=== PATIENT | female | born 1985 | race Caucasian/White ===

== ENCOUNTER 2023-08-18 20:35 | Emergency (ER) | payer BC, OTHER ==
[2023-08-18] MEDS ORDERED: Zofran 4 MG/2 ML VIAL IV ONE (21:11)
[2023-08-18] MEDS ORDERED: Sodium Chloride 0.9% 1000 ML 1,000 ML IV STA (21:11)
[2023-08-18] MEDS ORDERED: TYLENOL 325 MG PO ONE (21:11)
[2023-08-18] MEDS ORDERED: MORPHINE SULFATE 4 MG INJ IV ONE ×2 (21:11→23:04)
[2023-08-18 21:19] VITALS: TEMP 98.7
[2023-08-18] MEDS ORDERED: MORPHINE SULFATE 4 MG INJ ONE ×2 (21:26→23:11)
[2023-08-18] MEDS ORDERED: Sodium Chloride 0.9% 1000 ML 1,000 ML ONE ×2 (21:26→23:47)
[2023-08-18] MEDS ORDERED: TYLENOL 325 MG ONE ×2 (21:26→21:39)
[2023-08-18] MEDS ORDERED: Zofran 4 MG/2 ML VIAL ONE (21:26)
--- NOTE | 2023-08-18 21:32 | ERPHSYRPT ---
- History of Present Illness Time Seen by Provider: 08/18/23 20:37 Source: patient Exam Limitations: no limitations Patient Subjective Stated Complaint: pt states she has had an undefine fever with chills for the last 4 days that are accompanied with generalized constant b [place] aches with increased pain to left neck and left shoulder ("where my lymph nodes are swollen"). pain is rated 5/10 and she hasn't taken anything at home for her symptoms "because I am on eliquis". Triage Nursing Assessment: pt ambulated to room 9 independently with slow steady gait after standing on scale for weight acquisition (documented weight in kg is including an ortho tall walking boot to left foot/ ankle which pt states is due to having a chip fracture in talus bone that she is supposed to have MRI for). pt denies cp, sob, difficulty breathing, n/v, diarrhea, change in appetite, difficulty with urination (with exception of "junk and pus in neph tube", diffi culty with bowel elimination. pt is with resp even and unlabored. is alert and oriented times three, able to speak in complete sentences, and able to move all extremities (left ankle impaired due to boot). pt removed boot upon lying down in ED cot. skin warm, dry, pale, and intact. Physician History: 38-year-old female with a history of stage III cervical cancer status post chemoradiation, pulmonary embolism on Eliquis, ureteric mechanical obstruction status post nephrostomy tubes placement bilateral recently, taken out from the right and currently having 1 on the left presented in the ER with chief complaint of generalized body aches fatigue tiredness, subjective feeling of fever and chills for the last 4 days. Patient reports she has cloudy urine output from left nephrostomy tube lately. Has had similar symptoms in the past with sepsis. Patient is tachycardic but denies any chest pain palpitations or shortness of breath. Does have mild lower abdominal discomfort. Allergies/Adverse Reactions: ketamine Allergy (Intermediate, Verified 08/18/23 21:23) hallucinations metformin Allergy (Intermediate, Verified 08/18/23 21:24) hallucinations sulfamethoxazole [From Bactrim] Allergy (Intermediate, Verified 08/18/23 20:42) Hives trimethoprim [From Bactrim] Allergy (Intermediate, Verified 08/18/23 20:42) Hives Home Medications: Apixaban [Eliquis] 5 mg PO BID 08/18/23 [History] Ferrous Sulfate 325 mg [Feosol 325 mg] 325 mg PO HS 08/18/23 [History] Quetiapine Fumarate [Seroquel] 50 mg PO HS 08/18/23 [History] Hx Tetanus, Diphtheria Vaccination/Date Given: No Hx Influenza Vaccination/Date Given: No Hx Pneumococcal Vaccination/Date Given: No Immunizations Up to Date: No Travel Risk - International Travel Have you traveled outside of the country in past 3 weeks: No - Coronavirus Screening Are you exhibiting any of the following symptoms?: No Close contact with a COVID-19 positive Pt in past 14-21 Days: No - Vaccine Status Have you recieved a Covid-19 vaccination: No - Review of Systems Constitutional: Fever, Chills, Fatigue, Weakness Eyes: No Symptoms Ears, Nose, & Throat: No Symptoms Respiratory: No Symptoms Cardiac: No Symptoms Abdominal/Gastrointestinal: No Symptoms Musculoskeletal: Myalgias Skin: No Symptoms Neurological: No Symptoms, Sensory Changes Endocrine: No Symptoms Hematologic/Lymphatic: No Symptoms - Past Medical History Pertinent Past Medical History: Yes Neurological History: No Pertinent History ENT History: No Pertinent History Cardiac History: No Pertinent History Respiratory History: Pulmonary Embolism Endocrine Medical History: Other Musculoskeletal History: Fractures GI Medical History: No Pertinent History History: Other Psycho-Social History: Anxiety, Depression, Panic Disorder, Other Female Reproductive Disorders: Cervical Cancer Other Medical History: PTSD- talk to before touch when asleep. cervical ca stage 3C2 in surveillance stage- finished treatment in 04/05/23. left talus chip fx. hypertriglyceridemia. left sided neph tube. "fluoro gut". had right sided neph tube removed in Jun. 9cm tumor impeded flow requiring neph tubes. - Past Surgical History Past Surgical History: Yes Neuro Surgical History: No Pertinent History Cardiac: No Pertinent History Respiratory: No Pertinent History Gastrointestinal: No Pertinent History Genitourinary: No Pertinent History Musculoskeletal: No Pertinent History Female Surgical History: Tubal Ligation, Other Other Surgical History: bilat neph tube. sinus surgery. cervical tumor biopsy - Social History Smoking Status: Current every day smoker How long have you smoked: 15yo Exposure to second hand smoke: Yes Drug Use: none Patient Lives Alone: No - Female History Hx Last Menstrual Period: Aug 26 Hx Now: (unkn) - Nursing Vital Signs Nursing Vital Signs: Initial Vital Signs Temperature 98.7 F 08/18/23 20:44 Pulse Rate 128 H 08/18/23 20:44 Respiratory Rate 16 08/18/23 20:44 Blood Pressure 155/99 08/18/23 20:44 O2 Sat by Pulse Oximetry 100 08/18/23 20:44 Pain Scale Pain Intensity 5 - Physical Exam General Appearance: no apparent distress, alert Eye Exam: PERRL/EOMI Ears, Nose, Throat Exam: normal ENT inspection Neck Exam: normal inspection, non-tender, supple, full range of motion Respiratory Exam: normal breath sounds, lungs clear Cardiovascular Exam: normal heart sounds, tachycardia Gastrointestinal/Abdomen Exam: soft, normal bowel sounds, other (Left nephrostomy tube in place with cloudy urine), No tenderness Extremity Exam: normal inspection, normal range of motion Neurologic Exam: alert, oriented x 3, cooperative Skin Exam: normal color SpO2 Interpretation: normal SpO2: 98 O2 Delivery: Room Air Ordered Tests: Active Orders 24 hr Category Date Time Status IV Insertion STAT Care 08/18/23 21:11 Completed ABDOMEN AND PELVIS W/0 CONTRAS [CT] Stat Exams 08/18/23 21:12 Completed CHEST WITHOUT CONTRAST [CT] Stat Exams 08/18/23 21:14 Completed BLOOD CULTURE Stat Lab 08/18/23 21:12 Received CBC W DIFF Stat Lab 08/18/23 21:45 Completed CMP Stat Lab 08/18/23 21:45 Completed CULTURE,URINE Stat Lab 08/18/23 21:43 Received LIPASE Stat Lab 08/18/23 21:45 Completed Lactic Acid Stat Lab 08/18/23 21:40 Completed Lactic Acid Stat Lab 08/18/23 23:48 Completed MAGNESIUM Stat Lab 08/18/23 21:45 Completed POCT GLUCOSE Stat Lab 08/18/23 23:41 Completed TROPONIN Q3H Lab 08/18/23 21:45 Completed TROPONIN Q3H Lab 08/19/23 00:41 Completed UA W/RFX UR CULTURE Stat Lab 08/18/23 21:43 Completed Medication Summary Discontinued Medications Generic Name Dose Route Start Last Admin Trade Name Freq PRN Reason Stop Dose Admin Acetaminophen 975 mg 08/18/23 21:11 08/18/23 21:27 Acetaminophen 325 Mg Tablet PO 08/18/23 21:12 975 mg STAT ONE Administration Acetaminophen Confirm 08/18/23 21:26 Acetaminophen 325 Mg Tablet Administered 08/18/23 21:27 Dose 975 mg .ROUTE .STK-MED ONE Acetaminophen Confirm 08/18/23 21:39 Acetaminophen 325 Mg Tablet Administered 08/18/23 21:40 Dose 975 mg .ROUTE .STK-MED ONE Sodium Chloride 1,000 mls @ 999 mls/hr 08/18/23 21:11 08/18/23 22:43 Sodium Chloride 0.9% 1000 Ml IV 08/18/23 22:11 Infused .Q1H1M STA Infusion Sodium Chloride Confirm 08/18/23 21:26 Sodium Chloride 0.9% 1000 Ml Administered 08/18/23 21:27 Dose 1,000 mls @ ud .ROUTE .STK-MED ONE Ceftriaxone Sodium/Dextrose 2 g in 50 mls @ 100 mls/hr 08/18/23 22:32 08/18/23 23:19 Rocephin 2 Gm-D5w 50ml Bag IV 08/18/23 23:01 Infused STAT STA Infusion Ceftriaxone Sodium/Dextrose Confirm 08/18/23 22:36 Rocephin 2 Gm-D5w 50ml Bag Administered 08/18/23 22:37 Dose 2 g in 50 mls @ ud IV .STK-MED ONE Sodium Chloride 1,000 mls @ 125 mls/hr 08/18/23 23:45 08/19/23 06:10 Sodium Chloride 0.9% 1000 Ml IV 09/17/23 23:44 0 mls/hr .Q8H MIR[place]LE Infusion Sodium Chloride Confirm 08/18/23 23:47 Sodium Chloride 0.9% 1000 Ml Administered 08/18/23 23:48 Dose 1,000 mls @ ud .ROUTE .STK-MED ONE Insulin Human Lispro 4 unit 08/18/23 23:49 08/18/23 23:50 Insulin Lispro 1 Unit SQ 08/18/23 23:50 4 unit STAT ONE Administration Insulin Human Lispro Confirm 08/18/23 23:46 Insulin Lispro 1 Unit Administered 08/18/23 23:47 Dose 4 unit .ROUTE .STK-MED ONE Morphine Sulfate 4 mg 08/18/23 21:11 08/18/23 21:28 Morphine Sulfate 4 Mg/Ml Injection IV 08/18/23 21:12 4 mg STAT ONE Administration Morphine Sulfate Confirm 08/18/23 21:26 Morphine Sulfate 4 Mg/Ml Injection Administered 08/18/23 21:27 Dose 4 mg .ROUTE .STK-MED ONE Morphine Sulfate 4 mg 08/18/23 23:04 08/18/23 23:12 Morphine Sulfate 4 Mg/Ml Injection IV 08/18/23 23:05 4 mg STAT ONE Administration Morphine Sulfate Confirm 08/18/23 23:11 Morphine Sulfate 4 Mg/Ml Injection Administered 08/18/23 23:12 Dose 4 mg .ROUTE .STK-MED ONE Ondansetron HCl 4 mg 08/18/23 21:11 08/18/23 21:28 Ondansetron Hcl 4 Mg/2 Ml Vial IV 08/18/23 21:12 4 mg STAT ONE Administration Ondansetron HCl Confirm 08/18/23 21:26 Ondansetron Hcl 4 Mg/2 Ml Vial Administered 08/18/23 21:27 Dose 4 mg .ROUTE .STK-MED ONE Lab/Rad Data: Laboratory Result Diagrams 08/18/23 21:45 08/18/23 21:45 Laboratory Results 08/19/23 08/18/23 08/18/23 Range/Units 00:41 23:48 23:41 WBC (4.0-10.5) x10^3/uL RBC (4.1-5.4) x10^6/uL Hgb (12.0-16.0) g/dL Hct (35-47) % MCV (78-100) fL MCH (26-32) pg MCHC (32-36) g/dL RDW (11.5-14.0) % Plt Count (150-450) x10^3/uL MPV (7.5-11.0) fL Gran % (36.0-66.0) % Immature Gran % (Auto) (0.00-0.4) % Nucleat RBC Rel Count (0.00-0.1) % Eos # (Auto) (0-0.5) x10^3/uL Immature Gran # (Auto) (0.00-0.03) x10^3u/L Absolute Lymphs (auto) (1.0-4.6) x10^3/uL Absolute Monos (auto) (0.0-1.3) x10^3/uL Absolute Nucleated RBC (0.00-0.01) x10^3u/L Lymphocytes % (24.0-44.0) % Monocytes % (0.0-12.0) % Eosinophils % (0.00-5.0) % Basophils % (0.0-0.4) % Absolute Granulocytes (1.4-6.9) x10^3/uL Basophils # (0-0.4) x10^3/uL Sodium (137-145) mmol/L Potassium (3.5-5.1) mmol/L Chloride (98-107) mmol/L Carbon Dioxide (22-30) mmol/L Anion Gap (5-15) MEQ/L BUN (7-17) mg/dL Creatinine (0.52-1.04) mg/dL Estimated GFR ML/MIN Glucose (74-106) mg/dL POC Glucometer 249 H (74 to 106) mg/dL Lactic Acid 1.4 (0.4-2.0) Calcium (8.4-10.2) mg/dL Magnesium (1.6-2.3) mg/dL Total Bilirubin (0.2-1.3) mg/dL AST (14-36) U/L ALT (0-35) U/L Alkaline Phosphatase (38-126) U/L Troponin I < 0.012 (0.000-0.034) ng/mL Serum Total Protein (6.3-8.2) g/dL Albumin (3.5-5.0) g/dL Lipase (23-300) U/L Urine Color (Yellow) Urine Appearance (Clear) Urine pH (4.6-8.0) Ur Specific [place] (1.005-1.030) Urine Protein (Negative) Urine Glucose (UA) (Negative) mg/dL Urine Ketones (Negative) Urine Blood (Negative) Urine Nitrite (Negative) Urine Bilirubin (Negative) Urine Urobilinogen (0.2) mg/dL Ur Leukocyte Esterase (Negative) U Hyaline Cast (Auto) (0-2) /LPF Urine Microscopic RBC (0-5) /HPF Urine Microscopic WBC (0-5) /HPF Ur Epithelial Cells (None Seen) /HPF Urine Bacteria (None Seen) /HPF Urine Culture Reflexed (NO) Influenza Type A Ag (NEGATIVE) Influenza Type B Ag (NEGATIVE) RSV (PCR) (NEGATIVE) SARS-CoV-2 (PCR) (NEGATIVE) 08/18/23 08/18/23 08/18/23 Range/Units 21:45 21:45 21:45 WBC (4.0-10.5) x10^3/uL RBC (4.1-5.4) x10^6/uL Hgb (12.0-16.0) g/dL Hct (35-47) % MCV (78-100) fL MCH (26-32) pg MCHC (32-36) g/dL RDW (11.5-14.0) % Plt Count (150-450) x10^3/uL MPV (7.5-11.0) fL Gran % (36.0-66.0) % Immature Gran % (Auto) (0.00-0.4) % Nucleat RBC Rel Count (0.00-0.1) % Eos # (Auto) (0-0.5) x10^3/uL Immature Gran # (Auto) (0.00-0.03) x10^3u/L Absolute Lymphs (auto) (1.0-4.6) x10^3/uL Absolute Monos (auto) (0.0-1.3) x10^3/uL Absolute Nucleated RBC (0.00-0.01) x10^3u/L Lymphocytes % (24.0-44.0) % Monocytes % (0.0-12.0) % Eosinophils % (0.00-5.0) % Basophils % (0.0-0.4) % Absolute Granulocytes (1.4-6.9) x10^3/uL Basophils # (0-0.4) x10^3/uL Sodium 134 L (137-145) mmol/L Potassium 4.5 (3.5-5.1) mmol/L Chloride 99 (98-107) mmol/L Carbon Dioxide 24 (22-30) mmol/L Anion Gap 16.0 H (5-15) MEQ/L BUN 20 H (7-17) mg/dL Creatinine 0.79 (0.52-1.04) mg/dL Estimated GFR > 60.0 ML/MIN Glucose 350 H (74-106) mg/dL POC Glucometer (74 to 106) mg/dL Lactic Acid (0.4-2.0) Calcium 10.0 (8.4-10.2) mg/dL Magnesium 1.7 (1.6-2.3) mg/dL Total Bilirubin 0.40 (0.2-1.3) mg/dL AST 20 (14-36) U/L ALT 20 (0-35) U/L Alkaline Phosphatase 137 H (38-126) U/L Troponin I < 0.012 (0.000-0.034) ng/mL Serum Total Protein 7.0 (6.3-8.2) g/dL Albumin 4.1 (3.5-5.0) g/dL Lipase 142 (23-300) U/L Urine Color (Yellow) Urine Appearance (Clear) Urine pH (4.6-8.0) Ur Specific [place] (1.005-1.030) Urine Protein (Negative) Urine Glucose (UA) (Negative) mg/dL Urine Ketones (Negative) Urine Blood (Negative) Urine Nitrite (Negative) Urine Bilirubin (Negative) Urine Urobilinogen (0.2) mg/dL Ur Leukocyte Esterase (Negative) U Hyaline Cast (Auto) (0-2) /LPF Urine Microscopic RBC (0-5) /HPF Urine Microscopic WBC (0-5) /HPF Ur Epithelial Cells (None Seen) /HPF Urine Bacteria (None Seen) /HPF Urine Culture Reflexed (NO) Influenza Type A Ag NEGATIVE (NEGATIVE) Influenza Type B Ag NEGATIVE (NEGATIVE) RSV (PCR) NEGATIVE (NEGATIVE) SARS-CoV-2 (PCR) NEGATIVE (NEGATIVE) 08/18/23 08/18/23 08/18/23 Range/Units 21:45 21:43 21:40 WBC 8.5 (4.0-10.5) x10^3/uL RBC 4.12 (4.1-5.4) x10^6/uL Hgb 11.3 L (12.0-16.0) g/dL Hct 34.7 L (35-47) % MCV 84.2 (78-100) fL MCH 27.4 (26-32) pg MCHC 32.6 (32-36) g/dL RDW 14.6 H (11.5-14.0) % Plt Count 352 (150-450) x10^3/uL MPV 9.1 (7.5-11.0) fL Gran % 79.4 H (36.0-66.0) % Immature Gran % (Auto) 0.6 H (0.00-0.4) % Nucleat RBC Rel Count 0.0 (0.00-0.1) % Eos # (Auto) 0.38 (0-0.5) x10^3/uL Immature Gran # (Auto) 0.05 H (0.00-0.03) x10^3u/L Absolute Lymphs (auto) 0.71 L (1.0-4.6) x10^3/uL Absolute Monos (auto) 0.56 (0.0-1.3) x10^3/uL Absolute Nucleated RBC 0.00 (0.00-0.01) x10^3u/L Lymphocytes % 8.4 L (24.0-44.0) % Monocytes % 6.6 (0.0-12.0) % Eosinophils % 4.5 (0.00-5.0) % Basophils % 0.5 (0.0-0.4) % Absolute Granulocytes 6.73 (1.4-6.9) x10^3/uL Basophils # 0.04 (0-0.4) x10^3/uL Sodium (137-145) mmol/L Potassium (3.5-5.1) mmol/L Chloride (98-107) mmol/L Carbon Dioxide (22-30) mmol/L Anion Gap (5-15) MEQ/L BUN (7-17) mg/dL Creatinine (0.52-1.04) mg/dL Estimated GFR ML/MIN Glucose (74-106) mg/dL POC Glucometer (74 to 106) mg/dL Lactic Acid 3.2 H (0.4-2.0) Calcium (8.4-10.2) mg/dL Magnesium (1.6-2.3) mg/dL Total Bilirubin (0.2-1.3) mg/dL AST (14-36) U/L ALT (0-35) U/L Alkaline Phosphatase (38-126) U/L Troponin I (0.000-0.034) ng/mL Serum Total Protein (6.3-8.2) g/dL Albumin (3.5-5.0) g/dL Lipase (23-300) U/L Urine Color Yellow (Yellow) Urine Appearance Cloudy A (Clear) Urine pH 7.0 (4.6-8.0) Ur Specific [place] 1.025 (1.005-1.030) Urine Protein 100 A (Negative) Urine Glucose (UA) >=1000 A (Negative) mg/dL Urine Ketones Negative (Negative) Urine Blood Small A (Negative) Urine Nitrite Positive A (Negative) Urine Bilirubin Negative (Negative) Urine Urobilinogen 0.2 (0.2) mg/dL Ur Leukocyte Esterase Moderate A (Negative) U Hyaline Cast (Auto) 3-5 A (0-2) /LPF Urine Microscopic RBC 6-10 A (0-5) /HPF Urine Microscopic WBC >100 A (0-5) /HPF Ur Epithelial Cells None Seen (None Seen) /HPF Urine Bacteria Many A (None Seen) /HPF Urine Culture Reflexed ORDERED SEPARATELY (NO) Influenza Type A Ag (NEGATIVE) Influenza Type B Ag (NEGATIVE) RSV (PCR) (NEGATIVE) SARS-CoV-2 (PCR) (NEGATIVE) - Progress Progress: improved Progress Note: 08/18/23 21:33 38-year-old female with a history of stage III cervical cancer status post chemoradiation, pulmonary embolism on Eliquis, ureteric mechanical obstruction status post nephrostomy tubes placement bilateral recently, taken out from the right and currently having 1 on the left presented in the ER with chief complaint of generalized body aches fatigue tiredness, subjective feeling of fever and chills for the last 4 days. Patient reports she has cloudy urine output from left nephrostomy tube lately. Has had similar symptoms in the past with sepsis. Patient is tachycardic but denies any chest pain palpitations or shortness of breath. Does have mild lower abdominal discomfort. 08/18/23 23:52 She is given fluids and symptomatic treatment, on reevaluation feeling better. Patient is afebrile and here. Work-up showed normal white count, normal renal functions but has a blood sugar of 350, will give her insulin. She does have UTI and given a dose of Rocephin in here. I have obtained CT chest abdomen pelvis without contrast which are negative for any acute intrathoracic/abdominal pelvic findings. I believe patient has urosepsis. She has nephrostomy tube on the left and would benefit with urology services which we do not have here. Patient has her last nephrostomy tube replacement done by Dr. White at [facility], I have called [facility] transfer center. Discussed with Dr. White, no IR services are available at [facility]. Patient will be transferred to [facility]. 08/19/23 00:[address] Ivan mclaughlin at [facility], reviewed history, work-up, agreed with transfer. I have discussed the results of work-up with patient and family, plan of transfer and she agreed with it. Counseled pt/family regarding: lab results, diagnosis, need for follow-up, rad results Medical Desision Making - Independent Historian Additional History obtained from: Spouse - Discussion of managment Care discussed with:: specialist (Dr. White urologist at [facility], Dr. Love hospitalist at [facility] [id number]) Reviewed:: Test results Agreed on:: Treatment plan Will see patient: in hospital (Dr. White urologist and Dr. Mclaughlin) - Diagnostic Testing Diagnostic test were ordered, analyzed, and reviewed by me: Yes Radiological Interpretation: Reviewed by me - Risk of complications The pt has a mod risk of morbidity or mortality based on: Need for minor surgical intervention in patient with know risk factors The pt has a high risk of morbidity or mortality based on: Decision regarding hospitilization or escalation of hosp level of care - Departure Departure Disposition: Transfer Clinical Impression: Sepsis secondary to UTI, Hyperglycemia Condition: Stable Critical Care Time: No Referrals: Provider,Unknown [Primary Care Provider] - Follow up/PCP as directed
[2023-08-18 21:54] LABS: Absolute Neutrophil Ct (ANC) 6.73 x10^3/uL (1.4-6.9); BASOPHIL % 0.5 % (0.0-0.4); Basophil (Absolute #) 0.04 x10^3/uL (0-0.4); Eosinophil % 4.5 % (0.00-5.0); Eosinophil (Absolute #) 0.38 x10^3/uL (0-0.5); Hematocrit 34.7 % (35-47); Hemoglobin 11.3 g/dL (12.0-16.0); IMMATURE GRAN # 0.05 x10^3u/L (0.00-0.03); IMMATURE GRAN % 0.6 % (0.00-0.4); Lymphocyte (Absolute #) 0.71 x10^3/uL (1.0-4.6); Lymphocytes % 8.4 % (24.0-44.0); Mean Cell Volume 84.2 fL (78-100); Mean Corpuscular Hemoglobin 27.4 pg (26-32); Mean Corpuscular Hgb Concent. 32.6 g/dL (32-36); Mean Platelet Volume 9.1 fL (7.5-11.0); Monocyte (Absolute #) 0.56 x10^3/uL (0.0-1.3); Monocytes % 6.6 % (0.0-12.0); Neutrophil % 79.4 % (36.0-66.0); Platelet Count 352 x10^3/uL (150-450); Red Blood Count 4.12 x10^6/uL (4.1-5.4); Red Cell Distribution Width 14.6 % (11.5-14.0); White Blood Count 8.5 x10^3/uL (4.0-10.5)
[2023-08-18 22:07] LABS: Appearance Cloudy (Clear); Bacteria Many /HPF (None Seen); Bilirubin Negative (Negative); Blood Small (Negative); Epithelial Cells None Seen /HPF (None Seen); Glucose, Urine >=1000 mg/dL (Negative); Ketones Negative (Negative); Leukocyte Esterase Moderate (Negative); Nitrite Positive (Negative); Protein,Urine Dip 100 (Negative); Specific Gravity 1.025 (1.005-1.030); Urobilinogen 0.2 mg/dL (0.2); WBC >100 /HPF (0-5)
[2023-08-18 22:08] LABS: ALBUMIN 4.1 g/dL (3.5-5.0); ALKALINE PHOSPHATASE 137 U/L (38-126); BLOOD UREA NITROGEN 20 mg/dL (7-17); CHLORIDE 99 mmol/L (98-107); Carbon Dioxide 24 mmol/L (22-30); Creatinine 1 0.79 mg/dL (0.52-1.04); EST GLOMERULAR FILTRATION RATE > 60.0 ML/MIN; Glucose 350 mg/dL (74-106); LIPASE 142 U/L (23-300); MAGNESIUM 1.7 mg/dL (1.6-2.3); Potassium 4.5 mmol/L (3.5-5.1); SGOT/AST 20 U/L (14-36); SGPT/ALT 20 U/L (0-35); SODIUM 134 mmol/L (137-145)
[2023-08-18 22:18] LABS: ADD URINE CULTURE? ORDERED SEPARATELY (NO)
[2023-08-18] MEDS ORDERED: ROCEPHIN 2 Gm-D5w 50ML BAG** 2 G/50 ML IVPB IV STA (22:32)
[2023-08-18 22:34] LABS: INFLUENZA A NEGATIVE (NEGATIVE); INFLUENZA B NEGATIVE (NEGATIVE); RESPIRATORY SYNCTIAL VIRUS NEGATIVE (NEGATIVE); SARS-CoV-2 Xpert Express NEGATIVE (NEGATIVE)
[2023-08-18] MEDS ORDERED: ROCEPHIN 2 Gm-D5w 50ML BAG** 2 G/50 ML IVPB IV ONE (22:36)
--- NOTE | 2023-08-18 22:51 | XRAY ---
CLINICAL HISTORY:fever COMPARISON:None. TECHNIQUE:Contiguous axial CT images of the chest were acquired without administration of intravenous contrast. Coronal and sagittal reconstructions were obtained. FINDINGS: The scanned pulmonary parenchyma shows no definite consolidative lesions. No pneumothorax. No free or encysted pleural effusion. Heart size is normal, and there is no pericardial effusion. No pathologically enlarged mediastinal, hilar, or axillary lymph node was identified. Calcified lymph nodes are seen in the right upper and lower paratracheal and right hilar regions, measuring up to 7.4 mm in short-axis diameter. A triangular soft tissue density is seen in the prevascular region, which may represent the thymus. There is no definite mass lesion in the chest wall. Marginal osteophytes are seen in the thoracic vertebral bodies. IMPRESSION: 1. No definite consolidative lesions. 2. Mediastinal calcified lymphadenopathy, measuring up to 7.4 mm. Electronically Signed by: John Guillaume MD. (08/18/2023 21:50:35 [employer])
--- NOTE | 2023-08-18 23:02 | XRAY ---
CLINICAL HISTORY:fever, r/p obstruction COMPARISON:None. TECHNIQUE:A CT scan of the abdomen and pelvis was performed without IV contrast. Coronal and sagittal reconstructive images were also obtained. FINDINGS: Abdomen: The liver is slightly enlarged measuring 17.6 cm craniocaudally. No diffuse or focal parenchymal abnormality. The portal vein, intrahepatic biliary radicals and the bile ducts are normal. The spleen is normal in size with multiple small calcifications in the parenchyma. The pancreas and adrenal glands are unremarkable. The kidneys are normal in size and shape. No cysts, mass, calculi, or hydronephrosis. A left-sided percutaneous nephrostomy tube is seen with its tip with the left renal pelvis. Minimal left proximal periureteric fat stranding. The gallbladder is mildly contract, which may still be physiologic and shows no definite stones. There is no evidence of wall thickening/ pericholecystic collection. The ascending colon, the transverse colon, the descending colon, visualized small bowel loops are unremarkable. Fecal stasis is noted in the colon. The stomach is distended. There is no evidence of significant enlargement of the mesenteric or retroperitoneal lymph nodes. Pelvis: The urinary bladder is unremarkable. The uterus is normal. The pelvic vasculature is unremarkable. No evidence of pelvic lymphadenopathy. Small marginal osteophytes are seen in the vertebral bodies. There is a small focal sclerosis in the left sacral bone. IMPRESSION: 1. Mild hepatomegaly. 2. Multiple splenic calcifications. 3. Left-sided percutaneous nephrostomy tube with its tip with the left renal pelvis. 4. Mildly contracted gallbladder, may still be physiologic. Clinical correlation is suggested. 5. Fecal retention. 6. Distended stomach. Electronically Signed by: John Guillaume MD. (08/18/2023 22:01:08 HR PAYROLL COORDINATOR)
[2023-08-18] MEDS ORDERED: Sodium Chloride 0.9% 1000 ML 1,000 ML IV SCH (23:45)
[2023-08-18] MEDS ORDERED: HUMALOG ONE (23:46)
[2023-08-18] MEDS ORDERED: HUMALOG SQ ONE (23:49)
[2023-08-19 06:27] VITALS: BP 124/78; PULSE 87; RESP 20; O2SAT 98
== END 2023-08-19 06:15 | disposition short-term general hospital (02) ==
LOC: ED 20:35
DX: A41.9 Sepsis, unspecified organism (principal); N39.0 Urinary tract infection, site not specified; R73.9 Hyperglycemia, unspecified; M79.10 Myalgia, unspecified site; R53.83 Other fatigue; Z93.6 Other artificial openings of urinary tract status; Z79.01 Long term (current) use of anticoagulants; Z79.899 Other long term (current) drug therapy; Z28.310 Unvaccinated for COVID-19; Z72.0 Tobacco use
CPT/HCPCS: 0241U; 36000; 36415; 71250; 74176; 80053; 81001; 82947; 83605; 83690; 83735; 84484; 85025; 87040; 87086; 96360; 96361; 96365; 96372; 96374; 96375; 96376; 99285; J0696; J1817; J2270; J2405; A9270-GY

== ENCOUNTER 2023-12-15 01:42 | Emergency (ER) | payer OTHER ==
--- NOTE | 2023-12-15 01:45 | ERPHSYRPT ---
- History of Present Illness Time Seen by Provider: 12/15/23 01:45 Source: patient Exam Limitations: no limitations Physician History: This is a 38-year-old white female patient who was diagnosed in the last several months with stage III cervical cancer and underwent chemoradiation therapy and bilateral ureteral stent placement. She continues to have the left ureteral stent in place and is supposed to have this removed next week. Patient has not had a hysterectomy. Patient states that the tumor is present and it shrunk down. They have not removed the tumor at this point. Patient presents with pelvic pain and some gross hematuria. She had similar symptoms earlier in the week and was seen at [facility] emergency department where they did a workup including CAT scan of the abdomen pelvis. Patient does not feel any better after being placed on Macrobid antibiotics. She was diagnosed with a urinary tract infection. Patient has chronic anemia, she is on Eliquis secondary to pulmonary embolus that was present in the past. She has a history of anxiety and panic disorder. She also has a history of PTSD. Patient also has a history of sepsis and she wanted to make sure she is seen early to help avoid the septic picture. Patient also states that she has a compression fracture of L1 that she is aware of. Timing/Duration: week(s) (1), worse Activites at Onset: none Quality: sharpness, stabbing Onset Location: pelvic pain Severity of Pain-Max: moderate Severity of Pain-Current: moderate Prior abdominal problems: none Sexual intercourse history: non-contributory Modifying Factors: Improves With: nothing Associated Symptoms: abdominal pain, dysuria, other (Gross hematuria), No nausea, No vomiting, No urinary frequency, No lower back pain Allergies/Adverse Reactions: ketamine Allergy (Intermediate, Verified 12/15/23 02:09) hallucinations metformin Allergy (Intermediate, Verified 12/15/23 02:09) hallucinations sulfamethoxazole [From Bactrim] Allergy (Intermediate, Verified 12/15/23 02:09) Hives trimethoprim [From Bactrim] Allergy (Intermediate, Verified 12/15/23 02:09) Hives Home Medications: Apixaban [Eliquis] 5 mg PO BID 08/18/23 [History] Ferrous Sulfate 325 mg [Feosol 325 mg] 325 mg PO HS 08/18/23 [History] Quetiapine Fumarate [Seroquel] 50 mg PO HS 08/18/23 [History] Hx Tetanus, Diphtheria Vaccination/Date Given: No Hx Influenza Vaccination/Date Given: No Hx Pneumococcal Vaccination/Date Given: No Travel Risk - International Travel Have you traveled outside of the country in past 3 weeks: No - Coronavirus Screening Are you exhibiting any of the following symptoms?: No Close contact with a COVID-19 positive Pt in past 14-21 Days: No - Vaccine Status Have you recieved a Covid-19 vaccination: No - Review of Systems Constitutional: No Symptoms Eyes: No Symptoms Ears, Nose, & Throat: No Symptoms Respiratory: No Symptoms Cardiac: No Symptoms Abdominal/Gastrointestinal: Abdominal Pain (Thick) Genitourinary Symptoms: Hematuria (Gross) Musculoskeletal: No Symptoms Skin: No Symptoms Neurological: No Symptoms Psychological: No Symptoms Endocrine: No Symptoms Hematologic/Lymphatic: No Symptoms Immunological/Allergic: No Symptoms All Other Systems: Reviewed and Negative - Past Medical History Pertinent Past Medical History: Yes Neurological History: No Pertinent History ENT History: No Pertinent History Cardiac History: No Pertinent History Respiratory History: Pulmonary Embolism Endocrine Medical History: Other Musculoskeletal History: Fractures GI Medical History: No Pertinent History History: Other Psycho-Social History: Anxiety, Depression, Panic Disorder, Other Female Reproductive Disorders: Cervical Cancer Other Medical History: PTSD- talk to before touch when asleep. cervical ca stage 3C2 in surveillance stage- finished treatment in 04/05/23. left talus chip fx. hypertriglyceridemia. left sided neph tube. "fluoro gut". had right sided neph tube removed in Jun. 9cm tumor impeded flow requiring neph tubes. - Past Surgical History Past Surgical History: Yes Neuro Surgical History: No Pertinent History Cardiac: No Pertinent History Respiratory: No Pertinent History Gastrointestinal: No Pertinent History Genitourinary: No Pertinent History Musculoskeletal: No Pertinent History Female Surgical History: Tubal Ligation, Other Other Surgical History: bilat neph tube. sinus surgery. cervical tumor biopsy - Social History Smoking Status: Current every day smoker How long have you smoked: 15yo Exposure to second hand smoke: Yes Drug Use: none Patient Lives Alone: No - Nursing Vital Signs Nursing Vital Signs: Initial Vital Signs Temperature 98.2 F 12/15/23 01:53 Pulse Rate 115 H 12/15/23 01:53 Respiratory Rate 18 12/15/23 01:53 Blood Pressure 143/69 12/15/23 01:53 O2 Sat by Pulse Oximetry 99 12/15/23 01:53 Pain Scale Pain Intensity 6 - Physical Exam General Appearance: no apparent distress, alert, anxiety Eye Exam: PERRL/EOMI, eyes nml inspection Ears, Nose, Throat Exam: normal ENT inspection, moist mucous membranes Neck Exam: normal inspection, non-tender, supple, full range of motion Respiratory Exam: normal breath sounds, lungs clear, airway intact, No chest tenderness, No respiratory distress Cardiovascular Exam: tachycardia (Mild) Gastrointestinal/Abdomen Exam: soft, normal bowel sounds, tenderness (Prepubic), No guarding, No rebound Pelvic Exam: not done Rectal Exam: not done Back Exam: normal inspection, normal range of motion, No CVA tenderness, No vertebral tenderness Extremity Exam: normal inspection, normal range of motion, pelvis stable Neurologic Exam: alert, oriented x 3, cooperative, adventure education teacher II-XII nml as tested, normal mood/affect, nml cerebellar function, nml station & gait, sensation nml Skin Exam: normal color, warm, dry Lymphatic Exam: No adenopathy O2 Delivery: Room Air - Course Nursing assessment & vital signs reviewed: Yes Ordered Tests: Active Orders 24 hr Category Date Time Status IV Insertion STAT Care 12/15/23 02:15 Active ABDOMEN AND PELVIS W/0 CONTRAS [CT] Stat Exams 12/15/23 02:15 Completed CBC W DIFF Stat Lab 12/15/23 02:49 Completed CMP Stat Lab 12/15/23 02:49 Completed CULTURE,URINE Stat Lab 12/15/23 04:29 Received Lactic Acid Stat Lab 12/15/23 04:50 Completed UA W/RFX UR CULTURE Stat Lab 12/15/23 04:29 Completed Medication Summary Discontinued Medications Generic Name Dose Route Start Last Admin Trade Name Shahriarq PRN Reason Stop Dose Admin Hydromorphone HCl 1 mg 12/15/23 02:50 12/15/23 03:06 Hydromorphone 1 Mg/1ml Inj IV 12/15/23 02:51 1 mg STAT ONE Administration Hydromorphone HCl Confirm 12/15/23 03:02 Hydromorphone 1 Mg/1ml Inj Administered 12/15/23 03:03 Dose 1 mg .ROUTE .STK-MED ONE Sodium Chloride 1,000 mls @ 999 mls/hr 12/15/23 02:50 12/15/23 04:22 Sodium Chloride 0.9% 1000 Ml IV 12/15/23 03:50 Infused .Q1H1M STA Infusion Sodium Chloride Confirm 12/15/23 03:02 Sodium Chloride 0.9% 1000 Ml Administered 12/15/23 03:03 Dose 1,000 mls @ ud .ROUTE .STK-MED ONE Sodium Chloride 500 mls @ 500 mls/hr 12/15/23 05:00 12/15/23 05:10 Sodium Chloride 0.9% 500 Ml IV 12/15/23 05:59 500 mls/hr .Q1H ONE Administration Ceftriaxone Sodium 1 gm in 100 mls @ 200 mls/hr 12/15/23 05:01 12/15/23 05:10 Rocephin 1 Gm / 100 Ml Nacl IV 12/15/23 05:30 200 ml/hr STAT ONE 200 mls/hr Administration Ceftriaxone Sodium Confirm 12/15/23 05:06 Rocephin 1 Gm / 100 Ml Nacl Administered 12/15/23 05:07 Dose 1 gm in 100 mls @ ud IV .STK-MED ONE Sodium Chloride Confirm 12/15/23 05:06 Sodium Chloride 0.9% 500 Ml Administered 12/15/23 05:07 Dose 500 mls @ ud IV .STK-MED ONE Prochlorperazine Edisylate 5 mg 12/15/23 02:50 12/15/23 03:06 Prochlorperazine Edisylate 10 Mg/2 Ml Vial IV 12/15/23 02:51 5 mg STAT ONE Administration Prochlorperazine Edisylate Confirm 12/15/23 03:02 Prochlorperazine Edisylate 10 Mg/2 Ml Vial Administered 12/15/23 03:03 Dose 10 mg .ROUTE .STK-MED ONE Lab/Rad Data: Laboratory Result Diagrams 12/15/23 02:49 12/15/23 02:49 Laboratory Results 12/15/23 12/15/23 12/15/23 Range/Units 04:50 04:29 02:49 WBC (4.0-10.5) x10^3/uL RBC (4.1-5.4) x10^6/uL Hgb (12.0-16.0) g/dL Hct (35-47) % MCV (78-100) fL MCH (26-32) pg MCHC (32-36) g/dL RDW (11.5-14.0) % Plt Count (150-450) x10^3/uL MPV (7.5-11.0) fL Gran % (36.0-66.0) % Immature Gran % (Auto) (0.00-0.4) % Nucleat RBC Rel Count (0.00-0.1) % Eos # (Auto) (0-0.5) x10^3/uL Immature Gran # (Auto) (0.00-0.03) x10^3u/L Absolute Lymphs (auto) (1.0-4.6) x10^3/uL Absolute Monos (auto) (0.0-1.3) x10^3/uL Absolute Nucleated RBC (0.00-0.01) x10^3u/L Lymphocytes % (24.0-44.0) % Monocytes % (0.0-12.0) % Eosinophils % (0.00-5.0) % Basophils % (0.0-0.4) % Absolute Granulocytes (1.4-6.9) x10^3/uL Basophils # (0-0.4) x10^3/uL Sodium 131 L (137-145) mmol/L Potassium 4.0 (3.5-5.1) mmol/L Chloride 100 (98-107) mmol/L Carbon Dioxide 23 (22-30) mmol/L Anion Gap 12.3 (5-15) MEQ/L BUN 28 H (7-17) mg/dL Creatinine 0.81 (0.52-1.04) mg/dL Estimated GFR 94.6 ML/MIN Glucose 332 H (74-106) mg/dL Lactic Acid 1.7 (0.4-2.0) Calcium 9.0 (8.4-10.2) mg/dL Total Bilirubin 0.30 (0.2-1.3) mg/dL AST 15 (14-36) U/L ALT 15 (0-35) U/L Alkaline Phosphatase 172 H (38-126) U/L Serum Total Protein 6.6 (6.3-8.2) g/dL Albumin 3.3 L (3.5-5.0) g/dL Urine Color [place] A (Yellow) Urine Appearance Turbid A (Clear) Urine pH 6.5 (4.6-8.0) Ur Specific [place] 1.025 (1.005-1.030) Urine Protein 100 A (Negative) Urine Glucose (UA) >=1000 A (Negative) mg/dL Urine Ketones Negative (Negative) Urine Blood Large A (Negative) Urine Nitrite Negative (Negative) Urine Bilirubin Negative (Negative) Urine Urobilinogen 1.0 A (0.2) mg/dL Ur Leukocyte Esterase Moderate A (Negative) Urine Microscopic RBC >100 A (0-5) /HPF Urine Microscopic WBC >100 A (0-5) /HPF Ur Epithelial Cells None Seen (None Seen) /HPF Urine Bacteria None Seen (None Seen) /HPF Urine Culture Reflexed YES (NO) 12/15/23 Range/Units 02:49 WBC 13.5 H (4.0-10.5) x10^3/uL RBC 3.85 L (4.1-5.4) x10^6/uL Hgb 9.5 L (12.0-16.0) g/dL Hct 30.9 L (35-47) % MCV 80.3 (78-100) fL MCH 24.7 L (26-32) pg MCHC 30.7 L (32-36) g/dL RDW 15.4 H (11.5-14.0) % Plt Count 505 H (150-450) x10^3/uL MPV 8.8 (7.5-11.0) fL Gran % 83.0 H (36.0-66.0) % Immature Gran % (Auto) 1.0 H (0.00-0.4) % Nucleat RBC Rel Count 0.0 (0.00-0.1) % Eos # (Auto) 0.35 (0-0.5) x10^3/uL Immature Gran # (Auto) 0.14 H (0.00-0.03) x10^3u/L Absolute Lymphs (auto) 1.16 (1.0-4.6) x10^3/uL Absolute Monos (auto) 0.56 (0.0-1.3) x10^3/uL Absolute Nucleated RBC 0.00 (0.00-0.01) x10^3u/L Lymphocytes % 8.6 L (24.0-44.0) % Monocytes % 4.2 (0.0-12.0) % Eosinophils % 2.6 (0.00-5.0) % Basophils % 0.6 (0.0-0.4) % Absolute Granulocytes 11.16 H (1.4-6.9) x10^3/uL Basophils # 0.08 (0-0.4) x10^3/uL Sodium (137-145) mmol/L Potassium (3.5-5.1) mmol/L Chloride (98-107) mmol/L Carbon Dioxide (22-30) mmol/L Anion Gap (5-15) MEQ/L BUN (7-17) mg/dL Creatinine (0.52-1.04) mg/dL Estimated GFR ML/MIN Glucose (74-106) mg/dL Lactic Acid (0.4-2.0) Calcium (8.4-10.2) mg/dL Total Bilirubin (0.2-1.3) mg/dL AST (14-36) U/L ALT (0-35) U/L Alkaline Phosphatase (38-126) U/L Serum Total Protein (6.3-8.2) g/dL Albumin (3.5-5.0) g/dL Urine Color (Yellow) Urine Appearance (Clear) Urine pH (4.6-8.0) Ur Specific [place] (1.005-1.030) Urine Protein (Negative) Urine Glucose (UA) (Negative) mg/dL Urine Ketones (Negative) Urine Blood (Negative) Urine Nitrite (Negative) Urine Bilirubin (Negative) Urine Urobilinogen (0.2) mg/dL Ur Leukocyte Esterase (Negative) Urine Microscopic RBC (0-5) /HPF Urine Microscopic WBC (0-5) /HPF Ur Epithelial Cells (None Seen) /HPF Urine Bacteria (None Seen) /HPF Urine Culture Reflexed (NO) - Progress Progress: improved, re-examined Air Movement: good Progress Note: 12/15/23 03:12 This patient's medical issue is at least of moderate complexity. The level of complexity and the workup performed is based on review of the patient's past medical history, review the patient's medication list, review of the patient's drug allergy list, history of present illness and physical findings on examination. The workup in this patient includes placement of intravenous line, infusion of normal saline solution, infusion of Dilaudid, infusion of Compazine IV, CBC, CMP, lactic acid level, urinalysis, CT scan of the abdomen pelvis without contrast. 12/15/23 04:43 CT scan of the abdomen pelvis without contrast was interpreted by the radi ologist and I reviewed the impression. There is a compression fracture of L1 with sclerosis and retropulsion superior endplate. (Patient is aware of this already). There is no significant hydroureteronephrosis. Bulky uterine cervix showing contour bulge and seen emerging with parametrial soft tissue thickening. Is this post therapy changes versus tumor extension? MRI assessment may be helpful. Blood Culture(s) Obtained: Yes Antibiotics given: Yes Counseled pt/family regarding: lab results, diagnosis, need for follow-up, rad results Medical Desision Making - Diagnostic Testing Diagnostic test were ordered, analyzed, and reviewed by me: Yes Radiological Interpretation: Reviewed by me, Teleradiologist Report - Risk of complications The pt has a mod risk of morbidity or mortality based on: Need for prescription drug management - Departure Departure Disposition: Home Clinical Impression: UTI (urinary tract infection), Cervix abnormality, Compression fracture of L1 lumbar vertebra Condition: Stable Critical Care Time: No Referrals: DOCTOR,NO FAMILY [Primary Care Provider] - Follow up/PCP as directed Additional Instructions: Stop your Macrobid. Continue your other medications as prescribed. Call your primary care provider, oncologist, urologist on 12/17/2023 and let them all know about your pain issue and to obtain further instructions and management as well as follow-up appointment Prescriptions: Oxycodone HCl/Acetaminophen [Percocet 5-325 mg Tablet] 1 each PO Q8H PRN PRN #6 tablet MDD 3 PRN Reason: Moderate To Severe Pain Levofloxacin [Levaquin 500 MG Tablet] 500 mg PO DAILY #7 tablet
[2023-12-15 02:09] VITALS: TEMP 98.2
[2023-12-15 02:52] LABS: Absolute Neutrophil Ct (ANC) 11.16 x10^3/uL (1.4-6.9); BASOPHIL % 0.6 % (0.0-0.4); Basophil (Absolute #) 0.08 x10^3/uL (0-0.4); Eosinophil % 2.6 % (0.00-5.0); Eosinophil (Absolute #) 0.35 x10^3/uL (0-0.5); Hematocrit 30.9 % (35-47); Hemoglobin 9.5 g/dL (12.0-16.0); IMMATURE GRAN # 0.14 x10^3u/L (0.00-0.03); Lymphocyte (Absolute #) 1.16 x10^3/uL (1.0-4.6); Lymphocytes % 8.6 % (24.0-44.0); Mean Cell Volume 80.3 fL (78-100); Mean Corpuscular Hemoglobin 24.7 pg (26-32); Mean Corpuscular Hgb Concent. 30.7 g/dL (32-36); Mean Platelet Volume 8.8 fL (7.5-11.0); Monocyte (Absolute #) 0.56 x10^3/uL (0.0-1.3); Monocytes % 4.2 % (0.0-12.0); Platelet Count 505 x10^3/uL (150-450); Red Blood Count 3.85 x10^6/uL (4.1-5.4); Red Cell Distribution Width 15.4 % (11.5-14.0); White Blood Count 13.5 x10^3/uL (4.0-10.5)
[2023-12-15] MEDS ORDERED: Sodium Chloride 0.9% 1000 ML 1,000 ML ONE (03:02)
[2023-12-15] MEDS ORDERED: Compazine 10 MG/2 ML ONE (03:02)
[2023-12-15] MEDS ORDERED: Hydromorphone 1 mg/ml Injection ONE (03:02)
[2023-12-15 03:05] LABS: ALBUMIN 3.3 g/dL (3.5-5.0); ANION GAP 12.3 MEQ/L (5-15); BILIRUBIN,TOTAL 0.3 mg/dL (0.2-1.3); Creatinine 1 0.81 mg/dL (0.52-1.04); EST GLOMERULAR FILTRATION RATE 94.6 ML/MIN; Total Protein 6.6 g/dL (6.3-8.2)
[2023-12-15] MEDS: Sodium Chloride 0.9% 1000 ML 1,000 ML IV STA (03:05)
[2023-12-15] MEDS: Hydromorphone 1 mg/ml Injection IV ONE (03:06)
[2023-12-15] MEDS: Compazine 10 MG/2 ML IV ONE (03:06)
--- NOTE | 2023-12-15 03:54 | XRAY ---
CLINICAL HISTORY: lower abd pain, hx of cervical ca TECHNIQUE: CT scan of the abdomen and pelvis was performed without IV contrast administration. Coronal and sagittal reconstructive images were also obtained. COMPARISON: CT dated 08/18/2023. FINDINGS: Anteverted uterus with endometrial hypodense contents and bulky uterine cervix showing contour bulge and seen merging with parametrial soft tissue thickening. Associated smudging of the pelvic fat planes with thickening of the peritoneal reflection and mesorectal fascia as well as related pre-sacral and pelvic non-encapsulated fluid densities. Mildly prominent internal iliac and para-aortic lymph nodes are noted. Applied left nephrostomy tube and double J ureteric stent. No significant left renal or ureteric dilatation. Relatively smaller-sized left kidney showing undulant outline. The right kidney is of average size and shows a smooth outline and preserved parenchymal thickness. Mild dilatation of the right pelvicalyceal system and its draining ureter is noted. No renal calculi. Average-sized liver showing homogenous parenchymal attenuation. No dilated intra or extra-hepatic biliary tracts. Collapsed gall bladder, possibly fasting showing no obvious radiodense calculi. Clear surrounding fat planes with no sizeable collections. Splenic calcific foci. Normal appearance of the pancreas n and adrenal glands, aorta and IVC are unremarkable. Regular distension of the urinary bladder. No calculi, obvious masses or diverticular outpouchings. Few pelvic phleboli. Normal appearance of the appendix with clear surrounding fat planes. No obvious right iliac inflammatory changes. The ascending colon, the transverse colon, the descending colon, visualized small bowel loops are unremarkable. The stomach appear unremarkable. No free intraperitoneal air. No pelvi-abdominal encysted collections. Compression fracture of L1 vertebral body with sclerosis and retropulsion of its superior vertebral end plate with related gas lucency. Stationary sclerotic lesion at the left iliac bone. Scanned lung bases show fine atelectatic plates. IMPRESSION: 1. Bulky uterine cervix showing contour bulge and seen merging with parametrial soft tissue thickening associated smudged pelvic fat planes & thickening of the peritoneal reflection. Given the patient's history of cervical cancer, findings could represent post-therapeutic sequel or tumor extension, clinical correlation and MRI assessment would be recommended if clinically warranted. 2. Compression fracture of L1 vertebral body with sclerosis and retropulsion of its superior vertebral end plate (new finding). 3. Interval placement of left ureteric double J stent with stable left nephrostomy tube. No significant hydroureteronephrosis. 4. The rest of the study appears stationary. Electronically Signed by: John Guillaume MD. (12/15/2023 03:50:02 EST)
[2023-12-15 04:48] LABS: Appearance Turbid (Clear); Bilirubin Negative (Negative); Blood Large (Negative); Glucose, Urine >=1000 mg/dL (Negative); Ketones Negative (Negative); Leukocyte Esterase Moderate (Negative); Nitrite Negative (Negative); Ph 6.5 (4.6-8.0); Protein,Urine Dip 100 (Negative); Specific Gravity 1.025 (1.005-1.030)
[2023-12-15 04:50] LABS: ADD URINE CULTURE? YES (NO); Bacteria None Seen /HPF (None Seen); Epithelial Cells None Seen /HPF (None Seen); RBC >100 /HPF (0-5); WBC >100 /HPF (0-5)
[2023-12-15] MEDS ORDERED: Sodium Chloride 0.9% 500 ML 500 ML IV ONE (05:06)
[2023-12-15] MEDS ORDERED: ROCEPHIN 1 GM / 100 ML NaCl 1 GM/100 ML IVPB IV ONE (05:06)
[2023-12-15] MEDS: Sodium Chloride 0.9% 500 ML 500 ML IV ONE (05:10)
[2023-12-15] MEDS: ROCEPHIN 1 GM / 100 ML NaCl 1 GM/100 ML IVPB IV ONE (05:10)
[2023-12-15 07:02] VITALS: BP 138/81; PULSE 67; RESP 16; O2SAT 98
== END 2023-12-15 07:09 | disposition home or self-care (01) ==
LOC: ED 01:42
DX: N39.0 Urinary tract infection, site not specified (principal); N88.8 Other specified noninflammatory disorders of cervix uteri; S32.019D Unspecified fracture of first lumbar vertebra, subsequent encounter for fracture with routine healing; R10.2 Pelvic and perineal pain; R31.0 Gross hematuria; Z79.01 Long term (current) use of anticoagulants; Z79.899 Other long term (current) drug therapy; Z28.310 Unvaccinated for COVID-19; Z72.0 Tobacco use
CPT/HCPCS: 36000; 36415; 74176; 80053; 81001; 83605; 85025; 87086; 96360; 96374; 96375; 99284; J0696; J1170

== ENCOUNTER 2023-12-20 04:19 | Emergency (ER) | payer OTHER ==
[2023-12-20 04:23] VITALS: TEMP 97.8
--- NOTE | 2023-12-20 04:38 | ERPHSYRPT ---
- History of Present Illness Time Seen by Provider: 12/20/23 04:30 Source: patient Physician History: Patient is a 38yo F with a history of cervical cancer, PE on eliquis presents to our ED with c/o Rt. side flank pain and SOB. Patient currently has a left sided nephrostomy tube. She is currently on Levaquin for a UTI. Patient states her SOB stared early this AM when she got up to go to the bathroom. Her Right side flank pain started yesterday at 930am. Pain was tolerable, but now has increased in intensity. No trauma or fevers. NO N/V/D. No CP. No rash. Symptoms are moderate in intensity. Activity worsens SOB. Rt. flank pain worse with palpation. Patient voices no other c/o at this time. Timing/Duration: today, yesterday Severity: moderate Associated Symptoms: denies symptoms Allergies/Adverse Reactions: ketamine Allergy (Intermediate, Verified 12/20/23 04:47) hallucinations metformin Allergy (Intermediate, Verified 12/20/23 04:47) hallucinations sulfamethoxazole [From Bactrim] Allergy (Intermediate, Verified 12/20/23 04:47) Hives trimethoprim [From Bactrim] Allergy (Intermediate, Verified 12/20/23 04:47) Hives Home Medications: Apixaban [Eliquis] 5 mg PO BID 08/18/23 [History] Ferrous Sulfate 325 mg [Feosol 325 mg] 325 mg PO HS 08/18/23 [History] Quetiapine Fumarate [Seroquel] 50 mg PO HS 08/18/23 [History] Hx Tetanus, Diphtheria Vaccination/Date Given: No Hx Influenza Vaccination/Date Given: No Hx Pneumococcal Vaccination/Date Given: No Travel Risk - Vaccine Status Have you recieved a Covid-19 vaccination: No - Review of Systems Constitutional: No Symptoms Eyes: No Symptoms Ears, Nose, & Throat: No Symptoms Respiratory: No Symptoms Cardiac: No Symptoms Abdominal/Gastrointestinal: No Symptoms Genitourinary Symptoms: No Symptoms Musculoskeletal: No Symptoms Skin: No Symptoms Neurological: No Symptoms Psychological: No Symptoms Endocrine: No Symptoms Hematologic/Lymphatic: No Symptoms Immunological/Allergic: No Symptoms - Past Medical History Pertinent Past Medical History: Yes Neurological History: No Pertinent History ENT History: No Pertinent History Cardiac History: No Pertinent History Respiratory History: Pulmonary Embolism Endocrine Medical History: Other Musculoskeletal History: Fractures GI Medical History: No Pertinent History History: Other Psycho-Social History: Anxiety, Depression, Panic Disorder, Other Female Reproductive Disorders: Cervical Cancer Other Medical History: PTSD- talk to before touch when asleep. cervical ca stage 3C2 in surveillance stage- finished treatment in 04/05/23. left talus chip fx. hypertriglyceridemia. left sided neph tube. "fluoro gut". had right sided neph tube removed in Jun. 9cm tumor impeded flow requiring neph tubes. - Past Surgical History Past Surgical History: Yes Neuro Surgical History: No Pertinent History Cardiac: No Pertinent History Respiratory: No Pertinent History Gastrointestinal: No Pertinent History Genitourinary: No Pertinent History Musculoskeletal: No Pertinent History Female Surgical History: Tubal Ligation, Other Other Surgical History: bilat neph tube. sinus surgery. cervical tumor biopsy - Social History Smoking Status: Current every day smoker How long have you smoked: 15yo Exposure to second hand smoke: Yes Drug Use: none Patient Lives Alone: No - Nursing Vital Signs Nursing Vital Signs: Initial Vital Signs Temperature 97.8 F 12/20/23 04:22 Pulse Rate 130 H 12/20/23 04:22 Respiratory Rate 28 H 12/20/23 04:22 Blood Pressure 133/100 12/20/23 04:22 O2 Sat by Pulse Oximetry 100 12/20/23 04:22 Pain Scale Pain Intensity 4 - Physical Exam General Appearance: no apparent distress, alert Eye Exam: PERRL/EOMI, eyes nml inspection Ears, Nose, Throat Exam: normal ENT inspection, TMs normal, pharynx normal, moist mucous membranes Neck Exam: normal inspection, non-tender, supple, full range of motion Respiratory Exam: normal breath sounds, lungs clear, airway intact, No respiratory distress Cardiovascular Exam: regular rate/rhythm, normal heart sounds, normal peripheral pulses Gastrointestinal/Abdomen Exam: soft, normal bowel sounds, No tenderness, No mass Back Exam: normal inspection, normal range of motion, No CVA tenderness, No vertebral tenderness Extremity Exam: normal inspection, normal range of motion, pelvis stable Neurologic Exam: alert, oriented x 3, cooperative, normal mood/affect, nml c erebellar function, nml station & gait, sensation nml, No motor deficits Skin Exam: normal color, warm, dry, No rash Lymphatic Exam: No adenopathy SpO2 Interpretation: normal SpO2: 100 O2 Delivery: Room Air - Course Nursing assessment & vital signs reviewed: Yes EKG Interpreted by Me: RATE ([id number]), Sinus Tach, NORMAL AXIS, NORMAL INTERVALS Ordered Tests: Active Orders 24 hr Category Date Time Status Accounting Methods Analyst STAT Care 12/20/23 04:35 Active EKG-ER Only STAT Care 12/20/23 04:35 Active IV Insertion STAT Care 12/20/23 04:35 Active Pulse Oximetry (ED) STAT Care 12/20/23 04:35 Active ABDOMEN AND PELVIS W/0 CONTRAS [CT] Stat Exams 12/20/23 05:46 Taken CHEST 1 VIEW (PORTABLE) Stat Exams 12/20/23 05:45 Taken BLOOD CULTURE Stat Lab 12/20/23 06:25 Ordered CBC W DIFF Stat Lab 12/20/23 04:35 Completed CMP Stat Lab 12/20/23 05:00 Completed D-DIMER QUANTITATIVE Stat Lab 12/20/23 05:00 Completed TROPONIN Q4H Lab 12/20/23 05:00 Completed TROPONIN Q4H Lab 12/20/23 08:45 Ordered TROPONIN Q4H Lab 12/20/23 12:45 Ordered Medication Summary Generic Name Dose Route Start Last Admin Trade Name Freq PRN Reason Stop Dose Admin Sodium Chloride 1,000 mls @ 999 mls/hr 12/20/23 06:22 12/20/23 06:27 Sodium Chloride 0.9% 1000 Ml IV 12/20/23 07:22 999 mls/hr .Q1H1M STA Administration Discontinued Medications Generic Name Dose Route Start Last Admin Trade Name Freq PRN Reason Stop Dose Admin Sodium Chloride Confirm 12/20/23 06:24 Sodium Chloride 0.9% 1000 Ml Administered 12/20/23 06:25 Dose 1,000 mls @ ud .ROUTE .STK-MED ONE Morphine Sulfate 4 mg 12/20/23 05:08 12/20/23 05:30 Morphine Sulfate 4 Mg/Ml Injection IV 12/20/23 05:09 4 mg STAT ONE Administration Morphine Sulfate Confirm 12/20/23 05:25 Morphine Sulfate 4 Mg/Ml Injection Administered 12/20/23 05:26 Dose 4 mg .ROUTE .STK-MED ONE Ondansetron HCl 4 mg 12/20/23 05:07 12/20/23 05:30 Ondansetron Hcl 4 Mg/2 Ml Vial IV 12/20/23 05:08 4 mg STAT ONE Administration Ondansetron HCl Confirm 12/20/23 05:25 Ondansetron Hcl 4 Mg/2 Ml Vial Administered 12/20/23 05:26 Dose 4 mg .ROUTE .[facility]-MED ONE Lab/Rad Data: Laboratory Result Diagrams 12/20/23 04:35 12/20/23 05:00 Laboratory Results 12/20/23 12/20/23 12/20/23 Range/Units 05:00 05:00 05:00 WBC (4.0-10.5) x10^3/uL RBC (4.1-5.4) x10^6/uL Hgb (12.0-16.0) g/dL Hct (35-47) % MCV (78-100) fL MCH (26-32) pg MCHC (32-36) g/dL RDW (11.5-14.0) % Plt Count (150-450) x10^3/uL MPV (7.5-11.0) fL Gran % (36.0-66.0) % Immature Gran % (Auto) (0.00-0.4) % Nucleat RBC Rel Count (0.00-0.1) % Eos # (Auto) (0-0.5) x10^3/uL Immature Gran # (Auto) (0.00-0.03) x10^3u/L Absolute Lymphs (auto) (1.0-4.6) x10^3/uL Absolute Monos (auto) (0.0-1.3) x10^3/uL Absolute Nucleated RBC (0.00-0.01) x10^3u/L Lymphocytes % (24.0-44.0) % Monocytes % (0.0-12.0) % Eosinophils % (0.00-5.0) % Basophils % (0.0-0.4) % Absolute Granulocytes (1.4-6.9) x10^3/uL Basophils # (0-0.4) x10^3/uL D-Dimer 0.28 (0.0-0.50) mg/L Sodium (137-145) mmol/L Potassium (3.5-5.1) mmol/L Chloride (98-107) mmol/L Carbon Dioxide (22-30) mmol/L Anion Gap (5-15) MEQ/L BUN (7-17) mg/dL Creatinine (0.52-1.04) mg/dL Estimated GFR ML/MIN Glucose (74-106) mg/dL Calcium (8.4-10.2) mg/dL Total Bilirubin (0.2-1.3) mg/dL AST (14-36) U/L ALT (0-35) U/L Alkaline Phosphatase (38-126) U/L Troponin I < 0.012 (0.000-0.034) ng/mL Serum Total Protein (6.3-8.2) g/dL Albumin (3.5-5.0) g/dL Influenza Type A Ag NEGATIVE (NEGATIVE) Influenza Type B Ag NEGATIVE (NEGATIVE) RSV (PCR) NEGATIVE (NEGATIVE) SARS-CoV-2 (PCR) NEGATIVE (NEGATIVE) 12/20/23 12/20/23 Range/Units 05:00 04:35 WBC 15.7 H (4.0-10.5) x10^3/uL RBC 3.91 L (4.1-5.4) x10^6/uL Hgb 9.5 L (12.0-16.0) g/dL Hct 29.9 L (35-47) % MCV 76.5 L (78-100) fL MCH 24.3 L (26-32) pg MCHC 31.8 L (32-36) g/dL RDW 15.6 H (11.5-14.0) % Plt Count 556 H (150-450) x10^3/uL MPV 8.2 (7.5-11.0) fL Gran % 81.1 H (36.0-66.0) % Immature Gran % (Auto) 1.5 H (0.00-0.4) % Nucleat RBC Rel Count 0.0 (0.00-0.1) % Eos # (Auto) 0.37 (0-0.5) x10^3/uL Immature Gran # (Auto) 0.24 H (0.00-0.03) x10^3u/L Absolute Lymphs (auto) 1.42 (1.0-4.6) x10^3/uL Absolute Monos (auto) 0.88 (0.0-1.3) x10^3/uL Absolute Nucleated RBC 0.00 (0.00-0.01) x10^3u/L Lymphocytes % 9.1 L (24.0-44.0) % Monocytes % 5.6 (0.0-12.0) % Eosinophils % 2.4 (0.00-5.0) % Basophils % 0.3 (0.0-0.4) % Absolute Granulocytes 12.70 H (1.4-6.9) x10^3/uL Basophils # 0.05 (0-0.4) x10^3/uL D-Dimer (0.0-0.50) mg/L Sodium 131 L (137-145) mmol/L Potassium 4.0 (3.5-5.1) mmol/L Chloride 97 L (98-107) mmol/L Carbon Dioxide 23 (22-30) mmol/L Anion Gap 14.2 (5-15) MEQ/L BUN 20 H (7-17) mg/dL Creatinine 0.77 (0.52-1.04) mg/dL Estimated GFR 100.6 ML/MIN Glucose 276 H (74-106) mg/dL Calcium 9.4 (8.4-10.2) mg/dL Total Bilirubin 0.50 (0.2-1.3) mg/dL AST 14 (14-36) U/L ALT 11 (0-35) U/L Alkaline Phosphatase 128 H (38-126) U/L Troponin I (0.000-0.034) ng/mL Serum Total Protein 7.3 (6.3-8.2) g/dL Albumin 3.8 (3.5-5.0) g/dL Influenza Type A Ag (NEGATIVE) Influenza Type B Ag (NEGATIVE) RSV (PCR) (NEGATIVE) SARS-CoV-2 (PCR) (NEGATIVE) - Progress Progress: improved Progress Note: 12/20/23 06:49 Complexity of problem addressed is moderate acute complicated Complexity of data reviewed and analyzed is moderate. Test ordered test reviewed. Results analyzed and correlated clinically with history and physical examination. Risk of complication and or risk of morbidity/mortality of patient management is moderate. Patient received IV morphine for pain control. It is currently change of shift. Patient endorsed Dr. Avila will make final disposition. Vital stable. Imaging studies pending. Counseled pt/family regarding: lab results, diagnosis - Departure Clinical Impression: Shortness of breath, Flank pain, Microcytic anemia, Thrombocytosis Condition: Stable Critical Care Time: No Referrals: DOCTOR,NO FAMILY [Primary Care Provider] - Follow up/PCP as directed DELON HARTMAN DO [ACTIVE STAFF] - Follow up/PCP as directed
[2023-12-20 05:08] LABS: BASOPHIL % 0.3 % (0.0-0.4); Basophil (Absolute #) 0.05 x10^3/uL (0-0.4); Eosinophil % 2.4 % (0.00-5.0); Eosinophil (Absolute #) 0.37 x10^3/uL (0-0.5); Hematocrit 29.9 % (35-47); Hemoglobin 9.5 g/dL (12.0-16.0); IMMATURE GRAN # 0.24 x10^3u/L (0.00-0.03); IMMATURE GRAN % 1.5 % (0.00-0.4); Lymphocyte (Absolute #) 1.42 x10^3/uL (1.0-4.6); Lymphocytes % 9.1 % (24.0-44.0); Mean Cell Volume 76.5 fL (78-100); Mean Corpuscular Hemoglobin 24.3 pg (26-32); Mean Corpuscular Hgb Concent. 31.8 g/dL (32-36); Mean Platelet Volume 8.2 fL (7.5-11.0); Monocyte (Absolute #) 0.88 x10^3/uL (0.0-1.3); Monocytes % 5.6 % (0.0-12.0); Neutrophil % 81.1 % (36.0-66.0); Platelet Count 556 x10^3/uL (150-450); Red Blood Count 3.91 x10^6/uL (4.1-5.4); Red Cell Distribution Width 15.6 % (11.5-14.0); White Blood Count 15.7 x10^3/uL (4.0-10.5)
[2023-12-20 05:20] LABS: ALBUMIN 3.8 g/dL (3.5-5.0); ANION GAP 14.2 MEQ/L (5-15); BILIRUBIN,TOTAL 0.5 mg/dL (0.2-1.3); Calcium 9.4 mg/dL (8.4-10.2); Creatinine 1 0.77 mg/dL (0.52-1.04); EST GLOMERULAR FILTRATION RATE 100.6 ML/MIN; Total Protein 7.3 g/dL (6.3-8.2)
[2023-12-20] MEDS ORDERED: Zofran 4 MG/2 ML VIAL ONE (05:25)
[2023-12-20] MEDS ORDERED: MORPHINE SULFATE 4 MG INJ ONE (05:25)
[2023-12-20] MEDS: Zofran 4 MG/2 ML VIAL IV ONE (05:30)
[2023-12-20] MEDS: MORPHINE SULFATE 4 MG INJ IV ONE (05:30)
[2023-12-20 05:46] LABS: INFLUENZA A NEGATIVE (NEGATIVE); INFLUENZA B NEGATIVE (NEGATIVE); RESPIRATORY SYNCTIAL VIRUS NEGATIVE (NEGATIVE); SARS-CoV-2 Xpert Express NEGATIVE (NEGATIVE)
[2023-12-20] MEDS ORDERED: Sodium Chloride 0.9% 1000 ML 1,000 ML ONE (06:24)
[2023-12-20] MEDS: Sodium Chloride 0.9% 1000 ML 1,000 ML IV STA (06:27)
[2023-12-20] MEDS ORDERED: Hydromorphone 1 mg/ml Injection ONE (08:00)
[2023-12-20] MEDS: Hydromorphone 1 mg/ml Injection IV ONE (08:02)
[2023-12-20 08:27] LABS: ADD URINE CULTURE? YES (NO); Appearance Turbid (Clear); Bacteria Rare /HPF (None Seen); Bilirubin Negative (Negative); Blood Large (Negative); Epithelial Cells Rare /HPF (None Seen); Glucose, Urine Negative (Negative); Hyaline Casts NONE SEEN /LPF (0-2); Ketones Negative (Negative); Leukocyte Esterase Moderate (Negative); Nitrite Negative (Negative); Protein,Urine Dip 300 (Negative); RBC >100 /HPF (0-5); Urobilinogen 0.2 mg/dL (0.2); WBC >100 /HPF (0-5)
--- NOTE | 2023-12-20 08:45 | XRAY ---
Indication: Short of breath. Comparison: None Portable chest demonstrates normal heart, lungs, and bony thorax.
--- NOTE | 2023-12-20 08:52 | XRAY ---
CLINICAL HISTORY: pain TECHNIQUE: An axial CT scan of the abdomen and pelvis was performed without IV contrast administration. Coronal and sagittal reconstructive images were also obtained. COMPARISON: Dated: 12/15/2023. FINDINGS: Unchanged endometrial hypodense contents and bulky uterine cervix showing contour bulge and seen merging with parametrial soft tissue thickening. Associated mild smudging of the pelvic fat planes with thickening of the peritoneal reflection and mesorectal fascia as well as related pre-sacral and pelvic non-encapsulated fluid densities. Mildly prominent internal iliac and para-aortic lymph nodes (unchanged). Still noted left nephrostomy tube and double J ureteric stent. No significant left renal or ureteric dilatation. (unchanged) Relatively smaller-sized left kidney showing undulant outline (unchanged). The right kidney is of average size and shows a smooth outline and preserved parenchymal thickness. Mild dilatation of the right pelvicalyceal system and its draining ureter is noted. No renal calculi. Average-sized liver showing homogenous parenchymal attenuation. No dilated intra or extra-hepatic biliary tracts. The gall bladder is partially distended, no wall thickening or radiodense calculi were noted. Splenic calcific foci (unchanged). Normal appearance of the pancreas and adrenal glands, aorta, and IVC are unremarkable. Regular distension of the urinary bladder. No calculi, obvious masses, or diverticular outpouchings. Few pelvic phleboli. The appendix is not clearly delineated in the current study amidst crowded bowel loops, however, no obvious right iliac inflammatory changes are noted. The ascending colon, the transverse colon, the descending colon, and the visualized small bowel loops are unremarkable. The stomach appears unremarkable. No free intraperitoneal air. No pelviabdominal encysted collections. Unchanged compression fracture of L1 vertebral body with sclerosis and retropulsion of its superior vertebral end plate with related gas lucency. Stationary sclerotic lesion at the left iliac bone. Scanned lung bases show fine atelectatic plates. IMPRESSION: 1. No significant interval changes. 2. Unchanged bulky uterine cervix showing contour bulge and seen merging with parametrial soft tissue thickening, associated smudged pelvic fat planes and thickening of the peritoneal reflection. Given the patient's history of cervical cancer, findings could represent post-therapeutic sequel or tumor extension. Clinical correlation and MRI assessment would be recommended if clinically warranted. 3. Redemonstration of the left ureteric double J stent and left nephrostomy tube. No significant hydroureteronephrosis. 4. Unchanged mild right hydroureteronephrosis. 5. Unchanged compression fracture of L1 vertebral body with sclerosis and retropulsion of its superior vertebral end plate. Electronically Signed by: John Guillaume MD. (12/20/2023 06:24:07 BUTCHER)
[2023-12-20 09:38] VITALS: BP 111/74; PULSE 96; RESP 21; O2SAT 96
== END 2023-12-20 09:39 | disposition home or self-care (01) ==
LOC: ED 04:19
DX: R06.02 Shortness of breath (principal); R10.9 Unspecified abdominal pain; D50.9 Iron deficiency anemia, unspecified; D75.839 Thrombocytosis, unspecified; Z79.01 Long term (current) use of anticoagulants; Z79.891 Long term (current) use of opiate analgesic; Z79.899 Other long term (current) drug therapy; Z28.310 Unvaccinated for COVID-19; Z72.0 Tobacco use
CPT/HCPCS: 0241U; 36000; 36415; 71045; 74176; 80053; 81001; 84484; 85025; 85379; 87040; 87086; 93005; 93041; 94760; 96374; 96375; 99284; J1170; J2270; J2405

== ENCOUNTER 2023-12-26 20:02 | Emergency (ER) | payer OTHER | END 2023-12-26 21:28 | disposition left against medical advice (07) | LOC: ED 20:02 | DX: Z53.21 Procedure and treatment not carried out due to patient leaving prior to being seen by health care provider (principal) ==

== ENCOUNTER 2024-01-09 01:38 | Emergency (ER) | payer OTHER ==
[2024-01-09 01:47] VITALS: TEMP 98.4
[2024-01-09 03:00] LABS: Absolute Neutrophil Ct (ANC) 8.98 x10^3/uL (1.4-6.9); BASOPHIL % 0.5 % (0.0-0.4); Basophil (Absolute #) 0.06 x10^3/uL (0-0.4); Eosinophil % 4.8 % (0.00-5.0); Eosinophil (Absolute #) 0.56 x10^3/uL (0-0.5); Hematocrit 29.5 % (35-47); Hemoglobin 8.9 g/dL (12.0-16.0); IMMATURE GRAN % 0.9 % (0.00-0.4); Lymphocyte (Absolute #) 1.38 x10^3/uL (1.0-4.6); Lymphocytes % 11.8 % (24.0-44.0); Mean Cell Volume 78.9 fL (78-100); Mean Corpuscular Hemoglobin 23.8 pg (26-32); Mean Corpuscular Hgb Concent. 30.2 g/dL (32-36); Mean Platelet Volume 8.2 fL (7.5-11.0); Monocytes % 5.1 % (0.0-12.0); Neutrophil % 76.9 % (36.0-66.0); Platelet Count 519 x10^3/uL (150-450); Red Blood Count 3.74 x10^6/uL (4.1-5.4); Red Cell Distribution Width 17.9 % (11.5-14.0); White Blood Count 11.7 x10^3/uL (4.0-10.5)
[2024-01-09 03:06] VITALS: RESP 16; O2SAT 97
[2024-01-09 03:13] LABS: ALBUMIN 3.7 g/dL (3.5-5.0); ANION GAP 16.1 MEQ/L (5-15); BILIRUBIN,TOTAL 0.4 mg/dL (0.2-1.3); Calcium 9.7 mg/dL (8.4-10.2); Creatinine 1 0.71 mg/dL (0.52-1.04); EST GLOMERULAR FILTRATION RATE 110.9 ML/MIN; Potassium 3.8 mmol/L (3.5-5.1)
[2024-01-09] MEDS ORDERED: TYLENOL 325 MG ONE (04:17)
[2024-01-09] MEDS: TYLENOL 325 MG PO ONE (04:20)
--- NOTE | 2024-01-09 06:01 | ERPHSYRPT ---
- History of Present Illness Time Seen by Provider: 01/09/24 01:50 Source: patient Exam Limitations: no limitations Patient Subjective Stated Complaint: rt arm pain at midline site, warmth, redness Triage Nursing Assessment: Pt ambulated into ER without diff. Pt c/o pain to Rt upper arm above her midline and pain to rt armpit area. Rt upper arm is warm to touch, pinkness noted, and tender to touch. Pt was moving furniture and lifting some heavy items on Sunday and Sunday, and thought maybe that's what caused it to be so tender. Pt got the midline placed at [facility] on 12/31/23 and has been receiving IV antibiotics thru it at [facility] for CRE in the urine. Physician History: 38-year-old female presents emergency department for evaluation of pain and swelling at the midline site. 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 Patient advised that she is also on Eliquis due to history of DVT. Patient's pain is well localized. No radiation. Pain worse with movement and palpation. Patient advises that she has been moving furniture for the past couple days and she is unsure whether or not she may have irritated the area of involvement or is developing a infection at the involved site. No associated chest pain or shortness of breath. No nausea vomiting or diaphoresis. No fever. Portions of this note were created with voice recognition technology. There may be grammatical, spelling, punctuation or sound alike errors Timing/Duration: today Severity: moderate Modifying Factors: Improves With: nothing Associated Symptoms: denies symptoms Allergies/Adverse Reactions: ketamine Allergy (Intermediate, Verified 01/09/24 01:58) hallucinations metformin Allergy (Intermediate, Verified 01/09/24 01:58) hallucinations sulfamethoxazole [From Bactrim] Allergy (Intermediate, Verified 01/09/24 01:58) Hives trimethoprim [From Bactrim] Allergy (Intermediate, Verified 01/09/24 01:58) Hives Home Medications: Apixaban [Eliquis] 5 mg PO BID 08/18/23 [History] Ferrous Sulfate 325 mg [Feosol 325 mg] 325 mg PO HS 08/18/23 [History] Quetiapine Fumarate [Seroquel] 50 mg PO HS 08/18/23 [History] Hx Tetanus, Diphtheria Vaccination/Date Given: Yes Hx Influenza Vaccination/Date Given: No Hx Pneumococcal Vaccination/Date Given: No Travel Risk - International Travel Have you traveled outside of the country in past 3 weeks: No - Coronavirus Screening Are you exhibiting any of the following symptoms?: No Close contact with a COVID-19 positive Pt in past 14-21 Days: No - Vaccine Status Have you recieved a Covid-19 vaccination: No - Review of Systems Constitutional: No Symptoms, No Fever, No Chills Eyes: No Symptoms Ears, Nose, & Throat: No Symptoms Respiratory: No Symptoms, No Cough, No Dyspnea Cardiac: No Symptoms, No Chest Pain, No Edema, No Syncope Abdominal/Gastrointestinal: No Symptoms, No Abdominal Pain, No Nausea, No Vom iting, No Diarrhea Genitourinary Symptoms: No Symptoms, No Dysuria Musculoskeletal: No Symptoms, No Back Pain, No Neck Pain Skin: No Symptoms, No Rash Neurological: No Symptoms, No Dizziness, No Focal Weakness, No Sensory Changes Psychological: No Symptoms Endocrine: No Symptoms Hematologic/Lymphatic: No Symptoms Immunological/Allergic: No Symptoms All Other Systems: Reviewed and Negative - Past Medical History Pertinent Past Medical History: Yes Neurological History: No Pertinent History ENT History: No Pertinent History Cardiac History: No Pertinent History Respiratory History: Pulmonary Embolism Endocrine Medical History: Other Musculoskeletal History: Fractures GI Medical History: No Pertinent History History: Other Psycho-Social History: Anxiety, Depression, Panic Disorder, Other Female Reproductive Disorders: Cervical Cancer Other Medical History: PTSD- talk to before touch when asleep. cervical ca stage 3C2 in surveillance stage- finished treatment in 04/05/23. left talus chip fx. hypertriglyceridemia. left sided neph tube. "fluoro gut". had right sided neph tube removed in Jun. 9cm tumor impeded flow requiring neph tubes. - Past Surgical History Past Surgical History: Yes Neuro Surgical History: No Pertinent History Cardiac: No Pertinent History Respiratory: No Pertinent History Gastrointestinal: No Pertinent History Genitourinary: No Pertinent History Musculoskeletal: No Pertinent History Female Surgical History: Tubal Ligation, Other Other Surgical History: bilat neph tube. sinus surgery. cervical tumor biopsy - Social History Smoking Status: Current every day smoker How long have you smoked: 25 yrs Exposure to second hand smoke: No Drug Use: none Patient Lives Alone: Yes - Female History Hx Last Menstrual Period: 08/2022 Hx Now: No - Nursing Vital Signs Nursing Vital Signs: Initial Vital Signs Temperature 98.4 F 01/09/24 01:45 Pulse Rate 120 H 01/09/24 01:45 Respiratory Rate 18 01/09/24 01:45 Blood Pressure 152/85 01/09/24 01:45 O2 Sat by Pulse Oximetry 99 01/09/24 01:45 Pain Scale Pain Intensity 2 - Physical Exam General Appearance: no apparent distress, alert Eye Exam: PERRL/EOMI, eyes nml inspection Ears, Nose, Throat Exam: normal ENT inspection, moist mucous membranes Neck Exam: normal inspection, non-tender, supple, full range of motion Respiratory Exam: normal breath sounds, lungs clear, airway intact, No respiratory distress Cardiovascular Exam: regular rate/rhythm, normal heart sounds, normal peripheral pulses Gastrointestinal/Abdomen Exam: soft, normal bowel sounds, No tenderness, No mass Back Exam: normal inspection, normal range of motion, No CVA tenderness, No vertebral tenderness Extremity Exam: normal inspection, normal range of motion, pelvis stable, other (Right upper extremity redness swelling and tenderness at the site of the midline. No lymphangitis. No axillary lymphadenopathy. The involved extremities neurovascular tact distally compartments are soft cap refill less than 2 seconds radial pulse palpable and strong) Neurologic Exam: alert, oriented x 3, cooperative, normal mood/affect, sensation nml, No motor deficits Skin Exam: normal color, warm, dry, No rash Lymphatic Exam: No adenopathy SpO2 Interpretation: normal SpO2: 97 O2 Delivery: Room Air - Course Nursing assessment & vital signs reviewed: Yes - Radiology Ultrasound Exam Venous Upper Extremity Ultrasound: discussed w/radiologist (Per dust puller positive DVT cephalic vein at the site of the midline) Ordered Tests: Active Orders 24 hr Category Date Time Status Motel Clerk STAT Care 01/09/24 02:31 Active IV Insertion STAT Care 01/09/24 02:30 Active Pulse Oximetry (ED) STAT Care 01/09/24 02:30 Active VENOUS UNILAT/LIMITED EXTREMIT [US] Stat Exams 01/09/24 04:03 Taken BLOOD CULTURE Stat Lab 01/09/24 02:57 Received CBC W DIFF Stat Lab 01/09/24 02:57 Completed CMP Stat Lab 01/09/24 02:57 Completed Lactic Acid Stat Lab 01/09/24 02:30 Completed Medication Summary Discontinued Medications Generic Name Dose Route Start Last Admin Trade Name Latisha PRN Reason Stop Dose Admin Acetaminophen 975 mg 01/09/24 04:09 01/09/24 04:20 Acetaminophen 325 Mg Tablet PO 01/09/24 04:10 975 mg STAT ONE Administration Acetaminophen Confirm 01/09/24 04:17 Acetaminophen 325 Mg Tablet Administered 01/09/24 04:18 Dose 975 mg .ROUTE .STK-MED ONE Lab/Rad Data: Laboratory Result Diagrams 01/09/24 02:57 01/09/24 02:57 Laboratory Results 01/09/24 01/09/24 01/09/24 Range/Units 02:57 02:57 02:30 WBC 11.7 H (4.0-10.5) x10^3/uL RBC 3.74 L (4.1-5.4) x10^6/uL Hgb 8.9 L (12.0-16.0) g/dL Hct 29.5 L (35-47) % MCV 78.9 (78-100) fL MCH 23.8 L (26-32) pg MCHC 30.2 L (32-36) g/dL RDW 17.9 H (11.5-14.0) % Plt Count 519 H (150-450) x10^3/uL MPV 8.2 (7.5-11.0) fL Gran % 76.9 H (36.0-66.0) % Immature Gran % (Auto) 0.9 H (0.00-0.4) % Nucleat RBC Rel Count 0.0 (0.00-0.1) % Eos # (Auto) 0.56 H (0-0.5) x10^3/uL Immature Gran # (Auto) 0.10 H (0.00-0.03) x10^3u/L Absolute Lymphs (auto) 1.38 (1.0-4.6) x10^3/uL Absolute Monos (auto) 0.60 (0.0-1.3) x10^3/uL Absolute Nucleated RBC 0.00 (0.00-0.01) x10^3u/L Lymphocytes % 11.8 L (24.0-44.0) % Monocytes % 5.1 (0.0-12.0) % Eosinophils % 4.8 (0.00-5.0) % Basophils % 0.5 (0.0-0.4) % Absolute Granulocytes 8.98 H (1.4-6.9) x10^3/uL Basophils # 0.06 (0-0.4) x10^3/uL Sodium 137 (135-145) mmol/L Potassium 3.8 (3.5-5.1) mmol/L Chloride 102 (98-107) mmol/L Carbon Dioxide 23 (22-30) mmol/L Anion Gap 16.1 H (5-15) MEQ/L BUN 21 H (7-17) mg/dL Creatinine 0.71 (0.52-1.04) mg/dL Estimated GFR 110.9 ML/MIN Glucose 258 H (74-106) mg/dL Lactic Acid 1.4 (0.4-2.0) Calcium 9.7 (8.4-10.2) mg/dL Total Bilirubin 0.40 (0.2-1.3) mg/dL AST 14 (14-36) U/L ALT 14 (0-35) U/L Alkaline Phosphatase 139 H (38-126) U/L Serum Total Protein 7.0 (6.3-8.2) g/dL Albumin 3.7 (3.5-5.0) g/dL - Progress Progress: improved Progress Note: 38-year-old female with history of cervical cancer and CRE infection in her urine currently receiving outpatient meropenem infusions via a right upper extremity midline. Presents to our ED with pain and swelling at midline site right upper extremity. Physical exam reveals some pain and tenderness at the site of the midline. Laboratory workup reveals a hemoglobin of 8.9 however patient's last hemoglobin was 9.5. Right upper extremity ultrasound reveals a cephalic vein DVT. I spoke with patient's infectious disease doctor, who advised pulling the midline and having the patient continue her Eliquis. I spoke to Dr. Phillips at 5:50 AM. She currently has an appointment scheduled to see Dr. Bermudez tomorrow in his office. He advises that she will continue her outpatient infusion through a peripheral IV. Patient advised to follow-up with her infectious disease doctor tomorrow as sc heduled. She agrees to do so. She also agrees to continue taking her Eliquis as prescribed. Patient resting comfortably. No active pain. We pulled the midline. No active bleeding. Excellent hemostasis. The involved right upper extremity was neurovascular intact distally post removal of midline. Patient tolerated procedure well. No complications. Portions of this note were created with voice recognition technology. There may be grammatical, spelling, punctuation or sound alike errors Complexity of problem addressed is moderate acute complicated No critical care time Complexity of data reviewed and analyzed is extensive. Test ordered test reviewed. Results analyzed and correlated clinically with history and physical examination. Management discussed with patient's infectious disease doctor. Risk of complication and or risk of morbidity/mortality of patient management is low Vital stable. Time spent to discharge patient is approximately 30 minutes. Plan of care established for shared decision making. No social determinants of health present impede follow-up. Patient agrees to follow-up with her infectious disease doctor tomorrow as scheduled. She also agrees to continue taking her Eliquis as scheduled as well. She voices no other complaints or concerns at this time. 01/09/24 06:10 Counseled pt/family regarding: lab results, diagnosis, need for follow-up, rad results - Departure Departure Disposition: Home Clinical Impression: DVT (deep venous thrombosis) Condition: Stable Critical Care Time: No Additional Instructions: You have a DVT in your right upper extremity. Please follow-up with Dr. Bermudez on January as scheduled for reevaluation. He will arrange for you to continue your outpatient antibiotic infusions through a peripheral IV. Please continue taking your Eliquis as prescribed. Discharge/Care Plan JJ RAMSAY was seen on 01/09/24 in the Emergency Room. The patient was counseled regarding Diagnosis,Lab results, Imaging studies, need for follow up and when to return to the Emergency Room. Prescriptions given: Discharge Note I have spoken with the patient and/or caregivers. I have explained the patient's condition, diagnosis and treatment plan based on the information available to me at this time. I have answered the patient's and/or caregiver's questions and addressed any concerns. The patient and/or caregivers have as good understanding of the patient's diagnosis, condition and treatment plan as can be expected at this point. The vital signs have been stable. The patient's condition is stable and appropriate for discharge from the emergency department. The patient will pursue further outpatient evaluation with the primary care physician or other designated or consulting physician as outlined in the d ischarge instructions. The patient and/or caregivers are agreeable to this plan of care and follow-up instructions have been explained in detail. The patient and/or caregivers have received these instruction. The patient/and or caregivers are aware that any significant change in condition or worsening of symptoms should prompt an immediate return to this or the closest emergency department or call 911.
[2024-01-09 06:07] VITALS: BP 134/74; PULSE 103
--- NOTE | 2024-01-09 08:36 | XRAY ---
Indication: Pain. DVT. Two-dimensional sonogram and color Doppler imaging major venous vessels right upper extremity performed. Comparison: None Indwelling right arm PICC line. Cephalic vein demonstrates including thrombi along the course of PICC line. No thrombus in the remaining visualized right internal jugular, subclavian, axillary, brachial, basilic, radial, and ulnar veins. Impression: Occluding thrombi in cephalic vein. Comment: Preliminary report was given.
== END 2024-01-09 06:10 | disposition home or self-care (01) ==
LOC: ED 01:38
DX: I82.621 Acute embolism and thrombosis of deep veins of right upper extremity (principal); M79.621 Pain in right upper arm; F17.200 Nicotine dependence, unspecified, uncomplicated; Z79.01 Long term (current) use of anticoagulants; Z79.899 Other long term (current) drug therapy; Z20.828 Contact with and (suspected) exposure to other viral communicable diseases; Z86.718 Personal history of other venous thrombosis and embolism; Z85.41 Personal history of malignant neoplasm of cervix uteri
CPT/HCPCS: 36415; 80053; 83605; 85025; 87040; 93041; 93971; 94760; 99284; A9270-GY

== ENCOUNTER 2024-03-04 17:53 | Observation (INO) | payer OTHER ==
[2024-03-04] MEDS ORDERED: Zofran 4 MG/2 ML VIAL ONE (18:44)
[2024-03-04] MEDS ORDERED: Sodium Chloride 0.9% 1000 ML 1,000 ML ONE (18:44)
[2024-03-04] MEDS: Sodium Chloride 0.9% 1000 ML 1,000 ML IV STA (18:45)
[2024-03-04] MEDS: Zofran 4 MG/2 ML VIAL IV ONE (18:46)
[2024-03-04 19:00] LABS: Absolute Neutrophil Ct (ANC) 10.54 x10^3/uL (1.4-6.9); BASOPHIL % 0.5 % (0.0-0.4); Basophil (Absolute #) 0.06 x10^3/uL (0-0.4); Eosinophil % 6.1 % (0.00-5.0); Hematocrit 30.5 % (35-47); Hemoglobin 9.3 g/dL (12.0-16.0); IMMATURE GRAN # 0.18 x10^3u/L (0.00-0.03); IMMATURE GRAN % 1.4 % (0.00-0.4); Lymphocyte (Absolute #) 1.07 x10^3/uL (1.0-4.6); Lymphocytes % 8.2 % (24.0-44.0); Mean Cell Volume 79.8 fL (78-100); Mean Corpuscular Hemoglobin 24.3 pg (26-32); Mean Corpuscular Hgb Concent. 30.5 g/dL (32-36); Monocyte (Absolute #) 0.46 x10^3/uL (0.0-1.3); Monocytes % 3.5 % (0.0-12.0); Neutrophil % 80.3 % (36.0-66.0); Platelet Count 550 x10^3/uL (150-450); Red Blood Count 3.82 x10^6/uL (4.1-5.4); Red Cell Distribution Width 19.9 % (11.5-14.0); White Blood Count 13.1 x10^3/uL (4.0-10.5)
[2024-03-04 19:14] LABS: ALBUMIN 3.3 g/dL (3.5-5.0); ANION GAP 11.9 MEQ/L (5-15); BILIRUBIN,TOTAL 0.4 mg/dL (0.2-1.3); Calcium 10.6 mg/dL (8.4-10.2); Creatinine 1 0.92 mg/dL (0.52-1.04); EST GLOMERULAR FILTRATION RATE 81.2 ML/MIN; Potassium 4.2 mmol/L (3.5-5.1); Total Protein 7.1 g/dL (6.3-8.2)
[2024-03-04 20:34] LABS: Appearance Cloudy (Clear); Bacteria None Seen /HPF (None Seen); Bilirubin Negative (Negative); Blood Moderate (Negative); Epithelial Cells None Seen /HPF (None Seen); Glucose, Urine Negative (Negative); Ketones Negative (Negative); Leukocyte Esterase Large (Negative); Nitrite Negative (Negative); Protein,Urine Dip 100 (Negative); RBC 21-50 /HPF (0-5); Specific Gravity 1.015 (1.005-1.030); Urobilinogen 0.2 mg/dL (0.2); WBC 51-100 /HPF (0-5)
[2024-03-04 20:46] LABS: ADD URINE CULTURE? YES (NO)
--- NOTE | 2024-03-04 21:43 | ERPHSYRPT ---
- History of Present Illness Time Seen by Provider: 03/04/24 18:20 Source: patient Exam Limitations: no limitations Patient Subjective Stated Complaint: Pt had her nephrosity tube replaced on Sunday and pt began vomiting on Sunday and can't keep anything down, pt has cervical cancer Triage Nursing Assessment: Pt was brought to the ER by a friend, hypertensive, tachycardic, N&V, diarrhea began today, oncologist told her to come here today due to not being able to keep anything down, last intake to stay down was Sunday, limited fluids, pt appears weak Physician History: 38-year-old female presents emergency department for evaluation of intractable nausea vomiting and diarrhea. Patient has history of cervical cancer. Patient had a nephrostomy tube replaced on Sunday. Patient symptoms started Sunday. No trauma no fever. Patient symptoms are constant. Symptoms are moderate in intensity. No specific worsening improving factors. Patient otherwise feels well. She voices no other complaints or concerns at this time. Portions of this note were created with voice recognition technology. There may be grammatical, spelling, punctuation or sound alike errors Timing/Duration: day(s) (2 days) Severity: moderate Modifying Factors: Improves With: nothing Associated Symptoms: denies symptoms Allergies/Adverse Reactions: ketamine Allergy (Intermediate, Verified 03/04/24 18:09) hallucinations metformin Allergy (Intermediate, Verified 03/04/24 18:09) hallucinations sulfamethoxazole [From Bactrim] Allergy (Intermediate, Verified 03/04/24 18:09) Hives trimethoprim [From Bactrim] Allergy (Intermediate, Verified 03/04/24 18:09) Hives Home Medications: Apixaban [Eliquis] 5 mg PO BID 08/18/23 [History] Ferrous Sulfate 325 mg [Feosol 325 mg] 325 mg PO HS 08/18/23 [History] Quetiapine Fumarate [Seroquel] 50 mg PO HS 08/18/23 [History] Linezolid [Zyvox] 600 mg PO BID 03/04/24 [History] Oxycodone HCl 20 mg PO Q4H 03/04/24 [History] Hx Tetanus, Diphtheria Vaccination/Date Given: Yes Hx Influenza Vaccination/Date Given: No Hx Pneumococcal Vaccination/Date Given: No Travel Risk - International Travel Have you traveled outside of the country in past 3 weeks: No - Emerging Infectious Disease Are you exhibiting symptoms associated with any current EIDs: Yes Symptoms: Vomitting - Review of Systems Constitutional: No Symptoms, No Fever, No Chills Eyes: No Symptoms Ears, Nose, & Throat: No Symptoms Respiratory: No Symptoms, No Cough, No Dyspnea Cardiac: No Symptoms, No Chest Pain, No Edema, No Syncope Abdominal/Gastrointestinal: No Symptoms, No Abdominal Pain, No Nausea, No Vomiting, No Diarrhea Genitourinary Symptoms: No Symptoms, No Dysuria Musculoskeletal: No Symptoms, No Back Pain, No Neck Pain Skin: No Symptoms, No Rash Neurological: No Symptoms, No Dizziness, No Focal Weakness, No Sensory Changes Psychological: No Symptoms Endocrine: No Symptoms Hematologic/Lymphatic: No Symptoms Immunological/Allergic: No Symptoms All Other Systems: Reviewed and Negative - Past Medical History Pertinent Past Medical History: Yes Neurological History: No Pertinent History ENT History: No Pertinent History Cardiac History: No Pertinent History Respiratory History: Pulmonary Embolism Endocrine Medical History: Other Musculoskeletal History: Fractures GI Medical History: No Pertinent History History: Other Psycho-Social History: Anxiety, Depression, Panic Disorder, Other Female Reproductive Disorders: Cervical Cancer Other Medical History: PTSD- talk to before touch when asleep. cervical ca stage 3C2 in surveillance stage- finished treatment in 04/05/23. left talus chip fx. hypertriglyceridemia. left sided neph tube. "fluoro gut". had right sided neph tube removed in Jun. 9cm tumor impeded flow requiring neph tubes. - Past Surgical History Past Surgical History: Yes Neuro Surgical History: No Pertinent History Cardiac: No Pertinent History Respiratory: No Pertinent History Gastrointestinal: No Pertinent History Genitourinary: No Pertinent History Musculoskeletal: No Pertinent History Female Surgical History: Tubal Ligation, Other Other Surgical History: bilat neph tube. sinus surgery. cervical tumor biopsy - Female History Hx Now: No (pt has cervical cancer) - Social History Smoking Status: Current every day smoker How long have you smoked: 25 yrs Exposure to second hand smoke: Yes Drug Use: none Patient Lives Alone: Yes - Nursing Vital Signs Nursing Vital Signs: Initial Vital Signs Temperature 98.0 F 03/04/24 18:00 Pulse Rate 108 H 03/04/24 18:00 Blood Pressure 160/106 03/04/24 18:00 O2 Sat by Pulse Oximetry 99 03/04/24 18:00 Pain Scale Pain Intensity 4 - Physical Exam General Appearance: no apparent distress, alert Eye Exam: PERRL/EOMI, eyes nml inspection Ears, Nose, Throat Exam: normal ENT inspection, TMs normal, pharynx normal, mo ist mucous membranes Neck Exam: normal inspection, non-tender, supple, full range of motion Respiratory Exam: normal breath sounds, lungs clear, airway intact, No respiratory distress Cardiovascular Exam: regular rate/rhythm, normal heart sounds, normal peripheral pulses Gastrointestinal/Abdomen Exam: soft, normal bowel sounds, No tenderness, No mass Back Exam: normal inspection, normal range of motion, No CVA tenderness, No vertebral tenderness Extremity Exam: normal inspection, normal range of motion, pelvis stable Neurologic Exam: alert, oriented x 3, cooperative, normal mood/affect, sensation nml, No motor deficits Skin Exam: normal color, warm, dry, No rash Lymphatic Exam: No adenopathy SpO2 Interpretation: normal SpO2: 94 O2 Delivery: Room Air - Course Nursing assessment & vital signs reviewed: Yes - CT Exams Abdomen/Pelvis CT Interpretation: Tele-radiologist Report (New left lower lobe patchy consolidating/nonconsolidation airspace disease. Stable mild diffuse fecal stasis. Left nephrostomy tube without obstruction. Pelvic floor post therapeutic changes. Remote L1 fracture) Ordered Tests: Active Orders 24 hr Category Date Time Status IV Insertion STAT Care 03/04/24 18:41 Active IV Insertion-2nd Peripheral STAT Care 03/04/24 22:10 Active ABDOMEN AND PELVIS W CONTRAST [CT] Stat Exams 03/04/24 18:43 Taken BLOOD CULTURE Stat Lab 03/04/24 21:57 Ordered CBC W DIFF AM.LAB Lab 03/06/24 04:00 Ordered CBC W DIFF Stat Lab 03/04/24 18:50 Completed CMP AM.LAB Lab 03/05/24 04:00 Ordered CMP Stat Lab 03/04/24 18:50 Completed CULTURE,URINE Stat Lab 03/04/24 20:11 Received LIPASE Stat Lab 03/04/24 18:50 Completed Lactic Acid Stat Lab 03/04/24 18:49 Completed UA W/RFX UR CULTURE Stat Lab 03/04/24 20:11 Completed Transfer Order Routine Transfer 03/04/24 Ordered Medication Summary Generic Name Dose Route Start Last Admin Trade Name Freq PRN Reason Stop Dose Admin Ceftriaxone Sodium 1 gm in 100 mls @ 200 mls/hr 03/04/24 21:57 03/04/24 22:15 Rocephin 1 Gm / 100 Ml Nacl IV 03/04/24 22:26 200 ml/hr STAT ONE 200 mls/hr Administration Azithromycin 500 mg in 250 mls @ 250 mls/hr 03/04/24 21:58 03/04/24 22:15 Zithromax 500 Mg/ 250 Ml Nacl Premix IV 03/04/24 22:57 250 ml/hr STAT STA 250 mls/hr Administration Discontinued Medications Generic Name Dose Route Start Last Admin Trade Name Shahriarq PRN Reason Stop Dose Admin Droperidol 1.25 mg 03/04/24 19:38 03/04/24 19:43 Droperidol 5 Mg/2 Ml Vial IV 03/04/24 19:39 1.25 mg STAT ONE Administration Droperidol Confirm 03/04/24 19:42 Droperidol 5 Mg/2 Ml Vial Administered 03/04/24 19:43 Dose 5 mg .ROUTE .STK-MED ONE Sodium Chloride 1,000 mls @ 999 mls/hr 03/04/24 18:41 03/04/24 19:46 Sodium Chloride 0.9% 1000 Ml IV 03/04/24 19:41 Infused .Q1H1M STA Infusion Sodium Chloride Confirm 03/04/24 18:44 Sodium Chloride 0.9% 1000 Ml Administered 03/04/24 18:45 Dose 1,000 mls @ ud .ROUTE .STK-MED ONE Ceftriaxone Sodium 1 gm in 100 mls @ 200 mls/hr 03/04/24 21:43 03/04/24 21:47 Rocephin 1 Gm / 100 Ml Nacl IV 03/04/24 22:12 200 ml/hr STAT ONE 200 mls/hr Administration Ceftriaxone Sodium Confirm 03/04/24 21:44 Rocephin 1 Gm / 100 Ml Nacl Administered 03/04/24 21:45 Dose 1 gm in 100 mls @ ud IV .STK-MED ONE Ceftriaxone Sodium Confirm 03/04/24 22:01 Rocephin 1 Gm / 100 Ml Nacl Administered 03/04/24 22:02 Dose 1 gm in 100 mls @ ud IV .STK-MED ONE Azithromycin Confirm 03/04/24 22:12 Zithromax 500 Mg/ 250 Ml Nacl Premix Administered 03/04/24 22:13 Dose 500 mg in 250 mls @ ud IV .STK-MED ONE Ondansetron HCl 4 mg 03/04/24 18:41 03/04/24 18:46 Ondansetron Hcl 4 Mg/2 Ml Vial IV 03/04/24 18:42 4 mg STAT ONE Administration Ondansetron HCl Confirm 03/04/24 18:44 Ondansetron Hcl 4 Mg/2 Ml Vial Administered 03/04/24 18:45 Dose 4 mg .ROUTE .STK-MED ONE Lab/Rad Data: Laboratory Result Diagrams 03/04/24 18:50 03/04/24 18:50 Laboratory Results 03/04/24 03/04/24 03/04/24 Range/Units 20:11 18:50 18:50 WBC 13.1 H (4.0-10.5) x10^3/uL RBC 3.82 L (4.1-5.4) x10^6/uL Hgb 9.3 L (12.0-16.0) g/dL Hct 30.5 L (35-47) % MCV 79.8 (78-100) fL MCH 24.3 L (26-32) pg MCHC 30.5 L (32-36) g/dL RDW 19.9 H (11.5-14.0) % Plt Count 550 H (150-450) x10^3/uL MPV 8.0 (7.5-11.0) fL Gran % 80.3 H (36.0-66.0) % Immature Gran % (Auto) 1.4 H (0.00-0.4) % Nucleat RBC Rel Count 0.0 (0.00-0.1) % Eos # (Auto) 0.80 H (0-0.5) x10^3/uL Immature Gran # (Auto) 0.18 H (0.00-0.03) x10^3u/L Absolute Lymphs (auto) 1.07 (1.0-4.6) x10^3/uL Absolute Monos (auto) 0.46 (0.0-1.3) x10^3/uL Absolute Nucleated RBC 0.00 (0.00-0.01) x10^3u/L Lymphocytes % 8.2 L (24.0-44.0) % Monocytes % 3.5 (0.0-12.0) % Eosinophils % 6.1 H (0.00-5.0) % Basophils % 0.5 (0.0-0.4) % Absolute Granulocytes 10.54 H (1.4-6.9) x10^3/uL Basophils # 0.06 (0-0.4) x10^3/uL Sodium 135 (135-145) mmol/L Potassium 4.2 (3.5-5.1) mmol/L Chloride 95 L (98-107) mmol/L Carbon Dioxide 32 H (22-30) mmol/L Anion Gap 11.9 (5-15) MEQ/L BUN 9 (7-17) mg/dL Creatinine 0.92 (0.52-1.04) mg/dL Estimated GFR 81.2 ML/MIN Glucose 224 H (74-106) mg/dL Lactic Acid (0.4-2.0) Calcium 10.6 H (8.4-10.2) mg/dL Total Bilirubin 0.40 (0.2-1.3) mg/dL AST 15 (14-36) U/L ALT 10 (0-35) U/L Alkaline Phosphatase 103 (38-126) U/L Serum Total Protein 7.1 (6.3-8.2) g/dL Albumin 3.3 L (3.5-5.0) g/dL Lipase 13 L (23-300) U/L Urine Color Dark Yellow A (Yellow) Urine Appearance Cloudy A (Clear) Urine pH 8.0 (4.6-8.0) Ur Specific [place] 1.015 (1.005-1.030) Urine Protein 100 A (Negative) Urine Glucose (UA) Negative (Negative) mg/dL Urine Ketones Negative (Negative) Urine Blood Moderate A (Negative) Urine Nitrite Negative (Negative) Urine Bilirubin Negative (Negative) Urine Urobilinogen 0.2 (0.2) mg/dL Ur Leukocyte Esterase Large A (Negative) U Hyaline Cast (Auto) 3-5 A (0-2) /LPF Urine Microscopic RBC 21-50 A (0-5) /HPF Urine Microscopic WBC 51-100 A (0-5) /HPF Ur Epithelial Cells None Seen (None Seen) /HPF Urine Bacteria None Seen (None Seen) /HPF Urine Culture Reflexed YES (NO) 03/04/24 Range/Units 18:49 WBC (4.0-10.5) x10^3/uL RBC (4.1-5.4) x10^6/uL Hgb (12.0-16.0) g/dL Hct (35-47) % MCV (78-100) fL MCH (26-32) pg MCHC (32-36) g/dL RDW (11.5-14.0) % Plt Count (150-450) x10^3/uL MPV (7.5-11.0) fL Gran % (36.0-66.0) % Immature Gran % (Auto) (0.00-0.4) % Nucleat RBC Rel Count (0.00-0.1) % Eos # (Auto) (0-0.5) x10^3/uL Immature Gran # (Auto) (0.00-0.03) x10^3u/L Absolute Lymphs (auto) (1.0-4.6) x10^3/uL Absolute Monos (auto) (0.0-1.3) x10^3/uL Absolute Nucleated RBC (0.00-0.01) x10^3u/L Lymphocytes % (24.0-44.0) % Monocytes % (0.0-12.0) % Eosinophils % (0.00-5.0) % Basophils % (0.0-0.4) % Absolute Granulocytes (1.4-6.9) x10^3/uL Basophils # (0-0.4) x10^3/uL Sodium (135-145) mmol/L Potassium (3.5-5.1) mmol/L Chloride (98-107) mmol/L Carbon Dioxide (22-30) mmol/L Anion Gap (5-15) MEQ/L BUN (7-17) mg/dL Creatinine (0.52-1.04) mg/dL Estimated GFR ML/MIN Glucose (74-106) mg/dL Lactic Acid 1.1 (0.4-2.0) Calcium (8.4-10.2) mg/dL Total Bilirubin (0.2-1.3) mg/dL AST (14-36) U/L ALT (0-35) U/L Alkaline Phosphatase (38-126) U/L Serum Total Protein (6.3-8.2) g/dL Albumin (3.5-5.0) g/dL Lipase (23-300) U/L Urine Color (Yellow) Urine Appearance (Clear) Urine pH (4.6-8.0) Ur Specific [place] (1.005-1.030) Urine Protein (Negative) Urine Glucose (UA) (Negative) mg/dL Urine Ketones (Negative) Urine Blood (Negative) Urine Nitrite (Negative) Urine Bilirubin (Negative) Urine Urobilinogen (0.2) mg/dL Ur Leukocyte Esterase (Negative) U Hyaline Cast (Auto) (0-2) /LPF Urine Microscopic RBC (0-5) /HPF Urine Microscopic WBC (0-5) /HPF Ur Epithelial Cells (None Seen) /HPF Urine Bacteria (None Seen) /HPF Urine Culture Reflexed (NO) - Progress Progress: improved Progress Note: 38-year-old female history of cervical cancer presents to our ED with nausea vomiting diarrhea. Patient states he is unable to tolerate p.o. Patient feels weak. Physical exam reveals generalized abdominal pain. Workup reveals urinary tract infection. CT abdomen pelvis incidental finding of pneumonia. Patient received 2 g Rocephin and azithromycin. IV hydration administered as well. Patient states he is too weak to go home. Case discussed with hospitalist at 10:[address] Inder Palumbo accepts admission to observation. Plan of care discussed with patient. She agrees to admission to [facility] for further evaluation and treatment. Portions of this note were created with voice recognition technology. There may be grammatical, spelling, punctuation or sound alike errors Complexity problem addressed is moderate acute complicated No critical care time Complexity of data reviewed and analyzed is extensive. Test ordered test reviewed results analyzed and correlated clinically with history and physical examination. Management discussed with hospitalist accept admission to observation. Of complication and or risk morbidity/mortality patient management is high. Clyde veronica requires hospitalization for further evaluation and treatment. Vital stable. Time spent to admit patient is approximately 30 minutes. Plan of care established for shared decision making. No social determinants of health present impede follow-up. Portions of this note were created with voice recognition technology. There may be grammatical, spelling, punctuation or sound alike errors 03/04/24 22:17 Counseled pt/family regarding: lab results, diagnosis, need for follow-up, rad results - Departure Departure Disposition: Home Clinical Impression: Urinary tract infection, Nausea vomiting and diarrhea, Leukocytosis, Normocytic anemia, Pneumonia, Fecal stasis, Generalized weakness Condition: Stable Critical Care Time: No Referrals: DOCTOR,NO FAMILY [Primary Care Provider] - Follow up/PCP as directed
[2024-03-04] MEDS ORDERED: ROCEPHIN 1 GM / 100 ML NaCl 1 GM/100 ML IVPB IV ONE ×2 (21:44→22:01)
[2024-03-04] MEDS: ROCEPHIN 1 GM / 100 ML NaCl 1 GM/100 ML IVPB IV ONE ×2 (21:47→22:15)
[2024-03-04] MEDS ORDERED: Zithromax 500 MG/ 250 ML NaCl Premix 500 MG/250 ML IVPB IV ONE (22:12)
[2024-03-04] MEDS: Zithromax 500 MG/ 250 ML NaCl Premix 500 MG/250 ML IVPB IV STA (22:15)
[2024-03-04] MEDS: Sodium Chloride 0.9% 1000 ML 1,000 ML IV SCH (22:26)
--- NOTE | 2024-03-04 22:34 | PCM.HP ---
History of Present Illness - Chief Complaint Chief Complaint: Nausea, vomiting History of Present Illness: is a 38 year old female with cervical cancer who presents with persistent nausea and vomiting for past 2 days. No fever, diarrhea. Patient had nephrostomy tubes placed last week. Has no worsening pain or bleeding at the site. Has had nausea and vomiting in the past, usually resolves with anti- emetics. States she is currently not on treatment for her cervical cancer but recent scans per patient indicate she has had a recurrence. CT scan pending of the abdomen for this admission. - Review of Systems Abdominal/Gastrointestinal: Nausea, Vomiting Medications & Allergies Home Medications: Home Medication List Apixaban [Eliquis] 5 mg PO BID 08/18/23 [History Confirmed 03/04/24] Ferrous Sulfate 325 mg [Feosol 325 mg] 325 mg PO HS 08/18/23 [History Confirmed 03/04/24] Quetiapine Fumarate [Seroquel] 50 mg PO HS 08/18/23 [History Confirmed 03/04/24] Linezolid [Zyvox] 600 mg PO BID 03/04/24 [History Confirmed 03/04/24] Oxycodone HCl 20 mg PO Q4H 03/04/24 [History Confirmed 03/04/24] Allergies/Adverse Reactions: Allergies Allergy/AdvReac Type Severity Reaction Status Date / Time ketamine Allergy Intermediate Verified 03/04/24 18:09 metformin Allergy Intermediate Verified 03/04/24 18:09 sulfamethoxazole Allergy Intermediate Hives Verified 03/04/24 18:09 [From Bactrim] trimethoprim [From Bactrim] Allergy Intermediate Hives Verified 03/04/24 18:09 - Past Medical History Past Medical History: Yes Neurological History: No Pertinent History ENT History: No Pertinent History Cardiac History: No Pertinent History Respiratory History: Pulmonary Embolism Endocrine Medical History: Other Musculoskelatal History: Fractures GI Medical History: No Pertinent History History: Other Pyscho-Social History: Anxiety, Depression, Panic Disorder, Other Reproductive Disorders: Cervical Cancer Comment: PTSD- talk to before touch when asleep. cervical ca stage 3C2 in surveillance stage- finished treatment in 04/05/23. left talus chip fx. hypertriglyceridemia. left sided neph tube. "fluoro gut". had right sided neph tube removed in Jun. 9cm tumor impeded flow requiring neph tubes. - Female History Are you now?: No (pt has cervical cancer) - Past Surgical History Past Surgical History: Yes Neuro Surgical History: No Pertinent History Cardiac History: No Pertinent History Respiratory Surgery: No Pertinent History GI Surgical History: No Pertinent History Genitourinary Surgical Hx: No Pertinent History Musculskeletal Surgical Hx: No Pertinent History Female Surgical History: Tubal Ligation, Other Other Surgical History: bilat neph tube. sinus surgery. cervical tumor biopsy - Social History Smoking Status: Current every day smoker How long have you smoked: 25 yrs Exposure to second hand smoke: Yes Alcohol: None Drug Use: none - Social Determinants of Health Will the patient participate in the screening: Yes Do you worry about a steady place to live?: No Do you have any problems with any of the following?: No known problems In the past 12 months,have you had to go without utilities?: No Have you or anyone in your house had to go without enough: No Transportation Issues: No Has anyone in your support network made you feel unsafe?: No - Physical Exam Vital Signs: Vital Signs - 24 hr Temp Pulse Resp BP BP Pulse Ox 03/04/24 22:20 94 L 03/04/24 22:01 98.5 F 98 H 17 161/93 95 03/04/24 21:30 97 H 15 133/81 93 L 03/04/24 21:00 97 H 20 126/82 94 L 03/04/24 20:30 96 H 18 129/81 94 L 03/04/24 20:00 101 H 20 126/83 99 03/04/24 19:39 95 H 149/92 95 03/04/24 19:00 131/79 100 03/04/24 18:00 98.0 F 108 H 160/106 99 General Appearance: no apparent distress, alert Neurologic Exam: alert, oriented x 3, cooperative, normal mood/affect, nml cerebellar function, nml station & gait, sensation nml, No motor deficits Eye Exam: PERRL/EOMI, eyes nml inspection Ears, Nose, Throat Exam: normal ENT inspection, TMs normal, pharynx normal, moist mucous membranes Neck Exam: normal inspection, non-tender, supple, full range of motion Respiratory Exam: normal breath sounds, lungs clear, No respiratory distress Cardiovascular Exam: regular rate/rhythm, normal heart sounds, normal peripheral pulses Gastrointestinal/Abdomen Exam: soft, normal bowel sounds, No tenderness, No mass Back Exam: normal inspection, normal range of motion, No CVA tenderness, No vertebral tenderness Extremity Exam: normal inspection, normal range of motion, pelvis stable Skin Exam: normal color, warm, dry, No rash Lymphatic Exam: No adenopathy Results - Labs Lab/Micro Results: Lab Results-Last 24 Hours 03/04/24 03/04/24 03/04/24 Range/Units 18:49 18:50 18:50 WBC 13.1 H (4.0-10.5) x10^3/uL RBC 3.82 L (4.1-5.4) x10^6/uL Hgb 9.3 L (12.0-16.0) g/dL Hct 30.5 L (35-47) % MCV 79.8 (78-100) fL MCH 24.3 L (26-32) pg MCHC 30.5 L (32-36) g/dL RDW 19.9 H (11.5-14.0) % Plt Count 550 H (150-450) x10^3/uL MPV 8.0 (7.5-11.0) fL Gran % 80.3 H (36.0-66.0) % Immature Gran % (Auto) 1.4 H (0.00-0.4) % Nucleat RBC Rel Count 0.0 (0.00-0.1) % Eos # (Auto) 0.80 H (0-0.5) x10^3/uL Immature Gran # (Auto) 0.18 H (0.00-0.03) x10^3u/L Absolute Lymphs (auto) 1.07 (1.0-4.6) x10^3/uL Absolute Monos (auto) 0.46 (0.0-1.3) x10^3/uL Absolute Nucleated RBC 0.00 (0.00-0.01) x10^3u/L Lymphocytes % 8.2 L (24.0-44.0) % Monocytes % 3.5 (0.0-12.0) % Eosinophils % 6.1 H (0.00-5.0) % Basophils % 0.5 (0.0-0.4) % Absolute Granulocytes 10.54 H (1.4-6.9) x10^3/uL Basophils # 0.06 (0-0.4) x10^3/uL Sodium 135 (135-145) mmol/L Potassium 4.2 (3.5-5.1) mmol/L Chloride 95 L (98-107) mmol/L Carbon Dioxide 32 H (22-30) mmol/L Anion Gap 11.9 (5-15) MEQ/L BUN 9 (7-17) mg/dL Creatinine 0.92 (0.52-1.04) mg/dL Estimated GFR 81.2 ML/MIN Glucose 224 H (74-106) mg/dL Lactic Acid 1.1 (0.4-2.0) Calcium 10.6 H (8.4-10.2) mg/dL Total Bilirubin 0.40 (0.2-1.3) mg/dL AST 15 (14-36) U/L ALT 10 (0-35) U/L Alkaline Phosphatase 103 (38-126) U/L Serum Total Protein 7.1 (6.3-8.2) g/dL Albumin 3.3 L (3.5-5.0) g/dL Lipase 13 L (23-300) U/L Urine Color (Yellow) Urine Appearance (Clear) Urine pH (4.6-8.0) Ur Specific [place] (1.005-1.030) Urine Protein (Negative) Urine Glucose (UA) (Negative) mg/dL Urine Ketones (Negative) Urine Blood (Negative) Urine Nitrite (Negative) Urine Bilirubin (Negative) Urine Urobilinogen (0.2) mg/dL Ur Leukocyte Esterase (Negative) U Hyaline Cast (Auto) (0-2) /LPF Urine Microscopic RBC (0-5) /HPF Urine Microscopic WBC (0-5) /HPF Ur Epithelial Cells (None Seen) /HPF Urine Bacteria (None Seen) /HPF Urine Culture Reflexed (NO) 03/04/24 Range/Units 20:11 WBC (4.0-10.5) x10^3/uL RBC (4.1-5.4) x10^6/uL Hgb (12.0-16.0) g/dL Hct (35-47) % MCV (78-100) fL MCH (26-32) pg MCHC (32-36) g/dL RDW (11.5-14.0) % Plt Count (150-450) x10^3/uL MPV (7.5-11.0) fL Gran % (36.0-66.0) % Immature Gran % (Auto) (0.00-0.4) % Nucleat RBC Rel Count (0.00-0.1) % Eos # (Auto) (0-0.5) x10^3/uL Immature Gran # (Auto) (0.00-0.03) x10^3u/L Absolute Lymphs (auto) (1.0-4.6) x10^3/uL Absolute Monos (auto) (0.0-1.3) x10^3/uL Absolute Nucleated RBC (0.00-0.01) x10^3u/L Lymphocytes % (24.0-44.0) % Monocytes % (0.0-12.0) % Eosinophils % (0.00-5.0) % Basophils % (0.0-0.4) % Absolute Granulocytes (1.4-6.9) x10^3/uL Basophils # (0-0.4) x10^3/uL Sodium (135-145) mmol/L Potassium (3.5-5.1) mmol/L Chloride (98-107) mmol/L Carbon Dioxide (22-30) mmol/L Anion Gap (5-15) MEQ/L BUN (7-17) mg/dL Creatinine (0.52-1.04) mg/dL Estimated GFR ML/MIN Glucose (74-106) mg/dL Lactic Acid (0.4-2.0) Calcium (8.4-10.2) mg/dL Total Bilirubin (0.2-1.3) mg/dL AST (14-36) U/L ALT (0-35) U/L Alkaline Phosphatase (38-126) U/L Serum Total Protein (6.3-8.2) g/dL Albumin (3.5-5.0) g/dL Lipase (23-300) U/L Urine Color Dark Yellow A (Yellow) Urine Appearance Cloudy A (Clear) Urine pH 8.0 (4.6-8.0) Ur Specific [place] 1.015 (1.005-1.030) Urine Protein 100 A (Negative) Urine Glucose (UA) Negative (Negative) mg/dL Urine Ketones Negative (Negative) Urine Blood Moderate A (Negative) Urine Nitrite Negative (Negative) Urine Bilirubin Negative (Negative) Urine Urobilinogen 0.2 (0.2) mg/dL Ur Leukocyte Esterase Large A (Negative) U Hyaline Cast (Auto) 3-5 A (0-2) /LPF Urine Microscopic RBC 21-50 A (0-5) /HPF Urine Microscopic WBC 51-100 A (0-5) /HPF Ur Epithelial Cells None Seen (None Seen) /HPF Urine Bacteria None Seen (None Seen) /HPF Urine Culture Reflexed YES (NO) - Radiology Impressions Radiology Exams & Impressions: Radiology Procedures Category Date Time Status ABDOMEN AND PELVIS W CONTRAST [CT] Stat Exams 03/04/24 18:43 Taken Assessment/Plan (1) Generalized weakness Current Visit: Yes Status: Acute Code(s): R53.1 - WEAKNESS (2) Nausea vomiting and diarrhea Current Visit: Yes Status: Acute Assessment & Plan: 1. Zofran PRN 2. NPO 3. IVF 4. Monitor lytes 5. CT A/P pending Code(s): R11.2 - NAUSEA WITH VOMITING, UNSPECIFIED; R19.7 - DIARRHEA, UNSPECIFIED Telemedicine Encounter - Telemedicine Encounter Telemedicine Encounter: The entirety of this encounter was performed via Telemedicine"
[2024-03-05] MEDS: Oxy-IR 5 MG PO SCH (04:01)
[2024-03-05 05:16] LABS: Absolute Neutrophil Ct (ANC) 7.24 x10^3/uL (1.4-6.9); BASOPHIL % 0.5 % (0.0-0.4); Basophil (Absolute #) 0.05 x10^3/uL (0-0.4); Eosinophil % 7.4 % (0.00-5.0); Eosinophil (Absolute #) 0.74 x10^3/uL (0-0.5); Hematocrit 29.6 % (35-47); Hemoglobin 8.7 g/dL (12.0-16.0); IMMATURE GRAN # 0.17 x10^3u/L (0.00-0.03); IMMATURE GRAN % 1.7 % (0.00-0.4); Lymphocyte (Absolute #) 1.37 x10^3/uL (1.0-4.6); Lymphocytes % 13.7 % (24.0-44.0); Mean Cell Volume 81.1 fL (78-100); Mean Corpuscular Hemoglobin 23.8 pg (26-32); Mean Corpuscular Hgb Concent. 29.4 g/dL (32-36); Mean Platelet Volume 7.9 fL (7.5-11.0); Neutrophil % 72.7 % (36.0-66.0); Platelet Count 477 x10^3/uL (150-450); Red Blood Count 3.65 x10^6/uL (4.1-5.4); Red Cell Distribution Width 19.9 % (11.5-14.0)
--- NOTE | 2024-03-05 05:38 | PCM.NOTE ---
Date and Time: 03/05/24 0533 Subjective Assessment: 38 year old female with pmhx of PE, cervical cancer (finished treatment 04/05/23- biopsy pending ?recurrence), anxiety/depression, panic disorder, left nephrostomy tube (replaced last Sunday) presented to ED 03/04/24 experiencing a two day history of intractable nausea and vomiting, and diarrhea. CT findings showing pneumonia. Labs remarkable for UTI. Plan for admission for intractable N/V/D, pneumonia, and UTI, ceftriaxone/azith started in ED, will continue zyvox which patient was taking as OP, anti-emetics, stool studies. 03/05/24: Met with patient bedside. Endorses 07/15 pelvic pain which has been ongoing since September. She has recently been prescribed Oxy IR Q4H, but this is not relieving her pain. Will add oxy ER to regimen. Patient reports n/v/d have resolved. Denies fever,cough, sob, cp, MCHUGH, dizziness, N/V/D. - Review of Systems Constitutional: Chills Eyes: No Symptoms Ears, Nose, & Throat: No Symptoms Respiratory: No Symptoms Cardiac: No Symptoms Abdominal/Gastrointestinal: Abdominal Pain Genitourinary Symptoms: Other (left nephrostomy tube) Musculoskeletal: No Symptoms Skin: No Symptoms Neurological: No Symptoms Psychological: Anxiety Endocrine: No Symptoms Hematologic/Lymphatic: No Symptoms Immunological/Allergic: No Symptoms Objective Exam General Appearance: no apparent distress Neurologic Exam: alert, oriented x 3, cooperative Skin Exam: normal color Eye Exam: PERRL Ears, Nose, Throat Exam: moist mucous membranes Neck Exam: full range of motion Respiratory Exam: normal breath sounds, lungs clear Cardiovascular Exam: regular rate/rhythm, normal heart sounds Gastrointestinal/Abdomen Exam: soft, normal bowel sounds, tenderness Extremity Exam: normal inspection Back Exam: normal inspection Objective Data Vital Signs: Vital Signs - 24 hr Temp Pulse Resp BP BP Pulse Ox 03/05/24 04:00 97.8 F 89 17 133/70 93 L 03/05/24 00:00 98.1 F 101 H 16 148/84 95 03/04/24 23:01 98.1 F 101 H 16 148/84 95 03/04/24 22:20 94 L 03/04/24 22:01 98.5 F 98 H 17 161/93 95 03/04/24 21:30 97 H 15 133/81 93 L 03/04/24 21:00 97 H 20 126/82 94 L 03/04/24 20:30 96 H 18 129/81 94 L 03/04/24 20:00 101 H 20 126/83 99 03/04/24 19:39 95 H 149/92 95 03/04/24 19:00 131/79 100 03/04/24 18:00 98.0 F 108 H 160/106 99 Pain Assessment - Last Documented Pain Intensity 6 Pain Scale Used 0-10 Pain Scale Intake and Output: Intake & Output 03/02/24 03/03/24 03/04/24 03/05/24 11:59 11:59 11:59 11:59 Intake Total 661 Output Total 700 Balance -39 Weight 75.9 kg Lab Results: Lab Results-Last 24 Hours 03/04/24 03/04/24 03/04/24 Range/Units 18:49 18:50 18:50 WBC 13.1 H (4.0-10.5) x10^3/uL RBC 3.82 L (4.1-5.4) x10^6/uL Hgb 9.3 L (12.0-16.0) g/dL Hct 30.5 L (35-47) % MCV 79.8 (78-100) fL MCH 24.3 L (26-32) pg MCHC 30.5 L (32-36) g/dL RDW 19.9 H (11.5-14.0) % Plt Count 550 H (150-450) x10^3/uL MPV 8.0 (7.5-11.0) fL Gran % 80.3 H (36.0-66.0) % Immature Gran % (Auto) 1.4 H (0.00-0.4) % Nucleat RBC Rel Count 0.0 (0.00-0.1) % Eos # (Auto) 0.80 H (0-0.5) x10^3/uL Immature Gran # (Auto) 0.18 H (0.00-0.03) x10^3u/L Absolute Lymphs (auto) 1.07 (1.0-4.6) x10^3/uL Absolute Monos (auto) 0.46 (0.0-1.3) x10^3/uL Absolute Nucleated RBC 0.00 (0.00-0.01) x10^3u/L Lymphocytes % 8.2 L (24.0-44.0) % Monocytes % 3.5 (0.0-12.0) % Eosinophils % 6.1 H (0.00-5.0) % Basophils % 0.5 (0.0-0.4) % Absolute Granulocytes 10.54 H (1.4-6.9) x10^3/uL Basophils # 0.06 (0-0.4) x10^3/uL Sodium 135 (135-145) mmol/L Potassium 4.2 (3.5-5.1) mmol/L Chloride 95 L (98-107) mmol/L Carbon Dioxide 32 H (22-30) mmol/L Anion Gap 11.9 (5-15) MEQ/L BUN 9 (7-17) mg/dL Creatinine 0.92 (0.52-1.04) mg/dL Estimated GFR 81.2 ML/MIN Glucose 224 H (74-106) mg/dL Lactic Acid 1.1 (0.4-2.0) Calcium 10.6 H (8.4-10.2) mg/dL Total Bilirubin 0.40 (0.2-1.3) mg/dL AST 15 (14-36) U/L ALT 10 (0-35) U/L Alkaline Phosphatase 103 (38-126) U/L Serum Total Protein 7.1 (6.3-8.2) g/dL Albumin 3.3 L (3.5-5.0) g/dL Lipase 13 L (23-300) U/L Urine Color (Yellow) Urine Appearance (Clear) Urine pH (4.6-8.0) Ur Specific [place] (1.005-1.030) Urine Protein (Negative) Urine Glucose (UA) (Negative) mg/dL Urine Ketones (Negative) Urine Blood (Negative) Urine Nitrite (Negative) Urine Bilirubin (Negative) Urine Urobilinogen (0.2) mg/dL Ur Leukocyte Esterase (Negative) U Hyaline Cast (Auto) (0-2) /LPF Urine Microscopic RBC (0-5) /HPF Urine Microscopic WBC (0-5) /HPF Ur Epithelial Cells (None Seen) /HPF Urine Bacteria (None Seen) /HPF Urine Culture Reflexed (NO) 04/30/24 05/01/24 Range/Units 20:11 05:14 WBC 10.0 (4.0-10.5) x10^3/uL RBC 3.65 L (4.1-5.4) x10^6/uL Hgb 8.7 L (12.0-16.0) g/dL Hct 29.6 L (35-47) % MCV 81.1 (78-100) fL MCH 23.8 L (26-32) pg MCHC 29.4 L (32-36) g/dL RDW 19.9 H (11.5-14.0) % Plt Count 477 H (150-450) x10^3/uL MPV 7.9 (7.5-11.0) fL Gran % 72.7 H (36.0-66.0) % Immature Gran % (Auto) 1.7 H (0.00-0.4) % Nucleat RBC Rel Count 0.0 (0.00-0.1) % Eos # (Auto) 0.74 H (0-0.5) x10^3/uL Immature Gran # (Auto) 0.17 H (0.00-0.03) x10^3u/L Absolute Lymphs (auto) 1.37 (1.0-4.6) x10^3/uL Absolute Monos (auto) 0.40 (0.0-1.3) x10^3/uL Absolute Nucleated RBC 0.00 (0.00-0.01) x10^3u/L Lymphocytes % 13.7 L (24.0-44.0) % Monocytes % 4.0 (0.0-12.0) % Eosinophils % 7.4 H (0.00-5.0) % Basophils % 0.5 (0.0-0.4) % Absolute Granulocytes 7.24 H (1.4-6.9) x10^3/uL Basophils # 0.05 (0-0.4) x10^3/uL Sodium (135-145) mmol/L Potassium (3.5-5.1) mmol/L Chloride (98-107) mmol/L Carbon Dioxide (22-30) mmol/L Anion Gap (5-15) MEQ/L BUN (7-17) mg/dL Creatinine (0.52-1.04) mg/dL Estimated GFR ML/MIN Glucose (74-106) mg/dL Lactic Acid (0.4-2.0) Calcium (8.4-10.2) mg/dL Total Bilirubin (0.2-1.3) mg/dL AST (14-36) U/L ALT (0-35) U/L Alkaline Phosphatase (38-126) U/L Serum Total Protein (6.3-8.2) g/dL Albumin (3.5-5.0) g/dL Lipase (23-300) U/L Urine Color Dark Yellow A (Yellow) Urine Appearance Cloudy A (Clear) Urine pH 8.0 (4.6-8.0) Ur Specific [place] 1.015 (1.005-1.030) Urine Protein 100 A (Negative) Urine Glucose (UA) Negative (Negative) mg/dL Urine Ketones Negative (Negative) Urine Blood Moderate A (Negative) Urine Nitrite Negative (Negative) Urine Bilirubin Negative (Negative) Urine Urobilinogen 0.2 (0.2) mg/dL Ur Leukocyte Esterase Large A (Negative) U Hyaline Cast (Auto) 3-5 A (0-2) /LPF Urine Microscopic RBC 21-50 A (0-5) /HPF Urine Microscopic WBC 51-100 A (0-5) /HPF Ur Epithelial Cells None Seen (None Seen) /HPF Urine Bacteria None Seen (None Seen) /HPF Urine Culture Reflexed YES (NO) Radiology Exams: Radiology Procedures Category Date Time Status ABDOMEN AND PELVIS W CONTRAST [CT] Stat Exams 03/04/24 18:43 Taken Assessment/Plan (1) UTI (urinary tract infection) Current Visit: Yes Status: Acute Assessment & Plan: -UA suspicious for infection, will continue Zyvox, follow culture Code(s): N39.0 - URINARY TRACT INFECTION, SITE NOT SPECIFIED (2) Nausea vomiting and diarrhea Current Visit: Yes Status: Acute Assessment & Plan: -anti-emetics, supportive therapy -ADAT Code(s): R11.2 - NAUSEA WITH VOMITING, UNSPECIFIED; R19.7 - DIARRHEA, UNSPECIFIED (3) Pneumonia Current Visit: Yes Status: Acute Assessment & Plan: -As seen on CT -Zyvox -on RA, supplemental oxygen for spo2 goal >92% Code(s): J18.9 - PNEUMONIA, UNSPECIFIED ORGANISM (4) Microcytic anemia Current Visit: No Status: Acute Assessment & Plan: -continue to monitor, will transfuse if hgb < 7 -continue ferrous sulfate Code(s): D50.9 - IRON DEFICIENCY ANEMIA, UNSPECIFIED (5) History of pulmonary embolism Current Visit: Yes Status: Acute Assessment & Plan: -continue eliquis Code(s): Z86.711 - PERSONAL HISTORY OF PULMONARY EMBOLISM (6) History of cervical cancer Current Visit: Yes Status: Acute Assessment & Plan: -s/p chemo/radiation finished 04/05/23, recent biopsy pending, follows with Dr. Itzel Pelaez at Code(s): Z85.41 - PERSONAL HISTORY OF MALIGNANT NEOPLASM OF CERVIX UTERI (7) Pelvic pain Current Visit: Yes Status: Acute Assessment & Plan: -Continue home oxy IR 20mg q4h, will add oxy ER 10mg BID Code(s): R10.2 - PELVIC AND PERINEAL PAIN (8) Smoker Current Visit: Yes Status: Acute Assessment & Plan: -Advised cessation -nicotine patch Code(s): F17.200 - NICOTINE DEPENDENCE, UNSPECIFIED, UNCOMPLICATED
[2024-03-05 05:39] LABS: ALBUMIN 3.1 g/dL (3.5-5.0); ANION GAP 13.8 MEQ/L (5-15); BILIRUBIN,TOTAL 0.3 mg/dL (0.2-1.3); Calcium 9.9 mg/dL (8.4-10.2); Creatinine 1 0.91 mg/dL (0.52-1.04); EST GLOMERULAR FILTRATION RATE 82.3 ML/MIN; Total Protein 6.7 g/dL (6.3-8.2)
[2024-03-05] MEDS: Hydromorphone 1 mg/ml Injection IV ONE (06:16)
--- NOTE | 2024-03-05 08:50 | XRAY ---
Indication: Abdominal pain. Nausea and vomiting. History cervical cancer. Multiple contiguous axial images obtained through the abdomen and pelvis using 80 cc Isovue 370 contrast. Comparison: December 20, 2023 Lung bases demonstrates new mild left lower lobe patchy consolidating/nonconsolidating airspace disease without effusion. Heart not enlarged. Stomach is fluid distended. Noncontrasted stomach and bowel loops appear nonobstructed again with normal appendix. There remains mild diffuse scattered colonic fecal debris throughout. Pelvic floor demonstrates stable postoperative changes related to patient's history cervical cancer. Stable left percutaneous nephrostomy catheter and left double-J ureteral stent catheter without hydronephrosis. No free fluid/air. Remaining liver, gallbladder, pancreas, spleen, adrenal glands, kidneys, ureters, bladder, uterus, and aorta are unremarkable. No pathologic retroperitoneal lymphadenopathy. Osseous structures intact again with remote L1 fracture and small left innominate bone island adjacent to SI joint. No suspicious bony lesions. Impression: 1. Left lower lobe consolidating/nonconsolidating airspace disease. Rule out aspiration pneumonia. 2. Again mild diffuse fecal stasis, left percutaneous nephrostomy/left ureteral stent catheter in situ, and chronic bony findings. 3. Remaining CT abdomen/pelvis with contrast exam is negative.
[2024-03-05] MEDS: Oxycontin 10 MG ER PO SCH (11:05)
[2024-03-05] MEDS: OXYCODONE HCL 20 MG PO SCH (11:20)
[2024-03-05] MEDS: ELIQUIS 2.5 MG TABLET PO SCH (12:05)
[2024-03-05] MEDS: ZYVOX PO SCH (12:06)
[2024-03-05] MEDS: PYRIDIUM 200 MG PO SCH (15:12)
[2024-03-05] MEDS: Zofran 4 MG/2 ML VIAL IV PRN (17:26)
[2024-03-05] MEDS: Mylicon 80MG PO PRN (19:49)
[2024-03-05] MEDS: Seroquel 25 MG PO SCH (21:55)
[2024-03-05] MEDS: FEOSOL 325 MG PO SCH (21:56)
[2024-03-05] MEDS: Docusate Sodium 100 MG PO SCH (21:58)
[2024-03-05] MEDS ORDERED: NON-FORMULARY ITEM (Apixaban [Eliquis] 5 MG Tablet) PO SCH (22:00)
[2024-03-05] MEDS ORDERED: Zithromax 500 MG/ 250 ML NaCl Premix 500 MG/250 ML IVPB IV SCH (22:00)
[2024-03-05] MEDS ORDERED: NON-FORMULARY ITEM (Quetiapine Fumarate [Seroquel] 50 MG Tablet) PO SCH (22:00)
[2024-03-05] MEDS ORDERED: ROCEPHIN 1 GM / 100 ML NaCl 1 GM/100 ML IVPB IV SCH (22:00)
[2024-03-06] MEDS: Protonix 40MG Tablet PO SCH (08:13)
[2024-03-06 08:17] LABS: Absolute Neutrophil Ct (ANC) 6.29 x10^3/uL (1.4-6.9); BASOPHIL % 0.7 % (0.0-0.4); Basophil (Absolute #) 0.06 x10^3/uL (0-0.4); Eosinophil % 8.8 % (0.00-5.0); Eosinophil (Absolute #) 0.79 x10^3/uL (0-0.5); Hematocrit 26.6 % (35-47); Hemoglobin 7.8 g/dL (12.0-16.0); IMMATURE GRAN # 0.15 x10^3u/L (0.00-0.03); IMMATURE GRAN % 1.7 % (0.00-0.4); Lymphocyte (Absolute #) 1.31 x10^3/uL (1.0-4.6); Lymphocytes % 14.5 % (24.0-44.0); Mean Cell Volume 81.6 fL (78-100); Mean Corpuscular Hemoglobin 23.9 pg (26-32); Mean Corpuscular Hgb Concent. 29.3 g/dL (32-36); Mean Platelet Volume 7.7 fL (7.5-11.0); Monocyte (Absolute #) 0.41 x10^3/uL (0.0-1.3); Monocytes % 4.6 % (0.0-12.0); Neutrophil % 69.7 % (36.0-66.0); Platelet Count 377 x10^3/uL (150-450); Red Blood Count 3.26 x10^6/uL (4.1-5.4); Red Cell Distribution Width 19.6 % (11.5-14.0)
[2024-03-06 08:32] LABS: ANION GAP 9.8 MEQ/L (5-15); BILIRUBIN,TOTAL 0.2 mg/dL (0.2-1.3); Calcium 8.9 mg/dL (8.4-10.2); Creatinine 1 0.91 mg/dL (0.52-1.04); EST GLOMERULAR FILTRATION RATE 82.3 ML/MIN; Potassium 4.3 mmol/L (3.5-5.1); Total Protein 6.2 g/dL (6.3-8.2)
--- NOTE | 2024-03-06 12:57 | PCM.NOTE ---
Date and Time: 03/06/24 1251 Subjective Assessment: 38 year old female with pmhx of PE, cervical cancer (finished treatment 04/05/23- biopsy pending ?recurrence), anxiety/depression, panic disorder, left nephrostomy tube (replaced last Sunday) presented to ED 03/04/24 experiencing a two day history of intractable nausea and vomiting, and diarrhea. CT findings showing pneumonia. Labs remarkable for UTI. Plan for admission for intractable N/V/D, pneumonia, and UTI, ceftriaxone/azith started in ED, will continue zyvox which patient was taking as OP, anti-emetics, stool studies. 03/05/24: Met with patient bedside. Endorses 07/15 pelvic pain which has been ongoing since September. She has recently been prescribed Oxy IR Q4H, but this is not relieving her pain. Will add oxy ER to regimen. Patient reports n/v/d have resolved. Denies fever,cough, sob, cp, MCHUGH, dizziness, N/V/D. 03/06/24: Met with patient bedside. Pelvic pain has improved with Oxy ER/Oxy IR regimen. Reports that she has been unable to tolerate a diet without burning/belching/nausea. Will add protonix and MMW. ADAT. Denies fever,cough, sob, cp, MCHUGH, dizziness, V/D. UCult is showing contaminant. Will continue zyvox as prescribed OP. - Review of Systems Constitutional: No Symptoms Eyes: No Symptoms Ears, Nose, & Throat: No Symptoms Respiratory: No Symptoms Cardiac: No Symptoms Abdominal/Gastrointestinal: Abdominal Pain, Nausea, Appetite Changes Genitourinary Symptoms: No Symptoms, Other (Left nephrostomy tube ) Musculoskeletal: No Symptoms Skin: No Symptoms Neurological: No Symptoms Psychological: Anxiety Endocrine: No Symptoms Hematologic/Lymphatic: No Symptoms Immunological/Allergic: No Symptoms Objective Exam General Appearance: no apparent distress Neurologic Exam: alert, oriented x 3, cooperative Skin Exam: pale Ears, Nose, Throat Exam: moist mucous membranes Neck Exam: full range of motion Respiratory Exam: normal breath sounds, lungs clear Cardiovascular Exam: regular rate/rhythm, normal heart sounds Gastrointestinal/Abdomen Exam: soft, normal bowel sounds, tenderness (suprapubic region) Extremity Exam: normal inspection Back Exam: normal inspection Pelvic Exam: deferred Rectal Exam: deferred Objective Data Vital Signs: Vital Signs - 24 hr Temp Pulse Resp BP Pulse Ox 05/02/24 11:53 97.8 F 82 18 129/91 97 03/06/24 07:20 97.6 F 87 19 132/62 99 03/06/24 04:00 98.0 F 94 H 18 132/71 96 03/05/24 23:43 97.9 F 85 16 109/54 96 03/05/24 19:48 97.6 F 90 17 146/74 99 03/05/24 16:00 97.7 F 98 H 16 140/81 97 Pain Assessment - Last Documented Pain Intensity 5 Pain Scale Used 0-10 Pain Scale Intake and Output: Intake & Output 03/04/24 03/05/24 03/06/24 03/07/24 11:59 11:59 11:59 11:59 Intake Total 661 4461 Output Total 1900 2300 Balance -1239 2161 Weight 75.9 kg Lab Results: Lab Results-Last 24 Hours 03/05/24 03/05/24 03/06/24 Range/Units 16:43 20:44 06:58 WBC (4.0-10.5) x10^3/uL RBC (4.1-5.4) x10^6/uL Hgb (12.0-16.0) g/dL Hct (35-47) % MCV (78-100) fL MCH (26-32) pg MCHC (32-36) g/dL RDW (11.5-14.0) % Plt Count (150-450) x10^3/uL MPV (7.5-11.0) fL Gran % (36.0-66.0) % Immature Gran % (Auto) (0.00-0.4) % Nucleat RBC Rel Count (0.00-0.1) % Eos # (Auto) (0-0.5) x10^3/uL Immature Gran # (Auto) (0.00-0.03) x10^3u/L Absolute Lymphs (auto) (1.0-4.6) x10^3/uL Absolute Monos (auto) (0.0-1.3) x10^3/uL Absolute Nucleated RBC (0.00-0.01) x10^3u/L Lymphocytes % (24.0-44.0) % Monocytes % (0.0-12.0) % Eosinophils % (0.00-5.0) % Basophils % (0.0-0.4) % Absolute Granulocytes (1.4-6.9) x10^3/uL Basophils # (0-0.4) x10^3/uL Sodium (135-145) mmol/L Potassium (3.5-5.1) mmol/L Chloride (98-107) mmol/L Carbon Dioxide (22-30) mmol/L Anion Gap (5-15) MEQ/L BUN (7-17) mg/dL Creatinine (0.52-1.04) mg/dL Estimated GFR ML/MIN Glucose (74-106) mg/dL POC Glucometer 183 H 190 H 146 H (74 to 106) mg/dL Calcium (8.4-10.2) mg/dL Total Bilirubin (0.2-1.3) mg/dL AST (14-36) U/L ALT (0-35) U/L Alkaline Phosphatase (38-126) U/L Serum Total Protein (6.3-8.2) g/dL Albumin (3.5-5.0) g/dL 03/06/24 03/06/24 03/06/24 Range/Units 06:58 08:13 08:13 WBC 9.0 (4.0-10.5) x10^3/uL RBC 3.26 L (4.1-5.4) x10^6/uL Hgb 7.8 L (12.0-16.0) g/dL Hct 26.6 L (35-47) % MCV 81.6 (78-100) fL MCH 23.9 L (26-32) pg MCHC 29.3 L (32-36) g/dL RDW 19.6 H (11.5-14.0) % Plt Count 377 (150-450) x10^3/uL MPV 7.7 (7.5-11.0) fL Gran % 69.7 H (36.0-66.0) % Immature Gran % (Auto) 1.7 H (0.00-0.4) % Nucleat RBC Rel Count 0.0 (0.00-0.1) % Eos # (Auto) 0.79 H (0-0.5) x10^3/uL Immature Gran # (Auto) 0.15 H (0.00-0.03) x10^3u/L Absolute Lymphs (auto) 1.31 (1.0-4.6) x10^3/uL Absolute Monos (auto) 0.41 (0.0-1.3) x10^3/uL Absolute Nucleated RBC 0.00 (0.00-0.01) x10^3u/L Lymphocytes % 14.5 L (24.0-44.0) % Monocytes % 4.6 (0.0-12.0) % Eosinophils % 8.8 H (0.00-5.0) % Basophils % 0.7 (0.0-0.4) % Absolute Granulocytes 6.29 (1.4-6.9) x10^3/uL Basophils # 0.06 (0-0.4) x10^3/uL Sodium 134 L (135-145) mmol/L Potassium 4.3 (3.5-5.1) mmol/L Chloride 103 (98-107) mmol/L Carbon Dioxide 26 (22-30) mmol/L Anion Gap 9.8 (5-15) MEQ/L BUN 6 L (7-17) mg/dL Creatinine 0.91 (0.52-1.04) mg/dL Estimated GFR 82.3 ML/MIN Glucose 144 H (74-106) mg/dL POC Glucometer 146 H (74 to 106) mg/dL Calcium 8.9 (8.4-10.2) mg/dL Total Bilirubin 0.20 (0.2-1.3) mg/dL AST 13 L (14-36) U/L ALT 8 (0-35) U/L Alkaline Phosphatase 85 (38-126) U/L Serum Total Protein 6.2 L (6.3-8.2) g/dL Albumin 3.0 L (3.5-5.0) g/dL 03/06/24 Range/Units 11:36 WBC (4.0-10.5) x10^3/uL RBC (4.1-5.4) x10^6/uL Hgb (12.0-16.0) g/dL Hct (35-47) % MCV (78-100) fL MCH (26-32) pg MCHC (32-36) g/dL RDW (11.5-14.0) % Plt Count (150-450) x10^3/uL MPV (7.5-11.0) fL Gran % (36.0-66.0) % Immature Gran % (Auto) (0.00-0.4) % Nucleat RBC Rel Count (0.00-0.1) % Eos # (Auto) (0-0.5) x10^3/uL Immature Gran # (Auto) (0.00-0.03) x10^3u/L Absolute Lymphs (auto) (1.0-4.6) x10^3/uL Absolute Monos (auto) (0.0-1.3) x10^3/uL Absolute Nucleated RBC (0.00-0.01) x10^3u/L Lymphocytes % (24.0-44.0) % Monocytes % (0.0-12.0) % Eosinophils % (0.00-5.0) % Basophils % (0.0-0.4) % Absolute Granulocytes (1.4-6.9) x10^3/uL Basophils # (0-0.4) x10^3/uL Sodium (135-145) mmol/L Potassium (3.5-5.1) mmol/L Chloride (98-107) mmol/L Carbon Dioxide (22-30) mmol/L Anion Gap (5-15) MEQ/L BUN (7-17) mg/dL Creatinine (0.52-1.04) mg/dL Estimated GFR ML/MIN Glucose (74-106) mg/dL POC Glucometer 154 H (74 to 106) mg/dL Calcium (8.4-10.2) mg/dL Total Bilirubin (0.2-1.3) mg/dL AST (14-36) U/L ALT (0-35) U/L Alkaline Phosphatase (38-126) U/L Serum Total Protein (6.3-8.2) g/dL Albumin (3.5-5.0) g/dL Radiology Exams: Radiology Procedures Category Date Time Status ABDOMEN AND PELVIS W CONTRAST [CT] Stat Exams 03/04/24 18:43 Completed Multi-Disciplinary Progress Notes: Multi-Disciplinary Progress Notes 03/06/24 10:35 Case Management Note by Claudia Rob S/W WITH PATIENT. CONTINUES TO DENY ANY NEW NEEDS AT TIME OF DC. PLANS TO RETURN HOME AT [facility] AT TIME OF DC Initialized on 03/06/24 10:35 - END OF NOTE Assessment/Plan (1) UTI (urinary tract infection) Current Visit: Yes Status: Acute Assessment & Plan: -UA suspicious for infection, will continue Zyvox, follow culture 03/06: -Urine culture showing probable skin contaminant, will continue OP zyvox Code(s): N39.0 - URINARY TRACT INFECTION, SITE NOT SPECIFIED (2) Nausea vomiting and diarrhea Current Visit: Yes Status: Acute Assessment & Plan: -anti-emetics, supportive therapy -ADAT Code(s): R11.2 - NAUSEA WITH VOMITING, UNSPECIFIED; R19.7 - DIARRHEA, UNSPECIFIED (3) Pneumonia Current Visit: Yes Status: Acute Assessment & Plan: -As seen on CT -Zyvox -on RA, supplemental oxygen for spo2 goal >92% Code(s): J18.9 - PNEUMONIA, UNSPECIFIED ORGANISM (4) Microcytic anemia Current Visit: No Status: Acute Assessment & Plan: -continue to monitor, will transfuse if hgb < 7 -continue ferrous sulfate Code(s): D50.9 - IRON DEFICIENCY ANEMIA, UNSPECIFIED (5) History of pulmonary embolism Current Visit: Yes Status: Acute Assessment & Plan: -continue eliquis Code(s): Z86.711 - PERSONAL HISTORY OF PULMONARY EMBOLISM (6) History of cervical cancer Current Visit: Yes Status: Acute Assessment & Plan: -s/p chemo/radiation finished 04/05/23, recent biopsy pending, follows with Dr. Itzel Pelaez at Code(s): Z85.41 - PERSONAL HISTORY OF MALIGNANT NEOPLASM OF CERVIX UTERI (7) Pelvic pain Current Visit: Yes Status: Acute Assessment & Plan: -Continue home oxy IR 20mg q4h, will add oxy ER 10mg BID Code(s): R10.2 - PELVIC AND PERINEAL PAIN (8) Smoker Current Visit: Yes Status: Acute Assessment & Plan: -Advised cessation -nicotine patch (9)hyperglycemia -No h/o diabetes -will check A1c VTE: eliquis PPI: protonix Dispo: tomorrow Code(s): N39.0 - URINARY TRACT INFECTION, SITE NOT SPECIFIED (2) Nausea vomiting and diarrhea Current Visit: Yes Status: Acute Code(s): R11.2 - NAUSEA WITH VOMITING, UNSPECIFIED; R19.7 - DIARRHEA, UNSPECIFIED (3) Pneumonia Current Visit: Yes Status: Acute Code(s): J18.9 - PNEUMONIA, UNSPECIFIED ORGANISM (4) Microcytic anemia Current Visit: No Status: Acute Code(s): D50.9 - IRON DEFICIENCY ANEMIA, UNSPECIFIED (5) History of pulmonary embolism Current Visit: Yes Status: Acute Code(s): Z86.711 - PERSONAL HISTORY OF PULMONARY EMBOLISM (6) History of cervical cancer Current Visit: Yes Status: Acute Code(s): Z85.41 - PERSONAL HISTORY OF M ALIGNANT NEOPLASM OF CERVIX UTERI (7) Pelvic pain Current Visit: Yes Status: Acute Code(s): R10.2 - PELVIC AND PERINEAL PAIN (8) Smoker Current Visit: Yes Status: Acute Code(s): F17.200 - NICOTINE DEPENDENCE, UNSPECIFIED, UNCOMPLICATED (9) Hyperglycemia Current Visit: Yes Status: Acute Code(s): R73.9 - HYPERGLYCEMIA, UNSPECIFIED
[2024-03-06] MEDS ORDERED: MARY'S MOUTHWASH PO SCH (17:00)
[2024-03-07 04:40] LABS: Absolute Neutrophil Ct (ANC) 8.55 x10^3/uL (1.4-6.9); BASOPHIL % 0.5 % (0.0-0.4); Basophil (Absolute #) 0.06 x10^3/uL (0-0.4); Eosinophil % 7.3 % (0.00-5.0); Eosinophil (Absolute #) 0.84 x10^3/uL (0-0.5); Hematocrit 24.4 % (35-47); Hemoglobin 7.4 g/dL (12.0-16.0); IMMATURE GRAN # 0.15 x10^3u/L (0.00-0.03); IMMATURE GRAN % 1.3 % (0.00-0.4); Lymphocyte (Absolute #) 1.37 x10^3/uL (1.0-4.6); Lymphocytes % 11.9 % (24.0-44.0); Mean Cell Volume 79.2 fL (78-100); Mean Corpuscular Hgb Concent. 30.3 g/dL (32-36); Mean Platelet Volume 7.9 fL (7.5-11.0); Monocyte (Absolute #) 0.51 x10^3/uL (0.0-1.3); Monocytes % 4.4 % (0.0-12.0); Neutrophil % 74.6 % (36.0-66.0); Platelet Count 401 x10^3/uL (150-450); Red Blood Count 3.08 x10^6/uL (4.1-5.4); Red Cell Distribution Width 19.3 % (11.5-14.0); White Blood Count 11.5 x10^3/uL (4.0-10.5)
[2024-03-07 05:15] LABS: ALBUMIN 2.5 g/dL (3.5-5.0); ANION GAP 10.3 MEQ/L (5-15); BILIRUBIN,TOTAL 0.2 mg/dL (0.2-1.3); Calcium 8.4 mg/dL (8.4-10.2); Creatinine 1 0.81 mg/dL (0.52-1.04); EST GLOMERULAR FILTRATION RATE 94.6 ML/MIN; Total Protein 5.6 g/dL (6.3-8.2)
--- NOTE | 2024-03-07 09:22 | XRAY ---
Indication: Pneumonia. Comparison: December 20, 2023 PA/lateral chest again demonstrates normal heart, lungs, and bony thorax. No new incompletely visualized left nephrostomy catheter.
--- NOTE | 2024-03-07 11:01 | PCM.NOTE ---
Date and Time: 03/07/24 1046 Subjective Assessment: 03/07/24 38 year old female with pmhx of PE, cervical cancer (finished treatment 04/05/23- biopsy pending, with possible recurrence), anxiety/depression, panic disorder, left nephrostomy tube (replaced last Sunday). She presented to ED 03/04/24 experiencing a two day history of intractable nausea and vomiting, and diarrhea. CT findings showing pneumonia. Labs remarkable for UTI. Admitted for intractable N/V/D, pneumonia, and UTI, ceftriaxone/azith started in ED, continued zyvox which patient was taking as OP, anti-emetics, stool studies. She had pelvic pain since admission that has since resolved today. She does c/o heartburn and will d/c with Protonix. UC negative. CXR today clear. She is feeling much better and brynn like to d/c today. She denies CP, SOB, abd. pain. N/V/D. She will need to f/u with oncology OP. Will make appointment with PCP as she does not have one and recently moved to this area. Objective Data Vital Signs: Vital Signs - 24 hr Temp Pulse Resp BP Pulse Ox 03/07/24 07:24 96.8 F 89 18 132/70 95 03/07/24 00:00 98.6 F 91 H 16 123/58 95 03/06/24 19:53 98.7 F 95 H 17 109/58 96 03/06/24 16:00 97.5 F 85 17 127/70 95 03/06/24 11:53 97.8 F 82 18 129/91 97 Pain Assessment - Last Documented Pain Intensity 2 Pain Scale Used 0-10 Pain Scale Intake and Output: Intake & Output 03/04/24 03/05/24 03/06/24 03/07/24 11:59 11:59 11:59 11:59 Intake Total 661 4457 2872 Output Total 1900 2300 4350 Balance -1239 2161 -1478 Weight 75.9 kg 75.8 kg 78.5 kg Lab Results: Lab Results-Last 24 Hours 03/06/24 03/06/24 03/06/24 Range/Units 04:00 11:36 16:32 WBC (4.0-10.5) x10^3/uL RBC (4.1-5.4) x10^6/uL Hgb (12.0-16.0) g/dL Hct (35-47) % MCV (78-100) fL MCH (26-32) pg MCHC (32-36) g/dL RDW (11.5-14.0) % Plt Count (150-450) x10^3/uL MPV (7.5-11.0) fL Gran % (36.0-66.0) % Immature Gran % (Auto) (0.00-0.4) % Nucleat RBC Rel Count (0.00-0.1) % Eos # (Auto) (0-0.5) x10^3/uL Immature Gran # (Auto) (0.00-0.03) x10^3u/L Absolute Lymphs (auto) (1.0-4.6) x10^3/uL Absolute Monos (auto) (0.0-1.3) x10^3/uL Absolute Nucleated RBC (0.00-0.01) x10^3u/L Lymphocytes % (24.0-44.0) % Monocytes % (0.0-12.0) % Eosinophils % (0.00-5.0) % Basophils % (0.0-0.4) % Absolute Granulocytes (1.4-6.9) x10^3/uL Basophils # (0-0.4) x10^3/uL Sodium (135-145) mmol/L Potassium (3.5-5.1) mmol/L Chloride (98-107) mmol/L Carbon Dioxide (22-30) mmol/L Anion Gap (5-15) MEQ/L BUN (7-17) mg/dL Creatinine (0.52-1.04) mg/dL Estimated GFR ML/MIN Glucose (74-106) mg/dL POC Glucometer 154 H 149 H (74 to 106) mg/dL Hemoglobin A1c 8.17 H (4.5-6.0) % Calcium (8.4-10.2) mg/dL Total Bilirubin (0.2-1.3) mg/dL AST (14-36) U/L ALT (0-35) U/L Alkaline Phosphatase (38-126) U/L Serum Total Protein (6.3-8.2) g/dL Albumin (3.5-5.0) g/dL 03/06/24 03/07/24 03/07/24 Range/Units 20:39 04:12 04:12 WBC 11.5 H (4.0-10.5) x10^3/uL RBC 3.08 L (4.1-5.4) x10^6/uL Hgb 7.4 L (12.0-16.0) g/dL Hct 24.4 L (35-47) % MCV 79.2 (78-100) fL MCH 24.0 L (26-32) pg MCHC 30.3 L (32-36) g/dL RDW 19.3 H (11.5-14.0) % Plt Count 401 (150-450) x10^3/uL MPV 7.9 (7.5-11.0) fL Gran % 74.6 H (36.0-66.0) % Immature Gran % (Auto) 1.3 H (0.00-0.4) % Nucleat RBC Rel Count 0.0 (0.00-0.1) % Eos # (Auto) 0.84 H (0-0.5) x10^3/uL Immature Gran # (Auto) 0.15 H (0.00-0.03) x10^3u/L Absolute Lymphs (auto) 1.37 (1.0-4.6) x10^3/uL Absolute Monos (auto) 0.51 (0.0-1.3) x10^3/uL Absolute Nucleated RBC 0.00 (0.00-0.01) x10^3u/L Lymphocytes % 11.9 L (24.0-44.0) % Monocytes % 4.4 (0.0-12.0) % Eosinophils % 7.3 H (0.00-5.0) % Basophils % 0.5 (0.0-0.4) % Absolute Granulocytes 8.55 H (1.4-6.9) x10^3/uL Basophils # 0.06 (0-0.4) x10^3/uL Sodium 133 L (135-145) mmol/L Potassium 4.0 (3.5-5.1) mmol/L Chloride 103 (98-107) mmol/L Carbon Dioxide 23 (22-30) mmol/L Anion Gap 10.3 (5-15) MEQ/L BUN 7 (7-17) mg/dL Creatinine 0.81 (0.52-1.04) mg/dL Estimated GFR 94.6 ML/MIN Glucose 170 H (74-106) mg/dL POC Glucometer 148 H (74 to 106) mg/dL Hemoglobin A1c (4.5-6.0) % Calcium 8.4 (8.4-10.2) mg/dL Total Bilirubin 0.20 (0.2-1.3) mg/dL AST 13 L (14-36) U/L ALT 10 (0-35) U/L Alkaline Phosphatase 89 (38-126) U/L Serum Total Protein 5.6 L (6.3-8.2) g/dL Albumin 2.5 L (3.5-5.0) g/dL 03/07/24 Range/Units 06:36 WBC (4.0-10.5) x10^3/uL RBC (4.1-5.4) x10^6/uL Hgb (12.0-16.0) g/dL Hct (35-47) % MCV (78-100) fL MCH (26-32) pg MCHC (32-36) g/dL RDW (11.5-14.0) % Plt Count (150-450) x10^3/uL MPV (7.5-11.0) fL Gran % (36.0-66.0) % Immature Gran % (Auto) (0.00-0.4) % Nucleat RBC Rel Count (0.00-0.1) % Eos # (Auto) (0-0.5) x10^3/uL Immature Gran # (Auto) (0.00-0.03) x10^3u/L Absolute Lymphs (auto) (1.0-4.6) x10^3/uL Absolute Monos (auto) (0.0-1.3) x10^3/uL Absolute Nucleated RBC (0.00-0.01) x10^3u/L Lymphocytes % (24.0-44.0) % Monocytes % (0.0-12.0) % Eosinophils % (0.00-5.0) % Basophils % (0.0-0.4) % Absolute Granulocytes (1.4-6.9) x10^3/uL Basophils # (0-0.4) x10^3/uL Sodium (135-145) mmol/L Potassium (3.5-5.1) mmol/L Chloride (98-107) mmol/L Carbon Dioxide (22-30) mmol/L Anion Gap (5-15) MEQ/L BUN (7-17) mg/dL Creatinine (0.52-1.04) mg/dL Estimated GFR ML/MIN Glucose (74-106) mg/dL POC Glucometer 152 H (74 to 106) mg/dL Hemoglobin A1c (4.5-6.0) % Calcium (8.4-10.2) mg/dL Total Bilirubin (0.2-1.3) mg/dL AST (14-36) U/L ALT (0-35) U/L Alkaline Phosphatase (38-126) U/L Serum Total Protein (6.3-8.2) g/dL Albumin (3.5-5.0) g/dL Radiology Exams: Radiology Procedures Category Date Time Status CHEST 2 VIEWS (PA AND LAT) Routine Exams 03/07/24 08:10 Completed
--- NOTE | 2024-03-07 11:07 | PCM.DS ---
Discharge Summary Date of Admission: 03/04/24 22:29 Date of Discharge: 03/07/24 Admitting Physician: BRIAN MORROW MD Consults: Consults on Case 03/04/24 23:34 Case Management SDOH DC Needs Assessment ROUTINE Primary Care Provider: NO FAMILY DOCTOR Allergies Allergies ketamine Allergy (Intermediate, Verified 03/04/24 18:09) hallucinations metformin Allergy (Intermediate, Verified 03/04/24 18:09) hallucinations sulfamethoxazole [From Bactrim] Allergy (Intermediate, Verified 03/04/24 18:09) Hives trimethoprim [From Bactrim] Allergy (Intermediate, Verified 03/04/24 18:09) [facility] Summary - Hospital Course Hospital Course: 03/07/24 38 year old female with pmhx of PE, cervical cancer (finished treatment 04/05/23- biopsy pending, with possible recurrence), anxiety/depression, panic disorder, left nephrostomy tube (replaced last Sunday). She presented to ED 03/04/24 experiencing a two day history of intractable nausea and vomiting, and diarrhea. CT findings showing pneumonia. Labs remarkable for UTI. Admitted for intractable N/V/D, pneumonia, and UTI, ceftriaxone/azith started in ED, continued zyvox which patient was taking as OP, anti-emetics, stool studies. She had pelvic pain since admission that has since resolved today. She does c/o heartburn and will d/c with Protonix. UC negative. CXR today clear. She is feeling much better and brynn like to d/c today. She denies CP, SOB, abd. pain. N/V/D. She will need to f/u with oncology OP. Will make appointment with PCP as she does not have one and recently moved to this area. - Vitals & Intake/Output Vital Signs: Vital Signs Temperature 96.8 F 03/07/24 07:24 Pulse Rate 89 03/07/24 07:24 Respiratory Rate 18 03/07/24 07:24 Blood Pressure 132/70 03/07/24 07:24 O2 Sat by Pulse Oximetry 95 03/07/24 07:24 Intake & Output: Intake & Output 03/04/24 03/05/24 03/06/24 03/07/24 11:59 11:59 11:59 11:59 Intake Total 661 4461 2872 Output Total 1900 2300 4350 Balance -1239 2161 -1478 Weight 75.9 kg 75.8 kg 78.5 kg - Lab Result Diagrams: 03/07/24 04:12 03/07/24 04:12 Lab Results-Last 24 Hrs: Lab Results-Last 24 Hours 03/06/24 03/06/24 03/06/24 Range/Units 04:00 11:36 16:32 WBC (4.0-10.5) x10^3/uL RBC (4.1-5.4) x10^6/uL Hgb (12.0-16.0) g/dL Hct (35-47) % MCV (78-100) fL MCH (26-32) pg MCHC (32-36) g/dL RDW (11.5-14.0) % Plt Count (150-450) x10^3/uL MPV (7.5-11.0) fL Gran % (36.0-66.0) % Immature Gran % (Auto) (0.00-0.4) % Nucleat RBC Rel Count (0.00-0.1) % Eos # (Auto) (0-0.5) x10^3/uL Immature Gran # (Auto) (0.00-0.03) x10^3u/L Absolute Lymphs (auto) (1.0-4.6) x10^3/uL Absolute Monos (auto) (0.0-1.3) x10^3/uL Absolute Nucleated RBC (0.00-0.01) x10^3u/L Lymphocytes % (24.0-44.0) % Monocytes % (0.0-12.0) % Eosinophils % (0.00-5.0) % Basophils % (0.0-0.4) % Absolute Granulocytes (1.4-6.9) x10^3/uL Basophils # (0-0.4) x10^3/uL Sodium (135-145) mmol/L Potassium (3.5-5.1) mmol/L Chloride (98-107) mmol/L Carbon Dioxide (22-30) mmol/L Anion Gap (5-15) MEQ/L BUN (7-17) mg/dL Creatinine (0.52-1.04) mg/dL Estimated GFR ML/MIN Glucose (74-106) mg/dL POC Glucometer 154 H 149 H (74 to 106) mg/dL Hemoglobin A1c 8.17 H (4.5-6.0) % Calcium (8.4-10.2) mg/dL Total Bilirubin (0.2-1.3) mg/dL AST (14-36) U/L ALT (0-35) U/L Alkaline Phosphatase (38-126) U/L Serum Total Protein (6.3-8.2) g/dL Albumin (3.5-5.0) g/dL 03/06/24 03/07/24 03/07/24 Range/Units 20:39 04:12 04:12 WBC 11.5 H (4.0-10.5) x10^3/uL RBC 3.08 L (4.1-5.4) x10^6/uL Hgb 7.4 L (12.0-16.0) g/dL Hct 24.4 L (35-47) % MCV 79.2 (78-100) fL MCH 24.0 L (26-32) pg MCHC 30.3 L (32-36) g/dL RDW 19.3 H (11.5-14.0) % Plt Count 401 (150-450) x10^3/uL MPV 7.9 (7.5-11.0) fL Gran % 74.6 H (36.0-66.0) % Immature Gran % (Auto) 1.3 H (0.00-0.4) % Nucleat RBC Rel Count 0.0 (0.00-0.1) % Eos # (Auto) 0.84 H (0-0.5) x10^3/uL Immature Gran # (Auto) 0.15 H (0.00-0.03) x10^3u/L Absolute Lymphs (auto) 1.37 (1.0-4.6) x10^3/uL Absolute Monos (auto) 0.51 (0.0-1.3) x10^3/uL Absolute Nucleated RBC 0.00 (0.00-0.01) x10^3u/L Lymphocytes % 11.9 L (24.0-44.0) % Monocytes % 4.4 (0.0-12.0) % Eosinophils % 7.3 H (0.00-5.0) % Basophils % 0.5 (0.0-0.4) % Absolute Granulocytes 8.55 H (1.4-6.9) x10^3/uL Basophils # 0.06 (0-0.4) x10^3/uL Sodium 133 L (135-145) mmol/L Potassium 4.0 (3.5-5.1) mmol/L Chloride 103 (98-107) mmol/L Carbon Dioxide 23 (22-30) mmol/L Anion Gap 10.3 (5-15) MEQ/L BUN 7 (7-17) mg/dL Creatinine 0.81 (0.52-1.04) mg/dL Estimated GFR 94.6 ML/MIN Glucose 170 H (74-106) mg/dL POC Glucometer 148 H (74 to 106) mg/dL Hemoglobin A1c (4.5-6.0) % Calcium 8.4 (8.4-10.2) mg/dL Total Bilirubin 0.20 (0.2-1.3) mg/dL AST 13 L (14-36) U/L ALT 10 (0-35) U/L Alkaline Phosphatase 89 (38-126) U/L Serum Total Protein 5.6 L (6.3-8.2) g/dL Albumin 2.5 L (3.5-5.0) g/dL 03/07/24 Range/Units 06:36 WBC (4.0-10.5) x10^3/uL RBC (4.1-5.4) x10^6/uL Hgb (12.0-16.0) g/dL Hct (35-47) % MCV (78-100) fL MCH (26-32) pg MCHC (32-36) g/dL RDW (11.5-14.0) % Plt Count (150-450) x10^3/uL MPV (7.5-11.0) fL Gran % (36.0-66.0) % Immature Gran % (Auto) (0.00-0.4) % Nucleat RBC Rel Count (0.00-0.1) % Eos # (Auto) (0-0.5) x10^3/uL Immature Gran # (Auto) (0.00-0.03) x10^3u/L Absolute Lymphs (auto) (1.0-4.6) x10^3/uL Absolute Monos (auto) (0.0-1.3) x10^3/uL Absolute Nucleated RBC (0.00-0.01) x10^3u/L Lymphocytes % (24.0-44.0) % Monocytes % (0.0-12.0) % Eosinophils % (0.00-5.0) % Basophils % (0.0-0.4) % Absolute Granulocytes (1.4-6.9) x10^3/uL Basophils # (0-0.4) x10^3/uL Sodium (135-145) mmol/L Potassium (3.5-5.1) mmol/L Chloride (98-107) mmol/L Carbon Dioxide (22-30) mmol/L Anion Gap (5-15) MEQ/L BUN (7-17) mg/dL Creatinine (0.52-1.04) mg/dL Estimated GFR ML/MIN Glucose (74-106) mg/dL POC Glucometer 152 H (74 to 106) mg/dL Hemoglobin A1c (4.5-6.0) % Calcium (8.4-10.2) mg/dL Total Bilirubin (0.2-1.3) mg/dL AST (14-36) U/L ALT (0-35) U/L Alkaline Phosphatase (38-126) U/L Serum Total Protein (6.3-8.2) g/dL Albumin (3.5-5.0) g/dL Micro Results-Entire Visit: Microbiology 03/04/24 20:11 Urine Culture - Final Urine, Void <10K NORMAL SKIN MOY PROBABLE SKIN CONTAMINANT 03/04/24 22:06 Blood Culture - Preliminary Blood Accuchecks Date 03/07/24 Date 03/06/24 Time 07:24 Time 21:00 - Radiology Exams Ordered Rad Exams-Entire Visit: Radiology Procedures Category Date Time Status CHEST 2 VIEWS (PA AND LAT) Routine Exams 03/07/24 08:10 Completed - Procedures and Test Procedures and Tests throughout Hospitalization: Therapy Orders & Screens 03/04/24 23:34 Smoking Cessation Education ONCE Comment: Diagnosis: Nausea, vomiting Smoking Status: Current every day smoker How long have you smoked: 25 yrs Do you dip or chew tobacco: No Discharge Exam General Appearance: no apparent distress, alert Neurologic Exam: alert, oriented x 3, cooperative, normal mood/affect, nml cerebellar function, sensation nml, No motor deficits Eye Exam: PERRL, EOMI, eyes nml inspection Ears, Nose, Throat Exam: normal ENT inspection, pharynx normal, moist mucous membranes Neck Exam: normal inspection, non-tender, supple, full range of motion Respiratory Exam: normal breath sounds, lungs clear, No respiratory distress Cardiovascular Exam: regular rate/rhythm, normal heart sounds Gastrointestinal/Abdomen Exam: soft, No tenderness, No mass Pelvic Exam: deferred Rectal Exam: deferred Back Exam: normal inspection, normal range of motion, No CVA tenderness, No vertebral tenderness Extremity Exam: normal inspection, normal range of motion Skin Exam: normal color, warm, dry Final Diagnosis/Problem List - Final Discharge Diagnosis/Problem (1) Pneumonia Current Visit: Yes Status: Acute Assessment & Plan: -As seen on CT -Zyvox -on RA, supplemental oxygen for spo2 goal >92% 03/07/24 - RA -95% - CXR 03/07- negative Code(s): J18.9 - PNEUMONIA, UNSPECIFIED ORGANISM (2) History of cervical cancer Current Visit: Yes Status: Chronic Assessment & Plan: -s/p chemo/radiation finished 04/05/23, recent biopsy pending, follows with Dr. Itzel Pelaez at Code(s): Z85.41 - PERSONAL HISTORY OF MALIGNANT NEOPLASM OF CERVIX UTERI (3) History of pulmonary embolism Current Visit: Yes Status: Acute Assessment & Plan: -continue eliquis Code(s): Z86.711 - PERSONAL HISTORY OF PULMONARY EMBOLISM (4) Nausea vomiting and diarrhea Current Visit: Yes Status: Acute Assessment & Plan: -anti-emetics, supportive therapy -ADAT 03/07 - resolved Code(s): R11.2 - NAUSEA WITH VOMITING, UNSPECIFIED; R19.7 - DIARRHEA, UNSPECIFIED (5) Pelvic pain Current Visit: Yes Status: Acute Assessment & Plan: -Continue home oxy IR 20mg q4h, will add oxy ER 10mg BID 03/07 - Resolved Code(s): R10.2 - PELVIC AND PERINEAL PAIN (6) Smoker Current Visit: Yes Status: Chronic Assessment & Plan: -Advised cessation -nicotine patch Code(s): F17.200 - NICOTINE DEPENDENCE, UNSPECIFIED, UNCOMPLICATED (7) UTI (urinary tract infection) Current Visit: Yes Status: Resolved Assessment & Plan: - UC negative for infection Code(s): N39.0 - URINARY TRACT INFECTION, SITE NOT SPECIFIED (8) Hyperglycemia Current Visit: No Status: Acute Assessment & Plan: -No h/o diabetes - A1c- 8.17 - will start on metformin OP Code(s): R73.9 - HYPERGLYCEMIA, UNSPECIFIED (9) Microcytic anemia Current Visit: No Status: Chronic Assessment & Plan: -continue to monitor, will transfuse if hgb < 7 -continue ferrous sulfate Code(s): D50.9 - IRON DEFICIENCY ANEMIA, UNSPECIFIED - Discharge Discharge Date: 03/07/24 Disposition: Home, Self-Care Condition: Stable Prescriptions: New Metformin HCl 500 mg [Glucophage 500 MG] 500 mg PO BIDWM 30 Days #60 tablet Pantoprazole 20 mg [Protonix 20MG Tablet] 20 mg PO DAILY 30 Days #30 tab Continue Ferrous Sulfate 325 mg [Feosol 325 mg] 325 mg PO HS Apixaban [Eliquis] 5 mg PO BID Quetiapine Fumarate [Seroquel] 50 mg PO HS Linezolid [Zyvox] 600 mg PO BID Oxycodone HCl 20 mg PO Q4H Docusate Sodium [Colace] 100 mg PO BID Instructions: Type 2 diabetes, Acid Reflux and GERD in Adults (DC) Additional Instructions: Patient has an appt with Dr.Erin Pelaez [phone] on March at 3:40pm Follow up with: DESTINY CAMP MD [ACTIVE STAFF] - 03/13/24 1:00 pm
[2024-03-07 11:31] VITALS: BP 123/70; PULSE 97; RESP 17; TEMP 97.5; O2SAT 97
== END 2024-03-07 14:46 | disposition home or self-care (01) ==
LOC: ED 17:53 → MED SURG 22:29
PROVIDERS: ADMIT Student in an Organized Health Care Education/Training Program; ATTEND Student in an Organized Health Care Education/Training Program
DX: J18.9 Pneumonia, unspecified organism (principal); Z85.41 Personal history of malignant neoplasm of cervix uteri; Z86.711 Personal history of pulmonary embolism; R11.2 Nausea with vomiting, unspecified; R10.2 Pelvic and perineal pain; F17.200 Nicotine dependence, unspecified, uncomplicated; N39.0 Urinary tract infection, site not specified; R73.9 Hyperglycemia, unspecified; D50.9 Iron deficiency anemia, unspecified; Z79.899 Other long term (current) drug therapy; Z79.01 Long term (current) use of anticoagulants
CPT/HCPCS: 36000; 36415; 71046; 74177; 80053; 81001; 82947; 83036; 83605; 83690; 85025; 87040; 87086; 96365; 96374; 96375; 99285; Q3014; J0456; J0696; J1170; J2405; A9270-GY

== ENCOUNTER 2024-06-17 07:24 | Emergency (ER) | payer OTHER ==
--- NOTE | 2024-06-17 08:03 | ERPHSYRPT ---
- History of Present Illness Time Seen by Provider: 06/17/24 08:00 Source: patient Exam Limitations: no limitations Physician History: 39-year-old female with history of metastatic cervical cancer currently with a left nephrostomy tube presents to the emergency department for evaluation of abdominal distention pain, back pain nausea and vomiting. Patient states he is unable to tolerate p.o. as she immediately vomits. Patient's symptoms have been ongoing for the past day. Symptoms are progressive symptoms are moderate in intensity. No specific worsening improving factors. No fever. No recent trauma. Patient otherwise feels well and voices no other complaints concerns at this time. Portions of this note were created with voice recognition technology. There may be grammatical, spelling, punctuation or sound alike errors Timing/Duration: today Severity: moderate Associated Symptoms: nausea Allergies/Adverse Reactions: ketamine Allergy (Intermediate, Verified 06/17/24 07:45) hallucinations metformin Allergy (Intermediate, Verified 06/17/24 07:45) hallucinations sulfamethoxazole [From Bactrim] Allergy (Intermediate, Verified 06/17/24 07:45) Hives trimethoprim [From Bactrim] Allergy (Intermediate, Verified 06/17/24 07:45) Hives Home Medications: Apixaban [Eliquis] 5 mg PO BID 08/18/23 [History] Quetiapine Fumarate [Seroquel] 50 mg PO HS 08/18/23 [History] Oxycodone HCl 20 mg PO Q4H 03/04/24 [History] Magnesium Oxide 400 mg [Mag-Ox 400] 400 mg PO DAILY 06/17/24 [History] Polyethylene Glycol 3350 17 gm [Miralax Powder 17GM PACKET] 17 gm PO DAILY PRN 06/17/24 [History] Hx Tetanus, Diphtheria Vaccination/Date Given: Yes Hx Influenza Vaccination/Date Given: No Hx Pneumococcal Vaccination/Date Given: No Travel Risk - Emerging Infectious Disease Are you exhibiting symptoms associated with any current EIDs: Yes Symptoms: Vomitting - Review of Systems Constitutional: No Symptoms, No Fever, No Chills Eyes: No Symptoms Ears, Nose, & Throat: No Symptoms Respiratory: No Symptoms, No Cough, No Dyspnea Cardiac: No Symptoms, No Chest Pain, No Edema, No Syncope Abdominal/Gastrointestinal: No Symptoms, No Abdominal Pain, No Nausea, No Vomiting, No Diarrhea Genitourinary Symptoms: No Symptoms, No Dysuria Musculoskeletal: No Symptoms, No Back Pain, No Neck Pain Skin: No Symptoms, No Rash Neurological: No Symptoms, No Dizziness, No Focal Weakness, No Sensory Changes Psychological: No Symptoms Endocrine: No Symptoms Hematologic/Lymphatic: No Symptoms Immunological/Allergic: No Symptoms All Other Systems: Reviewed and Negative - Past Medical History Pertinent Past Medical History: Yes Neurological History: No Pertinent History ENT History: No Pertinent History Cardiac History: No Pertinent History Respiratory History: Pulmonary Embolism Endocrine Medical History: Other Musculoskeletal History: Fractures GI Medical History: No Pertinent History History: Other Psycho-Social History: Anxiety, Depression, Panic Disorder, Other Female Reproductive Disorders: Cervical Cancer Other Medical History: PTSD- talk to before touch when asleep. cervical ca stage 3C2 in surveillance stage- finished treatment in 04/05/23. left talus chip fx. hypertriglyceridemia. left sided neph tube. "fluoro gut". had right sided neph tube removed in Jun. 9cm tumor impeded flow requiring neph tubes. - Past Surgical History Past Surgical History: Yes Neuro Surgical History: No Pertinent History Cardiac: No Pertinent History Respiratory: No Pertinent History Gastrointestinal: No Pertinent History Genitourinary: No Pertinent History Musculoskeletal: No Pertinent History Female Surgical History: Tubal Ligation, Other Other Surgical History: bilat neph tube. sinus surgery. cervical tumor biopsy - Social History Smoking Status: Current every day smoker How long have you smoked: 25 yrs Exposure to second hand smoke: Yes Drug Use: none Patient Lives Alone: Yes - Social Determinants of Health Will the patient participate in the screening: Yes Do you worry about a steady place to live?: No In the past 12 months,have you had to go without utilities?: No Transportation Issues: No Has anyone in your support network made you feel unsafe?: No Have you or anyone in your house had to go without enough: No - Nursing Vital Signs Nursing Vital Signs: Initial Vital Signs Temperature 98.8 F 06/17/24 07:40 Pulse Rate 108 H 06/17/24 07:40 Respiratory Rate 16 06/17/24 07:40 Blood Pressure 136/77 06/17/24 07:40 O2 Sat by Pulse Oximetry 100 06/17/24 07:40 Pain Scale Pain Intensity 5 - Physical Exam General Appearance: no apparent distress, alert Eye Exam: PERRL/EOMI, eyes nml inspection Ears, Nose, Throat Exam: normal ENT inspection, TMs normal, pharynx normal, moist mucous membranes Neck Exam: normal inspection, non-tender, supple, full range of motion Respiratory Exam: normal breath sounds, lungs clear, No respiratory distress Cardiovascular Exam: regular rate/rhythm, normal heart sounds, normal peripheral pulses Gastrointestinal/Abdomen Exam: soft, normal bowel sounds, No tenderness, No mass Back Exam: normal inspection, normal range of motion, other (Some low back tenderness to palpation. Overlying soft tissue intact. No signs of trauma), No CVA tenderness, No vertebral tenderness Extremity Exam: normal inspection, normal range of motion, pelvis stable Neurologic Exam: alert, oriented x 3, cooperative, normal mood/affect, nml cerebellar function, nml station & gait, sensation nml, No motor deficits Skin Exam: normal color, warm, dry, No rash Lymphatic Exam: No adenopathy SpO2 Interpretation: normal SpO2: 100 O2 Delivery: Room Air - Course Nursing assessment & vital signs reviewed: Yes - CT Exams Abdomen/Pelvis CT Interpretation: Tele-radiologist Report (Hydronephrosis hydroureter renal edema.) Ordered Tests: Active Orders 24 hr Category Date Time Status IV Insertion STAT Care 06/17/24 08:00 Completed ABDOMEN AND PELVIS W/0 CONTRAS [CT] Stat Exams 06/17/24 08:00 Completed CBC W DIFF Stat Lab 06/17/24 08:06 Completed CMP Stat Lab 06/17/24 08:06 Completed CULTURE,URINE Stat Lab 06/17/24 08:06 Received UA W/RFX UR CULTURE Stat Lab 06/17/24 08:06 Completed Medication Summary Discontinued Medications Generic Name Dose Route Start Last Admin Trade Name Latisha PRN Reason Stop Dose Admin Droperidol 1.25 mg 06/17/24 12:48 06/17/24 12:53 Droperidol 5 Mg/2 Ml Vial IV 06/17/24 12:49 1.25 mg STAT ONE Administration Droperidol Confirm 06/17/24 12:49 Droperidol 5 Mg/2 Ml Vial Administered 06/17/24 12:50 Dose 5 mg .ROUTE .STK-MED ONE Hydromorphone HCl 1 mg 06/17/24 08:00 06/17/24 08:08 Hydromorphone 1 Mg/1ml Inj IV 06/17/24 08:01 1 mg STAT ONE Administration Hydromorphone HCl Confirm 06/17/24 08:07 Hydromorphone 1 Mg/1ml Inj Administered 06/17/24 08:08 Dose 1 mg .ROUTE .STK-MED ONE Hydromorphone HCl 0.5 mg 06/17/24 08:51 06/17/24 09:02 Hydromorphone 1 Mg/1ml Inj IV 06/17/24 08:52 0.5 mg STAT ONE Administration Hydromorphone HCl Confirm 06/17/24 09:01 Hydromorphone 1 Mg/1ml Inj Administered 06/17/24 09:02 Dose 1 mg .ROUTE .STK-MED ONE Hydromorphone HCl 0.5 mg 06/17/24 10:51 06/17/24 11:00 Hydromorphone 1 Mg/1ml Inj IV 06/17/24 10:52 0.5 mg STAT ONE Administration Hydromorphone HCl Confirm 06/17/24 10:58 Hydromorphone 1 Mg/1ml Inj Administered 06/17/24 10:59 Dose 1 mg .ROUTE .STK-MED ONE Sodium Chloride 1,000 mls @ 100 mls/hr 06/17/24 08:00 06/17/24 18:00 Sodium Chloride 0.9% 1000 Ml IV 07/17/24 07:59 Not Given .Q10H MIR[place]LE Ceftriaxone Sodium 1 gm in 100 mls @ 200 mls/hr 06/17/24 09:43 06/17/24 10:52 Rocephin 1 Gm / 100 Ml Nacl IV 06/17/24 10:12 Infused STAT ONE Infusion Ceftriaxone Sodium Confirm 06/17/24 10:20 Rocephin 1 Gm / 100 Ml Nacl Administered 06/17/24 10:21 Dose 1 gm in 100 mls @ ud IV .STK-MED ONE Sodium Chloride Confirm 06/17/24 08:07 Sodium Chloride 0.9% 1000 Ml Administered 06/17/24 08:08 Dose 1,000 mls @ ud .ROUTE .STK-MED ONE Morphine Sulfate Confirm 06/17/24 17:55 Morphine Sulfate 4 Mg/Ml Injection Administered 06/17/24 17:56 Dose 4 mg .ROUTE .STK-MED ONE Morphine Sulfate 4 mg 06/17/24 17:58 06/17/24 17:58 Morphine Sulfate 4 Mg/Ml Injection IV 06/17/24 17:59 4 mg STAT ONE Administration Ondansetron HCl 4 mg 06/17/24 08:00 06/17/24 08:08 Ondansetron Hcl 4 Mg/2 Ml Vial IV 06/17/24 08:01 4 mg STAT ONE Administration Ondansetron HCl Confirm 06/17/24 08:07 Ondansetron Hcl 4 Mg/2 Ml Vial Administered 06/17/24 08:08 Dose 4 mg .ROUTE .STK-MED ONE Ondansetron HCl 4 mg 06/17/24 10:27 06/17/24 10:33 Ondansetron Hcl 4 Mg/2 Ml Vial IV 06/17/24 10:28 4 mg STAT ONE Administration Ondansetron HCl Confirm 06/17/24 10:32 Ondansetron Hcl 4 Mg/2 Ml Vial Administered 06/17/24 10:33 Dose 4 mg .ROUTE .STK-MED ONE Lab/Rad Data: Laboratory Result Diagrams 06/17/24 08:06 06/17/24 08:06 Laboratory Results 06/17/24 06/17/24 06/17/24 Range/Units 08:06 08:06 08:06 WBC 11.4 H (3.98-10.04) x10^3/uL RBC 3.88 L (3.93-5.22) x10^6/uL Hgb 8.9 L (11.2-15.7) g/dL Hct 29.5 L (34.1-44.9) % MCV 76.0 L (79.4-94.8) fL MCH 22.9 L (25.6-32.2) pg MCHC 30.2 L (32.2-35.5) g/dL RDW 17.9 H (11.7-14.4) % Plt Count 521 H (182-369) x10^3/uL MPV 8.1 L (9.4-12.3) fL Gran % 77.5 H (34.0-71.1) % Immature Gran % (Auto) 0.5 H (0.001-0.429) % Nucleat RBC Rel Count 0.0 (0.00-0.2) % Eos # (Auto) 0.35 (0.04-0.36) x10^3/uL Immature Gran # (Auto) 0.06 H (0.001-0.031) x10^3u/L Absolute Lymphs (auto) 1.56 (1.18-3.74) x10^3/uL Absolute Monos (auto) 0.51 (0.24-0.86) x10^3/uL Absolute Nucleated RBC 0.00 (0.00-0.012) x10^3u/L Lymphocytes % 13.7 L (19.3-51.7) % Monocytes % 4.5 L (4.7-12.5) % Eosinophils % 3.1 (0.7-5.8) % Basophils % 0.7 (0.1-1.2) % Absolute Granulocytes 8.86 H (1.56-6.13) x10^3/uL Basophils # 0.08 (0.01-0.08) x10^3/uL Sodium 135 (135-145) mmol/L Potassium 3.6 (3.5-5.1) mmol/L Chloride 96 L (98-107) mmol/L Carbon Dioxide 29 (22-30) mmol/L Anion Gap 13.0 (5-15) MEQ/L BUN 17 (7-17) mg/dL Creatinine 0.88 (0.52-1.04) mg/dL Estimated GFR 85.2 ML/MIN Glucose 195 H (74-106) mg/dL Calcium 9.6 (8.4-10.2) mg/dL Total Bilirubin 0.30 (0.2-1.3) mg/dL AST 15 (14-36) U/L ALT 11 (0-35) U/L Alkaline Phosphatase 101 (38-126) U/L Serum Total Protein 6.7 (6.3-8.2) g/dL Albumin 3.5 (3.5-5.0) g/dL Urine Color Yellow (Yellow) Urine Appearance Turbid A (Clear) Urine pH 8.0 (4.6-8.0) Ur Specific [place] 1.020 (1.005-1.030) Urine Protein 300 A (Negative) Urine Glucose (UA) Negative (Negative) mg/dL Urine Ketones Negative (Negative) Urine Blood Large A (Negative) Urine Nitrite Positive A (Negative) Urine Bilirubin Negative (Negative) Urine Urobilinogen 0.2 (0.2) mg/dL Ur Leukocyte Esterase Large A (Negative) U Hyaline Cast (Auto) 3-5 A (0-2) /LPF Urine Microscopic RBC >100 A (0-5) /HPF Urine Microscopic WBC >100 A (0-5) /HPF Ur Epithelial Cells None Seen (None Seen) /HPF Urine Bacteria Many A (None Seen) /HPF Urine Culture Reflexed YES (NO) - Progress Progress: improved Progress Note: 39-year-old female with a history of cervical cancer presents to our ED for evaluation of back pain. Workup reveals new hydroureter or hydronephrosis with a urinary tract infection. CAT scan suggestive of obstructive uropathy. We do not have urological services here. Patient request transfer to . Case discussed with [facility] oncology physician Dr. Prieto who accepts transfer at 11:02 AM. Plan of care discussed with patient. Patient agrees to transfer for further evaluation and treatment. Portions of this note were created with voice recognition technology. There may be grammatical, spelling, punctuation or sound alike errors Complexity problem addressed is moderate acute complicated. No critical care time. Complex of data reviewed and analyzed is extensive. Test ordered chest reviewed results analyzed and correlated clinically with history and physical exam. Risk of complication and or risk of morbidity/mortality patient management is moderate. Vital stable. Time spent to transfer patient is approximately 20 minutes. Plan of care established for shared decision making. No social determinants of health present template follow-up. Portions of this note were created with voice recognition technology. There may be grammatical, spelling, punctuation or sound alike errors 06/17/24 11:10 Counseled pt/family regarding: lab results, diagnosis, rad results - Departure Departure Disposition: Home Clinical Impression: UTI (urinary tract infection), Microcytic anemia, Thrombocytosis, Obstructive uropathy, Hydronephrosis, Hydroureter Condition: Stable Critical Care Time: No Referrals: DESTINY CAMP MD [Primary Care Provider] - Follow up/PCP as directed Additional Instructions: Discharge/Care Plan JJ RAMSAY was seen on 06/17/24 in the Emergency Room. The patient was counseled regarding Diagnosis,Lab results, Imaging studies, need for follow up and when to return to the Emergency Room. Prescriptions given: Discharge Note I have spoken with the patient and/or caregivers. I have explained the patient's condition, diagnosis and treatment plan based on the information available to me at this time. I have answered the patient's and/or caregiver's questions and addressed any concerns. The patient and/or caregivers have as good understanding of the patient's diagnosis, condition and treatment plan as can be expected at this point. The vital signs have been stable. The patient's condition is stable and appropriate for discharge from the emergency department. The patient will pursue further outpatient evaluation with the primary care physician or other designated or consulting physician as outlined in the discharge instructions. The patient and/or caregivers are agreeable to this plan of care and follow-up instructions have been explained in detail. The patient and/or caregivers have received these instruction. The patient/and or caregivers are aware that any significant change in condition or worsening of symptoms should prompt an immediate return to this or the closest emergency department or call 911.
[2024-06-17] MEDS ORDERED: Hydromorphone 1 mg/ml Injection ONE ×3 (08:07→10:58)
[2024-06-17] MEDS ORDERED: Sodium Chloride 0.9% 1000 ML 1,000 ML ONE (08:07)
[2024-06-17] MEDS ORDERED: Zofran 4 MG/2 ML VIAL ONE ×2 (08:07→10:32)
[2024-06-17] MEDS: Hydromorphone 1 mg/ml Injection IV ONE ×3 (08:08→11:00)
[2024-06-17] MEDS: Zofran 4 MG/2 ML VIAL IV ONE ×2 (08:08→10:33)
[2024-06-17 08:09] LABS: Absolute Neutrophil Ct (ANC) 8.86 x10^3/uL (1.56-6.13); BASOPHIL % 0.7 % (0.1-1.2); Basophil (Absolute #) 0.08 x10^3/uL (0.01-0.08); Eosinophil % 3.1 % (0.7-5.8); Eosinophil (Absolute #) 0.35 x10^3/uL (0.04-0.36); Hematocrit 29.5 % (34.1-44.9); Hemoglobin 8.9 g/dL (11.2-15.7); IMMATURE GRAN # 0.06 x10^3u/L (0.001-0.031); IMMATURE GRAN % 0.5 % (0.001-0.429); Lymphocyte (Absolute #) 1.56 x10^3/uL (1.18-3.74); Lymphocytes % 13.7 % (19.3-51.7); Mean Corpuscular Hemoglobin 22.9 pg (25.6-32.2); Mean Corpuscular Hgb Concent. 30.2 g/dL (32.2-35.5); Mean Platelet Volume 8.1 fL (9.4-12.3); Monocyte (Absolute #) 0.51 x10^3/uL (0.24-0.86); Monocytes % 4.5 % (4.7-12.5); Neutrophil % 77.5 % (34.0-71.1); Platelet Count 521 x10^3/uL (182-369); Red Blood Count 3.88 x10^6/uL (3.93-5.22); Red Cell Distribution Width 17.9 % (11.7-14.4); White Blood Count 11.4 x10^3/uL (3.98-10.04)
[2024-06-17] MEDS: Sodium Chloride 0.9% 1000 ML 1,000 ML IV SCH (08:11)
[2024-06-17 08:14] LABS: Appearance Turbid (Clear); Bilirubin Negative (Negative); Blood Large (Negative); Glucose, Urine Negative (Negative); Ketones Negative (Negative); Leukocyte Esterase Large (Negative); Protein,Urine Dip 300 (Negative); Urobilinogen 0.2 mg/dL (0.2)
[2024-06-17 08:28] LABS: Bacteria Many /HPF (None Seen); Epithelial Cells None Seen /HPF (None Seen); Nitrite Positive (Negative); RBC >100 /HPF (0-5); WBC >100 /HPF (0-5)
[2024-06-17 08:35] LABS: ALBUMIN 3.5 g/dL (3.5-5.0); BILIRUBIN,TOTAL 0.3 mg/dL (0.2-1.3); Calcium 9.6 mg/dL (8.4-10.2); Creatinine 1 0.88 mg/dL (0.52-1.04); EST GLOMERULAR FILTRATION RATE 85.2 ML/MIN; Potassium 3.6 mmol/L (3.5-5.1); Total Protein 6.7 g/dL (6.3-8.2)
[2024-06-17 08:37] LABS: ADD URINE CULTURE? YES (NO)
--- NOTE | 2024-06-17 09:11 | XRAY ---
Indication: Pain. History of cervical cancer. Multiple contiguous axial images obtained through the abdomen and pelvis without contrast. Comparison: March 04, 2024 Lung bases now clear. Heart not enlarged. Stomach is distended with food/fluid. Gallbladder contracted without gallstones. Noncontrasted stomach and bowel loops appear nonobstructed with normal appendix. Again mild diffuse scattered colonic fecal debris but less than before, greatest and ascending and transverse colon. Pelvic floor demonstrates grossly stable postoperative changes related to patient's history of cervical cancer. Right kidney cannot demonstrates moderate hydronephrosis with renal edema. Also new right ureter distention up to 1.2 cm without obvious calculus. Stable left renal atrophy with percutaneous nephrostomy catheter and left double-J ureteral stent catheter. Remaining liver, gallbladder, pancreas, spleen, adrenal glands, urinary bladder, uterus, and aorta are unremarkable for noncontrast exam. Osseous structures intact again with remote L1 superior endplate fracture. Impression: 1. New right renal hydronephrosis and hydroureter with renal edema concerning for distal obstructive uropathy. 2. Again mild diffuse fecal stasis, left renal atrophy, left percutaneous nephrostomy/left ureteral stent catheters in situ, and remote L1 fracture.
[2024-06-17] MEDS ORDERED: ROCEPHIN 1 GM / 100 ML NaCl 1 GM/100 ML IVPB IV ONE (10:20)
[2024-06-17] MEDS: ROCEPHIN 1 GM / 100 ML NaCl 1 GM/100 ML IVPB IV ONE (10:21)
[2024-06-17 17:35] VITALS: BP 111/69; PULSE 70; RESP 15; TEMP 98.3
[2024-06-17] MEDS ORDERED: MORPHINE SULFATE 4 MG INJ ONE (17:55)
[2024-06-17] MEDS: MORPHINE SULFATE 4 MG INJ IV ONE (17:58)
[2024-06-18 01:49] VITALS: O2SAT 100
== END 2024-06-17 18:00 | disposition short-term general hospital (02) ==
LOC: ED 07:24
DX: N39.0 Urinary tract infection, site not specified (principal); D50.9 Iron deficiency anemia, unspecified; D75.839 Thrombocytosis, unspecified; N13.30 Unspecified hydronephrosis; R11.2 Nausea with vomiting, unspecified; M54.9 Dorsalgia, unspecified; R10.9 Unspecified abdominal pain; C53.9 Malignant neoplasm of cervix uteri, unspecified; C79.89 Secondary malignant neoplasm of other specified sites; Z93.6 Other artificial openings of urinary tract status; Z79.01 Long term (current) use of anticoagulants; Z79.899 Other long term (current) drug therapy; Z72.0 Tobacco use
CPT/HCPCS: 36000; 36415; 74176; 80053; 81001; 85025; 87077; 87086; 87186; 96374; 96375; 96376; 99285; J0696; J1170; J2270; J2405

== ENCOUNTER 2024-06-24 09:42 | Emergency (ER) | payer OTHER ==
[2024-06-24 10:12] VITALS: TEMP 98.2
[2024-06-24] MEDS ORDERED: Sodium Chloride 0.9% 1000 ML 1,000 ML ONE (10:29)
[2024-06-24 10:34] LABS: Absolute Neutrophil Ct (ANC) 6.16 x10^3/uL (1.56-6.13); Basophil (Absolute #) 0.09 x10^3/uL (0.01-0.08); Eosinophil % 4.9 % (0.7-5.8); Eosinophil (Absolute #) 0.45 x10^3/uL (0.04-0.36); Hematocrit 30.4 % (34.1-44.9); Hemoglobin 9.4 g/dL (11.2-15.7); IMMATURE GRAN # 0.05 x10^3u/L (0.001-0.031); IMMATURE GRAN % 0.5 % (0.001-0.429); Lymphocyte (Absolute #) 2.01 x10^3/uL (1.18-3.74); Lymphocytes % 21.8 % (19.3-51.7); Mean Cell Volume 74.9 fL (79.4-94.8); Mean Corpuscular Hemoglobin 23.2 pg (25.6-32.2); Mean Corpuscular Hgb Concent. 30.9 g/dL (32.2-35.5); Mean Platelet Volume 8.1 fL (9.4-12.3); Monocyte (Absolute #) 0.45 x10^3/uL (0.24-0.86); Monocytes % 4.9 % (4.7-12.5); Neutrophil % 66.9 % (34.0-71.1); Platelet Count 612 x10^3/uL (182-369); Red Blood Count 4.06 x10^6/uL (3.93-5.22); Red Cell Distribution Width 17.8 % (11.7-14.4); White Blood Count 9.2 x10^3/uL (3.98-10.04)
--- NOTE | 2024-06-24 10:35 | ERPHSYRPT ---
- History of Present Illness Time Seen by Provider: 06/24/24 10:00 Source: patient Exam Limitations: no limitations Patient Subjective Stated Complaint: Vomiting- debby flank pain Triage Nursing Assessment: Patient ambulated back to ED and transferred self to bed. Patient A+O X 3. Patient's skin pink, warm and dry. Patient complains of N/V since last . Patient has hx of uterine and kidney cancer and has nephrostomy tube on left side. Last week patient was transferred from this hospital to have nephrostomy placed to right side. Patient states she had nephrostomy placed to right kidney on right side on Sunday. Patient states she was discharged from hospital on and has been having N/V since. Patient states she is weak and unable to keep medication or food down. Patient complains of debby flank pain 10/10 (worse on right side). Physician History: 39-year-old female history of cervical cancer presents to our ED for evaluation of nausea vomiting and bilateral flank pain. Patient has chronic pain and has not been able to take her pain medications due to her nausea and vomiting. Patient reports that she has a left nephrostomy tube that has been present for some time. During her last ED visit here patient was transferred to for evaluation and treatment of hydroureter or hydronephrosis. Patient states that during her last transfer they placed a right sided nephrostomy tube. Patient was discharged from on . Patient has not been able to hold anything down for 5 days since her discharge. Patient feels generalized weakness. She voices no other complaints or concerns at this time. No fever. No diarrhea. No rash. No chest pain or shortness of breath Portions of this note were created with voice recognition technology. There may be grammatical, spelling, punctuation or sound alike errors Timing/Duration: day(s) Severity: moderate (5 days) Modifying Factors: Improves With: nothing Associated Symptoms: denies symptoms Allergies/Adverse Reactions: ketamine Allergy (Intermediate, Verified 06/24/24 09:50) hallucinations metformin Allergy (Intermediate, Verified 06/24/24 09:50) hallucinations sulfamethoxazole [From Bactrim] Allergy (Intermediate, Verified 06/24/24 09:50) Hives trimethoprim [From Bactrim] Allergy (Intermediate, Verified 06/24/24 09:50) Hives Home Medications: Apixaban [Eliquis] 5 mg PO BID 08/18/23 [History] Quetiapine Fumarate [Seroquel] 50 mg PO HS 08/18/23 [History] Oxycodone HCl 20 mg PO Q4H 03/04/24 [History] Magnesium Oxide 400 mg [Mag-Ox 400] 400 mg PO DAILY 06/17/24 [History] Polyethylene Glycol 3350 17 gm [Miralax Powder 17GM PACKET] 17 gm PO DAILY PRN 06/17/24 [History] Hx Tetanus, Diphtheria Vaccination/Date Given: Yes Hx Influenza Vaccination/Date Given: No Hx Pneumococcal Vaccination/Date Given: No Immunizations Up to Date: Yes Travel Risk - International Travel Have you traveled outside of the country in past 3 weeks: No - Emerging Infectious Disease Are you exhibiting symptoms associated with any current EIDs: No Symptoms: Vomitting - Review of Systems Constitutional: No Symptoms, No Fever, No Chills Eyes: No Symptoms Ears, Nose, & Throat: No Symptoms Respiratory: No Symptoms, No Cough, No Dyspnea Cardiac: No Symptoms, No Chest Pain, No Edema, No Syncope Abdominal/Gastrointestinal: No Symptoms, No Abdominal Pain, No Nausea, No Vomiting, No Diarrhea Genitourinary Symptoms: No Symptoms, No Dysuria Musculoskeletal: No Symptoms, No Back Pain, No Neck Pain Skin: No Symptoms, No Rash Neurological: No Symptoms, No Dizziness, No Focal Weakness, No Sensory Changes Psychological: No Symptoms Endocrine: No Symptoms Hematologic/Lymphatic: No Symptoms Immunological/Allergic: No Symptoms All Other Systems: Reviewed and Negative - Past Medical History Pertinent Past Medical History: Yes Neurological History: No Pertinent History ENT History: No Pertinent History Cardiac History: No Pertinent History Respiratory History: Pulmonary Embolism Endocrine Medical History: Other Musculoskeletal History: Fractures GI Medical History: No Pertinent History History: Other Psycho-Social History: Anxiety, Depression, Panic Disorder, Other Female Reproductive Disorders: Cervical Cancer Other Medical History: PTSD- talk to before touch when asleep. cervical ca stage 3C2 in surveillance stage- finished treatment in 04/05/23. left talus chip fx. hypertriglyceridemia. left sided neph tube. "fluoro gut". had right sided neph tube removed in Jun. 9cm tumor impeded flow requiring neph tubes. - Past Surgical History Past Surgical History: Yes Neuro Surgical History: No Pertinent History Cardiac: No Pertinent History Respiratory: No Pertinent History Gastrointestinal: No Pertinent History Genitourinary: No Pertinent History Musculoskeletal: No Pertinent History Female Surgical History: Tubal Ligation, Other Other Surgical History: bilat neph tube. sinus surgery. cervical tumor biopsy - Female History Hx Last Menstrual Period: cancer Hx Now: No - Social History Smoking Status: Current every day smoker How long have you smoked: 25 yrs Exposure to second hand smoke: Yes Drug Use: none Patient Lives Alone: Yes - Social Determinants of Health Will the patient participate in the screening: Yes Do you worry about a steady place to live?: No Do you have any problems with any of the following?: No known problems In the past 12 months,have you had to go without utilities?: No Transportation Issues: No Has anyone in your support network made you feel unsafe?: No Have you or anyone in your house had to go without enough: No - Nursing Vital Signs Nursing Vital Signs: Initial Vital Signs Temperature 98.2 F 06/24/24 09:59 Pulse Rate 106 H 06/24/24 09:59 Respiratory Rate 20 06/24/24 09:59 Blood Pressure 184/102 06/24/24 09:59 O2 Sat by Pulse Oximetry 99 06/24/24 09:59 Pain Scale Pain Intensity 0 - Physical Exam General Appearance: no apparent distress, alert Eye Exam: PERRL/EOMI, eyes nml inspection Ears, Nose, Throat Exam: normal ENT inspection, TMs normal, pharynx normal, moist mucous membranes Neck Exam: normal inspection, non-tender, supple, full range of motion Respiratory Exam: normal breath sounds, lungs clear, airway intact, No respiratory distress Cardiovascular Exam: regular rate/rhythm, normal heart sounds, normal peripheral pulses Gastrointestinal/Abdomen Exam: soft, normal bowel sounds, No tenderness, No mass Back Exam: normal inspection, normal range of motion, No CVA tenderness, No vert ebral tenderness Extremity Exam: normal inspection, normal range of motion, pelvis stable Neurologic Exam: alert, oriented x 3, cooperative, normal mood/affect, nml cerebellar function, nml station & gait, sensation nml, No motor deficits Skin Exam: normal color, warm, dry, No rash Lymphatic Exam: No adenopathy SpO2 Interpretation: normal SpO2: 99 O2 Delivery: Room Air - Course Nursing assessment & vital signs reviewed: Yes - CT Exams Abdomen/Pelvis CT Interpretation: Tele-radiologist Report (Diffuse fecal stasis. New right nephrostomy. No complications. Renal atrophy. Left nephrostomy intact stable. No acute intra-abdominal findings) Ordered Tests: Active Orders 24 hr Category Date Time Status Battery Charger Tester STAT Care 06/24/24 10:15 Active IV Insertion STAT Care 06/24/24 10:14 Active Pulse Oximetry (ED) STAT Care 06/24/24 10:14 Active ABDOMEN AND PELVIS W/0 CONTRAS [CT] Stat Exams 06/24/24 10:31 Completed CBC W DIFF Stat Lab 06/24/24 10:20 Completed CMP Stat Lab 06/24/24 10:20 Completed CULTURE,URINE Stat Lab 06/24/24 11:57 Received MAGNESIUM Stat Lab 06/24/24 10:20 Completed UA W/RFX UR CULTURE Stat Lab 06/24/24 11:57 Completed Medication Summary Discontinued Medications Generic Name Dose Route Start Last Admin Trade Name Freq PRN Reason Stop Dose Admin Droperidol 1.25 mg 06/24/24 10:19 06/24/24 11:31 Droperidol 5 Mg/2 Ml Vial IV 06/24/24 10:20 1.25 mg STAT ONE Administration Droperidol Confirm 06/24/24 10:30 Droperidol 5 Mg/2 Ml Vial Administered 06/24/24 10:31 Dose 5 mg .ROUTE .STK-MED ONE Sodium Chloride 1,000 mls @ 999 mls/hr 06/24/24 10:14 06/24/24 11:33 Sodium Chloride 0.9% 1000 Ml IV 06/24/24 11:14 999 mls/hr .Q1H1M STA Administration Sodium Chloride Confirm 06/24/24 10:29 Sodium Chloride 0.9% 1000 Ml Administered 06/24/24 10:30 Dose 1,000 mls @ ud .ROUTE .STK-MED ONE Lab/Rad Data: Laboratory Result Diagrams 06/24/24 10:20 06/24/24 10:20 Laboratory Results 06/24/24 06/24/24 06/24/24 Range/Units 11:57 10:20 10:20 WBC 9.2 (3.98-10.04) x10^3/uL RBC 4.06 (3.93-5.22) x10^6/uL Hgb 9.4 L (11.2-15.7) g/dL Hct 30.4 L (34.1-44.9) % MCV 74.9 L (79.4-94.8) fL MCH 23.2 L (25.6-32.2) pg MCHC 30.9 L (32.2-35.5) g/dL RDW 17.8 H (11.7-14.4) % Plt Count 612 H (182-369) x10^3/uL MPV 8.1 L (9.4-12.3) fL Gran % 66.9 (34.0-71.1) % Immature Gran % (Auto) 0.5 H (0.001-0.429) % Nucleat RBC Rel Count 0.0 (0.00-0.2) % Eos # (Auto) 0.45 H (0.04-0.36) x10^3/uL Immature Gran # (Auto) 0.05 H (0.001-0.031) x10^3u/L Absolute Lymphs (auto) 2.01 (1.18-3.74) x10^3/uL Absolute Monos (auto) 0.45 (0.24-0.86) x10^3/uL Absolute Nucleated RBC 0.00 (0.00-0.012) x10^3u/L Lymphocytes % 21.8 (19.3-51.7) % Monocytes % 4.9 (4.7-12.5) % Eosinophils % 4.9 (0.7-5.8) % Basophils % 1.0 (0.1-1.2) % Absolute Granulocytes 6.16 H (1.56-6.13) x10^3/uL Basophils # 0.09 H (0.01-0.08) x10^3/uL Sodium 136 (135-145) mmol/L Potassium 3.6 (3.5-5.1) mmol/L Chloride 99 (98-107) mmol/L Carbon Dioxide 27 (22-30) mmol/L Anion Gap 13.7 (5-15) MEQ/L BUN 21 H (7-17) mg/dL Creatinine 1.01 (0.52-1.04) mg/dL Estimated GFR 72.2 ML/MIN Glucose 150 H (74-106) mg/dL Calcium 9.5 (8.4-10.2) mg/dL Magnesium 2.1 (1.6-2.3) mg/dL Total Bilirubin 0.20 (0.2-1.3) mg/dL AST 20 (14-36) U/L ALT 13 (0-35) U/L Alkaline Phosphatase 103 (38-126) U/L Serum Total Protein 7.3 (6.3-8.2) g/dL Albumin 3.8 (3.5-5.0) g/dL Urine Color [place] A (Yellow) Urine Appearance Turbid A (Clear) Urine pH 7.5 (4.6-8.0) Ur Specific [place] 1.020 (1.005-1.030) Urine Protein >=1000 A (Negative) Urine Glucose (UA) Negative (Negative) mg/dL Urine Ketones Negative (Negative) Urine Blood Large A (Negative) Urine Nitrite Negative (Negative) Urine Bilirubin Negative (Negative) Urine Urobilinogen 0.2 (0.2) mg/dL Ur Leukocyte Esterase Large A (Negative) U Hyaline Cast (Auto) NONE SEEN (0-2) /LPF Urine Microscopic RBC 11-20 A (0-5) /HPF Urine Microscopic WBC >100 A (0-5) /HPF Ur Epithelial Cells None Seen (None Seen) /HPF Urine Bacteria Moderate A (None Seen) /HPF Urine Culture Reflexed YES (NO) - Progress Progress: improved Progress Note: 39-year-old female presents to our ED for evaluation of nausea vomiting bilateral flank pain. Patient has bilateral nephrostomy tubes. Physical exam otherwise nonremarkable. Workup reveals dehydration. Patient received a liter of fluids. Patient received 1.25 mg of droperidol for pain and nausea. Nausea vomiting resolved. Pain significantly improved. Patient sleeping in room comfortably resting without complaints. UA reveals a urinary tract infection. Patient's urine grew out MRSA. Patient currently on linezolid. No indication for additional antibiotics. Will discharge home. Patient agrees to follow-up with her primary care doctor within 48 hours for reevaluation. Patient to continue her outpatient linezolid for MRSA UTI Portions of this note were created with voice recognition technology. There may be grammatical, spelling, punctuation or sound alike errors 06/24/24 12:40 Complexity problem addressed is moderate acute complicated. No critical care time. Complex of data reviewed and analyzed is moderate. Test ordered test reviewed results analyzed and correlated clinically with history and physical exam. Risk of complication and or risk of morbidity/mortality patient management is moderate. A prescription for prochlorperazine rectal provided for nausea and vomiting refractory to her Zofran use. Vital stable time spent to discharge patient is approximately 15 minutes. Plan of care established for shared decision making. No social determinants of health present impede follow- up. Portions of this note were created with voice recognition technology. There may be grammatical, spelling, punctuation or sound alike errors 06/24/24 12:45 Counseled pt/family regarding: lab results, diagnosis, need for follow-up, rad results - Departure Departure Disposition: Home Clinical Impression: Dehydration, Nausea and vomiting, UTI (urinary tract infection) Condition: Stable Critical Care Time: No Referrals: DESTINY CAMP MD [Primary Care Provider] - Follow up/PCP as directed Additional Instructions: Discharge/Care Plan JJ RAMSAY was seen on 06/24/24 in the Emergency Room. The patient was counseled regarding Diagnosis,Lab results, Imaging studies, need for follow up and when to return to the Emergency Room. Prescriptions given: Discharge Note I have spoken with the patient and/or caregivers. I have explained the patient's condition, diagnosis and treatment plan based on the information available to me at this time. I have answered the patient's and/or caregiver's questions and addressed any concerns. The patient and/or caregivers have as good understanding of the patient's diagnosis, condition and treatment plan as can be expected at this point. The vital signs have been stable. The patient's condition is stable and appropriate for discharge from the emergency department. The patient will pursue further outpatient evaluation with the primary care helene morris or other designated or consulting physician as outlined in the discharge instructions. The patient and/or caregivers are agreeable to this plan of care and follow-up instructions have been explained in detail. The patient and/or caregivers have received these instruction. The patient/and or caregivers are aware that any significant change in condition or worsening of symptoms should prompt an immediate return to this or the closest emergency department or call 911. Prescriptions: Prochlorperazine 25 mg Supp [Compazine 25 Mgsuppository] 25 mg RC Q12H PRN PRN 3 Days #6 supp PRN Reason: Vomiting
[2024-06-24 10:41] LABS: ALBUMIN 3.8 g/dL (3.5-5.0); ANION GAP 13.7 MEQ/L (5-15); BILIRUBIN,TOTAL 0.2 mg/dL (0.2-1.3); Calcium 9.5 mg/dL (8.4-10.2); Creatinine 1 1.01 mg/dL (0.52-1.04); EST GLOMERULAR FILTRATION RATE 72.2 ML/MIN; MAGNESIUM 2.1 mg/dL (1.6-2.3); Potassium 3.6 mmol/L (3.5-5.1); Total Protein 7.3 g/dL (6.3-8.2)
[2024-06-24] MEDS: Sodium Chloride 0.9% 1000 ML 1,000 ML IV STA (11:33)
[2024-06-24 11:34] VITALS: BP 154/103; RESP 18
[2024-06-24 12:09] VITALS: PULSE 89
--- NOTE | 2024-06-24 12:20 | XRAY ---
Indication: Pain. History cervical cancer. Multiple contiguous axial images obtained through the abdomen and pelvis without contrast. Comparison: June 17, 2024 Lung bases remain clear. Heart not enlarged. Noncontrasted stomach and bowel loops appear nonobstructed. Again mild diffuse scattered colonic fecal debris throughout. Stable left and new right percutaneous nephrostomy catheters.. Stable left renal atrophy and double-J ureteral stent catheter. No hydronephrosis or evidence for obstructive uropathy. Pelvic fluid demonstrates grossly stable postoperative changes related to patient's history of cervical cancer. Remaining liver, gallbladder, pancreas, spleen, adrenal glands, kidneys, ureters, bladder, uterus, and aorta are unremarkable for noncontrast exam. Impression: 1. New right percutaneous nephrostomy catheter without complications. 2. Remaining CT abdomen/pelvis unchanged again with mild diffuse fecal stasis, left renal atrophy, and left percutaneous nephrostomy/left ureteral stent catheter is in situ,
[2024-06-24 12:33] VITALS: O2SAT 99
[2024-06-24 12:34] LABS: Appearance Turbid (Clear); Bilirubin Negative (Negative); Blood Large (Negative); Glucose, Urine Negative (Negative); Hyaline Casts NONE SEEN /LPF (0-2); Ketones Negative (Negative); Leukocyte Esterase Large (Negative); Nitrite Negative (Negative); Ph 7.5 (4.6-8.0); Protein,Urine Dip >=1000 (Negative); Urobilinogen 0.2 mg/dL (0.2); WBC >100 /HPF (0-5)
[2024-06-24 12:36] LABS: ADD URINE CULTURE? YES (NO); Bacteria Moderate /HPF (None Seen); Epithelial Cells None Seen /HPF (None Seen)
== END 2024-06-24 13:01 | disposition home or self-care (01) ==
LOC: ED 09:42
DX: E86.0 Dehydration (principal); R11.2 Nausea with vomiting, unspecified; N39.0 Urinary tract infection, site not specified; R10.9 Unspecified abdominal pain; R53.1 Weakness; Z79.01 Long term (current) use of anticoagulants; Z79.891 Long term (current) use of opiate analgesic; Z79.899 Other long term (current) drug therapy; Z93.6 Other artificial openings of urinary tract status; Z72.0 Tobacco use
CPT/HCPCS: 36000; 36415; 74176; 80053; 81001; 83735; 85025; 87086; 93041; 94760; 96360; 96374; 99284

== ENCOUNTER 2024-07-12 18:02 | Observation (INO) | payer OTHER ==
--- NOTE | 2024-07-12 19:06 | ERPHSYRPT ---
- History of Present Illness Time Seen by Provider: 07/12/24 19:06 Historian: patient Exam Limitations: no limitations Patient Subjective Stated Complaint: Pt states "I have stage 4 cervical cancer and I ran out of my oxy two days ago. I was given gabapentin and I have been taking that for two days. I cannot sit still, I hurt in my pelvis and I just do not feel well." Triage Nursing Assessment: Pt presented alert and oriented X 3, skin pwd. Pt ambulates with an hunched over gait. Pt unable to sit still and moaning. Pt has slightly slurred speech Physician History: The patient, diagnosed with stage four cervical cancer, presents primarily for palliative care due to significant pain. The pain is localized in the pelvic area. She takes 20mg of Oxycodone Q4H for pain control, but recently ran out and believes she is withdrawing. Patient had a prescription for Gabapenint 300mg that she had never used prior to today, but due to the pain thought that it might help her sxs. The medicine didn't help with her pain, but caused hallucinations and slurring of speech. She denies any recent episodes of hematochezia or hematemesis. Timing/Duration: week(s) Activities at Onset: rest Quality: fullness, pressure, sharpness, stabbing Abdominal Pain Onset Location: other (pelvic) Pain Radiation: no radiation Severity of Pain-Max: severe Severity of Pain-Current: severe Modifying Factors: Improves With: nothing. Worsens With: movement, palpation, position Associated Symptoms: loss of appetite, nausea, weakness, No diarrhea, No vomiting Previous symptoms: same symptoms as today Allergies/Adverse Reactions: ketamine Allergy (Intermediate, Verified 06/24/24 09:50) hallucinations metformin Allergy (Intermediate, Verified 06/24/24 09:50) hallucinations sulfamethoxazole [From Bactrim] Allergy (Intermediate, Verified 06/24/24 09:50) Hives trimethoprim [From Bactrim] Allergy (Intermediate, Verified 06/24/24 09:50) Hives Home Medications: Apixaban [Eliquis] 5 mg PO BID 08/18/23 [History] Quetiapine Fumarate [Seroquel] 50 mg PO HS 08/18/23 [History] Oxycodone HCl 20 mg PO Q4H 03/04/24 [History] Magnesium Oxide 400 mg [Mag-Ox 400] 400 mg PO DAILY 06/17/24 [History] Polyethylene Glycol 3350 17 gm [Miralax Powder 17GM PACKET] 17 gm PO DAILY PRN 06/17/24 [History] Hx Tetanus, Diphtheria Vaccination/Date Given: Yes Hx Influenza Vaccination/Date Given: No Hx Pneumococcal Vaccination/Date Given: No Immunizations Up to Date: No Travel Risk - International Travel Have you traveled outside of the country in past 3 weeks: No - Emerging Infectious Disease Are you exhibiting symptoms associated with any current EIDs: No Symptoms: Vomitting - Review of Systems All Other Systems: Reviewed and Negative - Past Medical History Pertinent Past Medical History: Yes Neurological History: No Pertinent History ENT History: No Pertinent History Cardiac History: No Pertinent History Respiratory History: Pulmonary Embolism Endocrine Medical History: Other Musculoskeletal History: Fractures GI Medical History: No Pertinent History History: Other Psycho-Social History: Anxiety, Depression, Panic Disorder, Other Female Reproductive Disorders: Cervical Cancer Other Medical History: PTSD- talk to before touch when asleep. cervical ca stage 3C2 in surveillance stage- finished treatment in 04/05/23. left talus chip fx. hypertriglyceridemia. left sided neph tube. "fluoro gut". had right sided neph tube removed in Jun. 9cm tumor impeded flow requiring neph tubes. - Past Surgical History Past Surgical History: Yes Neuro Surgical History: No Pertinent History Cardiac: No Pertinent History Respiratory: No Pertinent History Gastrointestinal: No Pertinent History Genitourinary: No Pertinent History Musculoskeletal: No Pertinent History Female Surgical History: Tubal Ligation, Other Other Surgical History: bilat neph tube. sinus surgery. cervical tumor biopsy - Female History Hx Last Menstrual Period: no more cycle Hx Now: No - Social History Smoking Status: Current every day smoker How long have you smoked: 25 yrs Exposure to second hand smoke: Yes Drug Use: none Patient Lives Alone: Yes - Social Determinants of Health Will the patient participate in the screening: Yes Do you worry about a steady place to live?: No Do you have any problems with any of the following?: No known problems In the past 12 months,have you had to go without utilities?: No Transportation Issues: No Has anyone in your support network made you feel unsafe?: No Have you or anyone in your house had to go without enough: No - Nursing Vital Signs Nursing Vital Signs: Initial Vital Signs Temperature 97.3 F 07/12/24 18:54 Pulse Rate 121 H 07/12/24 18:54 Respiratory Rate 22 07/12/24 18:54 Blood Pressure 97/67 07/12/24 18:54 O2 Sat by Pulse Oximetry 95 07/12/24 18:54 Pain Scale Pain Intensity 8 - Physical Exam General Appearance: mild distress Eye Exam: eyes nml inspection Respiratory Exam: normal breath sounds, lungs clear, airway intact, No respiratory distress Cardiovascular Exam: regular rate/rhythm, normal heart sounds, No edema Gastrointestinal/Abdomen Exam: soft, normal bowel sounds, tenderness (lower abdomen), guarding, No distention, No rebound SpO2 Interpretation: normal SpO2: 95 O2 Delivery: Room Air - Course Nursing assessment & vital signs reviewed: Yes - CT Exams Abdomen/Pelvis CT Interpretation: Tele-radiologist Report, Other (left emphasymatous pyelitis) Ordered Tests: Active Orders 24 hr Category Date Time Status IV Insertion STAT Care 07/12/24 19:30 Active NPO (ED) STAT Care 07/12/24 19:30 Active ABDOMEN AND PELVIS W CONTRAST [CT] Stat Exams 07/12/24 19:31 Completed CBC W DIFF Stat Lab 07/12/24 20:00 Completed CMP Stat Lab 07/12/24 20:00 Completed CULTURE,URINE Stat Lab 07/12/24 22:55 Received LIPASE Stat Lab 07/12/24 20:00 Completed Lactic Acid Stat Lab 07/12/24 20:00 Completed Lactic Acid Stat Lab 07/12/24 22:15 Completed POCT GLUCOSE Stat Lab 07/12/24 22:31 Completed UA W/RFX UR CULTURE Stat Lab 07/12/24 22:55 Completed Urine Triage Profile Stat Lab 07/12/24 22:55 Completed VENOUS BLOOD GAS Stat Lab 07/12/24 21:20 Completed Transfer Order Routine Transfer 07/12/24 Ordered Medication Summary Generic Name Dose Route Start Last Admin Trade Name Freq PRN Reason Stop Dose Admin Sodium Chloride 1,000 mls @ 999 mls/hr 07/12/24 23:54 07/12/24 23:56 Sodium Chloride 0.9% 1000 Ml IV 07/13/24 00:54 999 mls/hr .Q1H1M STA Administration Discontinued Medications Generic Name Dose Route Start Last Admin Trade Name Freq PRN Reason Stop Dose Admin Sodium Chloride 1,000 mls @ 999 mls/hr 07/12/24 19:30 07/12/24 20:52 Sodium Chloride 0.9% 1000 Ml IV 07/12/24 20:30 999 mls/hr .Q1H1M STA Administration Sodium Chloride Confirm 07/12/24 20:47 Sodium Chloride 0.9% 1000 Ml Administered 07/12/24 20:48 Dose 1,000 mls @ ud .ROUTE .STK-MED ONE Ceftriaxone Sodium 2 gm in 100 mls @ 200 mls/hr 07/12/24 23:24 07/12/24 23:57 Rocephin 2 Gm/100 Ml Nacl IV 07/12/24 23:53 200 mls/hr STAT ONE 200 mls/hr Administration Sodium Chloride Confirm 07/12/24 23:55 Sodium Chloride 0.9% 1000 Ml Administered 07/12/24 23:56 Dose 1,000 mls @ ud .ROUTE .STK-MED ONE Ceftriaxone Sodium Confirm 07/12/24 23:55 Rocephin 2 Gm/100 Ml Nacl Administered 07/12/24 23:56 Dose 2 gm in 100 mls @ ud IV .STK-MED ONE Insulin Human Lispro 8 unit 07/12/24 22:10 07/12/24 22:36 Insulin Lispro 1 Unit SQ 07/12/24 22:11 4 unit STAT ONE Administration Insulin Human Lispro Confirm 07/12/24 22:27 Insulin Lispro 1 Unit Administered 07/12/24 22:28 Dose 8 unit .ROUTE .STK-MED ONE Morphine Sulfate 4 mg 07/12/24 19:30 07/12/24 20:52 Morphine Sulfate 4 Mg/Ml Injection IV 07/12/24 19:31 4 mg STAT ONE Administration Morphine Sulfate Confirm 07/12/24 20:47 Morphine Sulfate 4 Mg/Ml Injection Administered 07/12/24 20:48 Dose 4 mg .ROUTE .STK-MED ONE Morphine Sulfate 4 mg 07/12/24 23:27 07/12/24 23:57 Morphine Sulfate 4 Mg/Ml Injection IV 07/12/24 23:28 4 mg STAT ONE Administration Morphine Sulfate Confirm 07/12/24 23:55 Morphine Sulfate 4 Mg/Ml Injection Administered 07/12/24 23:56 Dose 4 mg .ROUTE .STK-MED ONE Lab/Rad Data: Laboratory Result Diagrams 07/12/24 20:00 07/12/24 20:00 Laboratory Results 07/12/24 07/12/24 07/12/24 Range/Units 22:55 22:55 22:31 WBC (3.98-10.04) x10^3/uL RBC (3.93-5.22) x10^6/uL Hgb (11.2-15.7) g/dL Hct (34.1-44.9) % MCV (79.4-94.8) fL MCH (25.6-32.2) pg MCHC (32.2-35.5) g/dL RDW (11.7-14.4) % Plt Count (182-369) x10^3/uL MPV (9.4-12.3) fL Gran % (34.0-71.1) % Immature Gran % (Auto) (0.001-0.429) % Nucleat RBC Rel Count (0.00-0.2) % Eos # (Auto) (0.04-0.36) x10^3/uL Immature Gran # (Auto) (0.001-0.031) x10^3u/L Absolute Lymphs (auto) (1.18-3.74) x10^3/uL Absolute Monos (auto) (0.24-0.86) x10^3/uL Absolute Nucleated RBC (0.00-0.012) x10^3u/L Lymphocytes % (19.3-51.7) % Monocytes % (4.7-12.5) % Eosinophils % (0.7-5.8) % Basophils % (0.1-1.2) % Absolute Granulocytes (1.56-6.13) x10^3/uL Basophils # (0.01-0.08) x10^3/uL pO2/FiO2 Ratio % VBG pH (7.32-7.42) VBG pCO2 at Pat Temp (42-55) mm/Hg VBG pO2 at Pat Temp (25-40) mm/Hg VBG HCO3 (22-28) meq/L VBG O2 Sat (Yang) (95-100) VBG Base Excess (-2.0-2.0) VBG Hemoglobin VBG Carboxyhemoglobin (0.0-6.9) % T HGB POC Potassium (3.5-5.1) Sodium (135-145) mmol/L Potassium (3.5-5.1) mmol/L Chloride (98-107) mmol/L Carbon Dioxide (22-30) mmol/L Anion Gap (5-15) MEQ/L BUN (7-17) mg/dL Creatinine (0.52-1.04) mg/dL Estimated GFR ML/MIN Glucose (74-106) mg/dL POC Glucometer 198 H (74 to 106) mg/dL Hemoglobin A1c (4.5-6.0) % Lactic Acid (0.4-2.0) Calcium (8.4-10.2) mg/dL Total Bilirubin (0.2-1.3) mg/dL AST (14-36) U/L ALT (0-35) U/L Alkaline Phosphatase (38-126) U/L Serum Total Protein (6.3-8.2) g/dL Albumin (3.5-5.0) g/dL Lipase (23-300) U/L Urine Color Yellow (Yellow) Urine Appearance Cloudy A (Clear) Urine pH 5.5 (4.6-8.0) Ur Specific [place] >=1.030 A (1.005-1.030) Urine Protein 300 A (Negative) Urine Glucose (UA) 250 A (Negative) mg/dL Urine Ketones Negative (Negative) Urine Blood Large A (Negative) Urine Nitrite Negative (Negative) Urine Bilirubin Negative (Negative) Urine Urobilinogen 1.0 A (0.2) mg/dL Ur Leukocyte Esterase Moderate A (Negative) U Hyaline Cast (Auto) NONE SEEN (0-2) /LPF Urine Microscopic RBC >100 A (0-5) /HPF Urine Microscopic WBC >100 A (0-5) /HPF Ur Epithelial Cells None Seen (None Seen) /HPF Urine Bacteria Many A (None Seen) /HPF Urine Culture Reflexed YES (NO) Urine Opiates Level POSITIVE A (NEGATIVE) Ur Methadone NEGATIVE (NEGATIVE) Urine Barbiturates NEGATIVE (NEGATIVE) Ur Phencyclidine (PCP) NEGATIVE (NEGATIVE) Urine Amphetamine POSITIVE A (NEGATIVE) U Benzodiazepine Level NEGATIVE (NEGATIVE) Urine Cocaine NEGATIVE (NEGATIVE) Urine Marijuana (THC) POSITIVE A (NEGATIVE) 07/12/24 07/12/24 07/12/24 Range/Units 22:15 21:20 20:00 WBC (3.98-10.04) x10^3/uL RBC (3.93-5.22) x10^6/uL Hgb (11.2-15.7) g/dL Hct (34.1-44.9) % MCV (79.4-94.8) fL MCH (25.6-32.2) pg MCHC (32.2-35.5) g/dL RDW (11.7-14.4) % Plt Count (182-369) x10^3/uL MPV (9.4-12.3) fL Gran % (34.0-71.1) % Immature Gran % (Auto) (0.001-0.429) % Nucleat RBC Rel Count (0.00-0.2) % Eos # (Auto) (0.04-0.36) x10^3/uL Immature Gran # (Auto) (0.001-0.031) x10^3u/L Absolute Lymphs (auto) (1.18-3.74) x10^3/uL Absolute Monos (auto) (0.24-0.86) x10^3/uL Absolute Nucleated RBC (0.00-0.012) x10^3u/L Lymphocytes % (19.3-51.7) % Monocytes % (4.7-12.5) % Eosinophils % (0.7-5.8) % Basophils % (0.1-1.2) % Absolute Granulocytes (1.56-6.13) x10^3/uL Basophils # (0.01-0.08) x10^3/uL pO2/FiO2 Ratio 21.0 % VBG pH 7.52 H (7.32-7.42) VBG pCO2 at Pat Temp 30 L (42-55) mm/Hg VBG pO2 at Pat Temp 55 H (25-40) mm/Hg VBG HCO3 24.5 (22-28) meq/L VBG O2 Sat (Yang) 92.9 L (95-100) VBG Base Excess 2.0 (-2.0-2.0) VBG Hemoglobin 9.5 VBG Carboxyhemoglobin 7.5 H* (0.0-6.9) % T HGB POC Potassium 3.7 (3.5-5.1) Sodium (135-145) mmol/L Potassium (3.5-5.1) mmol/L Chloride (98-107) mmol/L Carbon Dioxide (22-30) mmol/L Anion Gap (5-15) MEQ/L BUN (7-17) mg/dL Creatinine (0.52-1.04) mg/dL Estimated GFR ML/MIN Glucose (74-106) mg/dL POC Glucometer (74 to 106) mg/dL Hemoglobin A1c 6.94 H (4.5-6.0) % Lactic Acid 2.7 H (0.4-2.0) Calcium (8.4-10.2) mg/dL Total Bilirubin (0.2-1.3) mg/dL AST (14-36) U/L ALT (0-35) U/L Alkaline Phosphatase (38-126) U/L Serum Total Protein (6.3-8.2) g/dL Albumin (3.5-5.0) g/dL Lipase (23-300) U/L Urine Color (Yellow) Urine Appearance (Clear) Urine pH (4.6-8.0) Ur Specific [place] (1.005-1.030) Urine Protein (Negative) Urine Glucose (UA) (Negative) mg/dL Urine Ketones (Negative) Urine Blood (Negative) Urine Nitrite (Negative) Urine Bilirubin (Negative) Urine Urobilinogen (0.2) mg/dL Ur Leukocyte Esterase (Negative) U Hyaline Cast (Auto) (0-2) /LPF Urine Microscopic RBC (0-5) /HPF Urine Microscopic WBC (0-5) /HPF Ur Epithelial Cells (None Seen) /HPF Urine Bacteria (None Seen) /HPF Urine Culture Reflexed (NO) Urine Opiates Level (NEGATIVE) Ur Methadone (NEGATIVE) Urine Barbiturates (NEGATIVE) Ur Phencyclidine (PCP) (NEGATIVE) Urine Amphetamine (NEGATIVE) U Benzodiazepine Level (NEGATIVE) Urine Cocaine (NEGATIVE) Urine Marijuana (THC) (NEGATIVE) 07/12/24 07/12/24 07/12/24 Range/Units 20:00 20:00 20:00 WBC 8.2 (3.98-10.04) x10^3/uL RBC 3.75 L (3.93-5.22) x10^6/uL Hgb 8.9 L (11.2-15.7) g/dL Hct 30.1 L (34.1-44.9) % MCV 80.3 (79.4-94.8) fL MCH 23.7 L (25.6-32.2) pg MCHC 29.6 L (32.2-35.5) g/dL RDW 19.5 H (11.7-14.4) % Plt Count 385 H (182-369) x10^3/uL MPV 8.6 L (9.4-12.3) fL Gran % 67.3 (34.0-71.1) % Immature Gran % (Auto) 1.0 H (0.001-0.429) % Nucleat RBC Rel Count 0.0 (0.00-0.2) % Eos # (Auto) 0.49 H (0.04-0.36) x10^3/uL Immature Gran # (Auto) 0.08 H (0.001-0.031) x10^3u/L Absolute Lymphs (auto) 1.52 (1.18-3.74) x10^3/uL Absolute Monos (auto) 0.49 (0.24-0.86) x10^3/uL Absolute Nucleated RBC 0.00 (0.00-0.012) x10^3u/L Lymphocytes % 18.5 L (19.3-51.7) % Monocytes % 6.0 (4.7-12.5) % Eosinophils % 6.0 H (0.7-5.8) % Basophils % 1.2 (0.1-1.2) % Absolute Granulocytes 5.52 (1.56-6.13) x10^3/uL Basophils # 0.10 H (0.01-0.08) x10^3/uL pO2/FiO2 Ratio % VBG pH (7.32-7.42) VBG pCO2 at Pat Temp (42-55) mm/Hg VBG pO2 at Pat Temp (25-40) mm/Hg VBG HCO3 (22-28) meq/L VBG O2 Sat (Yang) (95-100) VBG Base Excess (-2.0-2.0) VBG Hemoglobin VBG Carboxyhemoglobin (0.0-6.9) % T HGB POC Potassium (3.5-5.1) Sodium 141 (135-145) mmol/L Potassium 3.4 L (3.5-5.1) mmol/L Chloride 107 (98-107) mmol/L Carbon Dioxide 23 (22-30) mmol/L Anion Gap 13.7 (5-15) MEQ/L BUN 16 (7-17) mg/dL Creatinine 0.78 (0.52-1.04) mg/dL Estimated GFR 98.4 ML/MIN Glucose 276 H (74-106) mg/dL POC Glucometer (74 to 106) mg/dL Hemoglobin A1c (4.5-6.0) % Lactic Acid 3.3 H (0.4-2.0) Calcium 9.5 (8.4-10.2) mg/dL Total Bilirubin 0.20 (0.2-1.3) mg/dL AST 23 (14-36) U/L ALT 23 (0-35) U/L Alkaline Phosphatase 114 (38-126) U/L Serum Total Protein 6.7 (6.3-8.2) g/dL Albumin 3.6 (3.5-5.0) g/dL Lipase 71 (23-300) U/L Urine Color (Yellow) Urine Appearance (Clear) Urine pH (4.6-8.0) Ur Specific [place] (1.005-1.030) Urine Protein (Negative) Urine Glucose (UA) (Negative) mg/dL Urine Ketones (Negative) Urine Blood (Negative) Urine Nitrite (Negative) Urine Bilirubin (Negative) Urine Urobilinogen (0.2) mg/dL Ur Leukocyte Esterase (Negative) U Hyaline Cast (Auto) (0-2) /LPF Urine Microscopic RBC (0-5) /HPF Urine Microscopic WBC (0-5) /HPF Ur Epithelial Cells (None Seen) /HPF Urine Bacteria (None Seen) /HPF Urine Culture Reflexed (NO) Urine Opiates Level (NEGATIVE) Ur Methadone (NEGATIVE) Urine Barbiturates (NEGATIVE) Ur Phencyclidine (PCP) (NEGATIVE) Urine Amphetamine (NEGATIVE) U Benzodiazepine Level (NEGATIVE) Urine Cocaine (NEGATIVE) Urine Marijuana (THC) (NEGATIVE) - Progress Progress: pain not gone completely Progress Note: After evaluation showed hemoglobin at 8.9 which is around her baseline. Glucose 276 with an A1c of 6.94%. VBG was obtained to assess pH which was 7.52. UA showed no ketones with significant glucosuria and signs of urinary tract infection. Initial lactic acid was 3.2 which improved to 2.7 after 1 L normal saline bolus. 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 I reached out to urology to discuss the findings, I spoke with Dr. Singleton at 2233 who felt that the findings were not concerning. Patient started on Rocephin. Her pain was controlled with Morphine 4mg every 3-4 hours. I discussed admission with Dr. Palumbo who accepted at [id number]. 07/13/24 00:[address] Other (Inder Palumbo) Will see patient in: hospital (observation) Counseled pt/family regarding: lab results, diagnosis, need for follow-up, rad results Medical Desision Making - Diagnostic Testing Diagnostic test were ordered, analyzed, and reviewed by me: Yes Radiological Interpretation: Interpreted by me, Reviewed by me, Teleradiologist Report - Risk of complications The pt has a mod risk of morbidity or mortality based on: Need for prescription drug management The pt has a high risk of morbidity or mortality based on: Decision regarding hospitilization or escalation of hosp level of care - Departure Departure Disposition: Observation Clinical Impression: Hyperglycemia, UTI (urinary tract infection), Pelvic pain, Elevated lactic acid level, Anemia, Cancer related pain Condition: Stable Critical Care Time: No Referrals: DESTINY CAMP MD [Primary Care Provider] - Follow up/PCP as directed Instructions: Type 2 diabetes
[2024-07-12 20:11] LABS: Absolute Neutrophil Ct (ANC) 5.52 x10^3/uL (1.56-6.13); BASOPHIL % 1.2 % (0.1-1.2); Eosinophil (Absolute #) 0.49 x10^3/uL (0.04-0.36); Hematocrit 30.1 % (34.1-44.9); Hemoglobin 8.9 g/dL (11.2-15.7); IMMATURE GRAN # 0.08 x10^3u/L (0.001-0.031); Lymphocyte (Absolute #) 1.52 x10^3/uL (1.18-3.74); Lymphocytes % 18.5 % (19.3-51.7); Mean Cell Volume 80.3 fL (79.4-94.8); Mean Corpuscular Hemoglobin 23.7 pg (25.6-32.2); Mean Corpuscular Hgb Concent. 29.6 g/dL (32.2-35.5); Mean Platelet Volume 8.6 fL (9.4-12.3); Monocyte (Absolute #) 0.49 x10^3/uL (0.24-0.86); Neutrophil % 67.3 % (34.0-71.1); Platelet Count 385 x10^3/uL (182-369); Red Blood Count 3.75 x10^6/uL (3.93-5.22); Red Cell Distribution Width 19.5 % (11.7-14.4); White Blood Count 8.2 x10^3/uL (3.98-10.04)
[2024-07-12 20:28] LABS: ALBUMIN 3.6 g/dL (3.5-5.0); ANION GAP 13.7 MEQ/L (5-15); BILIRUBIN,TOTAL 0.2 mg/dL (0.2-1.3); Calcium 9.5 mg/dL (8.4-10.2); Creatinine 1 0.78 mg/dL (0.52-1.04); EST GLOMERULAR FILTRATION RATE 98.4 ML/MIN; Potassium 3.4 mmol/L (3.5-5.1); Total Protein 6.7 g/dL (6.3-8.2)
[2024-07-12] MEDS ORDERED: Sodium Chloride 0.9% 1000 ML 1,000 ML ONE ×2 (20:47→23:55)
[2024-07-12] MEDS ORDERED: MORPHINE SULFATE 4 MG INJ ONE ×2 (20:47→23:55)
[2024-07-12] MEDS: MORPHINE SULFATE 4 MG INJ IV ONE ×2 (20:52→23:57)
[2024-07-12] MEDS: Sodium Chloride 0.9% 1000 ML 1,000 ML IV STA ×2 (20:52→23:56)
--- NOTE | 2024-07-12 21:29 | XRAY ---
CLINICAL HISTORY: abd pain COMPARISON: CT dated 12/20/2023 TECHNIQUE: CT of the abdomen and pelvis was performed with IV contrast, with the following protocol: axial images with reconstructed coronal and sagittal images. One of the following dose reduction techniques was utilized for this exam: Automated exposure control, adjustment of the mA and/or kV according to patient size, and use of iterative reconstruction. FINDINGS: Uterus and adnexae: Unchanged endometrial hypodense contents and bulky uterine cervix showing contour bulge and seen merging with parametrial soft tissue thickening. Associated mild smudging of the pelvic fat planes. Abdomen: Liver: Normal in size, shape, and density. No focal lesions, cysts, or masses were identified. Hepatic vasculature and biliary ducts are unremarkable. Gallbladder and Biliary System: The gallbladder is normal in size and shape. No wall thickening, pericholecystic fluid, or gallstones were identified. Pancreas: Pancreatic head, body, and tail are visualized and appear normal in size and density. No pancreatic masses or calcifications were noted. The pancreatic duct is not dilated. Spleen: Spleen shows calcified granulomas. Kidneys and Adrenal Glands: New interval development of an air focus at the upper pole of left kidney, possibly emphysematous pyelitis/post intervention changes Still noted bilateral per cutaneous nephrostomy tube and left DJ ureteric stent. No significant left renal or ureteric dilatation. (unchanged) Relatively smaller-sized left kidney showing undulant outline (unchanged). An air focus at upper pole The right kidney is of average size and shows a smooth outline and preserved parenchymal thickness. Mild dilatation of the right pelvicalyceal system and its draining ureter is noted. Adrenal glands are unremarkable with no evidence of masses or hyperplasia. Urinary Bladder: Normal in contour and wall thickness. No intraluminal lesions identified. Peritoneal and Retroperitoneal Structures: No free fluid or abnormal fluid collections were identified within the abdomen or pelvis. No lymphadenopathy was noted. Bowel: The visualized bowel loops are normal in caliber and appearance. No evidence of bowel obstruction or wall thickening. The appendix is not clearly delineated in the current study amidst crowded bowel loops, however, no obvious right iliac inflammatory changes are noted. Bones and Soft Tissues: Unchanged compression fracture of L1 vertebral body with sclerosis and retropulsion of its superior vertebral end plate with related gas lucency. Stationary sclerotic lesion at the left iliac bone. Scanned lung bases show fine atelectatic plates. IMPRESSION: 1. New interval development of an air focus at the upper pole of left kidney, possibly emphysematous pyelitis/post intervention changes 2. Still noted bilateral per cutaneous nephrostomy tube and left DJ ureteric stent. No significant left renal or ureteric dilatation. (unchanged) 3. Relatively smaller-sized left kidney showing undulant outline (unchanged). 4. On comparison with previous CT dated 12/20/2023 rest of findings show no interval change. Clinical correlation is recommended for further evaluation. Electronically Signed by: John Guillaume MD. (07/12/2024 21:24:31 EDT)
[2024-07-12 21:32] LABS: VBG HCO3- 24.5 meq/L (22-28); VBG HEMOGLOBIN 9.5; VBG O2 SATURATION 92.9 (95-100); VBG POTASSIUM 3.7 (3.5-5.1); VBG pH 7.52 (7.32-7.42)
[2024-07-12 21:33] LABS: VBG CARBOXYHEMOGLOBIN 7.5 % T HGB (0.0-6.9)
[2024-07-12] MEDS ORDERED: HUMALOG ONE (22:27)
[2024-07-12] MEDS: HUMALOG SQ ONE (22:36)
[2024-07-12 23:10] LABS: Appearance Cloudy (Clear); Bacteria Many /HPF (None Seen); Bilirubin Negative (Negative); Blood Large (Negative); Epithelial Cells None Seen /HPF (None Seen); Glucose, Urine 250 mg/dL (Negative); Hyaline Casts NONE SEEN /LPF (0-2); Ketones Negative (Negative); Leukocyte Esterase Moderate (Negative); Nitrite Negative (Negative); Ph 5.5 (4.6-8.0); Protein,Urine Dip 300 (Negative); RBC >100 /HPF (0-5); Specific Gravity >=1.030 (1.005-1.030); WBC >100 /HPF (0-5)
[2024-07-12 23:19] LABS: ADD URINE CULTURE? YES (NO)
[2024-07-12 23:20] LABS: Barbiturate,Urine NEGATIVE (NEGATIVE); Benzodiazepine,Urine NEGATIVE (NEGATIVE); Cocaine,Urine NEGATIVE (NEGATIVE); Methadone,Urine NEGATIVE (NEGATIVE); Opiate,Urine POSITIVE (NEGATIVE); PCP,Urine NEGATIVE (NEGATIVE); THC,Urine POSITIVE (NEGATIVE)
[2024-07-12] MEDS ORDERED: ROCEPHIN 2 GM/100 ML NACL 2 GM/100 ML IVPB IV ONE (23:55)
[2024-07-12] MEDS: ROCEPHIN 2 GM/100 ML NACL 2 GM/100 ML IVPB IV ONE (23:57)
[2024-07-13 00:09] LABS: Amphetamine,Urine POSITIVE (NEGATIVE)
--- NOTE | 2024-07-13 00:12 | PCM.HP ---
History of Present Illness - Chief Complaint Chief Complaint: Cancer related pain History of Present Illness: is a 39 year old female with stage IV cervical cancer who presents with intractable cancer related pain, in the pelvic area. She normally takes oxycodone 20 mg Q4Hr for pain but recently ran out of her medications. She only has been using gabapentin 300 mg without much help. She has no fevers, chills, nausea, vomiting, constipation. - Review of Systems Constitutional: No Fever, No Chills Eyes: No Symptoms Ears, Nose, & Throat: No Symptoms Respiratory: No Cough, No Short Of Breath Cardiac: No Chest Pain, No Edema, No Syncope Abdominal/Gastrointestinal: No Abdominal Pain, No Nausea, No Vomiting, No Diarrhea Genitourinary Symptoms: No Dysuria Musculoskeletal: No Back Pain, No Neck Pain Skin: No Rash Neurological: No Dizziness, No Focal Weakness, No Sensory Changes Psychological: No Symptoms Endocrine: No Symptoms Hematologic/Lymphatic: No Symptoms Immunological/Allergic: No Symptoms Medications & Allergies Home Medications: Home Medication List Apixaban [Eliquis] 5 mg PO BID 08/18/23 [History Confirmed 07/12/24] Quetiapine Fumarate [Seroquel] 50 mg PO HS 08/18/23 [History Confirmed 07/12/24] Oxycodone HCl 20 mg PO Q4H 03/04/24 [History Confirmed 07/12/24] Pantoprazole 20 mg [Protonix 20MG Tablet] 20 mg PO DAILY 30 Days #30 tab 03/07/24 [Rx Confirmed 07/12/24] Magnesium Oxide 400 mg [Mag-Ox 400] 400 mg PO DAILY 06/17/24 [History C onfirmed 07/12/24] Polyethylene Glycol 3350 17 gm [Miralax Powder 17GM PACKET] 17 gm PO DAILY PRN 06/17/24 [History Confirmed 07/12/24] Prochlorperazine 25 mg Supp [Compazine 25 Mgsuppository] 25 mg RC Q12H PRN PRN 3 Days #6 supp 06/24/24 [Rx Confirmed 07/12/24] Allergies/Adverse Reactions: Allergies Allergy/AdvReac Type Severity Reaction Status Date / Time ketamine Allergy Intermediate Verified 06/24/24 09:50 metformin Allergy Intermediate Verified 06/24/24 09:50 sulfamethoxazole Allergy Intermediate Hives Verified 06/24/24 09:50 [From Bactrim] trimethoprim [From Bactrim] Allergy Intermediate Hives Verified 06/24/24 09:50 - Past Medical History Past Medical History: Yes Neurological History: No Pertinent History ENT History: No Pertinent History Cardiac History: No Pertinent History Respiratory History: Pulmonary Embolism Endocrine Medical History: Other Musculoskelatal History: Fractures GI Medical History: No Pertinent History History: Other Pyscho-Social History: Anxiety, Depression, Panic Disorder, Other Reproductive Disorders: Cervical Cancer Comment: PTSD- talk to before touch when asleep. cervical ca stage 3C2 in surveillance stage- finished treatment in 04/05/23. left talus chip fx. hypertriglyceridemia. left sided neph tube. "fluoro gut". had right sided neph tube removed in Jun. 9cm tumor impeded flow requiring neph tubes. - Female History Hx Last Menstrual Period: no more cycle Are you now?: No - Past Surgical History Past Surgical History: Yes Neuro Surgical History: No Pertinent History Cardiac History: No Pertinent History Respiratory Surgery: No Pertinent History GI Surgical History: No Pertinent History Genitourinary Surgical Hx: No Pertinent History Musculskeletal Surgical Hx: No Pertinent History Female Surgical History: Tubal Ligation, Other Other Surgical History: bilat neph tube. sinus surgery. cervical tumor biopsy - Social History Smoking Status: Current every day smoker How long have you smoked: 25 yrs Exposure to second hand smoke: Yes Alcohol: None Drug Use: none - Social Determinants of Health Will the patient participate in the screening: Yes Do you worry about a steady place to live?: No Do you have any problems with any of the following?: No known problems In the past 12 months,have you had to go without utilities?: No Have you or anyone in your house had to go without enough: No Transportation Issues: No Has anyone in your support network made you feel unsafe?: No Does the patient want assistance with any of the above?: No - Physical Exam Vital Signs: Vital Signs - 24 hr Temp Pulse Resp BP BP Pulse Ox 07/12/24 22:15 76 18 116/64 97 07/12/24 22:03 112/64 98 07/12/24 21:00 90 18 151/68 99 07/12/24 20:47 138/48 98 07/12/24 20:44 162/135 99 07/12/24 19:38 95 07/12/24 18:54 97.3 F 121 H 22 97/67 95 General Appearance: no apparent distress, alert Neurologic Exam: alert, oriented x 3, cooperative, normal mood/affect, nml cerebellar function, nml station & gait, sensation nml, No motor deficits Eye Exam: PERRL/EOMI, eyes nml inspection Ears, Nose, Throat Exam: normal ENT inspection, TMs normal, pharynx normal, moist mucous membranes Neck Exam: normal inspection, non-tender, supple, full range of motion Respiratory Exam: normal breath sounds, lungs clear, No respiratory distress Cardiovascular Exam: regular rate/rhythm, normal heart sounds, normal peripheral pulses Gastrointestinal/Abdomen Exam: soft, normal bowel sounds, No tenderness, No mass Back Exam: normal inspection, normal range of motion, No CVA tenderness, No vertebral tenderness Extremity Exam: normal inspection, normal range of motion, pelvis stable Skin Exam: normal color, warm, dry, No rash Lymphatic Exam: No adenopathy Results - Labs Lab/Micro Results: Lab Results-Last 24 Hours 07/12/24 07/12/24 07/12/24 Range/Units 20:00 20:00 20:00 WBC 8.2 (3.98-10.04) x10^3/uL RBC 3.75 L (3.93-5.22) x10^6/uL Hgb 8.9 L (11.2-15.7) g/dL Hct 30.1 L (34.1-44.9) % MCV 80.3 (79.4-94.8) fL MCH 23.7 L (25.6-32.2) pg MCHC 29.6 L (32.2-35.5) g/dL RDW 19.5 H (11.7-14.4) % Plt Count 385 H (182-369) x10^3/uL MPV 8.6 L (9.4-12.3) fL Gran % 67.3 (34.0-71.1) % Immature Gran % (Auto) 1.0 H (0.001-0.429) % Nucleat RBC Rel Count 0.0 (0.00-0.2) % Eos # (Auto) 0.49 H (0.04-0.36) x10^3/uL Immature Gran # (Auto) 0.08 H (0.001-0.031) x10^3u/L Absolute Lymphs (auto) 1.52 (1.18-3.74) x10^3/uL Absolute Monos (auto) 0.49 (0.24-0.86) x10^3/uL Absolute Nucleated RBC 0.00 (0.00-0.012) x10^3u/L Lymphocytes % 18.5 L (19.3-51.7) % Monocytes % 6.0 (4.7-12.5) % Eosinophils % 6.0 H (0.7-5.8) % Basophils % 1.2 (0.1-1.2) % Absolute Granulocytes 5.52 (1.56-6.13) x10^3/uL Basophils # 0.10 H (0.01-0.08) x10^3/uL pO2/FiO2 Ratio % VBG pH (7.32-7.42) VBG pCO2 at Pat Temp (42-55) mm/Hg VBG pO2 at Pat Temp (25-40) mm/Hg VBG HCO3 (22-28) meq/L VBG O2 Sat (Yang) (95-100) VBG Base Excess (-2.0-2.0) VBG Hemoglobin VBG Carboxyhemoglobin (0.0-6.9) % T HGB POC Potassium (3.5-5.1) Sodium 141 (135-145) mmol/L Potassium 3.4 L (3.5-5.1) mmol/L Chloride 107 (98-107) mmol/L Carbon Dioxide 23 (22-30) mmol/L Anion Gap 13.7 (5-15) MEQ/L BUN 16 (7-17) mg/dL Creatinine 0.78 (0.52-1.04) mg/dL Estimated GFR 98.4 ML/MIN Glucose 276 H (74-106) mg/dL POC Glucometer (74 to 106) mg/dL Hemoglobin A1c (4.5-6.0) % Lactic Acid 3.3 H (0.4-2.0) Calcium 9.5 (8.4-10.2) mg/dL Total Bilirubin 0.20 (0.2-1.3) mg/dL AST 23 (14-36) U/L ALT 23 (0-35) U/L Alkaline Phosphatase 114 (38-126) U/L Serum Total Protein 6.7 (6.3-8.2) g/dL Albumin 3.6 (3.5-5.0) g/dL Lipase 71 (23-300) U/L Urine Color (Yellow) Urine Appearance (Clear) Urine pH (4.6-8.0) Ur Specific Turner (1.005-1.030) Urine Protein (Negative) Urine Glucose (UA) (Negative) mg/dL Urine Ketones (Negative) Urine Blood (Negative) Urine Nitrite (Negative) Urine Bilirubin (Negative) Urine Urobilinogen (0.2) mg/dL Ur Leukocyte Esterase (Negative) U Hyaline Cast (Auto) (0-2) /LPF Urine Microscopic RBC (0-5) /HPF Urine Microscopic WBC (0-5) /HPF Ur Epithelial Cells (None Seen) /HPF Urine Bacteria (None Seen) /HPF Urine Culture Reflexed (NO) Urine Opiates Level (NEGATIVE) Ur Methadone (NEGATIVE) Urine Barbiturates (NEGATIVE) Ur Phencyclidine (PCP) (NEGATIVE) Urine Amphetamine (NEGATIVE) U Benzodiazepine Level (NEGATIVE) Urine Cocaine (NEGATIVE) Urine Marijuana (THC) (NEGATIVE) 07/12/24 07/12/24 07/12/24 Range/Units 20:00 21:20 22:15 WBC (3.98-10.04) x10^3/uL RBC (3.93-5.22) x10^6/uL Hgb (11.2-15.7) g/dL Hct (34.1-44.9) % MCV (79.4-94.8) fL MCH (25.6-32.2) pg MCHC (32.2-35.5) g/dL RDW (11.7-14.4) % Plt Count (182-369) x10^3/uL MPV (9.4-12.3) fL Gran % (34.0-71.1) % Immature Gran % (Auto) (0.001-0.429) % Nucleat RBC Rel Count (0.00-0.2) % Eos # (Auto) (0.04-0.36) x10^3/uL Immature Gran # (Auto) (0.001-0.031) x10^3u/L Absolute Lymphs (auto) (1.18-3.74) x10^3/uL Absolute Monos (auto) (0.24-0.86) x10^3/uL Absolute Nucleated RBC (0.00-0.012) x10^3u/L Lymphocytes % (19.3-51.7) % Monocytes % (4.7-12.5) % Eosinophils % (0.7-5.8) % Basophils % (0.1-1.2) % Absolute Granulocytes (1.56-6.13) x10^3/uL Basophils # (0.01-0.08) x10^3/uL pO2/FiO2 Ratio 21.0 % VBG pH 7.52 H (7.32-7.42) VBG pCO2 at Pat Temp 30 L (42-55) mm/Hg VBG pO2 at Pat Temp 55 H (25-40) mm/Hg VBG HCO3 24.5 (22-28) meq/L VBG O2 Sat (Yang) 92.9 L (95-100) VBG Base Excess 2.0 (-2.0-2.0) VBG Hemoglobin 9.5 VBG Carboxyhemoglobin 7.5 H* (0.0-6.9) % T HGB POC Potassium 3.7 (3.5-5.1) Sodium (135-145) mmol/L Potassium (3.5-5.1) mmol/L Chloride (98-107) mmol/L Carbon Dioxide (22-30) mmol/L Anion Gap (5-15) MEQ/L BUN (7-17) mg/dL Creatinine (0.52-1.04) mg/dL Estimated GFR ML/MIN Glucose (74-106) mg/dL POC Glucometer (74 to 106) mg/dL Hemoglobin A1c 6.94 H (4.5-6.0) % Lactic Acid 2.7 H (0.4-2.0) Calcium (8.4-10.2) mg/dL Total Bilirubin (0.2-1.3) mg/dL AST (14-36) U/L ALT (0-35) U/L Alkaline Phosphatase (38-126) U/L Serum Total Protein (6.3-8.2) g/dL Albumin (3.5-5.0) g/dL Lipase (23-300) U/L Urine Color (Yellow) Urine Appearance (Clear) Urine pH (4.6-8.0) Ur Specific Turner (1.005-1.030) Urine Protein (Negative) Urine Glucose (UA) (Negative) mg/dL Urine Ketones (Negative) Urine Blood (Negative) Urine Nitrite (Negative) Urine Bilirubin (Negative) Urine Urobilinogen (0.2) mg/dL Ur Leukocyte Esterase (Negative) U Hyaline Cast (Auto) (0-2) /LPF Urine Microscopic RBC (0-5) /HPF Urine Microscopic WBC (0-5) /HPF Ur Epithelial Cells (None Seen) /HPF Urine Bacteria (None Seen) /HPF Urine Culture Reflexed (NO) Urine Opiates Level (NEGATIVE) Ur Methadone (NEGATIVE) Urine Barbiturates (NEGATIVE) Ur Phencyclidine (PCP) (NEGATIVE) Urine Amphetamine (NEGATIVE) U Benzodiazepine Level (NEGATIVE) Urine Cocaine (NEGATIVE) Urine Marijuana (THC) (NEGATIVE) 07/12/24 07/12/24 07/12/24 Range/Units 22:31 22:55 22:55 WBC (3.98-10.04) x10^3/uL RBC (3.93-5.22) x10^6/uL Hgb (11.2-15.7) g/dL Hct (34.1-44.9) % MCV (79.4-94.8) fL MCH (25.6-32.2) pg MCHC (32.2-35.5) g/dL RDW (11.7-14.4) % Plt Count (182-369) x10^3/uL MPV (9.4-12.3) fL Gran % (34.0-71.1) % Immature Gran % (Auto) (0.001-0.429) % Nucleat RBC Rel Count (0.00-0.2) % Eos # (Auto) (0.04-0.36) x10^3/uL Immature Gran # (Auto) (0.001-0.031) x10^3u/L Absolute Lymphs (auto) (1.18-3.74) x10^3/uL Absolute Monos (auto) (0.24-0.86) x10^3/uL Absolute Nucleated RBC (0.00-0.012) x10^3u/L Lymphocytes % (19.3-51.7) % Monocytes % (4.7-12.5) % Eosinophils % (0.7-5.8) % Basophils % (0.1-1.2) % Absolute Granulocytes (1.56-6.13) x10^3/uL Basophils # (0.01-0.08) x10^3/uL pO2/FiO2 Ratio % VBG pH (7.32-7.42) VBG pCO2 at Pat Temp (42-55) mm/Hg VBG pO2 at Pat Temp (25-40) mm/Hg VBG HCO3 (22-28) meq/L VBG O2 Sat (Yang) (95-100) VBG Base Excess (-2.0-2.0) VBG Hemoglobin VBG Carboxyhemoglobin (0.0-6.9) % T HGB POC Potassium (3.5-5.1) Sodium (135-145) mmol/L Potassium (3.5-5.1) mmol/L Chloride (98-107) mmol/L Carbon Dioxide (22-30) mmol/L Anion Gap (5-15) MEQ/L BUN (7-17) mg/dL Creatinine (0.52-1.04) mg/dL Estimated GFR ML/MIN Glucose (74-106) mg/dL POC Glucometer 198 H (74 to 106) mg/dL Hemoglobin A1c (4.5-6.0) % Lactic Acid (0.4-2.0) Calcium (8.4-10.2) mg/dL Total Bilirubin (0.2-1.3) mg/dL AST (14-36) U/L ALT (0-35) U/L Alkaline Phosphatase (38-126) U/L Serum Total Protein (6.3-8.2) g/dL Albumin (3.5-5.0) g/dL Lipase (23-300) U/L Urine Color Yellow (Yellow) Urine Appearance Cloudy A (Clear) Urine pH 5.5 (4.6-8.0) Ur Specific Turner >=1.030 A (1.005-1.030) Urine Protein 300 A (Negative) Urine Glucose (UA) 250 A (Negative) mg/dL Urine Ketones Negative (Negative) Urine Blood Large A (Negative) Urine Nitrite Negative (Negative) Urine Bilirubin Negative (Negative) Urine Urobilinogen 1.0 A (0.2) mg/dL Ur Leukocyte Esterase Moderate A (Negative) U Hyaline Cast (Auto) NONE SEEN (0-2) /LPF Urine Microscopic RBC >100 A (0-5) /HPF Urine Microscopic WBC >100 A (0-5) /HPF Ur Epithelial Cells None Seen (None Seen) /HPF Urine Bacteria Many A (None Seen) /HPF Urine Culture Reflexed YES (NO) Urine Opiates Level POSITIVE A (NEGATIVE) Ur Methadone NEGATIVE (NEGATIVE) Urine Barbiturates NEGATIVE (NEGATIVE) Ur Phencyclidine (PCP) NEGATIVE (NEGATIVE) Urine Amphetamine POSITIVE A (NEGATIVE) U Benzodiazepine Level NEGATIVE (NEGATIVE) Urine Cocaine NEGATIVE (NEGATIVE) Urine Marijuana (THC) POSITIVE A (NEGATIVE) - Radiology Impressions Radiology Exams & Impressions: Radiology Procedures Category Date Time Status ABDOMEN AND PELVIS W CONTRAST [CT] Stat Exams 07/12/24 19:31 Completed Assessment/Plan (1) Cancer related pain Current Visit: Yes Status: Acute Code(s): G89.3 - NEOPLASM RELATED PAIN (ACUTE) (CHRONIC) (2) Cancer associated pain Current Visit: Yes Status: Acute Assessment & Plan: 1. Restart oxycodone 20 mg Q4 2. Breakthrough can give dilaudid 0.5 mg Q3 hr PRN 3. Ensure bowel regimen in the AM Code(s): G89.3 - NEOPLASM RELATED PAIN (ACUTE) (CHRONIC) Telemedicine Encounter - Telemedicine Encounter Telemedicine Encounter: "The entirety of this encounter was performed via Telemedicine" This visit was performed using real-time audio and video connection between my location and thepatients locationwith the assistance of a surrogateat the patients location. Written or verbal consent was obtained from the patient/guardian to perform this visit [email or web address]. Any patient questions regarding the telemedicine interaction were answered.
[2024-07-13] MEDS ORDERED: Hydromorphone 1 mg/ml Injection IV PRN (00:39)
[2024-07-13] MEDS ORDERED: Miralax Powder 17GM PACKET PO PRN (00:40)
[2024-07-13] MEDS: OXYCODONE HCL 20 MG PO SCH (02:51)
[2024-07-13] MEDS: Oxy-IR 5 MG PO SCH ×3 (05:41→13:16)
[2024-07-13 06:37] LABS: Hematocrit 33.2 % (34.1-44.9); Hemoglobin 9.7 g/dL (11.2-15.7); Mean Cell Volume 80.8 fL (79.4-94.8); Mean Corpuscular Hemoglobin 23.6 pg (25.6-32.2); Mean Corpuscular Hgb Concent. 29.2 g/dL (32.2-35.5); Mean Platelet Volume 8.4 fL (9.4-12.3); Platelet Count 418 x10^3/uL (182-369); Red Blood Count 4.11 x10^6/uL (3.93-5.22); Red Cell Distribution Width 19.8 % (11.7-14.4); White Blood Count 8.7 x10^3/uL (3.98-10.04)
[2024-07-13 06:46] LABS: ALBUMIN 3.5 g/dL (3.5-5.0); ANION GAP 13.4 MEQ/L (5-15); BILIRUBIN,TOTAL 0.2 mg/dL (0.2-1.3); Creatinine 1 0.75 mg/dL (0.52-1.04); EST GLOMERULAR FILTRATION RATE 103.2 ML/MIN; Potassium 3.8 mmol/L (3.5-5.1); Total Protein 6.6 g/dL (6.3-8.2)
[2024-07-13] MEDS ORDERED: Narcan 0.4 MG/ML IV PRN (08:03)
[2024-07-13] MEDS: Sodium Chloride 0.9% 1000 ML 1,000 ML IV SCH (08:20)
[2024-07-13] MEDS: Zofran 4 MG/2 ML VIAL IV PRN (08:20)
[2024-07-13] MEDS: MAG-OX 400 PO SCH (08:42)
[2024-07-13] MEDS: Protonix 20MG Tablet PO SCH (08:42)
[2024-07-13] MEDS: ELIQUIS 2.5 MG TABLET PO SCH (08:43)
[2024-07-13] MEDS ORDERED: NON-FORMULARY ITEM (Apixaban [Eliquis] 5 MG Tablet) PO SCH (10:00)
[2024-07-13 10:51] LABS: 027 TOX PROD PRESUMPTIVE NEGATIVE (NEGATIVE); TOXIGENIC C. DIFF ORG NEGATIVE (NEGATIVE)
--- NOTE | 2024-07-13 10:55 | PCM.NOTE ---
is a 39 year old female with a pmhx of PE, anxiety/depression, panic disorder, and stage IV cervical cancer admitted 07/13/24 with intractable cancer pain. She has recently started palliative care with [facility]. She ran out of her home pain medication oxycodone IR and was unable to get a refill. Patient's palliative provider is Barbara Henriquez -no other provider is available to prescribe her pain medications this and will be addressed Sunday morning. Patient is scheduled for a PET on Sunday and would like to be able to attend this appt. Currently IP treatment with oxy ER and IR which is controlling her pain. She was also found with a UTI and is being empirically treated with rocephin. She does have nephrostomy tubes. Also with complaints of diarrhea and nausea. CDiff is negative. Immodium PRN.
[2024-07-13] MEDS: Oxycontin 10 MG ER PO SCH (11:17)
[2024-07-13] MEDS: IMODIUM 2 MG PO PRN (14:42)
[2024-07-13] MEDS: Seroquel 25 MG PO SCH (22:00)
[2024-07-13] MEDS ORDERED: NON-FORMULARY ITEM (Quetiapine Fumarate [Seroquel] 50 MG Tablet) PO SCH (22:00)
[2024-07-13] MEDS: ROCEPHIN 1 GM / 100 ML NaCl 1 GM/100 ML IVPB IV SCH (22:00)
[2024-07-14] MEDS: Tums EX 750 MG PO PRN (00:08)
[2024-07-14] MEDS: Zofran 4 MG/2 ML VIAL IV PRN (00:35)
[2024-07-14] MEDS: COMPAZINE RC PRN (02:10)
[2024-07-14 04:20] LABS: Absolute Neutrophil Ct (ANC) 5.93 x10^3/uL (1.56-6.13); BASOPHIL % 0.1 % (0.1-1.2); Basophil (Absolute #) 0.01 x10^3/uL (0.01-0.08); Eosinophil % 3.2 % (0.7-5.8); Eosinophil (Absolute #) 0.25 x10^3/uL (0.04-0.36); Hematocrit 29.1 % (34.1-44.9); IMMATURE GRAN # 0.07 x10^3u/L (0.001-0.031); IMMATURE GRAN % 0.9 % (0.001-0.429); Lymphocyte (Absolute #) 1.21 x10^3/uL (1.18-3.74); Lymphocytes % 15.4 % (19.3-51.7); Mean Cell Volume 77.2 fL (79.4-94.8); Mean Corpuscular Hemoglobin 23.9 pg (25.6-32.2); Mean Corpuscular Hgb Concent. 30.9 g/dL (32.2-35.5); Mean Platelet Volume 8.2 fL (9.4-12.3); Monocyte (Absolute #) 0.39 x10^3/uL (0.24-0.86); Neutrophil % 75.4 % (34.0-71.1); Platelet Count 347 x10^3/uL (182-369); Red Blood Count 3.77 x10^6/uL (3.93-5.22); Red Cell Distribution Width 19.6 % (11.7-14.4); White Blood Count 7.9 x10^3/uL (3.98-10.04)
[2024-07-14 04:45] LABS: ALBUMIN 3.1 g/dL (3.5-5.0); ANION GAP 9.3 MEQ/L (5-15); BILIRUBIN,TOTAL 0.2 mg/dL (0.2-1.3); Creatinine 1 0.82 mg/dL (0.52-1.04); EST GLOMERULAR FILTRATION RATE 92.7 ML/MIN; Potassium 3.8 mmol/L (3.5-5.1); Total Protein 6.1 g/dL (6.3-8.2)
[2024-07-14] MEDS ORDERED: HUMALOG SQ PRN (09:23)
[2024-07-14] MEDS: Acidophilus TABLET PO SCH (10:13)
--- NOTE | 2024-07-14 10:48 | PCM.NOTE ---
Date and Time: 07/14/24 1037 Subjective Assessment: 07/14/24 is a 39 year old female with a pmhx of PE (on Eliquis), anxiety/depression, panic disorder, and stage IV cervical cancer. She was admitted 07/13/24 with intractable cancer pain. She has recently started palliative care with [facility]. She ran out of her home pain medication oxycodone IR and was unable to get a refill. Patient's palliative provider is Barbara Henriquez - no other provider is available to prescribe her pain medications this weekend and will be addressed Sunday morning. Patient is scheduled for a PET on today and this will need to be rescheduled OP. Continued OP treatment with oxy ER and IR is controlling her pain IP. She was also found to have complicated UTI and is being empirically treated with Rocephin. UC shows gram negative rods but sensitivity pending. She does have nephrostomy tubes BL and they are draining well w/o complication. She continues to c/o of diarrhea and nausea all night last night. Compazine gave in suppository last night and this made her extremely sleepy per staff. C-Diff is negative, Immodium PRN and probiotics started. Diet changed to clear liquid. She admits to + drug use and reports doing "wax." She states she does not do meth, however it was + in her UDS along with THC. Pt wants to stay another day as she has not been feeling well overnight. Will transition diet when she is feeling better. She denies CP, SOB, abd. pain. - Review of Systems Constitutional: No Fever, No Chills Eyes: No Symptoms Ears, Nose, & Throat: No Symptoms Respiratory: No Cough, No Short Of Breath Cardiac: No Chest Pain, No Edema, No Syncope Abdominal/Gastrointestinal: Nausea, Vomiting, Diarrhea, No Abdominal Pain Genitourinary Symptoms: No Dysuria Musculoskeletal: No Back Pain, No Neck Pain Skin: No Rash Neurological: No Dizziness, No Focal Weakness, No Sensory Changes Psychological: No Symptoms Endocrine: No Symptoms Hematologic/Lymphatic: No Symptoms Immunological/Allergic: No Symptoms Objective Exam General Appearance: no apparent distress, alert Neurologic Exam: alert, oriented x 3, cooperative, normal mood/affect, nml cerebellar function, sensation nml, motor weakness, No motor deficits Skin Exam: normal color, warm, dry Eye Exam: PERRL, EOMI, eyes nml inspection Ears, Nose, Throat Exam: normal ENT inspection, pharynx normal, moist mucous membranes Neck Exam: normal inspection, non-tender, supple, full range of motion Respiratory Exam: normal breath sounds, lungs clear, No respiratory distress Cardiovascular Exam: regular rate/rhythm, normal heart sounds Gastrointestinal/Abdomen Exam: soft, No tenderness, No mass Extremity Exam: normal inspection, normal range of motion Back Exam: normal inspection, normal range of motion, No CVA tenderness, No vertebral tenderness Pelvic Exam: deferred Rectal Exam: deferred Objective Data Vital Signs: Vital Signs - 24 hr Temp Pulse Resp BP Pulse Ox 07/14/24 07:01 98.1 F 85 16 147/69 96 07/14/24 04:00 97.5 F 79 14 180/83 96 07/13/24 23:16 97.1 F 82 16 178/85 96 07/13/24 20:00 97.3 F 93 H 20 133/72 98 07/13/24 16:00 96.8 F 88 18 139/65 96 07/13/24 11:41 97.7 F 94 H 19 146/70 99 Pain Assessment - Last Documented Pain Intensity 4 Pain Scale Used 0-10 Pain Scale Intake and Output: Intake & Output 07/11/24 07/12/24 07/13/24 07/14/24 11:59 11:59 11:59 11:59 Intake Total 650 2617 Output Total 1000 1550 Balance -350 1067 Weight 76.1 kg Lab Results: Lab Results-Last 24 Hours 07/13/24 07/13/24 07/13/24 Range/Units 10:01 11:15 16:29 WBC (3.98-10.04) x10^3/uL RBC (3.93-5.22) x10^6/uL Hgb (11.2-15.7) g/dL Hct (34.1-44.9) % MCV (79.4-94.8) fL MCH (25.6-32.2) pg MCHC (32.2-35.5) g/dL RDW (11.7-14.4) % Plt Count (182-369) x10^3/uL MPV (9.4-12.3) fL Gran % (34.0-71.1) % Immature Gran % (Auto) (0.001-0.429) % Nucleat RBC Rel Count (0.00-0.2) % Eos # (Auto) (0.04-0.36) x10^3/uL Immature Gran # (Auto) (0.001-0.031) x10^3u/L Absolute Lymphs (auto) (1.18-3.74) x10^3/uL Absolute Monos (auto) (0.24-0.86) x10^3/uL Absolute Nucleated RBC (0.00-0.012) x10^3u/L Lymphocytes % (19.3-51.7) % Monocytes % (4.7-12.5) % Eosinophils % (0.7-5.8) % Basophils % (0.1-1.2) % Absolute Granulocytes (1.56-6.13) x10^3/uL Basophils # (0.01-0.08) x10^3/uL Sodium (135-145) mmol/L Potassium (3.5-5.1) mmol/L Chloride (98-107) mmol/L Carbon Dioxide (22-30) mmol/L Anion Gap (5-15) MEQ/L BUN (7-17) mg/dL Creatinine (0.52-1.04) mg/dL Estimated GFR ML/MIN Glucose (74-106) mg/dL POC Glucometer 149 H 114 H (74 to 106) mg/dL Calcium (8.4-10.2) mg/dL Total Bilirubin (0.2-1.3) mg/dL AST (14-36) U/L ALT (0-35) U/L Alkaline Phosphatase (38-126) U/L Serum Total Protein (6.3-8.2) g/dL Albumin (3.5-5.0) g/dL C. difficile Screen NEGATIVE (NEGATIVE) C.difficile 027-NAP1-B1 PRESUMPTIVE NEGATIVE (NEGATIVE) 07/13/24 07/14/24 07/14/24 Range/Units 21:53 04:15 04:15 WBC 7.9 (3.98-10.04) x10^3/uL RBC 3.77 L (3.93-5.22) x10^6/uL Hgb 9.0 L (11.2-15.7) g/dL Hct 29.1 L (34.1-44.9) % MCV 77.2 L (79.4-94.8) fL MCH 23.9 L (25.6-32.2) pg MCHC 30.9 L (32.2-35.5) g/dL RDW 19.6 H (11.7-14.4) % Plt Count 347 (182-369) x10^3/uL MPV 8.2 L (9.4-12.3) fL Gran % 75.4 H (34.0-71.1) % Immature Gran % (Auto) 0.9 H (0.001-0.429) % Nucleat RBC Rel Count 0.0 (0.00-0.2) % Eos # (Auto) 0.25 (0.04-0.36) x10^3/uL Immature Gran # (Auto) 0.07 H (0.001-0.031) x10^3u/L Absolute Lymphs (auto) 1.21 (1.18-3.74) x10^3/uL Absolute Monos (auto) 0.39 (0.24-0.86) x10^3/uL Absolute Nucleated RBC 0.00 (0.00-0.012) x10^3u/L Lymphocytes % 15.4 L (19.3-51.7) % Monocytes % 5.0 (4.7-12.5) % Eosinophils % 3.2 (0.7-5.8) % Basophils % 0.1 (0.1-1.2) % Absolute Granulocytes 5.93 (1.56-6.13) x10^3/uL Basophils # 0.01 (0.01-0.08) x10^3/uL Sodium 135 (135-145) mmol/L Potassium 3.8 (3.5-5.1) mmol/L Chloride 99 (98-107) mmol/L Carbon Dioxide 31 H (22-30) mmol/L Anion Gap 9.3 (5-15) MEQ/L BUN 14 (7-17) mg/dL Creatinine 0.82 (0.52-1.04) mg/dL Estimated GFR 92.7 ML/MIN Glucose 139 H (74-106) mg/dL POC Glucometer 146 H (74 to 106) mg/dL Calcium 9.0 (8.4-10.2) mg/dL Total Bilirubin 0.20 (0.2-1.3) mg/dL AST 19 (14-36) U/L ALT 18 (0-35) U/L Alkaline Phosphatase 110 (38-126) U/L Serum Total Protein 6.1 L (6.3-8.2) g/dL Albumin 3.1 L (3.5-5.0) g/dL C. difficile Screen (NEGATIVE) C.difficile 027-NAP1-B1 (NEGATIVE) 07/14/24 Range/Units 07:28 WBC (3.98-10.04) x10^3/uL RBC (3.93-5.22) x10^6/uL Hgb (11.2-15.7) g/dL Hct (34.1-44.9) % MCV (79.4-94.8) fL MCH (25.6-32.2) pg MCHC (32.2-35.5) g/dL RDW (11.7-14.4) % Plt Count (182-369) x10^3/uL MPV (9.4-12.3) fL Gran % (34.0-71.1) % Immature Gran % (Auto) (0.001-0.429) % Nucleat RBC Rel Count (0.00-0.2) % Eos # (Auto) (0.04-0.36) x10^3/uL Immature Gran # (Auto) (0.001-0.031) x10^3u/L Absolute Lymphs (auto) (1.18-3.74) x10^3/uL Absolute Monos (auto) (0.24-0.86) x10^3/uL Absolute Nucleated RBC (0.00-0.012) x10^3u/L Lymphocytes % (19.3-51.7) % Monocytes % (4.7-12.5) % Eosinophils % (0.7-5.8) % Basophils % (0.1-1.2) % Absolute Granulocytes (1.56-6.13) x10^3/uL Basophils # (0.01-0.08) x10^3/uL Sodium (135-145) mmol/L Potassium (3.5-5.1) mmol/L Chloride (98-107) mmol/L Carbon Dioxide (22-30) mmol/L Anion Gap (5-15) MEQ/L BUN (7-17) mg/dL Creatinine (0.52-1.04) mg/dL Estimated GFR ML/MIN Glucose (74-106) mg/dL POC Glucometer 123 H (74 to 106) mg/dL Calcium (8.4-10.2) mg/dL Total Bilirubin (0.2-1.3) mg/dL AST (14-36) U/L ALT (0-35) U/L Alkaline Phosphatase (38-126) U/L Serum Total Protein (6.3-8.2) g/dL Albumin (3.5-5.0) g/dL C. difficile Screen (NEGATIVE) C.difficile 027-NAP1-B1 (NEGATIVE) Radiology Exams: Radiology Procedures Category Date Time Status ABDOMEN AND PELVIS W CONTRAST [CT] Stat Exams 07/12/24 19:31 Completed Assessment/Plan (1) Sepsis due to gram-negative urinary tract infection Current Visit: Yes Status: Acute Assessment & Plan: - Lactic acid 2.7on admission and repeat was 1.7 after 2- 1 L fluid boluses in ER - HR 121 in ER on admission - PCO2 30 - + Hypotension - see UTI plan Code(s): A41.50 - GRAM-NEGATIVE SEPSIS, UNSPECIFIED; N39.0 - URINARY TRACT INFECTION, SITE NOT SPECIFIED (2) Complicated urinary tract infection Current Visit: Yes Status: Acute Assessment & Plan: - Rocephin IV - NS @ 100 ml/hr - UC gram negative- sensitivity pending Code(s): N39.0 - URINARY TRACT INFECTION, SITE NOT SPECIFIED (3) Drug abuse and dependence Current Visit: Yes Status: Acute Assessment & Plan: - UDS + for THC, meth - advised cessation Code(s): F19.20 - OTHER PSYCHOACTIVE SUBSTANCE DEPENDENCE, UNCOMPLICATED (4) Palliative care patient Current Visit: Yes Status: Acute Assessment & Plan: - Pt follows [facility] for Palliative care for cervical cancer and narcotic pain meds Code(s): Z51.5 - ENCOUNTER FOR PALLIATIVE CARE (5) Cyclical vomiting syndrome Current Visit: Yes Status: Acute Assessment & Plan: - EKG daily - follow electrolytes - antiemetic - IVF - tele - Clear liquid diet (6) Diabetes type 2, uncontrolled Current Visit: Yes Status: Acute Assessment & Plan: - low dose s/s - accuchecks ac/hs - allergic to metformin- will need OP f/u for diabetes meds - A1C 6.94 Code(s): BDA0109 - (7) Diarrhea Current Visit: Yes Status: Acute Assessment & Plan: - Probiotics, and immodium - C-dif negative - IVF Code(s): R19.7 - DIARRHEA, UNSPECIFIED (8) History of cervical cancer Current Visit: No Status: Chronic Assessment & Plan: - Pallative care for pain control - case management to arrange OP continued care with [facility] VTE: Eliquis PPI: Protonix Next of KIN: Mel Olmedo, D/C plan: tomorrow Code status: Full Code(s): Z85.41 - PERSONAL HISTORY OF MALIGNANT NEOPLASM OF CERVIX UTERI
[2024-07-14 18:50] VITALS: O2SAT 96
[2024-07-15] MEDS: Oxy-IR 5 MG PO SCH (04:40)
[2024-07-15 05:29] LABS: Hematocrit 28.9 % (34.1-44.9); Hemoglobin 8.5 g/dL (11.2-15.7); Mean Cell Volume 79.2 fL (79.4-94.8); Mean Corpuscular Hemoglobin 23.3 pg (25.6-32.2); Mean Corpuscular Hgb Concent. 29.4 g/dL (32.2-35.5); Mean Platelet Volume 8.4 fL (9.4-12.3); Platelet Count 329 x10^3/uL (182-369); Red Blood Count 3.65 x10^6/uL (3.93-5.22); Red Cell Distribution Width 19.9 % (11.7-14.4); White Blood Count 7.3 x10^3/uL (3.98-10.04)
[2024-07-15 05:33] LABS: ALBUMIN 2.9 g/dL (3.5-5.0); ANION GAP 9.7 MEQ/L (5-15); BILIRUBIN,TOTAL 0.1 mg/dL (0.2-1.3); Calcium 8.6 mg/dL (8.4-10.2); Creatinine 1 0.86 mg/dL (0.52-1.04); EST GLOMERULAR FILTRATION RATE 87.5 ML/MIN; Potassium 4.3 mmol/L (3.5-5.1); Total Protein 5.7 g/dL (6.3-8.2)
[2024-07-15 07:59] VITALS: BP 121/58; PULSE 83; RESP 19; TEMP 98.2
--- NOTE | 2024-07-15 09:27 | PCM.DS ---
Discharge Summary Date of Admission: 07/13/24 01:21 Date of Discharge: 07/15/24 Admitting Physician: BRIAN MORROW MD Consults: Consults on Case 07/13/24 07:30 Case Management SDAR DC Needs Assessment ROUTINE Primary Care Provider: DESTINY CAMP Allergies Allergies ketamine Allergy (Intermediate, Verified 07/14/24 21:28) hallucinations metformin Allergy (Intermediate, Verified 07/14/24 21:28) hallucinations sulfamethoxazole [From Bactrim] Allergy (Intermediate, Verified 07/14/24 21:28) Hives trimethoprim [From Bactrim] Allergy (Intermediate, Verified 07/14/24 21:28) [facility] Summary - Hospital Course Hospital Course: 07/14/24 is a 39 year old female with a pmhx of PE (on Eliquis), anxiety/depression, panic disorder, and stage IV cervical cancer. She was admitted 07/13/24 with intractable cancer pain. She has recently started palliative care with [facility]. She ran out of her home pain medication oxycodone IR and was unable to get a refill. Patient's palliative provider is Barbara Henriquez - no other provider is available to prescribe her pain medications this and will be addressed Sunday morning. Patient is scheduled for a PET on today and this will need to be rescheduled OP. Continued OP treatment with oxy ER and IR is controlling her pain IP. She was also found to have complicated UTI and is being empirically treated with Rocephin. UC shows gram negative rods but sensitivity pending. She does have nephrostomy tubes BL and they are draining well w/o complication. She continues to c/o of diarrhea and nausea all night last night. Compazine gave in suppository last night and this made her extremely sleepy per staff. C-Diff is negative, Immodium PRN and probiotics started. Diet changed to clear liquid. She admits to + drug use and reports doing "wax." She states she does not do meth, however it was + in her UDS along with THC. Pt wants to stay another day as she has not been feeling well overnight. Will transition diet when she is feeling better. She denies CP, SOB, abd. pain. 07/15/24 Pt resting in bed. She states she feels better and would like to go home today. She was able to eat well this morning and ate most of her breakfast. Per case management she has an appointment with Palliative care in her home . She needs pain and nausea meds until then. Will d/c with antibiotics for UTI. - Vitals & Intake/Output Vital Signs: Vital Signs Temperature 98.2 F 07/15/24 07:58 Pulse Rate 83 07/15/24 07:58 Respiratory Rate 19 07/15/24 07:58 Blood Pressure 121/58 07/15/24 07:58 O2 Sat by Pulse Oximetry 96 07/15/24 07:58 Intake & Output: Intake & Output 07/12/24 07/13/24 07/14/24 07/15/24 11:59 11:59 11:59 11:59 Intake Total 650 2677 3394 Output Total 1000 2200 3100 Balance -350 477 294 Weight 76.1 kg - Lab Result Diagrams: 07/15/24 04:19 07/15/24 04:19 Lab Results-Last 24 Hrs: Lab Results-Last 24 Hours 07/12/24 07/14/24 07/14/24 Range/Units 22:55 11:39 16:21 WBC (3.98-10.04) x10^3/uL RBC (3.93-5.22) x10^6/uL Hgb (11.2-15.7) g/dL Hct (34.1-44.9) % MCV (79.4-94.8) fL MCH (25.6-32.2) pg MCHC (32.2-35.5) g/dL RDW (11.7-14.4) % Plt Count (182-369) x10^3/uL MPV (9.4-12.3) fL Sodium (135-145) mmol/L Potassium (3.5-5.1) mmol/L Chloride (98-107) mmol/L Carbon Dioxide (22-30) mmol/L Anion Gap (5-15) MEQ/L BUN (7-17) mg/dL Creatinine (0.52-1.04) mg/dL Estimated GFR ML/MIN Glucose (74-106) mg/dL POC Glucometer 103 111 H (74 to 106) mg/dL Calcium (8.4-10.2) mg/dL Magnesium (1.6-2.3) mg/dL Total Bilirubin (0.2-1.3) mg/dL AST (14-36) U/L ALT (0-35) U/L Alkaline Phosphatase (38-126) U/L Serum Total Protein (6.3-8.2) g/dL Albumin (3.5-5.0) g/dL Urine Opiates Level POSITIVE A (NEGATIVE) Ur Methadone NEGATIVE (NEGATIVE) Urine Barbiturates NEGATIVE (NEGATIVE) Ur Phencyclidine (PCP) NEGATIVE (NEGATIVE) Urine Amphetamine POSITIVE A (NEGATIVE) U Benzodiazepine Level NEGATIVE (NEGATIVE) Urine Cocaine NEGATIVE (NEGATIVE) Urine Marijuana (THC) POSITIVE A (NEGATIVE) 07/14/24 07/15/24 07/15/24 Range/Units 21:51 04:19 04:19 WBC 7.3 (3.98-10.04) x10^3/uL RBC 3.65 L (3.93-5.22) x10^6/uL Hgb 8.5 L (11.2-15.7) g/dL Hct 28.9 L (34.1-44.9) % MCV 79.2 L (79.4-94.8) fL MCH 23.3 L (25.6-32.2) pg MCHC 29.4 L (32.2-35.5) g/dL RDW 19.9 H (11.7-14.4) % Plt Count 329 (182-369) x10^3/uL MPV 8.4 L (9.4-12.3) fL Sodium (135-145) mmol/L Potassium (3.5-5.1) mmol/L Chloride (98-107) mmol/L Carbon Dioxide (22-30) mmol/L Anion Gap (5-15) MEQ/L BUN (7-17) mg/dL Creatinine (0.52-1.04) mg/dL Estimated GFR ML/MIN Glucose (74-106) mg/dL POC Glucometer 162 H (74 to 106) mg/dL Calcium (8.4-10.2) mg/dL Magnesium 1.7 (1.6-2.3) mg/dL Total Bilirubin (0.2-1.3) mg/dL AST (14-36) U/L ALT (0-35) U/L Alkaline Phosphatase (38-126) U/L Serum Total Protein (6.3-8.2) g/dL Albumin (3.5-5.0) g/dL Urine Opiates Level (NEGATIVE) Ur Methadone (NEGATIVE) Urine Barbiturates (NEGATIVE) Ur Phencyclidine (PCP) (NEGATIVE) Urine Amphetamine (NEGATIVE) U Benzodiazepine Level (NEGATIVE) Urine Cocaine (NEGATIVE) Urine Marijuana (THC) (NEGATIVE) 07/15/24 07/15/24 Range/Units 04:19 07:27 WBC (3.98-10.04) x10^3/uL RBC (3.93-5.22) x10^6/uL Hgb (11.2-15.7) g/dL Hct (34.1-44.9) % MCV (79.4-94.8) fL MCH (25.6-32.2) pg MCHC (32.2-35.5) g/dL RDW (11.7-14.4) % Plt Count (182-369) x10^3/uL MPV (9.4-12.3) fL Sodium 132 L (135-145) mmol/L Potassium 4.3 (3.5-5.1) mmol/L Chloride 103 (98-107) mmol/L Carbon Dioxide 23 (22-30) mmol/L Anion Gap 9.7 (5-15) MEQ/L BUN 10 (7-17) mg/dL Creatinine 0.86 (0.52-1.04) mg/dL Estimated GFR 87.5 ML/MIN Glucose 152 H (74-106) mg/dL POC Glucometer 115 H (74 to 106) mg/dL Calcium 8.6 (8.4-10.2) mg/dL Magnesium (1.6-2.3) mg/dL Total Bilirubin 0.10 L (0.2-1.3) mg/dL AST 15 (14-36) U/L ALT 12 (0-35) U/L Alkaline Phosphatase 116 (38-126) U/L Serum Total Protein 5.7 L (6.3-8.2) g/dL Albumin 2.9 L (3.5-5.0) g/dL Urine Opiates Level (NEGATIVE) Ur Methadone (NEGATIVE) Urine Barbiturates (NEGATIVE) Ur Phencyclidine (PCP) (NEGATIVE) Urine Amphetamine (NEGATIVE) U Benzodiazepine Level (NEGATIVE) Urine Cocaine (NEGATIVE) Urine Marijuana (THC) (NEGATIVE) Micro Results-Entire Visit: Microbiology 07/12/24 22:55 Urine Culture - Final Urine, Void Enterobacter Clocae Complex#2 Enterobacter Clocae Complex 07/13/24 10:01 Ova and Parasite Result 1 - Final Stool Not Reportable Ova and Parasite Result 2 - Final Not Reportable Ova and Parasite Result 3 - Final Not Reportable Ova and Parasite Result 4 - Final Not Reportable Antimicrobic Susceptibility - Final Not Reportable Accuchecks Date 07/15/24 Date 07/14/24 Date 07/14/24 Date 07/14/24 Time 07:58 Time 16:45 Time 11:44 - Procedures and Test Procedures and Tests throughout Hospitalization: Therapy Orders & Screens 07/13/24 02:19 Smoking Cessation Education ONCE Comment: Diagnosis: UTI Smoking Status: Current every day smoker How long have you smoked: 20 Approximately how many cigarettes per day: 1/2 pack per day Do you dip or chew tobacco: No 07/14/24 09:16 EKG STAT Comment: Diagnosis: UTI Discharge Exam General Appearance: no apparent distress, alert Neurologic Exam: alert, oriented x 3, cooperative, normal mood/affect, nml cerebellar function, sensation nml, No motor deficits Eye Exam: PERRL, EOMI, eyes nml inspection Ears, Nose, Throat Exam: normal ENT inspection, pharynx normal, moist mucous membranes Neck Exam: normal inspection, non-tender, supple, full range of motion Respiratory Exam: normal breath sounds, lungs clear, No respiratory distress Cardiovascular Exam: regular rate/rhythm, normal heart sounds Gastrointestinal/Abdomen Exam: soft, No tenderness, No mass Pelvic Exam: deferred Rectal Exam: deferred Back Exam: normal inspection, normal range of motion, No CVA tenderness, No vertebral tenderness Extremity Exam: normal inspection, normal range of motion Skin Exam: normal color, warm, dry Final Diagnosis/Problem List - Final Discharge Diagnosis/Problem (1) Sepsis due to gram-negative urinary tract infection Current Visit: Yes Status: Acute Code(s): A41.50 - GRAM-NEGATIVE SEPSIS, UNSPECIFIED; N39.0 - URINARY TRACT INFECTION, SITE NOT SPECIFIED (2) Complicated urinary tract infection Current Visit: Yes Status: Acute Code(s): N39.0 - URINARY TRACT INFECTION, SITE NOT SPECIFIED (3) Drug abuse and dependence Current Visit: Yes Status: Acute Code(s): F19.20 - OTHER PSYCHOACTIVE SUBST ANCE DEPENDENCE, UNCOMPLICATED (4) Palliative care patient Current Visit: Yes Status: Acute Code(s): Z51.5 - ENCOUNTER FOR PALLIATIVE CARE (5) Cyclical vomiting syndrome Current Visit: Yes Status: Acute (6) Diabetes type 2, uncontrolled Current Visit: Yes Status: Acute Code(s): [id number] - (7) Diarrhea Current Visit: Yes Status: Acute Code(s): R19.7 - DIARRHEA, UNSPECIFIED (8) History of cervical cancer Current Visit: No Status: Chronic Assessment & Plan: (1) Sepsis due to gram-negative urinary tract infection Current Visit: Yes Status: Acute Assessment & Plan: - Lactic acid 2.7on admission and repeat was 1.7 after 2- 1 L fluid boluses in ER - HR 121 in ER on admission - PCO2 30 - + Hypotension - see UTI plan Code(s): A41.50 - GRAM-NEGATIVE SEPSIS, UNSPECIFIED; N39.0 - URINARY TRACT INFECTION, SITE NOT SPECIFIED (2) Complicated urinary tract infection Current Visit: Yes Status: Acute Assessment & Plan: - Rocephin IV - NS @ 100 ml/hr - UC gram negative- sensitivity pending 07/15 - UC + for enterobactor clocae complex- will d/c with cefuroxime axetil BID PO for 10 days Code(s): N39.0 - URINARY TRACT INFECTION, SITE NOT SPECIFIED (3) Drug abuse and dependence Current Visit: Yes Status: Acute Assessment & Plan: - UDS + for THC, meth - advised cessation Code(s): F19.20 - OTHER PSYCHOACTIVE SUBSTANCE DEPENDENCE, UNCOMPLICATED (4) Palliative care patient Current Visit: Yes Status: Acute Assessment & Plan: - Pt follows [facility] for Palliative care for cervical cancer and narcotic pain meds 07/15 - Pt has appointment for med refills. Code(s): Z51.5 - ENCOUNTER FOR PALLIATIVE CARE (5) Cyclical vomiting syndrome Current Visit: Yes Status: Acute Assessment & Plan: - EKG daily - follow electrolytes - antiemetic - IVF - tele - Clear liquid diet 07/15 - soft diet - d/c with antiemetic (6) Diabetes type 2, uncontrolled Current Visit: Yes Status: Acute Assessment & Plan: - low dose s/s - accuchecks ac/hs - allergic to metformin- will need OP f/u for diabetes meds - A1C 6.94 Code(s): [id number] - (7) Diarrhea Current Visit: Yes Status: Acute Assessment & Plan: - Probiotics, and immodium - C-dif negative - IVF Code(s): R19.7 - DIARRHEA, UNSPECIFIED (8) History of cervical cancer Current Visit: No Status: Chronic Assessment & Plan: - Palliative care for pain control - case management to arrange OP continued care with [facility] Code(s): Z85.41 - PERSONAL HISTORY OF MALIGNANT NEOPLASM OF CERVIX UTERI - Discharge Discharge Date: 07/15/24 Disposition: Home, Self-Care Condition: Stable Prescriptions: Continue Apixaban [Eliquis] 5 mg PO BID Quetiapine Fumarate [Seroquel] 50 mg PO HS Polyethylene Glycol 3350 17 gm [Miralax Powder 17GM PACKET] 17 gm PO DAILY PRN PRN Reason: Constipation Magnesium Oxide 400 mg [Mag-Ox 400] 400 mg PO DAILY Prochlorperazine 25 mg Supp [Compazine 25 Mgsuppository] 25 mg RC Q12H PRN PRN 3 Days #6 supp PRN Reason: Vomiting Oxycodone HCl 20 mg PO Q4H 3 Days #18 tablet MDD 6 Additional Instructions: Follow up with Dr. Camp for repeat Urine testing to make sure infection is gone. Also follow up with Dr. Camp to discuss your diabetic plan of care. Follow up with: DESTINY CAMP MD [Primary Care Provider] -
== END 2024-07-15 10:40 | disposition home or self-care (01) ==
LOC: ED 18:02 → MED SURG 07-13 01:21
PROVIDERS: ADMIT Student in an Organized Health Care Education/Training Program; ATTEND Student in an Organized Health Care Education/Training Program
DX: A41.50 Gram-negative sepsis, unspecified (principal); N39.0 Urinary tract infection, site not specified; F19.20 Other psychoactive substance dependence, uncomplicated; Z51.5 Encounter for palliative care; R11.15 Cyclical vomiting syndrome unrelated to migraine; E11.9 Type 2 diabetes mellitus without complications; R19.7 Diarrhea, unspecified; C53.9 Malignant neoplasm of cervix uteri, unspecified; G89.3 Neoplasm related pain (acute) (chronic); F17.200 Nicotine dependence, unspecified, uncomplicated; Z79.01 Long term (current) use of anticoagulants; Z79.899 Other long term (current) drug therapy; Z86.711 Personal history of pulmonary embolism
CPT/HCPCS: 36000; 36415; 74177; 80053; 80307; 81001; 82805; 82947; 83036; 83605; 83690; 83735; 85025; 85027; 87045; 87046; 87077; 87086; 87177; 87186; 87209; 87328; 87329; 87427; 87493; 93005; 93268; 94760; 96365; 96372; 96374; 96376; 99285; J0696; J1817; J2270; J2405; Q3014; A9270-GY; G0378

== ENCOUNTER 2024-07-20 04:52 | Emergency (ER) | payer OTHER ==
[2024-07-20 05:05] VITALS: RESP 16; TEMP 96.9
[2024-07-20] MEDS ORDERED: Zofran 4 MG/2 ML VIAL ONE (05:46)
[2024-07-20] MEDS ORDERED: Hydromorphone 1 mg/ml Injection ONE (05:47)
[2024-07-20] MEDS ORDERED: Sodium Chloride 0.9% 1000 ML 1,000 ML ONE (05:47)
[2024-07-20] MEDS ORDERED: PROTONIX 40 MG IV IV ONE (05:47)
[2024-07-20] MEDS: Sodium Chloride 0.9% 1000 ML 1,000 ML IV STA (05:55)
[2024-07-20] MEDS: Zofran 4 MG/2 ML VIAL IV ONE (05:57)
[2024-07-20] MEDS: PROTONIX 40 MG IV IV ONE (06:00)
[2024-07-20] MEDS: Hydromorphone 1 mg/ml Injection IV ONE (06:00)
[2024-07-20 06:15] LABS: Absolute Neutrophil Ct (ANC) 9.14 x10^3/uL (1.56-6.13); BASOPHIL % 0.4 % (0.1-1.2); Basophil (Absolute #) 0.05 x10^3/uL (0.01-0.08); Eosinophil % 5.3 % (0.7-5.8); Eosinophil (Absolute #) 0.67 x10^3/uL (0.04-0.36); Hematocrit 36.2 % (34.1-44.9); Hemoglobin 11.4 g/dL (11.2-15.7); IMMATURE GRAN # 0.07 x10^3u/L (0.001-0.031); IMMATURE GRAN % 0.6 % (0.001-0.429); Lymphocyte (Absolute #) 2.11 x10^3/uL (1.18-3.74); Lymphocytes % 16.7 % (19.3-51.7); Mean Cell Volume 76.9 fL (79.4-94.8); Mean Corpuscular Hemoglobin 24.2 pg (25.6-32.2); Mean Corpuscular Hgb Concent. 31.5 g/dL (32.2-35.5); Mean Platelet Volume 8.6 fL (9.4-12.3); Monocyte (Absolute #) 0.59 x10^3/uL (0.24-0.86); Monocytes % 4.7 % (4.7-12.5); Neutrophil % 72.3 % (34.0-71.1); Platelet Count 458 x10^3/uL (182-369); Red Blood Count 4.71 x10^6/uL (3.93-5.22); Red Cell Distribution Width 20.4 % (11.7-14.4); White Blood Count 12.6 x10^3/uL (3.98-10.04)
[2024-07-20 06:25] LABS: Appearance Turbid (Clear); Bacteria Moderate /HPF (None Seen); Bilirubin Negative (Negative); Blood Large (Negative); Epithelial Cells Few /HPF (None Seen); Glucose, Urine Negative (Negative); Ketones Negative (Negative); Leukocyte Esterase Large (Negative); Nitrite Positive (Negative); Ph 6.5 (4.6-8.0); Protein,Urine Dip >=1000 (Negative); RBC >100 /HPF (0-5); Specific Gravity 1.025 (1.005-1.030); WBC >100 /HPF (0-5)
[2024-07-20 06:26] LABS: ADD URINE CULTURE? YES (NO)
[2024-07-20 06:28] LABS: ALBUMIN 3.9 g/dL (3.5-5.0); ANION GAP 12.4 MEQ/L (5-15); BILIRUBIN,TOTAL 0.6 mg/dL (0.2-1.3); Calcium 9.6 mg/dL (8.4-10.2); Creatinine 1 1.22 mg/dL (0.52-1.04); EST GLOMERULAR FILTRATION RATE 57.5 ML/MIN; Potassium 3.6 mmol/L (3.5-5.1); Total Protein 7.4 g/dL (6.3-8.2)
--- NOTE | 2024-07-20 06:30 | ERPHSYRPT ---
- History of Present Illness Historian: patient Exam Limitations: no limitations Patient Subjective Stated Complaint: vomiting since leaving here on Sunday, had diarrhea but it quit the day before yesterday Triage Nursing Assessment: Pt ambulated into ER without diff. Pt is alert and oriented x4. Pt c/o vomiting. Pt was seen here in this ER last Sunday and was admitted and discharged home on Sunday07/15/24. Pt states, "I've continued to vomit since leaving the hospital and had diarrhea until the day before yesterday". Pt takes oxycontin at home every 4 hours but hasn't been able to eat with it. Pt is out of zofran. Abd soft with active bs x4 quad, nontender on palpation. No vomiting seen since being here in the ER. Pt is talkative. Pt has bilat nephrostomy tubes and is having good output from them. Pt is currently on pallative care and thought they were to call in [employer] and [employer] but they did not. Timing/Duration: intermittent (, Chronic) Activities at Onset: none Abdominal Pain Onset Location: suprapubic Pain Radiation: no radiation Severity of Pain-Max: moderate Severity of Pain-Current: mild Modifying Factors: Improves With: vomiting Associated Symptoms: diarrhea (Has had recent diarrhea but none in the last few days), loss of appetite, nausea, vomiting, weakness Previous symptoms: recently seen, recent hospitalization, recently treated Hx Tetanus, Diphtheria Vaccination/Date Given: Yes Hx Influenza Vaccination/Date Given: No Hx Pneumococcal Vaccination/Date Given: No <CM GUEVARA - Last Filed: 07/20/24 07:03> <IVÁN RETANA - Last Filed: 07/20/24 08:05> - History of Present Illness Time Seen by Provider: 07/20/24 05:15 Physician History: This is a 39-year-old white female patient who arrives by private vehicle and is a patient of Dr. Camp who is currently on palliative care because of stage IV cervical cancer. Patient is here primarily for intractable vomiting since her discharge from this hospital on 07/15/2024. Patient was admitted on 07/12/2024 for intractable pain and intractable vomiting. Patient states she has had intractable vomiting for over a month. She had intractable vomiting during her most recent hospitalization. Patient has nephrostomy tube/nephrostomies in place. Patient is on every 4 hours OxyContin. She is out of her ODT Zofran and is not on any Protonix. She had the understanding that more Zofran and Protonix will be called in for her by her palliative care providers but it was not done. She has been out of the Zofran and Protonix for a few days. Patient is here today because she is concerned she is dehydrated because she has been vomiting a little more frequently over the last few days after her discharge. Patient has a history of pulmonary embolus and she is on Eliquis. She has a history of panic disorder, PTSD and chronic anemia. I reviewed the most recent hospital and patient revisit and discharge summary. The CT scan of the abdomen and pelvis results dated 07/12/2024 were also reviewed by me. There was no evidence of any acute, emergent findings on that CT scan of the abdomen pelvis. Patient has not seen a welding process specialist to help define the underlying cause of her intractable vomiting. Patient states that she is on Phenergan suppositories, has used Zofran ODT, has used Compazine and all of those do not seem to help all that much and resolving her intractable vomiting. She has had droperidol in the past which seems to help a little bit more than the above antiemetics. She did state that what has helped her more than any of the antiemetics listed above, is IV Phenergan. Her goal for today's evaluation and management is to help at least improve or lessen her vomiting episodes (CM GUEVARA) Allergies/Adverse Reactions: ketamine Allergy (Intermediate, Verified 07/20/24 05:22) hallucinations metformin Allergy (Intermediate, Verified 07/20/24 05:22) hallucinations sulfamethoxazole [From Bactrim] Allergy (Intermediate, Verified 07/20/24 05:22) Hives trimethoprim [From Bactrim] Allergy (Intermediate, Verified 07/20/24 05:22) Hives gabapentin Adverse Reaction (Intermediate, Verified 07/20/24 05:23) hallucinations Home Medications: Apixaban [Eliquis] 5 mg PO BID 08/18/23 [History] Quetiapine Fumarate [Seroquel] 50 mg PO HS 08/18/23 [History] Magnesium Oxide 400 mg [Mag-Ox 400] 400 mg PO DAILY 06/17/24 [History] Polyethylene Glycol 3350 17 gm [Miralax Powder 17GM PACKET] 17 gm PO DAILY PRN 06/17/24 [History] Travel Risk - International Travel Have you traveled outside of the country in past 3 weeks: No - Emerging Infectious Disease Are you exhibiting symptoms associated with any current EIDs: Yes Symptoms: Vomitting <CM GUEVARA - Last Filed: 07/20/24 07:03> - Review of Systems Constitutional: No Symptoms Eyes: No Symptoms Ears, Nose, & Throat: No Symptoms Respiratory: No Symptoms Cardiac: No Symptoms Abdominal/Gastrointestinal: Abdominal Pain (Suprapubic/pelvic), Nausea, Vomiting, Appetite Changes Genitourinary Symptoms: No Symptoms Musculoskeletal: No Symptoms Skin: No Symptoms Neurological: No Symptoms Psychological: No Symptoms Endocrine: No Symptoms Hematologic/Lymphatic: No Symptoms Immunological/Allergic: No Symptoms All Other Systems: Reviewed and Negative <CM GUEVARA - Last Filed: 07/20/24 07:03> - Past Medical History Pertinent Past Medical History: Yes Neurological History: No Pertinent History ENT History: No Pertinent History Cardiac History: No Pertinent History Respiratory History: Pulmonary Embolism Endocrine Medical History: Other Musculoskeletal History: Fractures GI Medical History: No Pertinent History History: Other Psycho-Social History: Anxiety, Depression, Panic Disorder, Other Female Reproductive Disorders: Cervical Cancer Other Medical History: PTSD- talk to before touch when asleep. cervical ca stage 4A, in surveillance stage- finished treatment in 04/05/23. left talus chip fx. hypertriglyceridemia. bilateral neph tube. "fluoro gut" - Past Surgical History Past Surgical History: Yes Neuro Surgical History: No Pertinent History Cardiac: No Pertinent History Respiratory: No Pertinent History Gastrointestinal: No Pertinent History Genitourinary: No Pertinent History Musculoskeletal: No Pertinent History Female Surgical History: Tubal Ligation, Other Other Surgical History: bilat neph tube. sinus surgery. cervical tumor biopsy, rt neph tube replaced 06/28. - Female History Hx Last Menstrual Period: 08/2022 Hx Now: No - Social History Smoking Status: Current every day smoker How long have you smoked: 20 yrs Exposure to second hand smoke: Yes Drug Use: marijuana Patient Lives Alone: Yes - Social Determinants of Health Will the patient participate in the screening: Yes Do you worry about a steady place to live?: No Do you have any problems with any of the following?: No known problems In the past 12 months,have you had to go without utilities?: No Transportation Issues: No Has anyone in your support network made you feel unsafe?: No Have you or anyone in your house had to go without enough: No <CM GUEVARA - Last Filed: 07/20/24 07:03> - Physical Exam General Appearance: no apparent distress, alert, anxiety Eye Exam: PERRL/EOMI, eyes nml inspection Ears, Nose, Throat Exam: normal ENT inspection, moist mucous membranes Neck Exam: normal inspection, non-tender, supple, full range of motion Respiratory Exam: normal breath sounds, lungs clear, airway intact, No chest tenderness, No respiratory distress Cardiovascular Exam: tachycardia (Mild) Gastrointestinal/Abdomen Exam: soft, normal bowel sounds, tenderness, No guarding (Suprapubic and infraumbilical region) Pelvic Exam: not done Rectal Exam: not done Extremity Exam: normal inspection, normal range of motion, pelvis stable Neurologic Exam: alert, oriented x 3, cooperative, 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, nml cerebellar function, nml station & gait, sensation nml Skin Exam: normal color, warm, dry Lymphatic Exam: No adenopathy SpO2 Interpretation: normal SpO2: 97 O2 Delivery: Room Air <CM GUEVARA - Last Filed: 07/20/24 07:03> - Nursing Vital Signs Nursing Vital Signs: Initial Vital Signs Temperature 96.9 F 07/20/24 05:03 Pulse Rate 108 H 07/20/24 05:03 Respiratory Rate 16 07/20/24 05:03 Blood Pressure 167/105 07/20/24 05:03 O2 Sat by Pulse Oximetry 100 07/20/24 05:03 Pain Scale Pain Intensity 0 - Course Nursing assessment & vital signs reviewed: Yes <CM GUEVARA - Last Filed: 07/20/24 07:03> Ordered Tests: Active Orders 24 hr Category Date Time Status IV Insertion STAT Care 07/20/24 05:33 Active AMYLASE Stat Lab 07/20/24 05:43 Completed BLOOD CULTURE Stat Lab 07/20/24 05:56 Received CBC W DIFF Stat Lab 07/20/24 05:43 Completed CMP Stat Lab 07/20/24 05:43 Completed CULTURE,URINE Stat Lab 07/20/24 05:49 Received LIPASE Stat Lab 07/20/24 05:43 Completed Lactic Acid Stat Lab 07/20/24 05:40 Completed UA W/RFX UR CULTURE Stat Lab 07/20/24 05:49 Completed Medication Summary Generic Name Dose Route Start Last Admin Trade Name Latisha PRN Reason Stop Dose Admin Meropenem 1 gm/ Sodium 100 mls @ 200 mls/hr 07/20/24 08:00 Chloride IV 07/20/24 08:29 STAT ONE Discontinued Medications Generic Name Dose Route Start Last Admin Trade Name Latisha PRN Reason Stop Dose Admin Hydromorphone HCl 1 mg 07/20/24 05:33 07/20/24 06:00 Hydromorphone 1 Mg/1ml Inj IV 07/20/24 05:34 1 mg STAT ONE Administration Hydromorphone HCl Confirm 07/20/24 05:47 Hydromorphone 1 Mg/1ml Inj Administered 07/20/24 05:48 Dose 1 mg .ROUTE .STK-MED ONE Sodium Chloride 1,000 mls @ 999 mls/hr 07/20/24 05:33 07/20/24 07:00 Sodium Chloride 0.9% 1000 Ml IV 07/20/24 06:33 Infused .Q1H1M STA Infusion Sodium Chloride Confirm 07/20/24 05:47 Sodium Chloride 0.9% 1000 Ml Administered 07/20/24 05:48 Dose 1,000 mls @ ud .ROUTE .STK-MED ONE Promethazine HCl 25 mg/ Sodium 101 mls @ 200 mls/hr 07/20/24 06:53 07/20/24 07:04 Chloride IV 07/20/24 07:23 200 mls/hr STAT ONE Administration Sodium Chloride Confirm 07/20/24 07:00 Sodium Chloride 0.9% Administered 07/20/24 07:01 Dose 100 mls @ ud .ROUTE .STK-MED ONE Ondansetron HCl 4 mg 07/20/24 05:33 07/20/24 05:57 Ondansetron Hcl 4 Mg/2 Ml Vial IV 07/20/24 05:34 4 mg STAT ONE Administration Ondansetron HCl Confirm 07/20/24 05:46 Ondansetron Hcl 4 Mg/2 Ml Vial Administered 07/20/24 05:47 Dose 4 mg .ROUTE .STK-MED ONE Pantoprazole Sodium 40 mg 07/20/24 05:33 07/20/24 06:00 Pantoprazole 40 Mg Vial IV 07/20/24 05:34 40 mg STAT ONE Administration Pantoprazole Sodium Confirm 07/20/24 05:47 Pantoprazole 40 Mg Vial Administered 07/20/24 05:48 Dose 40 mg IV .STK-MED ONE Promethazine HCl Confirm 07/20/24 07:00 Promethazine Hcl 25 Mg/Ml Vial Administered 07/20/24 07:01 Dose 25 mg .ROUTE .STK-MED ONE Lab/Rad Data: Laboratory Result Diagrams 07/20/24 05:43 07/20/24 05:43 Laboratory Results 07/20/24 07/20/24 07/20/24 Range/Units 05:49 05:43 05:43 WBC 12.6 H (3.98-10.04) x10^3/uL RBC 4.71 (3.93-5.22) x10^6/uL Hgb 11.4 (11.2-15.7) g/dL Hct 36.2 (34.1-44.9) % MCV 76.9 L (79.4-94.8) fL MCH 24.2 L (25.6-32.2) pg MCHC 31.5 L (32.2-35.5) g/dL RDW 20.4 H (11.7-14.4) % Plt Count 458 H (182-369) x10^3/uL MPV 8.6 L (9.4-12.3) fL Gran % 72.3 H (34.0-71.1) % Immature Gran % (Auto) 0.6 H (0.001-0.429) % Nucleat RBC Rel Count 0.0 (0.00-0.2) % Eos # (Auto) 0.67 H (0.04-0.36) x10^3/uL Immature Gran # (Auto) 0.07 H (0.001-0.031) x10^3u/L Absolute Lymphs (auto) 2.11 (1.18-3.74) x10^3/uL Absolute Monos (auto) 0.59 (0.24-0.86) x10^3/uL Absolute Nucleated RBC 0.00 (0.00-0.012) x10^3u/L Lymphocytes % 16.7 L (19.3-51.7) % Monocytes % 4.7 (4.7-12.5) % Eosinophils % 5.3 (0.7-5.8) % Basophils % 0.4 (0.1-1.2) % Absolute Granulocytes 9.14 H (1.56-6.13) x10^3/uL Basophils # 0.05 (0.01-0.08) x10^3/uL Sodium 134 L (135-145) mmol/L Potassium 3.6 (3.5-5.1) mmol/L Chloride 94 L (98-107) mmol/L Carbon Dioxide 31 H (22-30) mmol/L Anion Gap 12.4 (5-15) MEQ/L BUN 18 H (7-17) mg/dL Creatinine 1.22 H (0.52-1.04) mg/dL Estimated GFR 57.5 ML/MIN Glucose 181 H (74-106) mg/dL Lactic Acid (0.4-2.0) Calcium 9.6 (8.4-10.2) mg/dL Total Bilirubin 0.60 (0.2-1.3) mg/dL AST 38 H (14-36) U/L ALT 25 (0-35) U/L Alkaline Phosphatase 141 H (38-126) U/L Serum Total Protein 7.4 (6.3-8.2) g/dL Albumin 3.9 (3.5-5.0) g/dL Amylase 82 (30-110) U/L Lipase 16 L (23-300) U/L Urine Color Dark Yellow A (Yellow) Urine Appearance Turbid A (Clear) Urine pH 6.5 (4.6-8.0) Ur Specific [place] 1.025 (1.005-1.030) Urine Protein >=1000 A (Negative) Urine Glucose (UA) Negative (Negative) mg/dL Urine Ketones Negative (Negative) Urine Blood Large A (Negative) Urine Nitrite Positive A (Negative) Urine Bilirubin Negative (Negative) Urine Urobilinogen 1.0 A (0.2) mg/dL Ur Leukocyte Esterase Large A (Negative) U Hyaline Cast (Auto) 3-5 A (0-2) /LPF Urine Microscopic RBC >100 A (0-5) /HPF Urine Microscopic WBC >100 A (0-5) /HPF Ur Epithelial Cells Few (None Seen) /HPF Urine Bacteria Moderate A (None Seen) /HPF Urine Culture Reflexed YES (NO) 07/20/24 Range/Units 05:40 WBC (3.98-10.04) x10^3/uL RBC (3.93-5.22) x10^6/uL Hgb (11.2-15.7) g/dL Hct (34.1-44.9) % MCV (79.4-94.8) fL MCH (25.6-32.2) pg MCHC (32.2-35.5) g/dL RDW (11.7-14.4) % Plt Count (182-369) x10^3/uL MPV (9.4-12.3) fL Gran % (34.0-71.1) % Immature Gran % (Auto) (0.001-0.429) % Nucleat RBC Rel Count (0.00-0.2) % Eos # (Auto) (0.04-0.36) x10^3/uL Immature Gran # (Auto) (0.001-0.031) x10^3u/L Absolute Lymphs (auto) (1.18-3.74) x10^3/uL Absolute Monos (auto) (0.24-0.86) x10^3/uL Absolute Nucleated RBC (0.00-0.012) x10^3u/L Lymphocytes % (19.3-51.7) % Monocytes % (4.7-12.5) % Eosinophils % (0.7-5.8) % Basophils % (0.1-1.2) % Absolute Granulocytes (1.56-6.13) x10^3/uL Basophils # (0.01-0.08) x10^3/uL Sodium (135-145) mmol/L Potassium (3.5-5.1) mmol/L Chloride (98-107) mmol/L Carbon Dioxide (22-30) mmol/L Anion Gap (5-15) MEQ/L BUN (7-17) mg/dL Creatinine (0.52-1.04) mg/dL Estimated GFR ML/MIN Glucose (74-106) mg/dL Lactic Acid 1.4 (0.4-2.0) Calcium (8.4-10.2) mg/dL Total Bilirubin (0.2-1.3) mg/dL AST (14-36) U/L ALT (0-35) U/L Alkaline Phosphatase (38-126) U/L Serum Total Protein (6.3-8.2) g/dL Albumin (3.5-5.0) g/dL Amylase (30-110) U/L Lipase (23-300) U/L Urine Color (Yellow) Urine Appearance (Clear) Urine pH (4.6-8.0) Ur Specific [place] (1.005-1.030) Urine Protein (Negative) Urine Glucose (UA) (Negative) mg/dL Urine Ketones (Negative) Urine Blood (Negative) Urine Nitrite (Negative) Urine Bilirubin (Negative) Urine Urobilinogen (0.2) mg/dL Ur Leukocyte Esterase (Negative) U Hyaline Cast (Auto) (0-2) /LPF Urine Microscopic RBC (0-5) /HPF Urine Microscopic WBC (0-5) /HPF Ur Epithelial Cells (None Seen) /HPF Urine Bacteria (None Seen) /HPF Urine Culture Reflexed (NO) <CM GUEVARA - Last Filed: 07/20/24 07:03> - Progress Progress: improved (Vomiting is much less) Counseled pt/family regarding: lab results, diagnosis, need for follow-up <IVÁN RETANA - Last Filed: 07/20/24 08:05> - Progress Progress Note: 07/20/24 06:36 My medical decision making and the assignment of moderate complexity to this patient's medical issue today is based on review of the patient's past medical history, review of the patient's medication list, review of patient drug allergy list, review of the patient's most recent inpatient hospitalization here at [facility], history of present illness, physical findings on examination. The workup in this patient includes placement of intravenous line, infusion normal saline solution, infusion of Zofran intravenously, infusion of Protonix intravenously, infusion of Dilaudid intravenously, CBC, CMP, amylase, lipase, urinalysis, lactic acid level. I do not feel necessary to repeat the CAT scan that was performed a week ago. There were no acute, emergent findings on that study. With regard to her abdominal pain, nothing has worsened per her report. The patient and I agreed to repeat labs looking at her electrolytes, looking for degree of dehydration, rehydrating her and attempt to control her intractable vomiting better. She is aware that we may not be able to do so since she has had this issue for over a month despite outpatient and inpatient management. I will remotely send a prescription to her pharmacy for Protonix and Zofran. Differential diagnosis includes but is not limited to dehydration, electrolyte abnormalities, anxiety about health 07/20/24 07:05 I have transferred care to Dr. Retana. I have informed him of studies results that need to be followed up on. He will follow-up on these results and make final disposition. (CM GUEVARA) Medical Desision Making - Diagnostic Testing Diagnostic test were ordered, analyzed, and reviewed by me: Yes Radiological Interpretation: Interpreted by me - Risk of complications The pt has a mod risk of morbidity or mortality based on: Need for prescription drug management <IVÁN RETANA - Last Filed: 07/20/24 08:05> - Departure Departure Disposition: Home Critical Care Time: No <CM GUEVARA - Last Filed: 07/20/24 07:03> - Departure Departure Disposition: Home Critical Care Time: Yes Critical Care Time(excluding separately billable procedures): Critical 30-74 mins <IVÁN RETANA - Last Filed: 07/20/24 08:05> - Departure Clinical Impression: Chronic vomiting, Pyelonephritis, Cyclical vomiting syndrome, Palliative care patient, Cancer related pain, Dehydration, Cervical cancer, FIGO stage JANA Condition: Stable Referrals: DESTINY CAMP MD [Primary Care Provider] - Follow up/PCP as directed Prescriptions: Ondansetron ODT 4 MG [Zofran Odt 4 mg] 4 mg PO Q6H PRN PRN #10 tablet PRN Reason: Vomiting PANTOPRAZOLE 40 mg Tablet [Protonix 40MG Tablet] 40 mg PO QAM #21 tab
[2024-07-20] MEDS ORDERED: Sodium Chloride 0.9% 100 ML ONE (07:00)
[2024-07-20] MEDS ORDERED: Phenergan 25 MG INJ ONE (07:00)
[2024-07-20] MEDS: Phenergan 25 MG INJ*** 25 MG in Sodium Chloride 0.9% 100 ML IV ONE (07:04)
[2024-07-20] MEDS ORDERED: Sodium Chloride 100ML MINI-BAG PLUS 100 ML IV ONE (08:03)
[2024-07-20] MEDS ORDERED: Merrem IV ONE (08:03)
[2024-07-20] MEDS: Merrem 1 GM in Sodium Chloride 100ML MINI-BAG PLUS 100 ML IV ONE (08:04)
[2024-07-20] MEDS ORDERED: Lactated Ringers 1,000 ML IV ONE (08:29)
[2024-07-20] MEDS: Lactated Ringers 1,000 ML IV ONE (08:29)
[2024-07-20 09:33] VITALS: BP 117/60; PULSE 65; O2SAT 98
== END 2024-07-20 09:40 | disposition home or self-care (01) ==
LOC: ED 04:52
DX: R11.15 Cyclical vomiting syndrome unrelated to migraine (principal); C53.9 Malignant neoplasm of cervix uteri, unspecified; G89.3 Neoplasm related pain (acute) (chronic); N12 Tubulo-interstitial nephritis, not specified as acute or chronic; E86.0 Dehydration; Z79.01 Long term (current) use of anticoagulants; Z79.899 Other long term (current) drug therapy; Z72.0 Tobacco use
CPT/HCPCS: 36000; 36415; 80053; 81001; 82150; 83605; 83690; 85025; 87040; 87077; 87086; 87186; 96360; 96361; 96374; 96375; 99284; 99291; J1170; J2405; J2550

== ENCOUNTER 2024-09-08 12:43 | Emergency (ER) | payer MEDICARE, OTHER ==
--- NOTE | 2024-09-08 12:50 | ERPHSYRPT ---
- History of Present Illness Time Seen by Provider: 09/08/24 12:50 Source: patient Exam Limitations: no limitations Physician History: This is a 39-year-old white female patient of Dr. Camp who arrives by private vehicle with pelvic pain. Patient has been out of her pain medication for 3 days. Patient has stage IV cervical cancer and has bilateral nephrostomy tubes in place. Patient is concerned that she may have a urinary tract infection. Patient takes oxycodone 20 mg orally every 4 hours. Patient has a history of anxiety, depression, panic disorder, PTSD, pulmonary embolus and is on Eliquis. Patient has been trying to resolve her oxycodone prescription issues. Apparently there was some issue with the LM from the prescriber and the pharmacy would not fill her medication. She has been calling all weekend. Patient did take Tylenol and ibuprofen prior to arrival to our facility and this did not help relieve her pain. Activites at Onset: none Quality: aching, throbbing Onset Location: suprapubic Pain Radiation: none Severity of Pain-Max: moderate Severity of Pain-Current: moderate Sexual intercourse history: non-contributory Modifying Factors: Improves With: vomiting Associated Symptoms: abdominal pain (Prepubic/pelvic), vomiting Allergies/Adverse Reactions: ketamine Allergy (Intermediate, Verified 09/08/24 13:32) hallucinations metformin Allergy (Intermediate, Verified 09/08/24 13:32) hallucinations sulfamethoxazole [From Bactrim] Allergy (Intermediate, Verified 09/08/24 13:32) Hives trimethoprim [From Bactrim] Allergy (Intermediate, Verified 09/08/24 13:32) Hives gabapentin Adverse Reaction (Intermediate, Verified 09/08/24 13:32) hallucinations Home Medications: Apixaban [Eliquis] 5 mg PO BID 08/18/23 [History] Quetiapine Fumarate [Seroquel] 50 mg PO HS 08/18/23 [History] Buspirone HCl 7.5 mg PO BID 09/08/24 [History] Hx Tetanus, Diphtheria Vaccination/Date Given: Yes Hx Influenza Vaccination/Date Given: No Hx Pneumococcal Vaccination/Date Given: No Travel Risk - International Travel Have you traveled outside of the country in past 3 weeks: No - Emerging Infectious Disease Are you exhibiting symptoms associated with any current EIDs: Yes Symptoms: Vomitting - Review of Systems Constitutional: No Symptoms Eyes: No Symptoms Ears, Nose, & Throat: No Symptoms Respiratory: No Symptoms Cardiac: No Symptoms Abdominal/Gastrointestinal: Abdominal Pain (Suprapubic/pelvic), Vomiting, Appetite Changes Genitourinary Symptoms: No Symptoms Musculoskeletal: No Symptoms Skin: No Symptoms Neurological: No Symptoms Psychological: No Symptoms Endocrine: No Symptoms Hematologic/Lymphatic: No Symptoms Immunological/Allergic: No Symptoms All Other Systems: Reviewed and Negative - Past Medical History Pertinent Past Medical History: Yes Neurological History: No Pertinent History ENT History: No Pertinent History Cardiac History: No Pertinent History Respiratory History: Pulmonary Embolism Endocrine Medical History: Other Musculoskeletal History: Fractures GI Medical History: No Pertinent History History: Other Psycho-Social History: Anxiety, Depression, Panic Disorder, Other Female Reproductive Disorders: Cervical Cancer Other Medical History: PTSD- talk to before touch when asleep. cervical ca stage 4A, in surveillance stage- finished treatment in 04/05/23. left talus chip fx. hypertriglyceridemia. bilateral neph tube. "fluoro gut" - Past Surgical History Past Surgical History: Yes Neuro Surgical History: No Pertinent History Cardiac: No Pertinent History Respiratory: No Pertinent History Gastrointestinal: No Pertinent History Genitourinary: No Pertinent History Musculoskeletal: No Pertinent History Female Surgical History: Tubal Ligation, Other Other Surgical History: bilat neph tube. sinus surgery. cervical tumor biopsy, rt neph tube replaced 06/28. - Female History Hx Last Menstrual Period: 08/2022 - Social History Smoking Status: Current every day smoker How long have you smoked: 20 yrs Exposure to second hand smoke: Yes Drug Use: marijuana Patient Lives Alone: Yes - Social Determinants of Health Will the patient participate in the screening: Yes Do you worry about a steady place to live?: No In the past 12 months,have you had to go without utilities?: No Transportation Issues: No Has anyone in your support network made you feel unsafe?: No Have you or anyone in your house had to go without enough: No - Nursing Vital Signs Nursing Vital Signs: Initial Vital Signs Temperature 97.5 F 09/08/24 13:24 Pulse Rate 92 H 09/08/24 13:24 Blood Pressure 155/96 09/08/24 13:24 O2 Sat by Pulse Oximetry 100 09/08/24 13:24 Pain Scale Pain Intensity 8 - Physical Exam General Appearance: mild distress (To moderate), alert, anxiety, thin Eye Exam: PERRL/EOMI, eyes nml inspection Ears, Nose, Throat Exam: normal ENT inspection, moist mucous membranes Neck Exam: normal inspection, non-tender, supple, full range of motion Respiratory Exam: normal breath sounds, lungs clear, airway intact, No chest tenderness, No respiratory distress Cardiovascular Exam: regular rate/rhythm, normal heart sounds, normal peripheral pulses Gastrointestinal/Abdomen Exam: soft, normal bowel sounds, tenderness (Suprapubic region. Bilateral nephrostomy tubes in place) Pelvic Exam: not done Rectal Exam: not done Back Exam: normal inspection, normal range of motion, No CVA tenderness, No vertebral tenderness Extremity Exam: normal inspection, normal range of motion, pelvis stable Neurologic Exam: alert, oriented x 3, cooperative, general manager land department II-XII nml as tested, sensation nml Skin Exam: normal color, warm, dry Lymphatic Exam: No adenopathy SpO2 Interpretation: normal O2 Delivery: Room Air - Course Nursing assessment & vital signs reviewed: Yes Ordered Tests: Active Orders 24 hr Category Date Time Status CULTURE,URINE Stat Lab 09/08/24 14:51 Received UA W/RFX UR CULTURE Stat Lab 09/08/24 14:51 Completed Medication Summary Discontinued Medications Generic Name Dose Route Start Last Admin Trade Name Freq PRN Reason Stop Dose Admin Diphenhydramine HCl 25 mg 09/08/24 13:52 09/08/24 14:44 Diphenhydramine Hcl 50 Mg/Ml Vial IM 09/08/24 13:53 25 mg STAT ONE Administration Diphenhydramine HCl Confirm 09/08/24 14:39 Diphenhydramine Hcl 50 Mg/Ml Vial Administered 09/08/24 14:40 Dose 50 mg .ROUTE .STK-MED ONE Hydromorphone HCl 1 mg 09/08/24 13:52 09/08/24 14:44 Hydromorphone 1 Mg/1ml Inj IM 09/08/24 13:53 1 mg STAT ONE Administration Hydromorphone HCl Confirm 09/08/24 14:39 Hydromorphone 1 Mg/1ml Inj Administered 09/08/24 14:40 Dose 1 mg .ROUTE .STK-MED ONE Prochlorperazine Edisylate 5 mg 09/08/24 13:53 09/08/24 14:44 Prochlorperazine Edisylate 10 Mg/2 Ml Vial IM 09/08/24 13:54 5 mg STAT ONE Administration Prochlorperazine Edisylate Confirm 09/08/24 14:39 Prochlorperazine Edisylate 10 Mg/2 Ml Vial Administered 09/08/24 14:40 Dose 10 mg .ROUTE .STK-MED ONE Lab/Rad Data: Laboratory Results 09/08/24 Range/Units 14:51 Urine Color Yellow (Yellow) Urine Appearance Turbid A (Clear) Urine pH 7.5 (4.6-8.0) Ur Specific [place] >=1.030 A (1.005-1.030) Urine Protein 300 A (Negative) Urine Glucose (UA) Negative (Negative) mg/dL Urine Ketones Negative (Negative) Urine Blood Large A (Negative) Urine Nitrite Positive A (Negative) Urine Bilirubin Negative (Negative) Urine Urobilinogen 0.2 (0.2) mg/dL Ur Leukocyte Esterase Large A (Negative) U Hyaline Cast (Auto) None Seen (0-2) /LPF Urine Microscopic RBC 6-10 A (0-5) /HPF Urine Microscopic WBC 21-50 A (0-5) /HPF Ur Epithelial Cells Rare (None Seen) /HPF Triple Phos Crystals 3-5 A (None Seen) /HPF Urine Bacteria Many A (None Seen) /HPF Urine Culture Reflexed YES (NO) - Progress Progress: improved, re-examined Air Movement: good Progress Note: 09/08/24 14:09 My medical decision making and the assignment of low complexity to this patient's medical issue today is based on review of the patient's past medical history, reviewed patient's medication list, reviewed patient drug allergy list, history present illness and physical findings on examination. The workup in this patient today includes urinalysis and providing the patient with intramuscular medication of Dilaudid, Compazine and Benadryl. Differential diagnosis includes but is not limited to urinary tract infection, medication refill and suprapubic pain 09/08/24 15:03 Isa contacted the palliative care facility/group that is monitoring and prescribing this patient's pain medication. They substantiate that there has been a difficulty in prescribing the narcotics in this patient over the weekend. They did ask if we could prescribe this patient a couple of days of her oxycodone 20 mg 1 orally every 4 hours. I agree to this. I remotely send a prescription for oxycodone 20 mg 1 orally every 4 hours number 10 tablets only. 09/08/24 16:35 The patient has a significant urinary tract infection. I interpreted the patient's laboratory data results. Blood Culture(s) Obtained: No Antibiotics given: Yes Counseled pt/family regarding: lab results, diagnosis, need for follow-up Medical Desision Making - Diagnostic Testing Diagnostic test were ordered, analyzed, and reviewed by me: Yes - Risk of complications The pt has a mod risk of morbidity or mortality based on: Need for prescription drug management - Departure Departure Disposition: Home Clinical Impression: Cancer-related pain, Palliative care patient, UTI (urinary tract infection) Condition: Stable Critical Care Time: No Referrals: DESTINY CAMP MD [Primary Care Provider] - Follow up/PCP as directed Additional Instructions: Drink plenty of fluids. Take your medications as prescribed. Call your palliative care provider later today or tomorrow for an update and for further instructions. Prescriptions: Ciprofloxacin [Cipro 500 MG] 500 mg PO BID #14 tablet Oxycodone HCl 20 mg PO Q4H PRN #10 tablet MDD 4 PRN Reason: Moderate To Severe Pain
[2024-09-08 13:32] VITALS: PULSE 92; TEMP 97.5
[2024-09-08] MEDS ORDERED: Hydromorphone 1 mg/ml Injection ONE (14:39)
[2024-09-08] MEDS ORDERED: Compazine 10 MG/2 ML ONE (14:39)
[2024-09-08] MEDS ORDERED: BENADRYL 50 MG/ML ONE (14:39)
[2024-09-08] MEDS: BENADRYL 50 MG/ML IM ONE (14:44)
[2024-09-08] MEDS: Compazine 10 MG/2 ML IM ONE (14:44)
[2024-09-08] MEDS: Hydromorphone 1 mg/ml Injection IM ONE (14:44)
[2024-09-08 15:24] LABS: Appearance Turbid (Clear); Bacteria Many /HPF (None Seen); Bilirubin Negative (Negative); Blood Large (Negative); Epithelial Cells Rare /HPF (None Seen); Glucose, Urine Negative (Negative); Hyaline Casts None Seen /LPF (0-2); Ketones Negative (Negative); Leukocyte Esterase Large (Negative); Nitrite Positive (Negative); Ph 7.5 (4.6-8.0); Protein,Urine Dip 300 (Negative); Specific Gravity >=1.030 (1.005-1.030); Urobilinogen 0.2 mg/dL (0.2); WBC 21-50 /HPF (0-5)
[2024-09-08 15:45] VITALS: O2SAT 98
[2024-09-08] MEDS ORDERED: Levofloxacin 500 MG Tablet ONE (16:37)
[2024-09-08] MEDS: Levofloxacin 500 MG Tablet PO ONE (16:37)
[2024-09-08 16:41] VITALS: BP 144/99
== END 2024-09-08 16:46 | disposition home or self-care (01) ==
LOC: ED 12:43
DX: G89.3 Neoplasm related pain (acute) (chronic) (principal); C53.9 Malignant neoplasm of cervix uteri, unspecified; R10.2 Pelvic and perineal pain; N39.0 Urinary tract infection, site not specified; Z51.5 Encounter for palliative care; Z79.891 Long term (current) use of opiate analgesic; Z79.01 Long term (current) use of anticoagulants; Z79.899 Other long term (current) drug therapy; Z72.0 Tobacco use
CPT/HCPCS: 81001; 87077; 87086; 87186; 96372; 99284; J1171; J1200; A9270-GY

== ENCOUNTER 2024-09-11 16:04 | Emergency (ER) | payer MEDICARE, OTHER ==
[2024-09-11 16:43] VITALS: RESP 18; TEMP 96.7
[2024-09-11 18:23] VITALS: BP 147/84; PULSE 97; O2SAT 100
--- NOTE | 2024-09-11 18:42 | ERPHSYRPT ---
- History of Present Illness Time Seen by Provider: 09/11/24 16:56 Source: patient Exam Limitations: no limitations Patient Subjective Stated Complaint: "I was walking last night and think I broke my toe. I don't really know what happened, I don't recall hitting it on anyt [place]. I also have had some vomiting since last night and some blood in my urostomy bag since last night. I have an UTI and I'm on antibiotics". Triage Nursing Assessment: Pt presents to ER with complaints of left great toe pain and swelling that started last night at approx 2100 when out for a walk. Toe appears red and swollen, limited ROM. Able to move ankle without difficulty. Pt is alert and oriented x 3. Respirations are easy. Rates pain 8/10 scale. Took oxycodone PER DIEM INTERPRETER. Has had a few episodes of vomiting since last night and some blood in her urostomy bag since last night, known UTI and is on Abx. Hx of stage 4 cervical cancer. Physician History: Patient is here with left great toe pain. Patient states this started approximately 11 PM last night when she was out for a walk. She does not remember falling, other injuries. States pain is an 8 out of 10. She has been taking her oxycodone at home. She is on antibiotics for UTI. Has stage IV cervical cancer currently. Allergies/Adverse Reactions: ketamine Allergy (Intermediate, Verified 09/11/24 16:43) hallucinations metformin Allergy (Intermediate, Verified 09/11/24 16:43) hallucinations sulfamethoxazole [From Bactrim] Allergy (Intermediate, Verified 09/11/24 16:43) Hives trimethoprim [From Bactrim] Allergy (Intermediate, Verified 09/11/24 16:43) Hives gabapentin Adverse Reaction (Intermediate, Verified 09/11/24 16:43) hallucinations Home Medications: Apixaban [Eliquis] 5 mg PO BID 08/18/23 [History] Quetiapine Fumarate [Seroquel] 50 mg PO HS 08/18/23 [History] Buspirone HCl 7.5 mg PO TID 09/08/24 [History] Citalopram Hydrobromide 20 mg* [ceLEXa 20 MG] 1 tab PO DAILY 09/11/24 [History] Ondansetron ODT 4 MG [Zofran Odt 4 mg] 4 mg Q6H PRN PRN 09/11/24 [History] ondansetron HCL [Ondansetron HCl] 4 mg .ROUTE [id number] PRN 09/11/24 [History] Hx Tetanus, Diphtheria Vaccination/Date Given: Yes Hx Influenza Vaccination/Date Given: No Hx Pneumococcal Vaccination/Date Given: No Immunizations Up to Date: No Travel Risk - International Travel Have you traveled outside of the country in past 3 weeks: No - Emerging Infectious Disease Are you exhibiting symptoms associated with any current EIDs: No Symptoms: Vomitting - Past Medical History Pertinent Past Medical History: Yes Neurological History: No Pertinent History ENT History: No Pertinent History Cardiac History: No Pertinent History Respiratory History: Pulmonary Embolism Endocrine Medical History: Other Musculoskeletal History: Fractures GI Medical History: No Pertinent History History: Other Psycho-Social History: Anxiety, Depression, Panic Disorder, Other Female Reproductive Disorders: Cervical Cancer Other Medical History: PTSD- talk to before touch when asleep. cervical ca stage 4A, in surveillance stage- finished treatment in 04/05/23. left talus chip fx. hypertriglyceridemia. bilateral neph tube. "fluoro gut" - Past Surgical History Past Surgical History: Yes Neuro Surgical History: No Pertinent History Cardiac: No Pertinent History Respiratory: No Pertinent History Gastrointestinal: No Pertinent History Genitourinary: No Pertinent History Musculoskeletal: No Pertinent History Female Surgical History: Tubal Ligation, Other Other Surgical History: bilat neph tube. sinus surgery. cervical tumor biopsy, rt neph tube replaced 06/28. - Female History Hx Last Menstrual Period: 08/2022 Hx Now: No - Social History Smoking Status: Current every day smoker How long have you smoked: 20 yrs Exposure to second hand smoke: Yes Drug Use: none Patient Lives Alone: Yes - Social Determinants of Health Will the patient participate in the screening: Yes Do you worry about a steady place to live?: No Do you have any problems with any of the following?: No known problems In the past 12 months,have you had to go without utilities?: No Transportation Issues: No Has anyone in your support network made you feel unsafe?: No Have you or anyone in your house had to go without enough: No - Nursing Vital Signs Nursing Vital Signs: Initial Vital Signs Temperature 96.7 F 09/11/24 16:34 Pulse Rate 113 H 09/11/24 16:34 Respiratory Rate 18 11/07/24 16:34 Blood Pressure 140/70 09/11/24 16:34 O2 Sat by Pulse Oximetry 97 09/11/24 16:34 Pain Scale Pain Intensity 7 - Physical Exam SpO2: 100 Comments: 09/11/24 18:51 Review of Systems Constitutional: Negative for fever. HENT: Negative for congestion. Respiratory: Negative for shortness of breath. Cardiovascular: Negative for chest pain. Gastrointestinal: Negative for abdominal pain. Genitourinary: Negative for dysuria. Musculoskeletal: Negative for back pain. Skin: Negative for rash. Neurological: Negative for headaches. Psychiatric/Behavioral: Negative for behavioral problems. All other systems reviewed and are negative. Physical Exam Vitals signs and nursing note reviewed. Constitutional: Appearance: Patient is well-developed. HENT: Head: Normocephalic and atraumatic. Eyes: Conjunctiva/sclera: Conjunctivae normal. Neck: Musculoskeletal: Normal range of motion. Trachea: No tracheal deviation. Cardiovascular: Rate and Rhythm: Normal rate. Pulmonary: Effort: Pulmonary effort is normal. No respiratory distress. Abdominal: Palpations: Abdomen is soft. Musculoskeletal: General: Left MTP joint tenderness of the great toe. Surrounding bruising. No obvious deformity, sensation intact, 2+ capillary refill, 2 point tactile discrimination intact. 5 out of 5 strength. Full range of motion with pain Comp artments are soft, nontender. Skin: General: Skin is warm and dry. Neurological/ Psychiatric: Mental Status: Mental status, behavior, interaction with environment is appropriate for patient's age and condition - Course Nursing assessment & vital signs reviewed: Yes Ordered Tests: Active Orders 24 hr Category Date Time Status FOOT (MINIMUM 3 VIEWS) Stat Exams 09/11/24 17:01 Taken - Progress Progress: improved Progress Note: 09/11/24 18:52 It definitely appears to be some type of musculoskeletal injury. It is tender there is bruising. Low suspicion for clot, gout, other injury. We did obtain an x-ray. This demonstrates no acute fracture per my read and the radiologist read. Patient's pain here improved. Plan for stiff shoe walking going home. Close follow-up with PCP. Patient may return here sooner for any new or c hanging symptoms. Counseled pt/family regarding: diagnosis, rad results - Departure Departure Disposition: Home Clinical Impression: Injury of left foot Condition: Stable Critical Care Time: No Referrals: DESTINY CAMP MD [Primary Care Provider] - Follow up/PCP as directed Instructions: Contusion (DC)
--- NOTE | 2024-09-12 08:44 | XRAY ---
Indication: Pain following fall. Comparison: None 3 nonweightbearing views left foot demonstrates small nondisplaced medial corner fracture base distal 1st phalanx. Incidental small heel spurs. No other bony, articular, or soft tissue abnormalities. Comment: Fracture not reported on my preliminary report. Telephone report was given to Dr. Zamora at 0838 hrs. on September 12, 2024.
== END 2024-09-11 18:50 | disposition home or self-care (01) ==
LOC: ED 16:04
DX: S92.405A Nondisplaced unspecified fracture of left great toe, initial encounter for closed fracture (principal); M79.675 Pain in left toe(s); C53.9 Malignant neoplasm of cervix uteri, unspecified; Z79.899 Other long term (current) drug therapy; Z79.01 Long term (current) use of anticoagulants; Z86.711 Personal history of pulmonary embolism
CPT/HCPCS: 73630; 99282; 99283; 99285

== ENCOUNTER 2024-10-24 19:36 | Emergency (ER) | payer MEDICARE, OTHER ==
[2024-10-24 20:07] VITALS: RESP 24; TEMP 97.2
[2024-10-24] MEDS: Oxy-IR 5 MG PO ONE (20:26)
[2024-10-24] MEDS ORDERED: ZOFRAN ODT 4 MG ONE (20:27)
[2024-10-24] MEDS ORDERED: MORPHINE SULFATE 10 MG/ML ONE (20:28)
[2024-10-24] MEDS: ZOFRAN ODT 4 MG PO ONE (20:28)
[2024-10-24] MEDS: MORPHINE SULFATE 10 MG/ML IM ONE (20:29)
[2024-10-24] MEDS ORDERED: Oxy-IR 5 MG ONE (20:41)
--- NOTE | 2024-10-24 20:49 | ERPHSYRPT ---
- History of Present Illness Time Seen by Provider: 10/24/24 20:30 Historian: patient Exam Limitations: no limitations Patient Subjective Stated Complaint: pt states that she is withdrawing from her oxycodone. pt states that she has stage 4 cervical cancer and is on palative care. pt states that she has been on the phone with the doctor's office since sunday to get a new script. pt states that the pharmacy is not filling the script Triage Nursing Assessment: pt ambulated into the er; pt is axo x4; c/o withdrawl; pt states 10/10 pain to abd; c/o diarrhea, cool chills; skin is pale, dry, warm; abd soft, nontender; active bowel sounds in quads; no respiratory distress present; tachycardic Allergies/Adverse Reactions: ketamine Allergy (Intermediate, Verified 10/24/24 19:48) hallucinations metformin Allergy (Intermediate, Verified 10/24/24 19:48) hallucinations sulfamethoxazole [From Bactrim] Allergy (Intermediate, Verified 10/24/24 19:48) Hives trimethoprim [From Bactrim] Allergy (Intermediate, Verified 10/24/24 19:48) Hives gabapentin Adverse Reaction (Intermediate, Verified 10/24/24 19:48) hallucinations Home Medications: Apixaban [Eliquis] 5 mg PO BID 08/18/23 [History] Quetiapine Fumarate [Seroquel] 50 mg PO HS 08/18/23 [History] Buspirone HCl 7.5 mg PO TID 09/08/24 [History] Citalopram Hydrobromide 20 mg* [ceLEXa 20 MG] 1 tab PO DAILY 09/11/24 [Histo ry] Ondansetron ODT 4 MG [Zofran Odt 4 mg] 4 mg Q6H PRN PRN 09/11/24 [History] ondansetron HCL [Ondansetron HCl] 4 mg .ROUTE [id number] PRN 09/11/24 [History] Hx Tetanus, Diphtheria Vaccination/Date Given: Yes Hx Influenza Vaccination/Date Given: No Hx Pneumococcal Vaccination/Date Given: No Travel Risk - International Travel Have you traveled outside of the country in past 3 weeks: No - Emerging Infectious Disease Are you exhibiting symptoms associated with any current EIDs: Yes Symptoms: Abdominal Pain, Diarrhea - Past Medical History Pertinent Past Medical History: Yes Neurological History: No Pertinent History ENT History: No Pertinent History Cardiac History: No Pertinent History Respiratory History: Pulmonary Embolism Endocrine Medical History: Other Musculoskeletal History: Fractures GI Medical History: No Pertinent History History: Other Psycho-Social History: Anxiety, Depression, Panic Disorder, Other Female Reproductive Disorders: Cervical Cancer Other Medical History: PTSD- talk to before touch when asleep. cervical ca stage 4A, in surveillance stage- finished treatment in 04/05/23. left talus chip fx. hypertriglyceridemia. bilateral neph tube. "fluoro gut" - Past Surgical History Past Surgical History: Yes Neuro Surgical History: No Pertinent History Cardiac: No Pertinent History Respiratory: No Pertinent History Gastrointestinal: No Pertinent History Genitourinary: No Pertinent History Musculoskeletal: No Pertinent History Female Surgical History: Tubal Ligation, Other Other Surgical History: bilat neph tube. sinus surgery. cervical tumor biopsy, rt neph tube replaced 06/28. - Female History Hx Last Menstrual Period: 08/2022 Hx Now: No - Social History Smoking Status: Current every day smoker How long have you smoked: 20 yrs Exposure to second hand smoke: Yes Drug Use: none Patient Lives Alone: Yes - Social Determinants of Health Will the patient participate in the screening: Yes Do you worry about a steady place to live?: No Do you have any problems with any of the following?: No known problems In the past 12 months,have you had to go without utilities?: No Transportation Issues: No Has anyone in your support network made you feel unsafe?: No Have you or anyone in your house had to go without enough: No - Nursing Vital Signs Nursing Vital Signs: Initial Vital Signs Temperature 97.2 F 10/24/24 19:48 Pulse Rate 116 H 10/24/24 19:48 Respiratory Rate 24 10/24/24 19:48 Blood Pressure 105/85 10/24/24 19:48 O2 Sat by Pulse Oximetry 100 10/24/24 19:48 Pain Scale Pain Intensity 10 - Physical Exam SpO2: 98 Ordered Tests: Medication Summary Discontinued Medications Generic Name Dose Route Start Last Admin Trade Name Freq PRN Reason Stop Dose Admin Morphine Sulfate 10 mg 10/24/24 20:25 10/24/24 20:29 Morphine Sulfate 10 Mg/Ml Injection IM 10/24/24 20:26 10 mg STAT ONE Administration Morphine Sulfate Confirm 10/24/24 20:28 Morphine Sulfate 10 Mg/Ml Injection Administered 10/24/24 20:29 Dose 10 mg .ROUTE .STK-MED ONE Ondansetron HCl 8 mg 10/24/24 20:17 10/24/24 20:28 Zofran 4 Mg/Udtablet Orally Disintegrating PO 10/24/24 20:18 8 mg STAT ONE Administration Ondansetron HCl Confirm 10/24/24 20:27 Zofran 4 Mg/Udtablet Orally Disintegrating Administered 10/24/24 20:28 Dose 8 mg .ROUTE .STK-MED ONE Oxycodone HCl 20 mg 10/24/24 20:00 10/24/24 20:26 Oxycodone Hcl 5 Mg Ir Tab PO 10/24/24 20:01 Not Given ONCE ONE Oxycodone HCl Confirm 10/24/24 20:41 Oxycodone Hcl 5 Mg Ir Tab Administered 10/24/24 20:42 Dose 60 mg .ROUTE .STK-MED ONE - Departure Departure Disposition: Home Clinical Impression: Palliative care patient, Nausea and vomiting, Cancer related pain, Opioid withdrawal Condition: Stable Critical Care Time: No Referrals: DESTINY CAMP MD [Primary Care Provider] - Follow up/PCP as directed
[2024-10-24] MEDS: Oxy-IR 5 MG PO PRN (20:55)
[2024-10-24 21:07] VITALS: BP 155/101; PULSE 101; O2SAT 99
== END 2024-10-24 21:10 | disposition home or self-care (01) ==
LOC: ED 19:36
DX: Z51.5 Encounter for palliative care (principal); R11.2 Nausea with vomiting, unspecified; C53.9 Malignant neoplasm of cervix uteri, unspecified; G89.3 Neoplasm related pain (acute) (chronic); F11.93 Opioid use, unspecified with withdrawal
CPT/HCPCS: 96372; 99282; J2270; Q0162; A9270-GY

== ENCOUNTER 2024-10-27 16:34 | Emergency (ER) | payer MEDICARE, OTHER ==
[2024-10-27 16:49] VITALS: RESP 18; TEMP 98.3; O2SAT 99
--- NOTE | 2024-10-27 17:31 | ERPHSYRPT ---
- History of Present Illness Source: patient Exam Limitations: no limitations Patient Subjective Stated Complaint: Pelvic pain. Patient is out of her oxycodone and trying to get the prior authorization to go through for a refill. Triage Nursing Assessment: Patient ambulated back to ER. She is alert and oriented. No SOB. Nephrostomy tubes patent and draining. Physician History: Patient is out of her pain medicine. She is on palliative care. There is been some issues with her try to get her medications. She was here a few days ago for this. She takes OxyCodone 20 mg every 4 hours.. She is just requesting a med refill. She says she can get the situation resolved.She has no acute problems Allergies/Adverse Reactions: ketamine Allergy (Intermediate, Verified 10/27/24 16:41) hallucinations metformin Allergy (Intermediate, Verified 10/27/24 16:41) hallucinations sulfamethoxazole [From Bactrim] Allergy (Intermediate, Verified 10/27/24 16:41) Hives trimethoprim [From Bactrim] Allergy (Intermediate, Verified 10/27/24 16:41) Hives gabapentin Adverse Reaction (Intermediate, Verified 10/27/24 16:41) hallucinations Home Medications: Apixaban [Eliquis] 5 mg PO BID 08/18/23 [History] Quetiapine Fumarate [Seroquel] 50 mg PO HS 08/18/23 [History] Buspirone HCl 7.5 mg PO TID 09/08/24 [History] Citalopram Hydrobromide 20 mg* [ceLEXa 20 MG] 1 tab PO DAILY 09/11/24 [History] Ondansetron ODT 4 MG [Zofran Odt 4 mg] 4 mg Q6H PRN PRN 09/11/24 [History] Hx Tetanus, Diphtheria Vaccination/Date Given: Yes Hx Influenza Vaccination/Date Given: No Hx Pneumococcal Vaccination/Date Given: No Immunizations Up to Date: Yes Travel Risk - International Travel Have you traveled outside of the country in past 3 weeks: No - Emerging Infectious Disease Are you exhibiting symptoms associated with any current EIDs: No Symptoms: Abdominal Pain, Diarrhea - Review of Systems Constitutional: No Symptoms - Past Medical History Pertinent Past Medical History: Yes Neurological History: No Pertinent History ENT History: No Pertinent History Cardiac History: No Pertinent History Respiratory History: Pulmonary Embolism Endocrine Medical History: Other Musculoskeletal History: Fractures GI Medical History: No Pertinent History History: Other Psycho-Social History: Anxiety, Depression, Panic Disorder, Other Female Reproductive Disorders: Cervical Cancer Other Medical History: PTSD- talk to before touch when asleep. cervical ca stage 4A, in surveillance stage- finished treatment in 04/05/23, currently receiving pallative care. left talus chip fx. hypertriglyceridemia. bilateral neph tube. "fluoro gut" - Past Surgical History Past Surgical History: Yes Neuro Surgical History: No Pertinent History Cardiac: No Pertinent History Respiratory: No Pertinent History Gastrointestinal: No Pertinent History Genitourinary: No Pertinent History Musculoskeletal: No Pertinent History Female Surgical History: Tubal Ligation, Other Other Surgical History: bilat neph tube. sinus surgery. cervical tumor biopsy, rt neph tube replaced 06/28. - Female History Hx Last Menstrual Period: 08/2022 Hx Now: No - Social History Smoking Status: Current every day smoker How long have you smoked: 20 yrs Exposure to second hand smoke: Yes Drug Use: none Patient Lives Alone: Yes - Social Determinants of Health Will the patient participate in the screening: Declined to provide - Nursing Vital Signs Nursing Vital Signs: Initial Vital Signs Temperature 98.3 F 10/27/24 16:43 Pulse Rate 98 H 10/27/24 16:43 Respiratory Rate 18 10/27/24 16:43 Blood Pressure 165/92 10/27/24 16:43 O2 Sat by Pulse Oximetry 99 10/27/24 16:43 Pain Scale Pain Intensity 7 - Physical Exam General Appearance: no apparent distress Respiratory Exam: normal breath sounds, No respiratory distress Cardiovascular Exam: regular rate/rhythm Skin Exam: normal color SpO2: 99 - Course Nursing assessment & vital signs reviewed: Yes - Progress Progress Note: 10/27/24 17:26 Patient was stable throughout stay of his going to refill some of her medication. Medical Desision Making - Risk of complications Low Risk: Low risk of morbidity from additional dx testing or treatment - Departure Departure Disposition: Home Clinical Impression: Palliative care patient, Pelvic pain Condition: Stable Critical Care Time: No Referrals: DESTINY CAMP MD [Primary Care Provider] - Follow up/PCP as directed Additional Instructions: Medication as directed return as needed
[2024-10-27] MEDS ORDERED: OXYCODONE-ACETAMINOPHEN 10-325 ONE (17:54)
[2024-10-27] MEDS: OXYCODONE-ACETAMINOPHEN 10-325 PO STA (17:55)
[2024-10-27 18:03] VITALS: BP 156/99; PULSE 80
== END 2024-10-27 18:03 | disposition home or self-care (01) ==
LOC: ED 16:34
DX: Z51.5 Encounter for palliative care (principal); R10.2 Pelvic and perineal pain
CPT/HCPCS: 99281; A9270-GY

== ENCOUNTER 2024-12-30 19:49 | Emergency (ER) | payer MEDICARE, OTHER ==
[2024-12-30 20:07] VITALS: TEMP 98.7
[2024-12-30] MEDS ORDERED: Sterile H2O 10 ml IJ ONE (20:14)
[2024-12-30] MEDS ORDERED: solu-MEDROL ONE (20:14)
[2024-12-30] MEDS: solu-MEDROL 125 MG, Sterile H2O 10 ml 2 ML IV ONE (20:15)
[2024-12-30] MEDS ORDERED: DUONEB 0.5-3 MG/3 ml Neb IH ONE (20:21)
[2024-12-30] MEDS: DUONEB 0.5-3 MG/3 ml Neb IH ONE (20:31)
[2024-12-30 20:40] LABS: INFLUENZA A NEGATIVE (NEGATIVE); INFLUENZA B NEGATIVE (NEGATIVE); RESPIRATORY SYNCTIAL VIRUS NEGATIVE (NEGATIVE); SARS-CoV-2 Xpert Express NEGATIVE (NEGATIVE)
[2024-12-30 20:41] LABS: BASOPHIL % 1.4 % (0.1-1.2); Basophil (Absolute #) 0.11 x10^3/uL (0.01-0.08); Eosinophil % 7.9 % (0.7-5.8); Eosinophil (Absolute #) 0.63 x10^3/uL (0.04-0.36); Hematocrit 30.9 % (34.1-44.9); Hemoglobin 9.8 g/dL (11.2-15.7); IMMATURE GRAN # 0.02 x10^3u/L (0.001-0.031); IMMATURE GRAN % 0.2 % (0.001-0.429); Lymphocyte (Absolute #) 1.91 x10^3/uL (1.18-3.74); Lymphocytes % 23.8 % (19.3-51.7); Mean Cell Volume 79.6 fL (79.4-94.8); Mean Corpuscular Hemoglobin 25.3 pg (25.6-32.2); Mean Corpuscular Hgb Concent. 31.7 g/dL (32.2-35.5); Mean Platelet Volume 8.8 fL (9.4-12.3); Monocyte (Absolute #) 0.64 x10^3/uL (0.24-0.86); Neutrophil % 58.7 % (34.0-71.1); Platelet Count 354 x10^3/uL (182-369); Red Blood Count 3.88 x10^6/uL (3.93-5.22); Red Cell Distribution Width 17.1 % (11.7-14.4)
[2024-12-30 21:07] LABS: ALBUMIN 3.9 g/dL (3.5-5.0); ANION GAP 18.8 MEQ/L (5-15); BILIRUBIN,TOTAL 0.4 mg/dL (0.2-1.3); Calcium 9.2 mg/dL (8.4-10.2); Creatinine 1 0.79 mg/dL (0.52-1.04); EST GLOMERULAR FILTRATION RATE 96.9 ML/MIN; Potassium 3.6 mmol/L (3.5-5.1); Total Protein 6.6 g/dL (6.3-8.2)
--- NOTE | 2024-12-30 22:29 | ERPHSYRPT ---
- History of Present Illness Time Seen by Provider: 12/30/24 19:55 Source: patient Exam Limitations: no limitations Patient Subjective Stated Complaint: Pt. reports, "I have had a cough for a couple of days and it just keeps getting worse. I feel like I'm breathing through a collapsed straw." Triage Nursing Assessment: Pt. amb. to room without difficulty, slightly weak. A&Ox3, pleasant cooperative, Skin pale, cool clammy. Resp. shallow, short of breath. Dry, non-productive cough noted. Physician History: 39-year-old female history of cervical cancer presents to our ED for evaluation of shortness of breath and a cough. Symptoms started 2 to 3 days ago. Symptoms have been progressive. No associated chest pain no nausea vomiting or diaphoresis. Patient reports "it feels like I am breathing through a straw". Symptoms worse with exertion. Symptoms improved with rest. No history of PE DVT. No calf pain. No associated fever. No rash. Patient voices no other complaints or concerns at this time. Portions of this note were created with voice recognition technology. There may be grammatical, spelling, punctuation or sound alike errors Timing/Duration: day(s) (2 to 3 days) Activities at Onset: activity Severity of Dyspnea-Max: moderate Severity of Dyspnea-Current: mild Possible Cause: no prior episodes Modifying Factors: Improves With: activity Associated Symptoms: denies symptoms Allergies/Adverse Reactions: ketamine Allergy (Intermediate, Verified 10/27/24 16:41) hallucinations metformin Allergy (Intermediate, Verified 10/27/24 16:41) hallucinations sulfamethoxazole [From Bactrim] Allergy (Intermediate, Verified 10/27/24 16:41) Hives trimethoprim [From Bactrim] Allergy (Intermediate, Verified 10/27/24 16:41) Hives gabapentin Adverse Reaction (Intermediate, Verified 10/27/24 16:41) hallucinations Home Medications: Apixaban [Eliquis] 5 mg PO BID 08/18/23 [History] Quetiapine Fumarate [Seroquel] 50 mg PO HS 08/18/23 [History] Buspirone HCl 7.5 mg PO TID 09/08/24 [History] Citalopram Hydrobromide 20 mg* [ceLEXa 20 MG] 1 tab PO DAILY 09/11/24 [History] Hx Tetanus, Diphtheria Vaccination/Date Given: No Hx Influenza Vaccination/Date Given: No Hx Pneumococcal Vaccination/Date Given: No Immunizations Up to Date: No Travel Risk - International Travel Have you traveled outside of the country in past 3 weeks: No - Emerging Infectious Disease Are you exhibiting symptoms associated with any current EIDs: No Symptoms: Abdominal Pain, Diarrhea - Review of Systems Constitutional: No Symptoms, No Fever, No Chills Eyes: No Symptoms Ears, Nose, & Throat: No Symptoms Respiratory: No Symptoms, No Cough, No Dyspnea Cardiac: No Symptoms, No Chest Pain, No Edema, No Syncope Abdominal/Gastrointestinal: No Symptoms, No Abdominal Pain, No Nausea, No Vomiting, No Diarrhea Genitourinary Symptoms: No Symptoms, No Dysuria Musculoskeletal: No Symptoms, No Back Pain, No Neck Pain Skin: No Symptoms, No Rash Neurological: No Symptoms, No Dizziness, No Focal Weakness, No Sensory Changes Psychological: No Symptoms Endocrine: No Symptoms Hematologic/Lymphatic: No Symptoms All Other Systems: Reviewed and Negative - Past Medical History Pertinent Past Medical History: Yes Neurological History: No Pertinent History ENT History: No Pertinent History Cardiac History: No Pertinent History Respiratory History: Pulmonary Embolism Endocrine Medical History: Other Musculoskeletal History: Fractures GI Medical History: No Pertinent History History: Other Psycho-Social History: Anxiety, Depression, Panic Disorder, Other Female Reproductive Disorders: Cervical Cancer Other Medical History: PTSD- talk to before touch when asleep. cervical ca stage 4A, in surveillance stage- finished treatment in 04/05/23, currently receiving pallative care. left talus chip fx. hypertriglyceridemia. bilateral neph tube. "fluoro gut" - Past Surgical History Past Surgical History: Yes Neuro Surgical History: No Pertinent History Cardiac: No Pertinent History Respiratory: No Pertinent History Gastrointestinal: No Pertinent History Genitourinary: No Pertinent History Musculoskeletal: No Pertinent History Female Surgical History: Tubal Ligation, Other Other Surgical History: bilat neph tube. sinus surgery. cervical tumor biopsy, rt neph tube replaced 06/28. - Female History Hx Last Menstrual Period: 2 yrs. ago Hx Now: No - Social History Smoking Status: Current every day smoker How long have you smoked: 20 yrs Exposure to second hand smoke: Yes Drug Use: none - Social Determinants of Health Will the patient participate in the screening: Declined to provide - Nursing Vital Signs Nursing Vital Signs: Initial Vital Signs Temperature 98.7 F 12/30/24 19:54 Pulse Rate 97 H 12/30/24 19:54 Respiratory Rate 25 H 12/30/24 19:54 Blood Pressure 103/69 12/30/24 19:54 O2 Sat by Pulse Oximetry 99 12/30/24 19:54 Pain Scale Pain Intensity 0 - Physical Exam General Appearance: no apparent distress, alert Eye Exam: PERRL/EOMI Ears, Nose, Throat Exam: normal ENT inspection Neck Exam: normal inspection, supple Respiratory Exam: diminished breath sounds, wheezing Cardiovascular/Chest Exam: normal heart sounds, regular rate/rhythm Abdominal/Gastrointestinal Exam: soft, No tenderness, No distention, No mass Extremity Exam: non-tender, normal range of motion, normal inspection, no calf tenderness, no pedal edema Neurologic Exam: alert, oriented x 3, cooperative, wildlife protector II-XII nml as tested, sensation nml, No motor deficits Skin Exam: normal color, warm, No dry Lymphatic Exam: No adenopathy SpO2 Interpretation: normal SpO2: 97 O2 Delivery: Room Air - Course Nursing assessment & vital signs reviewed: Yes EKG Interpreted by Me: RATE (92), Sinus Rhythm, NORMAL AXIS, NORMAL INTERVALS, NORMAL QRS - Radiology Exams Chest X-ray Interpretation: Interpreted by me (No acute findings) Ordered Tests: Active Orders 24 hr Category Date Time Status Machine Lay Out Worker STAT Care 12/30/24 20:11 Active EKG-ER Only STAT Care 12/30/24 20:10 Active IV Insertion STAT Care 12/30/24 20:10 Active Pulse Oximetry (ED) STAT Care 12/30/24 20:10 Active CHEST 1 VIEW (PORTABLE) Stat Exams 12/30/24 22:28 Taken BLOOD CULTURE Stat Lab 12/30/24 20:35 Received CBC W DIFF Stat Lab 12/30/24 20:27 Completed CMP Stat Lab 12/30/24 20:27 Completed D-DIMER QUANTITATIVE Stat Lab 12/30/24 20:27 Completed TROPONIN Q4H Lab 12/30/24 20:27 Completed TROPONIN Q4H Lab 12/31/24 00:15 Ordered TROPONIN Q4H Lab 12/31/24 04:15 Ordered Respiratory Therapy Assessment DAILY RT 12/30/24 20:31 Active Medication Summary Generic Name Dose Route Start Last Admin Trade Name Freq PRN Reason Stop Dose Admin Albuterol Sulfate 8 gm 12/30/24 23:18 12/30/24 23:24 Albuterol Sulfate 8 Gm Mdi Hfa IH 01/29/25 23:17 8 gm Q4-6HPRN PRN Administration SHORTNESS OF BREATH/WHEEZING Discontinued Medications Generic Name Dose Route Start Last Admin Trade Name Freq PRN Reason Stop Dose Admin Hydrocodone Bitart/Acetaminophen 10 ml 12/30/24 22:40 12/30/24 22:43 Hydrocodone/Acetaminophen 5 Ml Udcup PO 12/30/24 22:41 10 ml STAT STA Administration Hydrocodone Bitart/Acetaminophen Confirm 12/30/24 22:42 Hydrocodone/Acetaminophen 5 Ml Udcup Administered 12/30/24 22:43 Dose 10 ml .ROUTE .STK-MED ONE Albuterol/Ipratropium 3 ml 12/30/24 20:10 12/30/24 20:31 Ipratropium/Albuterol Sulfate 3 Ml Ampul.Neb IH 12/30/24 20:11 3 ml STAT ONE Administration Albuterol/Ipratropium Confirm 12/30/24 20:21 Ipratropium/Albuterol Sulfate 3 Ml Ampul.Neb Administered 12/30/24 20:22 Dose 3 ml IH .STK-MED ONE Methylprednisolone Sodium 0 mg 12/30/24 20:10 12/30/24 20:15 Succinate 125 mg/ Sterile IV 12/30/24 20:11 125 mg Water 2 ml STAT ONE Administration Methylprednisolone Sodium Succinate Confirm 12/30/24 20:14 Methylprednis Sod Succ 125 Mg/2 Ml Vial Administered 12/30/24 20:15 Dose 125 mg .ROUTE .STK-MED ONE Sterile Water Confirm 12/30/24 20:14 Water For Injection,Sterile 10 Ml Vial Administered 12/30/24 20:15 Dose 10 ml IJ .STK-MED ONE Lab/Rad Data: Laboratory Result Diagrams 12/30/24 20:27 12/30/24 20:27 Laboratory Results 12/30/24 12/30/24 12/30/24 Range/Units 20:27 20: 20:27 WBC (3.98-10.04) x10^3/uL RBC (3.93-5.22) x10^6/uL Hgb (11.2-15.7) g/dL Hct (34.1-44.9) % MCV (79.4-94.8) fL MCH (25.6-32.2) pg MCHC (32.2-35.5) g/dL RDW (11.7-14.4) % Plt Count (182-369) x10^3/uL MPV (9.4-12.3) fL Gran % (34.0-71.1) % Immature Gran % (Auto) (0.001-0.429) % Nucleat RBC Rel Count (0.00-0.2) % Eos # (Auto) (0.04-0.36) x10^3/uL Immature Gran # (Auto) (0.001-0.031) x10^3u/L Absolute Lymphs (auto) (1.18-3.74) x10^3/uL Absolute Monos (auto) (0.24-0.86) x10^3/uL Absolute Nucleated RBC (0.00-0.012) x10^3u/L Lymphocytes % (19.3-51.7) % Monocytes % (4.7-12.5) % Eosinophils % (0.7-5.8) % Basophils % (0.1-1.2) % Absolute Granulocytes (1.56-6.13) x10^3/uL Basophils # (0.01-0.08) x10^3/uL D-Dimer 0.31 (0.0-0.50) mg/L Sodium 138 (135-145) mmol/L Potassium 3.6 (3.5-5.1) mmol/L Chloride 103 (98-107) mmol/L Carbon Dioxide 20 L (22-30) mmol/L Anion Gap 18.8 H (5-15) MEQ/L BUN 15 (7-17) mg/dL Creatinine 0.79 (0.52-1.04) mg/dL Estimated GFR 96.9 ML/MIN Glucose 163 H (74-106) mg/dL Calcium 9.2 (8.4-10.2) mg/dL Total Bilirubin 0.40 (0.2-1.3) mg/dL AST 21 (14-36) U/L ALT 18 (0-35) U/L Alkaline Phosphatase 95 (38-126) U/L Troponin I < 0.012 (0.000-0.033) ng/mL Serum Total Protein 6.6 (6.3-8.2) g/dL Albumin 3.9 (3.5-5.0) g/dL Influenza Type A Ag (NEGATIVE) Influenza Type B Ag (NEGATIVE) RSV (PCR) (NEGATIVE) SARS-CoV-2 (PCR) (NEGATIVE) 12/30/24 12/30/24 Range/Units 20:27 20:00 WBC 8.0 (3.98-10.04) x10^3/uL RBC 3.88 L (3.93-5.22) x10^6/uL Hgb 9.8 L (11.2-15.7) g/dL Hct 30.9 L (34.1-44.9) % MCV 79.6 (79.4-94.8) fL MCH 25.3 L (25.6-32.2) pg MCHC 31.7 L (32.2-35.5) g/dL RDW 17.1 H (11.7-14.4) % Plt Count 354 (182-369) x10^3/uL MPV 8.8 L (9.4-12.3) fL Gran % 58.7 (34.0-71.1) % Immature Gran % (Auto) 0.2 (0.001-0.429) % Nucleat RBC Rel Count 0.0 (0.00-0.2) % Eos # (Auto) 0.63 H (0.04-0.36) x10^3/uL Immature Gran # (Auto) 0.02 (0.001-0.031) x10^3u/L Absolute Lymphs (auto) 1.91 (1.18-3.74) x10^3/uL Absolute Monos (auto) 0.64 (0.24-0.86) x10^3/uL Absolute Nucleated RBC 0.00 (0.00-0.012) x10^3u/L Lymphocytes % 23.8 (19.3-51.7) % Monocytes % 8.0 (4.7-12.5) % Eosinophils % 7.9 H (0.7-5.8) % Basophils % 1.4 H (0.1-1.2) % Absolute Granulocytes 4.70 (1.56-6.13) x10^3/uL Basophils # 0.11 H (0.01-0.08) x10^3/uL D-Dimer (0.0-0.50) mg/L Sodium (135-145) mmol/L Potassium (3.5-5.1) mmol/L Chloride (98-107) mmol/L Carbon Dioxide (22-30) mmol/L Anion Gap (5-15) MEQ/L BUN (7-17) mg/dL Creatinine (0.52-1.04) mg/dL Estimated GFR ML/MIN Glucose (74-106) mg/dL Calcium (8.4-10.2) mg/dL Total Bilirubin (0.2-1.3) mg/dL AST (14-36) U/L ALT (0-35) U/L Alkaline Phosphatase (38-126) U/L Troponin I (0.000-0.033) ng/mL Serum Total Protein (6.3-8.2) g/dL Albumin (3.5-5.0) g/dL Influenza Type A Ag NEGATIVE (NEGATIVE) Influenza Type B Ag NEGATIVE (NEGATIVE) RSV (PCR) NEGATIVE (NEGATIVE) SARS-CoV-2 (PCR) NEGATIVE (NEGATIVE) - Progress Progress: improved Air Movement: good Progress Note: Patient reassessed. She is resting comfortably. No active pain. No shortness of breath. Patient ambulated in our ED. O2 sat remained between 97 and 94%. D-dimer negative. Troponin negative. EKG sinus rhythm. Lungs are clear. Patient is ready for discharge. Patient discharged home with an albuterol inhaler. A prescription for prednisone and azithromycin forwarded to patient's pharmacy. Patient states she is ready for discharge and voices no other complaints or concerns at this time. RSV COVID influenza negative Portions of this note were created with voice recognition technology. There may be grammatical, spelling, punctuation or sound alike errors Complexity of problem addressed is moderate acute complicated. No critical care time. Complexity of data reviewed and analyzed is moderate. Test ordered chest reviewed results analyzed and correlated clinically with history and physical exam. Risk of complication and or risk of morbidity/mortality of patient management is moderate. A prescription for prednisone and azithromycin forwarded to patient's pharmacy. Vital stable. Time spent to discharge patient is approximately 15 minutes. Plan of care established for shared decision making. No social determinants of health present to impede follow-up. Portions of this note were created with voice recognition technology. There may be grammatical, spelling, punctuation or sound alike errors 12/30/24 23:26 Blood Culture(s) Obtained: Yes Antibiotics given: Yes Counseled pt/family regarding: lab results, diagnosis, need for follow-up, rad results - Departure Departure Disposition: Home Clinical Impression: Cough, Shortness of breath, Bronchitis Condition: Stable Critical Care Time: No Referrals: DOCTOR,NO FAMILY [Primary Care Provider] - Follow up/PCP as directed Additional Instructions: Discharge/Care Plan JJ RAMSAY was seen on 12/30/24 in the Emergency Room. The patient was counseled regarding Diagnosis,Lab results, Imaging studies, need for follow up and when to return to the Emergency Room. Prescriptions given: Discharge Note I have spoken with the patient and/or caregivers. I have explained the patient's condition, diagnosis and treatment plan based on the information available to me at this time. I have answered the patient's and/or caregiver's questions and addressed any concerns. The patient and/or caregivers have as good understanding of the patient's diagnosis, condition and treatment plan as can be expected at this point. The vital signs have been stable. The patient's condition is stable and appropriate for discharge from the emergency department. The patient will pursue further outpatient evaluation with the primary care physician or other designated or consulting physician as outlined in the discharge instructions. The patient and/or caregivers are agreeable to this plan of care and follow-up instructions have been explained in detail. The patient and/or caregivers have received these instruction. The patient/and or caregivers are aware that any significant change in condition or worsening of symptoms should prompt an immediate return to this or the closest emergency department or call 911. Prescriptions: Prednisone 10 mg [Deltasone 10 mg] 40 mg PO DAILY 3 Days #12 tablet Azithromycin 250 mg [Zithromax 250 MG TABLET] 250 mg PO ZPACK #6 tablet
[2024-12-30] MEDS ORDERED: HYDROCODONE-ACETAMIN 2.5-108/5 ML SOLUTION ONE (22:42)
[2024-12-30] MEDS: HYDROCODONE-ACETAMIN 2.5-108/5 ML SOLUTION PO STA (22:43)
[2024-12-30 23:17] VITALS: BP 116/58; PULSE 88; RESP 23
[2024-12-30] MEDS ORDERED: Ventolin Hfa MDI IH ONE (23:21)
[2024-12-30 23:22] VITALS: O2SAT 97
[2024-12-30] MEDS: Ventolin Hfa MDI IH PRN (23:24)
--- NOTE | 2024-12-31 08:35 | XRAY ---
Indication: Short of breath. Comparison: March 07, 2024 Portable chest again demonstrates normal heart, lungs, and bony thorax.
== END 2024-12-30 23:39 | disposition home or self-care (01) ==
LOC: ED 19:49
DX: J40 Bronchitis, not specified as acute or chronic (principal); R05.1 Acute cough; R06.02 Shortness of breath; Z79.01 Long term (current) use of anticoagulants; Z79.52 Long term (current) use of systemic steroids; Z79.899 Other long term (current) drug therapy; Z72.0 Tobacco use
CPT/HCPCS: 0241U; 71045; 80053; 84484; 85025; 85379; 87040; 93005; 93041; 94640; 94760; 96374; 99285; 36415; 99284; J2919; A9270-GY

== ENCOUNTER 2025-01-26 21:04 | Emergency (ER) | payer MEDICARE, MEDICAID ==
--- NOTE | 2025-01-26 22:25 | ERPHSYRPT ---
- History of Present Illness Time Seen by Provider: 01/26/25 22:25 Historian: patient Exam Limitations: no limitations Physician History: This is a 39-year-old white female patient who arrives by private vehicle and is a patient of Dr. Lazo with chronic bilateral nephrostomy tubes in place. She typically gets the tubes and bags exchanged monthly but because she was ill this past week including vomiting several times, she did not get the bags changed as scheduled. Patient has rectal suppositories to treat and control nausea as well as ODT Zofran at home. Patient has a history of stage IV cervical cancer. She has a history of anxiety, panic disorder and PTSD. She took an oxycodone at 8:30 PM prior to arrival. She is concerned that the nephrostomy tubes are not functioning normally. The left side is giving her more pain than the right side. Patient is afebrile. Timing/Duration: day(s) (Several days) Quality: aching Abdominal Pain Onset Location: flank (Bilateral flanks left worse than right) Pain Radiation: no radiation, other (There is associated mild left upper quadrant pain) Severity of Pain-Max: moderate Severity of Pain-Current: moderate Modifying Factors: Improves With: nothing Associated Symptoms: nausea, vomiting, weakness Previous symptoms: same symptoms as today, no recent treatment Allergies/Adverse Reactions: ketamine Allergy (Intermediate, Verified 01/26/25 22:25) hallucinations metformin Allergy (Intermediate, Verified 01/26/25 22:25) hallucinations sulfamethoxazole [From Bactrim] Allergy (Intermediate, Verified 01/26/25 22:25) Hives trimethoprim [From Bactrim] Allergy (Intermediate, Verified 01/26/25 22:25) Hives gabapentin Adverse Reaction (Intermediate, Verified 01/26/25 22:25) hallucinations Home Medications: Apixaban [Eliquis] 5 mg PO BID 08/18/23 [History] Quetiapine Fumarate [Seroquel] 50 mg PO HS 08/18/23 [History] Buspirone HCl 7.5 mg PO TID 09/08/24 [History] Citalopram Hydrobromide 20 mg* [ceLEXa 20 MG] 1 tab PO DAILY 09/11/24 [History] Hx Tetanus, Diphtheria Vaccination/Date Given: No Hx Influenza Vaccination/Date Given: No Hx Pneumococcal Vaccination/Date Given: No Travel Risk - International Travel Have you traveled outside of the country in past 3 weeks: No - Emerging Infectious Disease Are you exhibiting symptoms associated with any current EIDs: No Symptoms: Abdominal Pain, Diarrhea - Review of Systems Constitutional: No Symptoms Eyes: No Symptoms Ears, Nose, & Throat: No Symptoms Respiratory: No Symptoms Cardiac: No Symptoms Abdominal/Gastrointestinal: Abdominal Pain, Nausea, Vomiting, Appetite Changes Genitourinary Symptoms: Flank Pain (Bilateral flank pain left worse than right) Musculoskeletal: No Symptoms Skin: No Symptoms Neurological: No Symptoms Psychological: No Symptoms Endocrine: No Symptoms Hematologic/Lymphatic: No Symptoms Immunological/Allergic: No Symptoms All Other Systems: Reviewed and Negative - Past Medical History Pertinent Past Medical History: Yes Neurological History: No Pertinent History ENT History: No Pertinent History Cardiac History: No Pertinent History Respiratory History: Pulmonary Embolism Endocrine Medical History: Other Musculoskeletal History: Fractures GI Medical History: No Pertinent History History: Other Psycho-Social History: Anxiety, Depression, Panic Disorder, Other Female Reproductive Disorders: Cervical Cancer Other Medical History: PTSD- talk to before touch when asleep. cervical ca stage 4A, in surveillance stage- finished treatment in 04/05/23, currently receiving pallative care. left talus chip fx. hypertriglyceridemia. bilateral neph tube. "fluoro gut" - Past Surgical History Past Surgical History: Yes Neuro Surgical History: No Pertinent History Cardiac: No Pertinent History Respiratory: No Pertinent History Gastrointestinal: No Pertinent History Genitourinary: No Pertinent History Musculoskeletal: No Pertinent History Female Surgical History: Tubal Ligation, Other Other Surgical History: bilat neph tube. sinus surgery. cervical tumor biopsy, rt neph tube replaced 06/28. - Female History Hx Last Menstrual Period: 2 yrs. ago - Social History Smoking Status: Current every day smoker How long have you smoked: 20 yrs Exposure to second hand smoke: Yes Drug Use: none - Social Determinants of Health Will the patient participate in the screening: Declined to provide - Nursing Vital Signs Nursing Vital Signs: Initial Vital Signs Temperature 97.6 F 01/26/25 22:26 Pulse Rate 104 H 01/26/25 22:26 Respiratory Rate 20 01/26/25 22:26 Blood Pressure 154/83 01/26/25 22:26 O2 Sat by Pulse Oximetry 97 01/26/25 22:26 Pain Scale Pain Intensity 8 - Physical Exam General Appearance: no apparent distress, alert, anxiety Eye Exam: PERRL/EOMI, eyes nml inspection Ears, Nose, Throat Exam: normal ENT inspection, moist mucous membranes Neck Exam: normal inspection, non-tender, supple, full range of motion Respiratory Exam: normal breath sounds, lungs clear, airway intact, No chest tenderness, No respiratory distress Cardiovascular Exam: regular rate/rhythm, normal heart sounds, normal peripheral pulses Gastrointestinal/Abdomen Exam: soft, normal bowel sounds, tenderness (Mild left upper quadrant tenderness to palpation), No rebound Pelvic Exam: not done Rectal Exam: not done Back Exam: CVA tenderness (Bilateral tenderness to percussion at the sites of nephrostomy tube bilaterally), other (No redness and no drainage around the nephrostomy tube exit skin sites) Extremity Exam: normal inspection, normal range of motion, pelvis stable Neurologic Exam: alert, oriented x 3, cooperative, supervisor drying II-XII nml as tested, nml cerebellar function, nml station & gait, sensation nml Skin Exam: normal color, warm, dry Lymphatic Exam: No adenopathy SpO2 Interpretation: normal O2 Delivery: Room Air - Course Nursing assessment & vital signs reviewed: Yes Ordered Tests: Active Orders 24 hr Category Date Time Status IV Insertion STAT Care 01/26/25 22:56 Active ABDOMEN AND PELVIS W/0 CONTRAS [CT] Stat Exams 01/26/25 22:58 Taken AMYLASE Stat Lab 01/26/25 23:20 Completed CBC W DIFF Stat Lab 01/26/25 23:20 Completed CMP Stat Lab 01/26/25 23:20 Completed CULTURE,URINE Stat Lab 01/27/25 00:10 Received LIPASE Stat Lab 01/26/25 23:20 Completed Lactic Acid Stat Lab 01/26/25 22:56 Completed UA W/RFX UR CULTURE Stat Lab 01/27/25 00:10 Completed Medication Summary Generic Name Dose Route Start Last Admin Trade Name Freq PRN Reason Stop Dose Admin Ceftriaxone Sodium 1 gm in 100 mls @ 200 mls/hr 01/27/25 00:45 Rocephin 1 Gm / 100 Ml Nacl IV 01/27/25 01:14 STAT ONE Discontinued Medications Generic Name Dose Route Start Last Admin Trade Name Freq PRN Reason Stop Dose Admin Hydromorphone HCl 0.5 mg 01/26/25 22:56 01/26/25 23:26 Hydromorphone 1 Mg/1ml Inj IV 01/26/25 22:57 0.5 mg STAT ONE Administration Hydromorphone HCl Confirm 01/26/25 23:25 Hydromorphone 1 Mg/1ml Inj Administered 01/26/25 23:26 Dose 1 mg .ROUTE .STK-MED ONE Sodium Chloride 1,000 mls @ 999 mls/hr 01/26/25 22:56 01/26/25 23:27 Sodium Chloride 0.9% 1000 Ml IV 01/26/25 23:56 999 mls/hr .Q1H1M STA Administration Sodium Chloride Confirm 01/26/25 23:25 Sodium Chloride 0.9% 1000 Ml Administered 01/26/25 23:26 Dose 1,000 mls @ ud .ROUTE .STK-MED ONE Ondansetron HCl 4 mg 01/26/25 22:56 01/26/25 23:27 Ondansetron Hcl 4 Mg/2 Ml Vial IV 01/26/25 22:57 4 mg STAT ONE Administration Ondansetron HCl Confirm 01/26/25 23:25 Ondansetron Hcl 4 Mg/2 Ml Vial Administered 01/26/25 23:26 Dose 4 mg .ROUTE .STK-MED ONE Lab/Rad Data: Laboratory Result Diagrams 01/26/25 23:20 01/26/25 23:20 Laboratory Results 01/27/25 01/26/25 01/26/25 Range/Units 00:10 23:20 23:20 WBC 8.3 (3.98-10.04) x10^3/uL RBC 4.26 (3.93-5.22) x10^6/uL Hgb 10.9 L (11.2-15.7) g/dL Hct 34.1 (34.1-44.9) % MCV 80.0 (79.4-94.8) fL MCH 25.6 (25.6-32.2) pg MCHC 32.0 L (32.2-35.5) g/dL RDW 15.7 H (11.7-14.4) % Plt Count 490 H (182-369) x10^3/uL MPV 8.4 L (9.4-12.3) fL Gran % 57.1 (34.0-71.1) % Immature Gran % (Auto) 0.6 H (0.001-0.429) % Nucleat RBC Rel Count 0.0 (0.00-0.2) % Eos # (Auto) 0.45 H (0.04-0.36) x10^3/uL Immature Gran # (Auto) 0.05 H (0.001-0.031) x10^3u/L Absolute Lymphs (auto) 2.40 (1.18-3.74) x10^3/uL Absolute Monos (auto) 0.59 (0.24-0.86) x10^3/uL Absolute Nucleated RBC 0.00 (0.00-0.012) x10^3u/L Lymphocytes % 28.8 (19.3-51.7) % Monocytes % 7.1 (4.7-12.5) % Eosinophils % 5.4 (0.7-5.8) % Basophils % 1.0 (0.1-1.2) % Absolute Granulocytes 4.77 (1.56-6.13) x10^3/uL Basophils # 0.08 (0.01-0.08) x10^3/uL Sodium 135 (135-145) mmol/L Potassium 4.2 (3.5-5.1) mmol/L Chloride 97 L (98-107) mmol/L Carbon Dioxide 29 (22-30) mmol/L Anion Gap 13.0 (5-15) MEQ/L BUN 16 (7-17) mg/dL Creatinine 0.89 (0.52-1.04) mg/dL Estimated GFR 84.0 ML/MIN Glucose 171 H (74-106) mg/dL Lactic Acid (0.4-2.0) Calcium 9.2 (8.4-10.2) mg/dL Total Bilirubin 0.50 (0.2-1.3) mg/dL AST 23 (14-36) U/L ALT 13 (0-35) U/L Alkaline Phosphatase 116 (38-126) U/L Serum Total Protein 7.4 (6.3-8.2) g/dL Albumin 4.2 (3.5-5.0) g/dL Amylase 64 (30-110) U/L Lipase 28 (23-300) U/L Urine Color Dark Yellow A (Yellow) Urine Appearance Turbid A (Clear) Urine pH 6.0 (4.6-8.0) Ur Specific [place] >=1.030 A (1.005-1.030) Urine Protein >=1000 A (Negative) Urine Glucose (UA) Negative (Negative) mg/dL Urine Ketones Trace A (Negative) Urine Blood Large A (Negative) Urine Nitrite Positive A (Negative) Urine Bilirubin Negative (Negative) Urine Urobilinogen 1.0 A (0.2) mg/dL Ur Leukocyte Esterase Moderate A (Negative) U Hyaline Cast (Auto) 3-5 A (0-2) /LPF Urine Microscopic RBC >100 A (0-5) /HPF Urine Microscopic WBC >100 A (0-5) /HPF Ur Epithelial Cells None Seen (None Seen) /HPF Urine Bacteria Many A (None Seen) /HPF Ur Yeast w Hyphae Moderate A (None Seen) /HPF Urine Yeast (Budding) Rare A (None Seen) /HPF Urine Culture Reflexed ORDERED SEPARATELY (NO) 01/26/25 Range/Units 22:56 WBC (3.98-10.04) x10^3/uL RBC (3.93-5.22) x10^6/uL Hgb (11.2-15.7) g/dL Hct (34.1-44.9) % MCV (79.4-94.8) fL MCH (25.6-32.2) pg MCHC (32.2-35.5) g/dL RDW (11.7-14.4) % Plt Count (182-369) x10^3/uL MPV (9.4-12.3) fL Gran % (34.0-71.1) % Immature Gran % (Auto) (0.001-0.429) % Nucleat RBC Rel Count (0.00-0.2) % Eos # (Auto) (0.04-0.36) x10^3/uL Immature Gran # (Auto) (0.001-0.031) x10^3u/L Absolute Lymphs (auto) (1.18-3.74) x10^3/uL Absolute Monos (auto) (0.24-0.86) x10^3/uL Absolute Nucleated RBC (0.00-0.012) x10^3u/L Lymphocytes % (19.3-51.7) % Monocytes % (4.7-12.5) % Eosinophils % (0.7-5.8) % Basophils % (0.1-1.2) % Absolute Granulocytes (1.56-6.13) x10^3/uL Basophils # (0.01-0.08) x10^3/uL Sodium (135-145) mmol/L Potassium (3.5-5.1) mmol/L Chloride (98-107) mmol/L Carbon Dioxide (22-30) mmol/L Anion Gap (5-15) MEQ/L BUN (7-17) mg/dL Creatinine (0.52-1.04) mg/dL Estimated GFR ML/MIN Glucose (74-106) mg/dL Lactic Acid 1.1 (0.4-2.0) Calcium (8.4-10.2) mg/dL Total Bilirubin (0.2-1.3) mg/dL AST (14-36) U/L ALT (0-35) U/L Alkaline Phosphatase (38-126) U/L Serum Total Protein (6.3-8.2) g/dL Albumin (3.5-5.0) g/dL Amylase (30-110) U/L Lipase (23-300) U/L Urine Color (Yellow) Urine Appearance (Clear) Urine pH (4.6-8.0) Ur Specific [place] (1.005-1.030) Urine Protein (Negative) Urine Glucose (UA) (Negative) mg/dL Urine Ketones (Negative) Urine Blood (Negative) Urine Nitrite (Negative) Urine Bilirubin (Negative) Urine Urobilinogen (0.2) mg/dL Ur Leukocyte Esterase (Negative) U Hyaline Cast (Auto) (0-2) /LPF Urine Microscopic RBC (0-5) /HPF Urine Microscopic WBC (0-5) /HPF Ur Epithelial Cells (None Seen) /HPF Urine Bacteria (None Seen) /HPF Ur Yeast w Hyphae (None Seen) /HPF Urine Yeast (Budding) (None Seen) /HPF Urine Culture Reflexed (NO) - Progress Progress: improved, pain not gone completely Progress Note: 01/27/25 01:06 My medical decision making the assignment of moderate complexity of this patient's medical issue today is based on review of the patient's past medical history, review the patient's medication list, review of the patient drug allergy list, history present illness and physical findings on examination. The workup includes placement of an intravenous line, infusion of crystalloid solution, infusion of Dilaudid, infusion of IV Zofran, CBC, CMP, amylase, lipase, urinalysis and CT scan of the abdomen pelvis without contrast. Differential diagnosis includes but is not limited to urinary tract infection, pancreatitis, displaced nephrostomy tubes I interpreted the patient's laboratory data results. Based on the laboratory data results, the patient has normal white count. The hemoglobin is 10.9. Pancreas enzymes are within normal limits. CT scan of the abdomen pelvis without contrast was interpreted by the radiologist and I reviewed the impression. Impression states percutaneous nephrostomy drainage tube noted adequately positioned with tip in the bilateral renal pelvis. This was compared to similar study dated 07/12/2024. There have been no interval changes. Counseled pt/family regarding: lab results, diagnosis, need for follow-up, rad results Medical Desision Making - Diagnostic Testing Diagnostic test were ordered, analyzed, and reviewed by me: Yes Radiological Interpretation: Reviewed by me, Teleradiologist Report - Risk of complications The pt has a mod risk of morbidity or mortality based on: Need for prescription drug management - Departure Departure Disposition: Home Clinical Impression: UTI (urinary tract infection) Condition: Stable Critical Care Time: No Referrals: DOCTOR,NO FAMILY [NON-STAFF PHY W/O PRIVILEGES] - Follow up/PCP as directed Additional Instructions: Drink plenty of clear liquids before advancing your diet. Take your antibiotics and other medications as prescribed. Call your primary care provider and interventional urologist/nail specialist for further evaluation management and outpatient management of your pain Prescriptions: Cefdinir 300 mg PO BID #14 cap
[2025-01-26 22:35] VITALS: TEMP 97.6
[2025-01-26] MEDS ORDERED: Sodium Chloride 0.9% 1000 ML 1,000 ML ONE (23:25)
[2025-01-26] MEDS ORDERED: Hydromorphone 1 mg/ml Injection ONE (23:25)
[2025-01-26] MEDS ORDERED: Zofran 4 MG/2 ML VIAL ONE (23:25)
[2025-01-26] MEDS: Hydromorphone 1 mg/ml Injection IV ONE (23:26)
[2025-01-26] MEDS: Sodium Chloride 0.9% 1000 ML 1,000 ML IV STA (23:27)
[2025-01-26] MEDS: Zofran 4 MG/2 ML VIAL IV ONE (23:27)
[2025-01-26 23:28] LABS: Absolute Neutrophil Ct (ANC) 4.77 x10^3/uL (1.56-6.13); Basophil (Absolute #) 0.08 x10^3/uL (0.01-0.08); Eosinophil % 5.4 % (0.7-5.8); Eosinophil (Absolute #) 0.45 x10^3/uL (0.04-0.36); Hematocrit 34.1 % (34.1-44.9); Hemoglobin 10.9 g/dL (11.2-15.7); IMMATURE GRAN # 0.05 x10^3u/L (0.001-0.031); IMMATURE GRAN % 0.6 % (0.001-0.429); Lymphocytes % 28.8 % (19.3-51.7); Mean Corpuscular Hemoglobin 25.6 pg (25.6-32.2); Mean Platelet Volume 8.4 fL (9.4-12.3); Monocyte (Absolute #) 0.59 x10^3/uL (0.24-0.86); Monocytes % 7.1 % (4.7-12.5); Neutrophil % 57.1 % (34.0-71.1); Platelet Count 490 x10^3/uL (182-369); Red Blood Count 4.26 x10^6/uL (3.93-5.22); Red Cell Distribution Width 15.7 % (11.7-14.4); White Blood Count 8.3 x10^3/uL (3.98-10.04)
[2025-01-26 23:41] LABS: ALBUMIN 4.2 g/dL (3.5-5.0); BILIRUBIN,TOTAL 0.5 mg/dL (0.2-1.3); Calcium 9.2 mg/dL (8.4-10.2); Creatinine 1 0.89 mg/dL (0.52-1.04); Potassium 4.2 mmol/L (3.5-5.1); Total Protein 7.4 g/dL (6.3-8.2)
[2025-01-27 00:40] LABS: Appearance Turbid (Clear); Bacteria Many /HPF (None Seen); Bilirubin Negative (Negative); Blood Large (Negative); Epithelial Cells None Seen /HPF (None Seen); Glucose, Urine Negative (Negative); Ketones Trace (Negative); Leukocyte Esterase Moderate (Negative); Nitrite Positive (Negative); Protein,Urine Dip >=1000 (Negative); RBC >100 /HPF (0-5); Specific Gravity >=1.030 (1.005-1.030); WBC >100 /HPF (0-5)
[2025-01-27 00:41] LABS: Budding Yeast Rare /HPF (None Seen); Hyphae Yeast Moderate /HPF (None Seen)
--- NOTE | 2025-01-27 00:52 | XRAY ---
CLINICAL HISTORY: Left flank pain COMPARISON: 07/12/2024 19:19:39 SHIPPING AND RECEIVING ASSOCIATE TECHNIQUE: Contiguous axial images were obtained from the level of the diaphragm to the pubic symphysis without intravenous or oral contrast. Coronal and sagittal reconstructions were likewise performed and indicated to increase the sensitivity for detecting clinically relevant pathology. CT scan was performed according to ALARA (as low as reasonable achievable). FINDINGS: The visualized lung bases are clear. Evaluation of the abdominal and pelvic visceral organs is limited without intravenous contrast. The unenhanced liver, pancreas, and adrenal glands are grossly unremarkable. The gallbladder is present. Tiny calcified lesions noted in spleen: calcified granulomas The kidneys are normal in size and attenuation without obvious calcification. There is no hydronephrosis or perinephric stranding. The ureters are normal in caliber. Percutaneous nephrostomy drainage tube noted adequately positioned with tip in bilateral renal pelvis. No adenopathy or fluid collections are seen. No evidence of focal or diffuse bowel wall thickening or evidence of bowel obstruction is seen. The appendix is visualized in the right lower quadrant and appears within normal limits. The aorta is normal in caliber. The urinary bladder is empty. Uterus is grossly unremarkable. Fat stranding noted in pelvis: post treatement sequelae. Old compression fracture of L1 verterbral body IMPRESSION: 1. Percutaneous nephrostomy drainage tube noted adequately positioned with tip in bilateral renal pelvis. 2. Old compression fracture of L1 verterbral body 3. Fat stranding noted in pelvis: post treatement sequelae. 4 no interval changes Electronically Signed by: Alan Abad MD. (01/27/2025 00:47:18 EDT)
[2025-01-27] MEDS ORDERED: ROCEPHIN 1 GM / 100 ML NaCl 1 GM/100 ML IVPB IV ONE (01:03)
[2025-01-27] MEDS: ROCEPHIN 1 GM / 100 ML NaCl 1 GM/100 ML IVPB IV ONE (01:04)
[2025-01-27] MEDS ORDERED: Hydromorphone 1 mg/ml Injection ONE (01:16)
[2025-01-27] MEDS: Hydromorphone 1 mg/ml Injection IV ONE (01:17)
[2025-01-27 01:40] VITALS: BP 136/74; PULSE 99; RESP 18; O2SAT 98
== END 2025-01-27 01:41 | disposition home or self-care (01) ==
LOC: ED 21:04
DX: N39.0 Urinary tract infection, site not specified (principal); R10.9 Unspecified abdominal pain; Z79.01 Long term (current) use of anticoagulants; Z79.899 Other long term (current) drug therapy; Z72.0 Tobacco use; Z93.6 Other artificial openings of urinary tract status
CPT/HCPCS: 36415; 74176; 80053; 81001; 82150; 83605; 83690; 85025; 87077; 87086; 87186; 96361; 96365; 96374; 96375; 96376; 99284; J0696; J1171; J2405

== ENCOUNTER 2025-02-14 23:21 | Emergency (ER) | payer MEDICARE, MEDICAID ==
[2025-02-14 23:35] VITALS: TEMP 99.1
--- NOTE | 2025-02-14 23:50 | ERPHSYRPT ---
- History of Present Illness Source: patient Exam Limitations: no limitations Patient Subjective Stated Complaint: c/o left sided flank pain Triage Nursing Assessment: patient brought to ED by friend with c/o of left side flank pain that started this morning. patient has bilat. neph tube. patient states that the oain started this mrhumera and she thought it would go away. pt stated their was pus arounf the left tube this evening. vitals wnl, skin w/n/d, afebrile, gait steady. Physician History: Patient has the complaints of flank pain. There was low-grade temperature possibly. She had some chills and aches. She has bilateral nephrostomy tubes because she has cervical cancer which has metastasized to her bladder and ureters. She is due to get her tubes changed on a scheduled basis. She did not get that done at the last visit. Now there is some pus coming out around one of the tubes and she says that the urine appears cloudy. She think she may have an infection. That is likely. Timing/Duration: yesterday Allergies/Adverse Reactions: ketamine Allergy (Intermediate, Verified 02/14/25 23:28) hallucinations metformin Allergy (Intermediate, Verified 02/14/25 23:28) hallucinations sulfamethoxazole [From Bactrim] Allergy (Intermediate, Verified 02/14/25 23:28) Hives trimethoprim [From Bactrim] Allergy (Intermediate, Verified 02/14/25 23:28) Hives gabapentin Adverse Reaction (Intermediate, Verified 02/14/25 23:28) hallucinations Home Medications: Apixaban [Eliquis] 5 mg PO BID 08/18/23 [History] Quetiapine Fumarate [Seroquel] 50 mg PO HS 08/18/23 [History] Buspirone HCl 7.5 mg PO TID 09/08/24 [History] Citalopram Hydrobromide 20 mg* [ceLEXa 20 MG] 1 tab PO DAILY 09/11/24 [History] Hx Tetanus, Diphtheria Vaccination/Date Given: No Hx Influenza Vaccination/Date Given: No Hx Pneumococcal Vaccination/Date Given: No Travel Risk - International Travel Have you traveled outside of the country in past 3 weeks: No - Emerging Infectious Disease Are you exhibiting symptoms associated with any current EIDs: No Symptoms: Abdominal Pain, Diarrhea - Review of Systems Constitutional: Chills Eyes: No Symptoms Ears, Nose, & Throat: No Symptoms Respiratory: No Symptoms Cardiac: No Symptoms Abdominal/Gastrointestinal: No Symptoms Musculoskeletal: No Symptoms - Past Medical History Pertinent Past Medical History: Yes Neurological History: No Pertinent History ENT History: No Pertinent History Cardiac History: No Pertinent History Respiratory History: Pulmonary Embolism Endocrine Medical History: Other Musculoskeletal History: Fractures GI Medical History: No Pertinent History History: Other Psycho-Social History: Anxiety, Depression, Panic Disorder, Other Female Reproductive Disorders: Cervical Cancer Other Medical History: PTSD- talk to before touch when asleep. cervical ca stage 4A, in surveillance stage- finished treatment in 04/05/23, currently receiving pallative care. left talus chip fx. hypertriglyceridemia. bilateral neph tube. "fluoro gut" - Past Surgical History Past Surgical History: Yes Neuro Surgical History: No Pertinent History Cardiac: No Pertinent History Respiratory: No Pertinent History Gastrointestinal: No Pertinent History Genitourinary: No Pertinent History Musculoskeletal: No Pertinent History Female Surgical History: Tubal Ligation, Other Other Surgical History: bilat neph tube. sinus surgery. cervical tumor biopsy, rt neph tube replaced 06/28. - Female History Hx Last Menstrual Period: 2 yrs. ago Hx Now: No - Social History Smoking Status: Current every day smoker How long have you smoked: 20 yrs Exposure to second hand smoke: Yes Drug Use: none - Social Determinants of Health Will the patient participate in the screening: Declined to provide - Nursing Vital Signs Nursing Vital Signs: Initial Vital Signs Temperature 99.1 F 02/14/25 23:29 Pulse Rate 108 H 02/14/25 23:29 Respiratory Rate 22 02/14/25 23:29 Blood Pressure 176/95 02/14/25 23:29 O2 Sat by Pulse Oximetry 100 02/14/25 23:29 Pain Scale Pain Intensity 7 - Physical Exam General Appearance: no apparent distress Eye Exam: PERRL/EOMI Ears, Nose, Throat Exam: normal ENT inspection Respiratory Exam: normal breath sounds Gastrointestinal/Abdomen Exam: soft, normal bowel sounds Pelvic Exam: not done Neurologic Exam: alert, oriented x 3 Skin Exam: normal color SpO2: 100 Ordered Tests: Active Orders 24 hr Category Date Time Status CULTURE,URINE Stat Lab 02/14/25 00:36 Received UA W/RFX UR CULTURE Stat Lab 02/14/25 23:44 Completed Lab/Rad Data: Laboratory Result Diagrams 02/14/25 00:04 02/14/25 00:04 Laboratory Results 02/14/25 02/14/25 02/14/25 Range/Units 23:44 00:04 00:04 WBC 9.9 (3.98-10.04) x10^3/uL RBC 4.02 (3.93-5.22) x10^6/uL Hgb 10.0 L (11.2-15.7) g/dL Hct 31.9 L (34.1-44.9) % MCV 79.4 (79.4-94.8) fL MCH 24.9 L (25.6-32.2) pg MCHC 31.3 L (32.2-35.5) g/dL RDW 15.6 H (11.7-14.4) % Plt Count 503 H (182-369) x10^3/uL MPV 8.2 L (9.4-12.3) fL Gran % 64.9 (34.0-71.1) % Immature Gran % (Auto) 0.5 H (0.001-0.429) % Nucleat RBC Rel Count 0.0 (0.00-0.2) % Eos # (Auto) 0.40 H (0.04-0.36) x10^3/uL Immature Gran # (Auto) 0.05 H (0.001-0.031) x10^3u/L Absolute Lymphs (auto) 2.25 (1.18-3.74) x10^3/uL Absolute Monos (auto) 0.70 (0.24-0.86) x10^3/uL Absolute Nucleated RBC 0.00 (0.00-0.012) x10^3u/L Lymphocytes % 22.6 (19.3-51.7) % Monocytes % 7.0 (4.7-12.5) % Eosinophils % 4.0 (0.7-5.8) % Basophils % 1.0 (0.1-1.2) % Absolute Granulocytes 6.44 H (1.56-6.13) x10^3/uL Basophils # 0.10 H (0.01-0.08) x10^3/uL Sodium 137 (135-145) mmol/L Potassium 4.4 (3.5-5.1) mmol/L Chloride 102 (98-107) mmol/L Carbon Dioxide 24 (22-30) mmol/L Anion Gap 15.5 H (5-15) MEQ/L BUN 16 (7-17) mg/dL Creatinine 0.95 (0.52-1.04) mg/dL Estimated GFR 77.7 ML/MIN Glucose 185 H (74-106) mg/dL Calcium 9.1 (8.4-10.2) mg/dL Urine Color Yellow (Yellow) Urine Appearance Cloudy A (Clear) Urine pH 7.0 (4.6-8.0) Ur Specific [place] 1.015 (1.005-1.030) Urine Protein 100 A (Negative) Urine Glucose (UA) Negative (Negative) mg/dL Urine Ketones Negative (Negative) Urine Blood Small A (Negative) Urine Nitrite Positive A (Negative) Urine Bilirubin Negative (Negative) Urine Urobilinogen 1.0 A (0.2) mg/dL Ur Leukocyte Esterase Large A (Negative) U Hyaline Cast (Auto) 3-5 A (0-2) /LPF Urine Microscopic RBC 11-20 A (0-5) /HPF Urine Microscopic WBC >100 A (0-5) /HPF Ur Epithelial Cells None Seen (None Seen) /HPF Urine Bacteria Many A (None Seen) /HPF Urine Culture Reflexed ORDERED SEPARATELY (NO) - Progress Progress: re-examined Air Movement: good Progress Note: The differential is urinary tract infection. Labs were drawn her CBC was within normal limits. Her UA showed multiple white cells. She gets frequent UTIs. I will start her on Levaquin.She is able to handle p.o. 02/15/25 01:16 - Departure Departure Disposition: Home Clinical Impression: Urinary tract infection Condition: Stable Critical Care Time: No Referrals: DESTINY CAMP MD [Primary Care Provider] - Follow up/PCP as directed Instructions: Urinary tract infections in adults
[2025-02-15 00:07] LABS: Absolute Neutrophil Ct (ANC) 6.44 x10^3/uL (1.56-6.13); Hematocrit 31.9 % (34.1-44.9); IMMATURE GRAN # 0.05 x10^3u/L (0.001-0.031); IMMATURE GRAN % 0.5 % (0.001-0.429); Lymphocyte (Absolute #) 2.25 x10^3/uL (1.18-3.74); Lymphocytes % 22.6 % (19.3-51.7); Mean Cell Volume 79.4 fL (79.4-94.8); Mean Corpuscular Hemoglobin 24.9 pg (25.6-32.2); Mean Corpuscular Hgb Concent. 31.3 g/dL (32.2-35.5); Mean Platelet Volume 8.2 fL (9.4-12.3); Neutrophil % 64.9 % (34.0-71.1); Platelet Count 503 x10^3/uL (182-369); Red Blood Count 4.02 x10^6/uL (3.93-5.22); Red Cell Distribution Width 15.6 % (11.7-14.4); White Blood Count 9.9 x10^3/uL (3.98-10.04)
[2025-02-15 00:19] LABS: ANION GAP 15.5 MEQ/L (5-15); Calcium 9.1 mg/dL (8.4-10.2); Creatinine 1 0.95 mg/dL (0.52-1.04); EST GLOMERULAR FILTRATION RATE 77.7 ML/MIN; Potassium 4.4 mmol/L (3.5-5.1)
[2025-02-15 00:46] LABS: Appearance Cloudy (Clear); Bacteria Many /HPF (None Seen); Bilirubin Negative (Negative); Blood Small (Negative); Epithelial Cells None Seen /HPF (None Seen); Glucose, Urine Negative (Negative); Ketones Negative (Negative); Leukocyte Esterase Large (Negative); Nitrite Positive (Negative); Protein,Urine Dip 100 (Negative); Specific Gravity 1.015 (1.005-1.030); WBC >100 /HPF (0-5)
[2025-02-15 01:18] VITALS: O2SAT 100
[2025-02-15 01:24] VITALS: RESP 18
[2025-02-15] MEDS ORDERED: Levofloxacin 250MG Tablet ONE (01:24)
[2025-02-15] MEDS: Levofloxacin 250MG Tablet PO ONE (01:25)
[2025-02-15 01:36] VITALS: BP 125/79; PULSE 85
== END 2025-02-15 01:32 | disposition home or self-care (01) ==
LOC: ED 23:21
DX: N39.0 Urinary tract infection, site not specified (principal); R10.9 Unspecified abdominal pain; Z79.01 Long term (current) use of anticoagulants; Z79.899 Other long term (current) drug therapy; Z72.0 Tobacco use
CPT/HCPCS: 36415; 80048; 81001; 85025; 87077; 87086; 87186; 99283; A9270-GY